=== PATIENT | male | born 1950 | race African-American/Black ===

== ENCOUNTER 2016-12-18 12:44 | Emergency (ER) | payer OTHER, MEDICARE ==
[~2016-12-18] VITALS: Ht 172.7 cm; Wt 57.0 kg
[2016-12-18] VITALS (9 sets, daily range): BP systolic 109–157; BP diastolic 60–84; PULSE 88–100; RESP 16–20; TEMP 97.9; O2SAT 99–100
[~2016-12-18 12:44] MED LIST: AMIT50TA3; GABA600T PO; HYDR-3533 PO
--- NOTE | 2016-12-18 13:29 | PD ---
Physical Exam Date Seen by Provider: Dec 18, 2016 Time Seen by Provider: 13:26 Narrative 66 YOBM HERE FOR SYNCOPE AND ORTHOSTATICS. NO CP. POS SOB. POS N/V. NO MELENA. NO HEMATEMESIS. 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 AWAITING BED PLACEMENT Data Data Last Documented VS Vital Signs Date Time Temp Pulse Resp B/P Pulse Ox O2 Delivery O2 Flow Rate FiO2 12/18/16 12:45 97.9 100 20 113/62 100 Room Air [facility] Medical Record Reviewed: Yes Supervised Visit with ANDRZEJ: Yes Channing Mosher Dec 18, 2016 13:29
[2016-12-18 14:12] LABS: BASOPHIL # 0.1 TH/MM3 (0-0.2); BASOPHIL % 0.5 % (0.0-2.0); EOSINOPHIL # 0.1 TH/MM3 (0-0.4); EOSINOPHIL % 0.9 % (0.0-4.0); HEMATOCRIT 29.1 % (39.0-51.0); HEMO FLAGS DIFF FINAL; LYMPH % 10.6 % (9.0-44.0); LYMPHOCYTE # 1.3 TH/MM3 (1.0-4.8); MEAN CELL VOLUME 93.6 FL (80.0-100.0); MEAN CORPUSCULAR HEMOGLOBIN 32.6 PG (27.0-34.0); MEAN CORPUSCULAR HGB CONC 34.9 % (32.0-36.0); MONO % 6.2 % (0.0-8.0); NEUT % 81.8 % (16.0-70.0); PLATELET COUNT 435 TH/MM3 (150-450); RED BLOOD COUNT 3.11 MIL/MM3 (4.50-5.90); RED CELL DISTRIBUTION WIDTH 12.9 % (11.6-17.2); WHITE BLOOD COUNT 12.2 TH/MM3 (4.0-11.0)
--- NOTE | 2016-12-18 14:15 | RADRPT ---
EXAM DATE/TIME: 12/18/2016 13:38 [facility] COMPARISON: CHEST PA & LAT, December 05, 2013, 10:57. INDICATIONS : Short of breath. MEDICAL HISTORY : Shingles. SURGICAL HISTORY : None. ENCOUNTER: Initial ACUITY: 1 week PAIN SCORE: 0/10 LOCATION: Bilateral chest FINDINGS: Parenchymal granulomas in the left chest and left hilar peter calcifications. No evidence of infiltra te or effusion. Heart size and mediastinal contours are satisfactory. CONCLUSION: Stable chest appearance Duncan Oliver MD on December 18, 2016 at 14:08 Board Certified Radiologist. This report was verified electronically.
[2016-12-18 14:25] LABS: APTT (PATIENT) 25.9 SEC (24.3-30.1); PROTHROMBIN TIME - PATIENT 10.6 SEC (9.8-11.6)
[2016-12-18 14:33] LABS: ALT (GPT) 99 U/L (12-78); ANION GAP 8 MEQ/L (5-15); AST (GOT) 59 U/L (15-37); BICARBONATE 28.4 MEQ/L (21.0-32.0); BLOOD UREA NITROGEN 15 MG/DL (7-18); CHLORIDE 99 MEQ/L (98-107); GLOMERULAR FILTRATION RATE 72 ML/MIN (>89); POTASSIUM 4.3 MEQ/L (3.5-5.1); SODIUM (NA) 135 MEQ/L (136-145)
[2016-12-18 14:37] LABS: ALKALINE PHOSPHATASE 109 U/L (45-117); TOTAL BILIRUBIN ADULT 0.5 MG/DL (0.2-1.0)
--- NOTE | 2016-12-18 14:41 | PD ---
HPI Chief Complaint: Syncope/Near-Syncope Time Seen by Provider: 14:41 Travel History International Travel<30 days: No Contact w/Intl Traveler<30days: No Traveled to known affect area: No History of Present Illness HPI 66-year-old male came to the emergency room with history of repeated syncopal episode over past 1 week. Patient said he passed out about 10 times in past 1 week. He went to the [facility] and they sent him to the emergency room. No history of chest pain or headache. Patient says he had something similar about a year or 2 ago. He was recently diagnosed with shingles on the right side of his chest and he is on gabapentin for that. He appears to be moderate distress. He was seen by the provider in triage and workup was initiated. By the time he came in the emergency room there was blood test results and they were within acceptable limits. Vital signs are stable. Patient has history of HIV. He was slightly tachycardic in triage. Patient says his CD4 count and viral load is doing really good. He is compliant with his medications. [facility] Past Medical History Narrative Medical List of his past medical, surgical, social and family history was reviewed from the nursing note. Blood Disorders: No Cancer: No Diminished Hearing: No Endocrine: No Gastrointestinal Disorders: No Genitourinary: No Hepatitis: Yes (HEPATITIS C) Immune Disorder: Yes (HIV+ HEP C) Musculoskeletal: Yes Neurologic: Yes (RECENT PERIODS OF DIZZINESS) Psychiatric: No (DENIES) Reproductive: No Respiratory: Yes Shingles: Yes Past Surgical History AICD: No Arteriovenous Shunt: No Insulin Pump: No Joint Replacement: No Pacemaker: No Other Surgery: No Social History Alcohol Use: Yes (PACK OF BEER A WEEK) Tobacco Use: Yes (3/4 PACK A DAY) Substance Use: Yes (SMOKES COCAINE, USED PRIOR TO ADMIT) Allergies-Medications (Allergen,Severity, Reaction): Coded Allergies: No Known Allergies (Verified , 12/18/16) Comments List of his allergies reviewed from the nursing note. Reported Meds & Prescriptions Reported Meds & Active Scripts Active Reported Amitriptyline (Amitriptyline HCl) 50 Mg Tab 40 Mg .ROUTE DAILY Gabapentin 600 Mg Tab 600 Mg PO TID Narrative Medication List of his home medications reviewed from the nursing note. Review of Systems Except as stated in HPI: all other systems reviewed are Neg Physical Exam Narrative GENERAL: Awake, alert, anxious, moderate distress, emaciated SKIN: Focused skin assessment warm/dry. HEAD: Atraumatic. Normocephalic. EYES: Pupils equal and round. No scleral icterus. No injection or drainage. ENT: No nasal bleeding or discharge. Dry Mucous members NECK: Trachea midline. No JVD. CARDIOVASCULAR: Regular rate and rhythm. No murmur appreciated. RESPIRATORY: No accessory muscle use. Clear to auscultation. Breath sounds equal bilaterally. GASTROINTESTINAL: Abdomen soft, non-tender, nondistended. Hepatic and splenic margins not palpable. MUSCULOSKELETAL: No obvious deformities. No clubbing. No cyanosis. No edema. NEUROLOGICAL: Awake and alert. No obvious cranial nerve deficits. Motor grossly within normal limits. Normal speech. PSYCHIATRIC: Appropriate mood and affect; insight and judgment normal. Data Data Last Documented VS Vital Signs Date Time Temp Pulse Resp B/P Pulse Ox O2 Delivery O2 Flow Rate FiO2 12/18/16 18:49 82 16 126/67 95 12/18/16 15:30 Room Air 12/18/16 12:45 97.9 Orders Electrocardiogram (12/18/16 13:29) Complete Blood Count With Diff (12/18/16 13:29) Comprehensive Metabolic Panel (12/18/16 13:29) Troponin I (12/18/16 13:29) Prothrombin Time / Inr (Pt) (12/18/16 13:29) Act Partial Throm Time (Ptt) (12/18/16 13:29) Chest, Single Ap (12/18/16 13:29) Iv Access Insert/Monitor (12/18/16 13:29) Ecg Monitoring (12/18/16 13:29) Oximetry (12/18/16 13:29) Type And Screen (12/18/16 13:29) Ct Brain W/O Iv Contrast(Rout) (12/18/16 ) Orthostatic Vital Signs (12/18/16 14:48) Sodium Chlor 0.9% 1000 Ml Inj (Ns 1000 M (12/18/16 15:00) Sodium Chlor 0.9% 1000 Ml Inj (Ns 1000 M (12/18/16 15:30) Lactic Acid (12/18/16 15:29) Urinalysis - C+S If Indicated (12/18/16 15:30) Labs Laboratory Tests Test 12/18/16 12/18/16 12/18/16 13:52 15:30 16:15 White Blood Count 12.2 TH/MM3 Red Blood Count 3.11 MIL/MM3 Hemoglobin 10.1 GM/DL Hematocrit 29.1 % Mean Corpuscular Volume 93.6 FL Mean Corpuscular Hemoglobin 32.6 PG Mean Corpuscular Hemoglobin 34.9 % Concent Red Cell Distribution Width 12.9 % Platelet Count 435 TH/MM3 Mean Platelet Volume 7.4 FL Neutrophils (%) (Auto) 81.8 % Lymphocytes (%) (Auto) 10.6 % Monocytes (%) (Auto) 6.2 % Eosinophils (%) (Auto) 0.9 % Basophils (%) (Auto) 0.5 % Neutrophils # (Auto) 10.0 TH/MM3 Lymphocytes # (Auto) 1.3 TH/MM3 Monocytes # (Auto) 0.8 TH/MM3 Eosinophils # (Auto) 0.1 TH/MM3 Basophils # (Auto) 0.1 TH/MM3 CBC Comment DIFF FINAL Differential Comment Prothrombin Time 10.6 SEC Prothromb Time International 1.0 RATIO Ratio Activated Partial 25.9 SEC Thromboplast Time Sodium Level 135 MEQ/L Potassium Level 4.3 MEQ/L Chloride Level 99 MEQ/L Carbon Dioxide Level 28.4 MEQ/L Anion Gap 8 MEQ/L Blood Urea Nitrogen 15 MG/DL Creatinine 1.22 MG/DL Estimat Glomerular Filtration 72 ML/MIN Rate Random Glucose 98 MG/DL Calcium Level 9.2 MG/DL Total Bilirubin 0.5 MG/DL Aspartate Amino Transf 59 U/L (AST/SGOT) Alanine Aminotransferase 99 U/L (ALT/SGPT) Alkaline Phosphatase 109 U/L Troponin I LESS THAN 0.02 NG/ML Total Protein 8.1 GM/DL Albumin 3.2 GM/DL Blood Type B NEGATIVE Antibody Screen NEGATIVE Blood Bank Comment Urine Color YELLOW Urine Turbidity HAZY Urine pH 7.0 Urine Specific [place] 1.018 Urine Protein TRACE mg/dL Urine Glucose (UA) NEG mg/dL Urine Ketones NEG mg/dL Urine Occult Blood NEG Urine Nitrite NEG Urine Bilirubin NEG Urine Urobilinogen 2.0 MG/DL Urine Leukocyte Esterase NEG Urine RBC LESS THAN 1 /hpf Urine WBC 1 /hpf Urine Squamous Epithelial <1 /hpf Cells Urine Bacteria RARE /hpf Microscopic Urinalysis Comment CULT NOT INDICATED Lactic Acid Level 0.7 mmol/L MDM Medical Decision Making Medical Screen Exam Complete: Yes Emergency Medical Condition: Yes Medical Record Reviewed: Yes Interpretation(s) Twelve-lead EKG was reviewed by me. Normal sinus rhythm, normal axis, nonspecific ST-T wave changes. Heart rate of 82 bpm. Differential Diagnosis Dehydration, orthostatic hypotension, infection, arrhythmia Narrative Course 3:27 PM orthostatic vital sign was positive. When patient stood up his blood pressure dropped by 22 mmHg. awaiting for the CAT scan to be done and resulted. I've ordered 2 L of IV fluid bolus. Patient is afebrile but the white count is slightly elevated with left shift. I will order a lactic acid level as well. 5:30 PM patient received 2 L of IV fluid bolus and the repeat orthostatic vital signs were completely back to normal. Since all the other tests are within normal limits including his CAT scan I will discharge him home. Procedures EKG Prior to Arrival: Yes Diagnosis Primary Impression: Syncope Qualified Code: R55 - Syncope, unspecified syncope type Additional Impressions: Orthostatic hypotension Dehydration Referrals: Primary Care Physician 2 days Additional Instructions: Please return to the ER if the condition worsens or any other new concerns. Drink lots of fluids since he were very dehydrated. Return to the ER if the condition worsens or any other new concerns. Disposition: 01 DISCHARGE HOME Condition: Stable Kirby Soto MD Dec 18, 2016 14:41
[2016-12-18] MEDS ORDERED: SODIUM CHLOR 0.9% 1000 ML INJ 1,000 ML IV ONE ×2 (15:00→15:30)
--- NOTE | 2016-12-18 16:10 | RADRPT ---
EXAM DATE/TIME: 12/18/2016 15:56 [facility] COMPARISON: CT CERVICAL SPINE W/O CONTRAST, March 26, 2013, 3:11. INDICATIONS : Syncopal episode. RADIATION DOSE: 42.45 CTDIvol (mGy) MEDICAL HISTORY : Hepatitis C. Drug abuse. SURGICAL HISTORY : None. ENCOUNTER: Initial ACUITY: 1 day PAIN SCALE: 0/10 LOCATION: cranial TECHNIQUE: Multiple contiguous axial images were obtained of the head. Using automated exposure control and adj ustment of the mA and/or kV according to patient size, radiation dose was kept as low as reasonably a chievable to obtain optimal diagnostic quality images. FINDINGS: CEREBRUM: The ventricles are normal for age. No evidence of midline shift, mass lesion, hemorrhage or acute in farction. No extra-axial fluid collections are seen. POSTERIOR FOSSA: The cerebellum and brainstem are intact. The 4th ventricle is midline. The cerebellopontine angle i s unremarkable. EXTRACRANIAL: The visualized portion of the orbits is intact. SKULL: The calvaria is intact. No evidence of skull fracture. CONCLUSION: 1. No acute intracranial abnormality is identified. Ras Gregorio MD on December 18, 2016 at 16:07 Board Certified Radiologist. This report was verified electronically.
[2016-12-18 17:51] LABS: BACTERIA, URINE RARE /hpf; BLOOD, URINE NEG (NEG); COMMENT (UR) CULT NOT INDICATED; CULTURE IF INDICATED CULT NOT INDICATED; GLUCOSE,URINE NEG (NEG); KETONE, URINE NEG (NEG); NITRITE,URINE NEG (NEG); SQUAMOUS EPITHELIAL CELL URINE <1 /hpf (0-5); URINE COLOR YELLOW (YELLW/STRAW)
--- NOTE | 2016-12-19 10:37 | EKG ---
Date Performed: 12/18/2016 Time Performed: 13:34:47 PTAGE: 66 years EKG: Sinus rhythm NORMAL ECG Compared to prior tracing no significant change PREVIOUS TRACING : 03/26/2013 14.17 DOCTOR: Sheri Bonner Interpretating Date/Time 12/19/2016 10:32:49
== END 2016-12-18 18:51 | disposition home or self-care (01) ==
LOC: NEPC 12:44
DX: R55 Syncope and collapse (principal); I95.1 Orthostatic hypotension; E86.0 Dehydration; R06.02 Shortness of breath; D72.829 Elevated white blood cell count, unspecified; Z21 Asymptomatic human immunodeficiency virus [HIV] infection status; R00.0 Tachycardia, unspecified; B19.20 Unspecified viral hepatitis C without hepatic coma
CPT/HCPCS: 70450; 71010; 80053; 81001; 83605; 84484; 85025; 85610; 85730; 86850; 86900; 86901; 93005; 96360; 96361; 99284; J7030

== ENCOUNTER 2016-12-20 15:30 | Inpatient (IN) | payer MEDICARE, OTHER ==
[~2016-12-20] VITALS: Ht 172.7 cm; Wt 53.9 kg
[~2016-12-20 15:30] MED LIST changes: -HYDR-3533 PO
[2016-12-20 15:33] VITALS: BP 94/60; PULSE 93; RESP 26; TEMP 97.4; O2SAT 99
--- NOTE | 2016-12-20 15:53 | PD ---
HPI Chief Complaint: Syncope/Near-Syncope Time Seen by Provider: 15:53 Travel History International Travel<30 days: No Contact w/Intl Traveler<30days: No Traveled to known affect area: No History of Present Illness HPI 66-year-old male with history of COPD, tobacco dependency, HIV, hepatitis C presents to emergency department for evaluation of a syncopal episode. Patient was seen and evaluated 2 days ago following a syncopal episode. He has had 10 other episodes in the last week. Patient states today he got up to leave and "the next thing I knew I was on the floor." Patient fall was witnessed by his and he did not strike his head. [facility] ambulance was called the patient's brought to the emergency department. Patient denies any chest pain or tightness. No difficulty. No headache. No focal deficits. No other symptoms to report. Patient states that he typically drinks 4-6 beers daily but has not since his recent hospital evaluation 2 days ago. Patient states that his viral load is undetectable. He reports taking all medication as prescribed. PFSH Past Medical History Autoimmune Disease: Yes (HIV ) Blood Disorders: No Cancer: No Diminished Hearing: No Endocrine: No Gastrointestinal Disorders: No Genitourinary: No Hepatitis: Yes (HEPATITIS C) Immune Disorder: Yes (HIV+ HEP C) Musculoskeletal: Yes Neurologic: Yes (RECENT PERIODS OF DIZZINESS) Psychiatric: No (DENIES) Reproductive: No Respiratory: Yes Shingles: Yes Past Surgical History AICD: No Arteriovenous Shunt: No Insulin Pump: No Joint Replacement: No Pacemaker: No Other Surgery: No Social History Alcohol Use: Yes (PACK OF BEER A WEEK) Tobacco Use: Yes (3/4 PACK A DAY) Substance Use: Yes (SMOKES COCAINE,LAST USE 5 YEARS AGO ) Allergies-Medications (Allergen,Severity, Reaction): Coded Allergies: No Known Allergies (Verified , 12/18/16) Reported Meds & Prescriptions Reported Meds & Active Scripts Active Reported Amitriptyline (Amitriptyline HCl) 50 Mg Tab 40 Mg .ROUTE DAILY Gabapentin 600 Mg Tab 600 Mg PO TID Review of Systems Except as stated in HPI: all other systems reviewed are Neg Physical Exam Narrative GENERAL: Well-nourished male patient, in no acute distress SKIN: Focused skin assessment warm/dry. HEAD: Atraumatic. Normocephalic. EYES: Pupils equal and round. No scleral icterus. No injection or drainage. ENT: No nasal bleeding or discharge. Mucous membranes pink and moist. NECK: Trachea midline. No JVD. CARDIOVASCULAR: Regular rate and rhythm. No murmur appreciated. RESPIRATORY: No accessory muscle use. Clear to auscultation. Breath sounds equal bilaterally. GASTROINTESTINAL: Abdomen soft, non-tender, nondistended. Hepatic and splenic margins not palpable. MUSCULOSKELETAL: No obvious deformities. No clubbing. No cyanosis. No edema. NEUROLOGICAL: Awake and alert. No obvious cranial nerve deficits. Motor grossly within normal limits. Normal speech. PSYCHIATRIC: Appropriate mood and affect; insight and judgment normal. Data Data Last Documented VS Vital Signs Date Time Temp Pulse Resp B/P Pulse Ox O2 Delivery O2 Flow Rate FiO2 12/20/16 16:58 96 84/50 12/20/16 15:58 18 98 Room Air 12/20/16 15:33 97.4 Orders Electrocardiogram (12/20/16 15:48) Basic Metabolic Panel (Bmp) (12/20/16 15:48) Complete Blood Count With Diff (12/20/16 15:48) Magnesium (Mg) (12/20/16 15:48) Ckmb (Isoenzyme) Profile (12/20/16 15:48) Troponin I (12/20/16 15:48) Act Partial Throm Time (Ptt) (12/20/16 15:48) Prothrombin Time / Inr (Pt) (12/20/16 15:48) Urinalysis - C+S If Indicated (12/20/16 15:48) Ecg Monitoring (12/20/16 15:48) Iv Access Insert/Monitor (12/20/16 15:48) Oximetry (12/20/16 15:48) Sodium Chloride 0.9% Flush (Ns Flush) (12/20/16 16:00) Sodium Chlor 0.9% 1000 Ml Inj (Ns 1000 M (12/20/16 16:45) Orthostatic Blood Pressure (12/20/16 16:36) Admit Order (Ed Use Only) (12/20/16 18:52) Labs Laboratory Tests Test 12/20/16 12/20/16 15:50 17:50 White Blood Count 11.9 TH/MM3 Red Blood Count 2.94 MIL/MM3 Hemoglobin 9.2 GM/DL Hematocrit 27.4 % Mean Corpuscular Volume 93.3 FL Mean Corpuscular Hemoglobin 31.2 PG Mean Corpuscular Hemoglobin 33.4 % Concent Red Cell Distribution Width 13.2 % Platelet Count 480 TH/MM3 Mean Platelet Volume 7.1 FL Neutrophils (%) (Auto) 79.8 % Lymphocytes (%) (Auto) 12.5 % Monocytes (%) (Auto) 6.0 % Eosinophils (%) (Auto) 1.0 % Basophils (%) (Auto) 0.7 % Neutrophils # (Auto) 9.5 TH/MM3 Lymphocytes # (Auto) 1.5 TH/MM3 Monocytes # (Auto) 0.7 TH/MM3 Eosinophils # (Auto) 0.1 TH/MM3 Basophils # (Auto) 0.1 TH/MM3 CBC Comment DIFF FINAL Differential Comment Prothrombin Time 10.8 SEC Prothromb Time International 1.0 RATIO Ratio Activated Partial 25.6 SEC Thromboplast Time Sodium Level 138 MEQ/L Potassium Level 3.8 MEQ/L Chloride Level 105 MEQ/L Carbon Dioxide Level 26.6 MEQ/L Anion Gap 6 MEQ/L Blood Urea Nitrogen 11 MG/DL Creatinine 1.02 MG/DL Estimat Glomerular Filtration 88 ML/MIN Rate Random Glucose 102 MG/DL Calcium Level 8.8 MG/DL Magnesium Level 2.2 MG/DL Total Creatine Kinase 69 U/L Troponin I LESS THAN 0.02 NG/ML Urine Color YELLOW Urine Turbidity HAZY Urine pH 7.0 Urine Specific [place] 1.015 Urine Protein TRACE mg/dL Urine Glucose (UA) NEG mg/dL Urine Ketones NEG mg/dL Urine Occult Blood NEG Urine Nitrite NEG Urine Bilirubin NEG Urine Urobilinogen 2.0 MG/DL Urine Leukocyte Esterase NEG Urine RBC LESS THAN 1 /hpf Urine WBC 2 /hpf Urine Squamous Epithelial <1 /hpf Cells Urine Mucus FEW /lpf Microscopic Urinalysis Comment CULT NOT INDICATED MDM Medical Decision Making Medical Screen Exam Complete: Yes Emergency Medical Condition: Yes Medical Record Reviewed: Yes Differential Diagnosis Syncope versus near-syncope versus orthostatic hypotension versus electrode abnormality versus dehydration versus cardiac etiology versus intracranial etiology Narrative Course 66-year-old male presents to the emergency department for evaluation following a syncopal episode. Patient appears without distress. No focal deficits or weakness. From a lying position to standing, patient's systolic drops 16mmHg. I discussed the patient my attending physician Dr. Stauffer. This is in the patient's second visit this week for syncopal episode. He'll be admitted observation for further evaluation of this I spoke with Dr. Andrea. Patient will be admitted to [facility] service. Diagnosis Primary Impression: Syncope due to orthostatic hypotension Admitting Information Admitting Physician Requests: Observation Condition: Stable LaciInes ANN Dec 20, 2016 15:53
[2016-12-20 15:58] VITALS: BP 124/65; PULSE 81; RESP 18; O2SAT 98
[2016-12-20] MEDS ORDERED: SODIUM CHLORIDE 0.9% FLUSH 10 ML FLUSH IVF PRN (16:00)
[2016-12-20 16:05] LABS: AUTOMATED NEUTROPHIL # 9.5 TH/MM3 (1.8-7.7); BASOPHIL # 0.1 TH/MM3 (0-0.2); BASOPHIL % 0.7 % (0.0-2.0); EOSINOPHIL # 0.1 TH/MM3 (0-0.4); HEMATOCRIT 27.4 % (39.0-51.0); HEMO FLAGS DIFF FINAL; LYMPH % 12.5 % (9.0-44.0); LYMPHOCYTE # 1.5 TH/MM3 (1.0-4.8); MEAN CELL VOLUME 93.3 FL (80.0-100.0); MEAN CORPUSCULAR HEMOGLOBIN 31.2 PG (27.0-34.0); MEAN CORPUSCULAR HGB CONC 33.4 % (32.0-36.0); NEUT % 79.8 % (16.0-70.0); PLATELET COUNT 480 TH/MM3 (150-450); RED BLOOD COUNT 2.94 MIL/MM3 (4.50-5.90); RED CELL DISTRIBUTION WIDTH 13.2 % (11.6-17.2); WHITE BLOOD COUNT 11.9 TH/MM3 (4.0-11.0)
[2016-12-20 16:18] LABS: APTT (PATIENT) 25.6 SEC (24.3-30.1); PROTHROMBIN TIME - PATIENT 10.8 SEC (9.8-11.6)
[2016-12-20 16:31] LABS: ANION GAP 6 MEQ/L (5-15); BICARBONATE 26.6 MEQ/L (21.0-32.0); BLOOD UREA NITROGEN 11 MG/DL (7-18); CHLORIDE 105 MEQ/L (98-107); GLOMERULAR FILTRATION RATE 88 ML/MIN (>89); MAGNESIUM 2.2 MG/DL (1.5-2.5); POTASSIUM 3.8 MEQ/L (3.5-5.1); SODIUM (NA) 138 MEQ/L (136-145)
[2016-12-20 16:37] LABS: CREATINE KINASE 69 U/L (39-308)
[2016-12-20] MEDS ORDERED: SODIUM CHLOR 0.9% 1000 ML INJ 1,000 ML IV ONE (16:45)
[2016-12-20 16:57] VITALS: BP_SYST 100; BP_SYST 95; BP_DIAS 57; BP_DIAS 60
[2016-12-20 16:58] VITALS: BP 84/50
[2016-12-20 18:21] LABS: BLOOD, URINE NEG (NEG); COMMENT (UR) CULT NOT INDICATED; CULTURE IF INDICATED CULT NOT INDICATED; GLUCOSE,URINE NEG (NEG); KETONE, URINE NEG (NEG); MUCUS URINE FEW /lpf (OCC); NITRITE,URINE NEG (NEG); SQUAMOUS EPITHELIAL CELL URINE <1 /hpf (0-5); URINE COLOR YELLOW (YELLW/STRAW)
[2016-12-20] MEDS ORDERED: AMIT10TA6 PO (19:15)
[2016-12-20] MEDS ORDERED: ELVI1TAB3 PO (19:15)
[2016-12-20 19:20] VITALS: BP 116/72; PULSE 89; RESP 22; O2SAT 99
--- NOTE | 2016-12-20 19:54 | HHI.HP ---
HPI Service [facility] Primary Care Physician [facility] Admission Diagnosis syncope; orthostatic hypotension Diagnoses: (1) Syncope (2) Anemia (3) HIV (human immunodeficiency virus infection) Chief Complaint: Recurrent Syncope Travel History International Travel<30 Days: No Contact w/Intl Traveler <30 Da: No Traveled to Known Affected Are: No History of Present Illness Mr. Kohli is a 66 y/o male with a history of HIV who presented to the ER for the second time in 2 days to be evaluated for recurrent syncopal episodes. The patient is seen in the emergency room. He reports that over the past week he has passed out 7 times and has passed out about 10 times over the past 2 weeks. His first syncopal episode occurred about a year ago and he was seen at the [place] for this and is uncertain about the extent of workup that they did though thinks he may have looked at his heart ? Echocardiogram?. He came to ER on Sunday12/18/16; testing including chest x-ray, CT of head were negative ; he was discharged. Today, he was walking out of his front door and he passed out for a few minutes ; no chest pain, shortness of breath, dizziness, palpitations prior to syncopal episode. Lost bladder control during syncopal episode. Denies biting tongue. He also reports having black stool about 5 days ago and chronic intermittent abdominal pain radiating from central abdomen to his back. He denies history of stomach ulcers or stomach problems. He denies ever having an endoscopy. Of note, his hemoglobin was 10.1 on 12/18/2016 and is 9.2 today in the ER. Denies history of diabetes, hypertension, copd, or CVA . Review of Systems Except as stated in HPI: all other systems reviewed are Neg Past Family Social History Past Medical History HIV + on HAART Shingles 5 years ago with chronic right lower chest wall pain since . Past Surgical History Denies previous surgeries . Reported Medications Reported Meds & Active Scripts Active Reported Genvoya (Qvmigktkilye-Gkmwcsftgx-Rpflbjoashlp-Tenofvir) [phone] Mg Tab 1 Tab PO DAILY Amitriptyline (Amitriptyline HCl) 10 Mg Tab 40 Mg PO DAILY Gabapentin 600 Mg Tab 600 Mg PO TID . Allergies: Coded Allergies: No Known Allergies (Verified , 12/18/16) Active Ordered Medications Current Medications Sodium Chloride 2 ml 2 ml UNSCH PRN IVF FLUSH AFTER USING IV ACCESS; Start 12/20 at 16:00 Sodium Chloride 1,000 ml @ 999 mls/hr BOLUS ONCE IV Last administered on t 16:56; Start 12/20/16 at 16:45; Stop 12/20/16 at 17:45; Status DC Sodium Chloride (NS 1000 ml Inj) 1,000 ml @ 100 mls/hr Q10H IV ; Start 12/20/16 at 19:45; Status UNV Amitriptyline HCl (Elavil) 40 mg DAILY PO ; Start 12/21/16 at 09:00; Status UNV Gabapentin (Neurontin) 600 mg TID PO ; Start 12/21/16 at 09:00; Status UNV Non-Formulary Medication 1 tab DAILY PO ; Start 12/21/16 at 09:00; Status UNV . Family History denies any significant family medical history . Social History Tobacco: 1 - 3 cigarettes per day Alcohol: no alcohol intake since Sunday; was drinking 6/day previously Illicit Drugs: denies Physical Exam Vital Signs Vital Signs Date Time Temp Pulse Resp B/P Pulse Ox O2 Delivery O2 Flow Rate FiO2 12/20/16 19:21 87 22 99 Room Air 12/20/16 19:20 89 22 116/72 99 Room Air 12/20/16 16:58 96 84/50 12/20/16 16:57 80 100/57 12/20/16 16:57 82 95/60 12/20/16 15:58 81 18 124/65 98 Room Air 12/20/16 15:54 82 99 12/20/16 15:33 97.4 93 26 94/60 99 Room Air Physical Exam GENERAL: This is a thin male patient, in no apparent distress. SKIN: No rashes, ecchymoses or lesions. Cool and dry. HEAD: Atraumatic. Normocephalic. EYES: No scleral icterus. No injection or drainage. ENT: Nose without bleeding, purulent drainage. NECK: Trachea midline. No JVD or lymphadenopathy. CARDIOVASCULAR: Regular rate and rhythm without murmurs, gallops, or rubs. RESPIRATORY: Clear to auscultation. Breath sounds equal bilaterally. No wheezes , rales, or rhonchi. GASTROINTESTINAL: Abdomen soft, non-tender, nondistended. No guarding. MUSCULOSKELETAL: Extremities without clubbing, cyanosis, or edema. No calf tenderness. NEUROLOGICAL: Awake and alert. Motor and sensory grossly within normal limits. Normal speech. . Laboratory Laboratory Tests Test 12/20/16 12/20/16 15:50 17:50 White Blood Count 11.9 Red Blood Count 2.94 Hemoglobin 9.2 Hematocrit 27.4 Mean Corpuscular Volume 93.3 Mean Corpuscular Hemoglobin 31.2 Mean Corpuscular Hemoglobin 33.4 Concent Red Cell Distribution Width 13.2 Platelet Count 480 Mean Platelet Volume 7.1 Neutrophils (%) (Auto) 79.8 Lymphocytes (%) (Auto) 12.5 Monocytes (%) (Auto) 6.0 Eosinophils (%) (Auto) 1.0 Basophils (%) (Auto) 0.7 Neutrophils # (Auto) 9.5 Lymphocytes # (Auto) 1.5 Monocytes # (Auto) 0.7 Eosinophils # (Auto) 0.1 Basophils # (Auto) 0.1 CBC Comment DIFF FINAL Differential Comment Prothrombin Time 10.8 Prothromb Time International 1.0 Ratio Activated Partial 25.6 Thromboplast Time Sodium Level 138 Potassium Level 3.8 Chloride Level 105 Carbon Dioxide Level 26.6 Anion Gap 6 Blood Urea Nitrogen 11 Creatinine 1.02 Estimat Glomerular Filtration 88 Rate Random Glucose 102 Calcium Level 8.8 Magnesium Level 2.2 Total Creatine Kinase 69 Troponin I LESS THAN 0.02 Urine Color YELLOW Urine Turbidity HAZY Urine pH 7.0 Urine Specific [place] 1.015 Urine Protein TRACE Urine Glucose (UA) NEG Urine Ketones NEG Urine Occult Blood NEG Urine Nitrite NEG Urine Bilirubin NEG Urine Urobilinogen 2.0 Urine Leukocyte Esterase NEG Urine RBC LESS THAN 1 Urine WBC 2 Urine Squamous Epithelial <1 Cells Urine Mucus FEW Microscopic Urinalysis Comment CULT NOT INDICATED Result Diagram: 12/20/16 1550 12/20/16 1550 Assessment and Plan Problem List: (1) Syncope ICD Code: R55 Status: Acute (2) Anemia ICD Code: D64.9 Status: Acute (3) HIV (human immunodeficiency virus infection) ICD Code: Z21 Status: Chronic Assessment and Plan Mr. Kohli is a 66 y/o male with a history of HIV who presented to the ER for the second time in 2 days to be evaluated for recurrent syncopal episodes. Recurrent syncopal episodes - IV fluid hydration with normal saline at 100 cc/h - Continuous cardiac telemetry to monitor for arrhythmia - 2-D echocardiogram to evaluate structure and function of heart - Portable EEG - Consult neurology and cardiology - Check orthostatic blood pressure readings Anemia with history of black stools - hemoglobin was 10.1 on 12/18/2016 and is 9.2 today - Check iron studies and ferritin level - Check stool for occult blood - Recheck CBC in a.m. and follow trends in H&H - Transfuse if indicated HIV - Restart home medications DVT prophylaxis - SCDs Written by Sheila Nelson, acting as scribe for Dr. Medrano on 12/20/16 at 19:52. patient was seen and examined today. 66 y/o male presented with recurrent syncope. was seen two days ago for the same reason. reports urine incontinence while he passed out today. will do EEG and consult neurology. check echo and monitor on telemetry. check iron panel and stool for blood. . Discussed Condition With ER physician and patient . Problem Qualifiers (1) Syncope: Qualified Code: R55 - Syncope, unspecified syncope type (2) Anemia: Qualified Code: D64.9 - Anemia, unspecified type Sheila Nelson Dec 20, 2016 19:54 Leti Medrano MD Dec 20, 2016 20:01
[2016-12-20] MEDS: SODIUM CHLOR 0.9% 1000 ML INJ 1,000 ML IV SCH (20:17)
[2016-12-20 21:12] LABS: FERRITIN 13 NG/ML (26-388); TRANSFERRIN IRON PROFILE 237 MG/DL (200-360)
[2016-12-20 22:53] VITALS: BP 118/68; PULSE 89; RESP 18; O2SAT 99
[2016-12-21] VITALS (8 sets, daily range): BP systolic 88–128; BP diastolic 52–72; PULSE 75–90; RESP 16–20; TEMP 96.3–98.3; O2SAT 96–100
[2016-12-21] MEDS: SODIUM CHLOR 0.9% 1000 ML INJ 1,000 ML IV SCH ×2 (03:55→17:30)
[2016-12-21 05:20] LABS: AUTOMATED NEUTROPHIL # 8.6 TH/MM3 (1.8-7.7); BASOPHIL # 0.1 TH/MM3 (0-0.2); BASOPHIL % 0.6 % (0.0-2.0); EOSINOPHIL # 0.1 TH/MM3 (0-0.4); EOSINOPHIL % 0.8 % (0.0-4.0); HEMATOCRIT 25.7 % (39.0-51.0); HEMO FLAGS DIFF FINAL; LYMPH % 12.1 % (9.0-44.0); LYMPHOCYTE # 1.3 TH/MM3 (1.0-4.8); MEAN CELL VOLUME 92.9 FL (80.0-100.0); MEAN CORPUSCULAR HEMOGLOBIN 31.5 PG (27.0-34.0); MEAN CORPUSCULAR HGB CONC 33.9 % (32.0-36.0); MONO % 6.5 % (0.0-8.0); PLATELET COUNT 398 TH/MM3 (150-450); RED BLOOD COUNT 2.77 MIL/MM3 (4.50-5.90); RED CELL DISTRIBUTION WIDTH 13.1 % (11.6-17.2); WHITE BLOOD COUNT 10.8 TH/MM3 (4.0-11.0)
[2016-12-21] MEDS ORDERED: GENVOYA PO SCH (09:00)
--- NOTE | 2016-12-21 09:17 | HHI.PR ---
Subjective Remarks Patient states that he has no dizziness. No recurrent passing out spells in the hospital. Has not had any bowel movement since coming in. He does complain of left-sided flank pain that has been ongoing for the past 4 days even prior to the syncope episode. [facility] Objective Vitals Vital Signs Date Time Temp Pulse Resp B/P Pulse Ox O2 Delivery O2 Flow Rate FiO2 12/21/16 04:47 98.3 82 18 110/66 100 12/21/16 04:33 75 12/20/16 22:53 89 18 118/68 99 12/20/16 19:21 87 22 99 Room Air 12/20/16 19:20 89 22 116/72 99 Room Air 12/20/16 16:58 96 84/50 12/20/16 16:57 80 100/57 12/20/16 16:57 82 95/60 12/20/16 15:58 81 18 124/65 98 Room Air 12/20/16 15:54 82 99 12/20/16 15:33 97.4 93 26 94/60 99 Room Air Result Diagram: 12/21/16 0409 12/20/16 1550 Other Results Item Value Date Time Hemoglobin 8.7 GM/DL L 12/21/16408 Hematocrit 25.7 % L 12/21/16408 Objective Remarks GENERAL: This is a well-nourished, thin, well-developed patient, in no apparent distress. CARDIOVASCULAR: Regular rate and rhythm RESPIRATORY: Clear to auscultation. Breath sounds equal bilaterally. No wheezes , rales, or rhonchi. GASTROINTESTINAL: Abdomen soft, mild left flank tenderness, no CVA tenderness, no guarding or rebound, nondistended. Normal active bowel sounds MUSCULOSKELETAL: Extremities without clubbing, cyanosis, or edema. NEURO: Alert & Oriented x4 to person, place, time, situation. Moves all ext x4 A/P Problem List: (1) Syncope ICD Code: R55 Status: Acute (2) Anemia ICD Code: D64.9 Status: Acute (3) HIV (human immunodeficiency virus infection) ICD Code: Z21 Status: Chronic Assessment and Plan 66 y/o male with a history of HIV who presented to the ER for the second time in 2 days to be evaluated for recurrent syncopal episodes. Recurrent syncopal episodes - Continue IV fluid hydration with normal saline at 100 cc/h -Continuous cardiac telemetry to monitor for arrhythmia - 2-D echocardiogram to evaluate structure and function of heart - Portable EEG - Consult neurology and cardiology for further recommendations - Possible orthostatic hypotension on presentation emergency room, continue fluid hydration, rule out active GI bleed. Anemia with history of black stools - hemoglobin was 10.1 on 12/18/2016 and 9.2 on presentation the ED, repeat hemoglobin shows 8.7, repeat, serial hemoglobin to rule out active bleed. - Check iron studies and ferritin level - Check stool for occult blood Start PPI, if hemoglobin continues to trend down, GI consultation. Obtain CT abdomen pelvis for left flank pain HIV - Restart home medications DVT prophylaxis - SCDs, and a coagulation contraindicated at this time until GI bleeding is ruled out. Discharge Planning Discharge home when clinically stable. Problem Qualifiers (1) Syncope: Qualified Code: R55 - Syncope, unspecified syncope type (2) Anemia: Qualified Code: D64.9 - Anemia, unspecified type Allyn Sequeira MD Dec 21, 2016 09:17 (1) Syncope: Qualified Code: R55 - Syncope, unspecified syncope type (2) Anemia: Qualified Code: D64.9 - Anemia, unspecified type Allyn Sequeira MD Dec 21, 2016 09:17
[2016-12-21] MEDS: GABAPENTIN 300 MG CAP PO SCH ×3 (09:36→17:29)
[2016-12-21] MEDS: AMITRIPTYLINE HCL 10 MG TAB PO SCH (09:36)
[2016-12-21] MEDS ORDERED: PANTOPRAZOLE SOD 40 MG DELAYED RELEASE TAB PO ONE (09:45)
[2016-12-21] MEDS: GENVOYA PO SCH (10:24)
[2016-12-21] MEDS ORDERED: DIATRIZOATE MEGLUM/DIATRIZOATE SOD 9 ML CUP PO ONE (11:30)
--- NOTE | 2016-12-21 13:07 | EKG ---
Date Performed: 12/20/2016 Time Performed: 16:11:21 PTAGE: 66 years EKG: Sinus rhythm NORMAL ECG PREVIOUS TRACING : 12/18/2016 13.34 Compared to prior tracing no significant change DOCTOR: Phan Cordova Interpretating Date/Time 12/21/2016 13:07:26
--- NOTE | 2016-12-21 13:07 | MB ---
cc: SRIRAM ASHFORD DO DATE OF CONSULTATION 12/21/2016 REASON FOR CONSULTATION Syncopal episode HISTORY OF PRESENT ILLNESS Silviano Kohli is a pleasant 66-year-old male who presents to [facility] due to multiple syncopal episodes. Per the patient, it appears that he has passed out around 10 times over the past two weeks. He originally to the emergency room on December 18, 2016 and at that time was found to have orthostatic hypotension. He was given two liters of fluid and discharged home. Since that time, he has passed out a few times and thought he should come back in. During these episodes, he has no chest pain, shortness of breath, dizziness or palpitations. He is usually up and walking at the time and has had no episodes while sitting down. He has had black tarry stools over the past five days and some abdominal pain. PAST MEDICAL HISTORY 1. HIV positive 2. Shingles 3. Hepatitis C 4. History of cocaine abuse. 5. Tobacco abuse PAST SURGICAL HISTORY Denies ALLERGIES NO KNOWN DRUG ALLERGIES. MEDICATIONS 1. Gabapentin 600 mg t.i.d. 2. Amitriptyline 40 mg daily 3. Genvoya one tablet daily FAMILY HISTORY Denies premature coronary artery disease or sudden cardiac within the family. SOCIAL HISTORY The patient drinks occasionally. He smokes somewhere between a quarter and three-fourths of a pack of cigarettes a day. He has a history of smoking cocaine. REVIEW OF SYSTEMS 14-systems were reviewed including osteopathic pertinent positives and negatives as above, otherwise negative. PHYSICAL EXAMINATION VITAL SIGNS: Temperature 96.8, heart rate 78, blood pressure 111/50, respirations 16, pulse ox 98% on room air. Previous orthostatics supine 100/57, heart rate 80, sitting 95/60, heart rate 82, standing 84/50, heart rate 96. GENERAL: The patient appears well in no acute distress, alert awake and oriented x3. HEAD, EYES, EARS, NOSE, AND THROAT: Extraocular muscles intact. Mucous membranes moist. NECK: Supple. No JVD at 45 degrees. No carotid bruits heard bilaterally. Carotid upstroke is brisk in nature. HEART: Regular rate and rhythm. Positive first and second heart sounds with no murmurs, gallops or rubs. PMI is nondisplaced. LUNGS: Clear to auscultation bilaterally. No wheezes, rales or rhonchi. ABDOMEN: Soft, nontender and nondistended. No organomegaly noted. EXTREMITIES: Show no clubbing, cyanosis or edema. Femoral and distal pulses intact bilaterally. NEUROLOGIC: No focal deficits. SKIN: Warm, dry and intact. OSTEOPATHIC: No kyphoscoliosis, lordosis or paraspinal tender points. LABORATORY DATA Hemoglobin 8.7, hematocrit 25.7, platelets 398. Potassium 3.8, BUN 11, creatinine 1.02, troponin is negative. Electrocardiogram (December 20, 2016 at 1611) normal sinus rhythm, no acute ST-T wave changes. No significant change from December 18, 2016. IMPRESSION 1. Multiple syncopal episodes with orthostatic hypotension possibly due to symptomatic anemia. 2. Probable symptomatic anemia. 3. Black tarry stools concerning for an upper GI bleed. 4. History of HIV 5. History of hepatitis C. 6. History of tobacco abuse. 7. History of smoking cocaine. RECOMMENDATIONS 1. Mr. Kohli appears to have multiple syncopal episodes which may be due to symptomatic anemia. I think that we should check a hemoccult for blood. Discussed this with the primary team. 2. We will obtain an echocardiogram to look at his overall left ventricular function, cardiac structure and possible valvulopathies. 3. I believe we should also look at a UDS as the patient does have a history of smoking cocaine. 4. I spoke to him for greater than three minutes about tobacco cessation which he is attempting to quit. 5. He will be watched on telemetry for possible arrhythmias. 6. Further recommendations will be made based on the hospital course. Thank you for allowing me to see Silviano Kolhi. If there are any questions, please do not hesitate to call. Sriram Ashford DO VGP/DJL 11:37 AM 12:45 PM
[2016-12-21] MEDS: ACETAMINOPHEN 325 MG TAB PO PRN (13:21)
[2016-12-21 16:11] LABS: AMPHETAMINE, URINE NEG (NEG); BARBITURATES, URINE NEG (NEG)
--- NOTE | 2016-12-21 16:19 | PD.CONS ---
HPI History of Present Illness This is a 66 year old [gentleman] came to the ER yesterday after an episode of syncope and a fall. He was in the ER for the same 3 days ago. He was found to be anemic and admits to 2 episodes of black tarry stools, 5 days ago. he was also having nausea and vomiting 5 days ago, no blood in emesis and no vomiting since. He is havign some mild lower abd pain. He does admit to drinking 4-5 beers daily until 5 days ago. He has been drinking this much for years. Currently denies diarrhea, weight loss, decreased appetite, nausea, or vomiting. He has never had EGD or colonoscopy. (Riya Hayden) PFSH Past Medical History HIV + on HAART HEP c Shingles 5 years ago with chronic right lower chest wall pain since . Past Surgical History Denies previous surgeries . (Riya Hayden) Coded Allergies: No Known Allergies (Verified , 12/18/16) Family History denies any significant family medical history . Social History smokes 1 ppd No ETOH since Sunday but prior drank 5-6 beers/day Illicit Drugs: denies (Riya Haydne) Review of Systems Constitutional: DENIES: Fatigue, Fever Eyes: DENIES: Blurred vision Ears, nose, mouth, throat: DENIES: Hearing loss Cardiovascular: COMPLAINS OF: Syncope, DENIES: Chest pain Gastrointestinal: COMPLAINS OF: Abdominal pain, Black stools, DENIES: Bloody stools, Constipation, Diarrhea, Nausea, Vomiting, Anorexia, Hematemesis Musculoskeletal: DENIES: Joint pain Integumentary: DENIES: Abnormal pigmentation Hematologic/lymphatic: DENIES: Bruising Neurologic: DENIES: Abnormal gait (Riya Hayden) GI Exam Vitals I&O Vital Signs Date Time Temp Pulse Resp B/P Pulse Ox O2 Delivery O2 Flow Rate FiO2 12/21/16 15:00 80 12/21/16 12:00 96.4 90 16 97/57 100 105/62 88/52 12/21/16 08:00 96.8 78 16 111/58 98 12/21/16 04:47 98.3 82 18 110/66 100 12/21/16 04:33 75 12/20/16 22:53 89 18 118/68 99 12/20/16 19:21 87 22 99 Room Air 12/20/16 19:20 89 22 116/72 99 Room Air 12/20/16 16:58 96 84/50 12/20/16 16:57 80 100/57 12/20/16 16:57 82 95/60 12/20/16 15:58 81 18 124/65 98 Room Air 12/20/16 15:54 82 99 I/O 12/20/16 12/20/16 12/20/16 12/21/16 12/21/16 12/21/16 07:00 15:00 23:00 07:00 15:00 23:00 Intake Total 600 ml Output Total 800 ml Balance -200 ml Intake Oral 600 ml Output Urine Total 800 ml # Bowel Movements 0 Laboratory Test 12/20/16 12/21/16 12/21/16 17:50 04:09 15:14 Urine Color YELLOW Urine Turbidity HAZY Urine pH 7.0 Urine Specific [place] 1.015 Urine Protein TRACE mg/dL Urine Glucose (UA) NEG mg/dL Urine Ketones NEG mg/dL Urine Occult Blood NEG Urine Nitrite NEG Urine Bilirubin NEG Urine Urobilinogen 2.0 MG/DL Urine Leukocyte Esterase NEG Urine RBC LESS THAN 1 /hpf Urine WBC 2 /hpf Urine Squamous Epithelial <1 /hpf Cells Urine Mucus FEW /lpf Microscopic Urinalysis Comment CULT NOT INDICATED White Blood Count 10.8 TH/MM3 Red Blood Count 2.77 MIL/MM3 Hemoglobin 8.7 GM/DL 8.8 GM/DL Hematocrit 25.7 % Mean Corpuscular Volume 92.9 FL Mean Corpuscular Hemoglobin 31.5 PG Mean Corpuscular Hemoglobin 33.9 % Concent Red Cell Distribution Width 13.1 % Platelet Count 398 TH/MM3 Mean Platelet Volume 7.7 FL Neutrophils (%) (Auto) 80.0 % Lymphocytes (%) (Auto) 12.1 % Monocytes (%) (Auto) 6.5 % Eosinophils (%) (Auto) 0.8 % Basophils (%) (Auto) 0.6 % Neutrophils # (Auto) 8.6 TH/MM3 Lymphocytes # (Auto) 1.3 TH/MM3 Monocytes # (Auto) 0.7 TH/MM3 Eosinophils # (Auto) 0.1 TH/MM3 Basophils # (Auto) 0.1 TH/MM3 CBC Comment DIFF FINAL Differential Comment Physical Examination HEENT: EOMI; normocephalic; atraumatic; no jaundice. NECK: Neck is supple CHEST: Chest is clear to auscultation and percussion. CARDIAC: Regular rate and rhythm with no murmur gallop or rubs. ABDOMEN: Soft, nondistended, mild TTP lower abd; no hepatosplenomegaly; bowel sounds are present in all four quadrants. EXTREMITIES: No clubbing, cyanosis, or edema. SKIN: Normal; no rash; no jaundice. MEETING/EVENT PLANNER: No focal deficits; alert and oriented times three. (Riya Hayden) Assessment and Plan Plan ASSESSMENT: - black tarry stools, poss GI bleed. Pt reports 2 episodes of tarry stools 5 days ago. Pt does have hx heavy drinking. Will do EGD and if can do colonoscopy and capsule endoscopy as outpt - anemia. HH stable. Hgb 8.8 this afternoon. This morning HH was 8.7 and 25.7 PLAN: - EGD tomorrow - NPO after midnigh - obtain consents - continue to monitor HH This pt was seen by myself and Dr Humphreys and this note was written on his behalf (Riya Hayden) Physician Comments Seen and examined with [employer] INSPECTOR, no active bleeding at present. Advised both egd/ colonoscopy , but did not want to do bowel prep tonite. Egd tomorrow. Monitor labs. Thank you (Victor Hugo Humphreys MD) Riya Hayden Dec 21, 2016 16:19 Victor Hugo Humphreys MD Dec 21, 2016 19:59
[2016-12-21 16:23] LABS: COCAINE, URINE POS (NEG)
[2016-12-21] MEDS ORDERED: IOHEXOL 350 MG/ML 10 ML VIAL (for RAD DIAG) IV ONE (16:35)
--- NOTE | 2016-12-21 16:53 | EC ---
Study Study Date:12/21/2016 STUDY CONCLUSIONS SUMMARY LEFT VENTRICLE: The cavity size was normal. Wall thickness was normal. Systolic function was normal. The estimated ejection fraction was in the range of 55% to 60%. Wall motion was normal; there were no regional wall motion abnormalities. If LV function is below 40, please consider prescribing an ACEI or ARB or document rationale for non-use. PROCEDURE DATA STUDY STATUS: Elective. Procedure: Transthoracic echocardiography. Image quality was good. Scanning was performed from the parasternal, apical, and subcostal acoustic windows. Study completion: The patient tolerated the procedure well. Transthoracic echocardiography. M-mode, complete 2D, complete spectral Doppler, and color Doppler. Height: Height: 68in. Weight: Weight: 124.7lb. Body mass index: BMI: 19kg/m^2. Body surface area: BSA: 1.67m^2. Patient status: Inpatient. CARDIAC ANATOMY LEFT VENTRICLE: The cavity size was normal. Wall thickness was normal. Systolic function was normal. The estimated ejection fraction was in the range of 55% to 60%. Wall motion was normal; there were no regional wall motion abnormalities. AORTIC VALVE: Trileaflet; normal thickness leaflets. Doppler: Transvalvular velocity was within the normal range. There was no stenosis. No regurgitation. AORTA: Aortic root: The aortic root was normal in size. MITRAL VALVE: Structurally normal valve. Doppler: Transvalvular velocity was within the normal range. There was no evidence for stenosis. No regurgitation. Valve area by pressure half-time: 3.14cm^2. Indexed valve area by pressure half-time: 1.88cm^2/m^2. Peak gradient: 2mm Hg (D). LEFT ATRIUM: The atrium was normal in size. RIGHT VENTRICLE: The cavity size was normal. Wall thickness was normal. PULMONIC VALVE: Doppler: Transvalvular velocity was within the normal range. There was no evidence for stenosis. No regurgitation. TRICUSPID VALVE: Structurally normal valve. Doppler: Transvalvular velocity was within the normal range. Trace regurgitation. PULMONARY ARTERY: The main pulmonary artery was normal-sized. Systolic pressure was within the normal range. RIGHT ATRIUM: The atrium was normal in size. PERICARDIUM: There was no pericardial effusion. SYSTEMIC VEINS: Inferior vena cava: The vessel was normal in size. Patient weight: 124.7lb _Ejection fraction:_ 65-75% _Fractional shortening:_ 32% up to 5Kg 5-11.5Kg 11.6-22.9Kg 23-45Kg 45-57Kg Aortic Root 7-13 <17 13-22 17-27 17-27 LA diam 6-13 <23 24-38 33-47 37-40 RVID 10-17 7-15 7-15 7-18 8-17 LVIDd 12-22 <32 24-38 33-47 37-40 LVPW 2-4 3-6 5-7 6-8 7-8 IVS 2-4 3-6 5-7 6-8 7-8 BASIC MEASUREMENTS ADULT NORMAL Left ventricle LV internal dimension, ED, chordal *31.7 mm 43-52 level, PLAX LV internal dimension, ES, chordal *20.8 mm 23-38 level, PLAX Fractional shortening, chordal level, 34 % >29 PLAX LV posterior wall thickness, ED 11 mm IVS/LVPW ratio, ED 1.01 <1.3 Ventricular septum Septal thickness, ED 11.1 mm Aortic valve Leaflet separation 20 mm 15-26 Left atrium Anterior-posterior dimension 25 mm Anterior-posterior dimension index 1.5 cm/m^2 <2.2 Right ventricle RV internal dimension, ED, PLAX 25 mm 19-38 BASIC MEASUREMENTS ADULT NORMAL Aortic valve Leaflet separation 20 mm 15-26 Aorta Root diameter, ED 32 mm 20-37 DOPPLER MEASUREMENTS ADULT NORMAL Main pulmonary artery Pressure, S 21 mm Hg =30 Aortic valve Peak velocity, S 105 cm/s Mitral valve Peak E-wave velocity 74.8 cm/s Peak A-wave velocity 56.3 cm/s Pressure half-time 70 ms Peak gradient, D 2 mm Hg Peak E/A ratio 1.3 Valve area, pressure half-time 3.14 cm^2 Valve area index, pressure half-time 1.88 cm^2/m^2 Tricuspid valve Regurgitant peak velocity 182 cm/s Peak RV-RA gradient, S 13 mm Hg Maximal regurgitant velocity 182 cm/s Systemic veins Estimated CVP 10 mm Hg Right ventricle RV pressure, S 23 mm Hg <30 Pulmonic valve Peak velocity, S 73.6 cm/s LEGEND: Mean values are shown as u=mean value. Asterisk (*) ruiz values outside specified normal range. Prepared and signed by Etienne Grijalva [id number]
--- NOTE | 2016-12-21 17:15 | RADRPT ---
EXAM DATE/TIME: 12/21/2016 16:33 [facility] COMPARISON: CT BRAIN W/O CONTRAST, December 18, 2016, 15:56. INDICATIONS : Left flank pain. IV CONTRAST: 100 cc Omnipaque 350 (iohexol) IV ORAL CONTRAST: Prescribed oral contrast ingested. RADIATION DOSE: 4.73 CTDIvol (mGy) MEDICAL HISTORY : HIV. Hepatitis C. SURGICAL HISTORY : None. ENCOUNTER: Initial ACUITY: 1 day PAIN SCALE: 5/10 LOCATION: Bilateral lower quadrant TECHNIQUE: Volumetric scanning of the abdomen and pelvis was performed. Using automated exposure control and ad justment of the mA and/or kV according to patient size, radiation dose was kept as low as reasonably achievable to obtain optimal diagnostic quality images. FINDINGS: The visualized portion of the lung base demonstrates mild COPD changes. There is a 2.3 cm calcified g ranuloma in the left darell. There is a 8mm calcified granuloma in the lower lobe on the left. The appearance of the liver, spleen and adrenal glands is within normal limits. The kidneys are eugenio l in appearance. The examination demonstrates abnormal thickening of the gastric fundus. There is some blurring of the tissue planes between the pancreas and the stomach. Endoscopy to exclude a gastric malignancy is war ranted. I believe the pancreas is intact. There is stool diffusely throughout the colon consistent with constipation. There are no definite fin dings to indicate a bowel obstruction. There is no free fluid within the pelvis. No iliac or inguinal adenopathy is seen. The prostate is mi ldly enlarged. CONCLUSION: 1. Abnormal appearance of the gastric fundus. The upper stomach is fairly diffusely thickened. The ti ssue planes between the stomach and pancreas are partially obscured. This is concerning for possible gastric malignancy. Endoscopy is warranted for further assessment. 2. Diffuse stool filled, distended colon consistent with constipation. 3. No free air or free fluid identified. 4. Calcified granuloma in the left lung as above. Ras Gregorio MD on December 21, 2016 at 17:02 Board Certified Radiologist. This report was verified electronically.
--- NOTE | 2016-12-21 20:29 | MG ---
cc: RANJAN GOINS M.D. Lab No: [id number] Date: 12/21/2016 Age: 66 Sex: M Race: REFERRING PHYSICIAN: . ROOM: [facility]. Awake, drowsy, asleep. Hyperventilation with good effort and photic stimulation was performed. EEG 03/26/13 showing some intermittent asymmetry and left frontal sharps. No imaging performed. This is a 66-year-old man admitted with multiple syncope two days ago, ten episodes in the last week, history of HIV, COPD, tobacco abuse, hepatitis C, alcohol use, cocaine use on Elavil and Gabapentin. The patient has a good alpha rhythm of 9 hertz, 20 to 40 microvolts symmetrical background. EKG is sinus. Photic stimulation there is a driving response. No change in the background with hyperventilation. No epileptic activity. IMPRESSION: Normal EEG. Clinical correlation. MD JAIME Rodriguez/CLAY /4:13 PM /8:24 PM
--- NOTE | 2016-12-21 20:49 | RADRPT ---
EXAM DATE/TIME: 12/21/2016 17:26 [facility] COMPARISON: No previous studies available for comparison. INDICATIONS : Syncope. MEDICAL HISTORY : Syncope. Hepatitis C. HIV. Shingles. SURGICAL HISTORY : None. ENCOUNTER: Initial ACUITY: 1 day PAIN SCORE: 0/10 LOCATION: Bilateral neck PEAK SYSTOLIC VELOCITIES (cm/sec): ICA/CCA RATIO: Right: 1.0 Left: 1.2 ICA: Right: 95 Left: 92 CCA: Right: 90 Left: 79 ECA: Right: 90 Left: 66 VERTEBRAL: Right: 45 antegrade Left: 52 antegrade Elevated flow velocities and ICA/CCA ratios have been found to correlate with increased degrees of vessel stenosis, calculated as percentage of diameter relative to a normal segment of distal ICA/CCA FINDINGS: Antegrade flow is seen in both vertebral arteries. There is mild to moderate atherosclerotic plaquing at the origin of both ICAs without any significant stenosis. CONCLUSION: No evidence for hemodynamically significant stenosis. Jose Meyers MD on December 21, 2016 at 20:47 Board Certified Radiologist. This report was verified electronically.
[2016-12-21] MEDS ORDERED: GADODIAMIDE PF 287 MG/ML 5 ML VIAL (for RAD MRI) IV ONE (21:24)
--- NOTE | 2016-12-21 22:01 | RADRPT ---
EXAM DATE/TIME: 12/21/2016 20:37 [facility] COMPARISON: CT BRAIN W/O CONTRAST, December 18, 2016, 15:56. INDICATIONS : Syncope. CONTRAST: 11 cc Omniscan (gadodiamide) IV MEDICAL HISTORY : Hepatitis C. HIV. SURGICAL HISTORY : None. ENCOUNTER: Subsequent ACUITY: 1 day PAIN SCORE: 3/10 LOCATION: cranial TECHNIQUE: Multiplanar, multisequence MRI of the brain was performed both prior to and following the administrat ion of paramagnetic contrast. FINDINGS: There is no evidence for intracranial hemorrhage, mass effect, mass lesions, edema, or extra-axial fl uid collections. There are no signs of acute infarction for technique. The diffusion portion, and po stcontrast portion are unremarkable. Slight degree of brain atrophy is seen. Slight periventricular w muriel matter changes are seen nonspecific mostly consistent with chronic small vessel ischemic changes . CONCLUSION: Chronic atrophic and small vessel ischemic changes without any evidence for acute hemorrhage or mass effect. Jose Meyers MD on December 21, 2016 at 21:57 Board Certified Radiologist. This report was verified electronically.
[2016-12-22] VITALS (9 sets, daily range): BP systolic 120–143; BP diastolic 66–85; PULSE 70–93; RESP 16–22; TEMP 95.3–98.1; O2SAT 97–100
[2016-12-22] MEDS: SODIUM CHLOR 0.9% 1000 ML INJ 1,000 ML IV SCH ×3 (02:25→22:28)
--- NOTE | 2016-12-22 06:37 | MB ---
cc: LAI LOPEZ M.D. DATE OF CONSULTATION 12/21/2016 REASON FOR CONSULTATION Syncope. HISTORY OF PRESENT ILLNESS Mr. Kohli is a 66-year-old -[place] man. He has had several episodes of loss of consciousness. He has had about 10 episodes over the past two weeks, presented to the ER initially on December 18 and was found to have orthostatic hypotension at that time. He was given 2 liters of fluid and went home but he has had other episodes. During these spell she has no warning. He loses consciousness for only a few seconds. They always occur when he is up and, as soon as he falls down he regains consciousness. There is no tonic-clonic activity, no postictal state. No cardiac symptoms such as chest pain or palpitations. Apparently the patient has had black, tarry stools, was found to be anemic as well. PAST MEDICAL HISTORY 1. History of being HIV positive. 2. History of shingles. 3. Hepatitis C. 4. History of cocaine abuse in the past. 5. Tobacco abuse. ALLERGIES None known. MEDICATIONS AT HOME 1. Gabapentin 600 mg t.i.d. 2. Amitriptyline 40 mg daily. 3. Genvoya one tablet daily. NEUROLOGIC EXAMINATION VITAL SIGNS: Blood pressure 111/50, previous orthostatic pressures show a supine pressure of 100/57, pulse 80, sitting pressure 95/60, pulse 82, standing pressure 84/50, pulse 96. Higher cortical functions are normal. Cranial nerves intact. Motor exam is normal. He has got mild decreased sensation on the hands and feet in a stocking-glove fashion. Reflexes are 2+ and symmetric with no Babinski sign present. IMAGING STUDIES He did have a head CT on December 18 which was normal. LABORATORY DATA The white count is 10,800, hemoglobin 8.7, hematocrit 25.7%, platelets 398,000. Sodium is 138, potassium is 3.8, chloride 105, CO2 26.6, the BUN is 11, creatinine 1.02, GFR is 88, glucose 102, magnesium 2.2. Tox screen pending. Urinalysis - pH 7, specific gravity 1.015, 2 WBCs are present. PT 10.8, INR 1, APTT 24.6. IMPRESSION Syncope related to orthostatic hypotension, possibly contributed to by anemia and dehydration. He may have a neuropathy as well, possibly from HIV and possibly an autonomic component as well. RECOMMENDATIONS I agree with the approach of evaluating for possible GI source of bleeding, correct his anemia. If he continues having episodes, could consider trial of Florinef or mitodrine. We will also obtain an MRI of the brain as well. MD CAYETANO Dangelo/ARIANNA /4:01 PM /6:18 AM
--- NOTE | 2016-12-22 08:58 | HHI.PR ---
Subjective Remarks Patient states still with right sided abdominal pain radiating towards her right flank. No bowel movement. No nausea or vomiting. Tolerating diet. Understands that he will be going for procedure today. Objective Vitals Vital Signs Date Time Temp Pulse Resp B/P Pulse Ox O2 Delivery O2 Flow Rate FiO2 12/22/16 04:36 98.1 77 20 120/74 98 12/22/16 03:56 71 12/21/16 23:55 97.5 82 20 119/66 96 12/21/16 19:32 97.9 85 20 128/72 97 12/21/16 16:00 96.3 82 18 107/63 98 12/21/16 15:00 80 12/21/16 12:00 96.4 90 16 97/57 100 105/62 88/52 I/O 12/21/16 12/21/16 12/21/16 12/22/16 12/22/16 12/22/16 07:00 15:00 23:00 07:00 15:00 23:00 Intake Total 600 ml 240 ml Output Total 800 ml 375 ml Balance -200 ml -135 ml Intake Oral 600 ml 240 ml Output Urine Total 800 ml 375 ml # Bowel Movements 0 Result Diagram: 12/21/16 1514 12/20/16 1550 Other Results Microbiology Date/Time Procedure Status Source Growth 12/22/16 06:50 Stool Occult Blood (DORIS) Received Stool Stool Pending Imaging Last 48 hours Impressions Carotid Artery Ultrasound 12/21/16 0000 Signed Impressions: Service Date/Time: December 17:26 - CONCLUSION: No evidence for hemodynamically significant stenosis. Jsoe Meyers MD Brain MRI 12/21/16 0000 Signed Impressions: Service Date/Time: December 20:37 - CONCLUSION: Chronic atrophic and small vessel ischemic changes without any evidence for acute hemorrhage or mass effect. Jose Meyers MD Abdomen/Pelvis CT 12/21/16 0000 Signed Impressions: Service Date/Time: December 16:33 - CONCLUSION: 1. Abnormal appearance of the gastric fundus. The upper stomach is fairly diffusely thickened. The tissue planes between the stomach and pancreas are partially obscured. This is concerning for possible gastric malignancy. Endoscopy is warranted for further assessment. 2. Diffuse stool filled, distended colon consistent with constipation. 3. No free air or free fluid identified. 4. Calcified granuloma in the left lung as above. Ras Gregorio MD Objective Remarks GENERAL: This is a well-nourished, thin, well-developed patient, in no apparent distress. CARDIOVASCULAR: Regular rate and rhythm RESPIRATORY: Clear to auscultation. Breath sounds equal bilaterally. No wheezes , rales, or rhonchi. GASTROINTESTINAL: Abdomen soft, no CVA tenderness, no guarding or rebound, nondistended. Normal active bowel sounds MUSCULOSKELETAL: Extremities without clubbing, cyanosis, or edema. NEURO: Alert & Oriented x4 to person, place, time, situation. Moves all ext x4 Procedures 47 upper endoscopy A/P Problem List: (1) Syncope ICD Code: R55 Status: Acute (2) Anemia ICD Code: D64.9 Status: Acute (3) HIV (human immunodeficiency virus infection) ICD Code: Z21 Status: Chronic Assessment and Plan 66 y/o male with a history of HIV who presented to the ER for the second time in 2 days to be evaluated for recurrent syncopal episodes. Recurrent syncopal episodes may be due to orthostatic hypotension due to acute anemia from GI bleed - Continue IV fluid hydration with normal saline at 100 cc/h -Continuous cardiac telemetry to monitor, which currently does not show any type of arrhythmia. - 2-D echocardiogram shows EF of 55-60% - Portable EEG shows no active seizure activity - Appreciate neurology and cardiology seen patients and their recommendations. - orthostatic hypotension on presentation emergency room, continue fluid hydration, this is likely due to his acute anemia due to GI bleed Acute Anemia with history of black stools with fundus mass on CT abdomen pelvis - hemoglobin was 10.1 on 12/18/2016 and 9.2 on presentation the ED, repeat hemoglobin shows 8.8, monitor hemoglobin closely - Check iron studies and ferritin level - Check stool for occult blood which is pending Start PPI, CT abdomen pelvis showed fundus mass suspicious for possible malignancy, for upper endoscopy with GI service today for further evaluation. HIV - Restart home medications DVT prophylaxis - SCDs, and anticoagulation contraindicated at this time until GI bleeding is ruled out. Discharge Planning Discharge home when clinically stable. Physician Certification 2 Midnight Certification Type: Admission for Inpatient Services Order for Inpatient Services The services are ordered in accordance with Medicare regulations or non- Medicare payer requirements, as applicable. In the case of services not specified as inpatient-only, they are appropriately provided as inpatient services in accordance with the 2-midnight benchmark. Estimated LOS (days): 2 days is the estimated time the patient will need to remain in the hospital, assuming treatment plan goals are met and no additional complications. Post-Hospital Plan: Home Problem Qualifiers (1) Syncope: Qualified Code: R55 - Syncope, unspecified syncope type Allyn Sequeira MD Dec 22, 2016 08:58
[2016-12-22] MEDS: GENVOYA PO SCH (09:39)
[2016-12-22] MEDS: PANTOPRAZOLE SOD 40 MG DELAYED RELEASE TAB PO SCH (09:40)
[2016-12-22] MEDS: GABAPENTIN 300 MG CAP PO SCH ×3 (09:40→19:54)
[2016-12-22] MEDS: AMITRIPTYLINE HCL 10 MG TAB PO SCH (09:40)
--- NOTE | 2016-12-22 10:38 | PD.CARD.PN ---
Subjective Subjective Remarks Doing well, no events over night, mild right sided abdominal pain No chest pain, no shortness of breath, no dizziness Objective Medications Current Medications Medications (Trade) Dose Ordered Sig/Sierra Route Start Time Stop Time Status Last Admin Sodium Chloride 2 ml 2 ml UNSCH PRN IVF 12/20/16 16:00 (NS 1000 ml Inj) 1,000 ml @ 100 mls/hr Q10H IV 12/20/16 19:45 12/22/16 02:25 (Elavil) 40 mg DAILY PO 12/21/16 09:00 12/22/16 09:40 (Neurontin) 600 mg TID PO 12/21/16 09:00 12/22/16 09:40 Patient Own Medication PT OWN MED: GENVO... DAILY PO 12/21/16 09:00 12/22/16 09:39 (Protonix) 40 mg DAILY PO 12/22/16 09:00 12/22/16 09:40 (Tylenol) 650 mg Q4H PRN PO 12/21/16 09:30 12/21/16 13:21 Vital Signs / I&O Vital Signs Date Time Temp Pulse Resp B/P Pulse Ox O2 Delivery O2 Flow Rate FiO2 12/22/16 08:00 96.2 73 20 128/70 99 12/22/16 04:36 98.1 77 20 120/74 98 12/22/16 03:56 71 12/21/16 23:55 97.5 82 20 119/66 96 12/21/16 19:32 97.9 85 20 128/72 97 12/21/16 16:00 96.3 82 18 107/63 98 12/21/16 15:00 80 12/21/16 12:00 96.4 90 16 97/57 100 105/62 88/52 I/O 12/21/16 12/21/16 12/21/16 12/22/16 12/22/16 12/22/16 07:00 15:00 23:00 07:00 15:00 23:00 Intake Total 600 ml 240 ml Output Total 800 ml 375 ml 725 ml Balance -200 ml -135 ml -725 ml Intake Oral 600 ml 240 ml Output Urine Total 800 ml 375 ml 725 ml # Bowel Movements 0 Physical Exam GENERAL: NAD, AAOx3 SKIN: Warm and dry. HEAD: Atraumatic. Normocephalic. EYES: Pupils equal and round. No scleral icterus. No injection or drainage. ENT: No nasal bleeding or discharge. Mucous membranes pink and moist. NECK: Trachea midline. No JVD. CARDIOVASCULAR: Regular rate and rhythm. RESPIRATORY: No accessory muscle use. Clear to auscultation. Breath sounds equal bilaterally. GASTROINTESTINAL: Abdomen soft, non-tender, nondistended. Hepatic and splenic margins not palpable. MUSCULOSKELETAL: Extremities without clubbing, cyanosis, or edema. No obvious deformities. NEUROLOGICAL: Awake and alert. No obvious cranial nerve deficits. Motor grossly within normal limits. Five out of 5 muscle strength in the arms and legs. Normal speech. PSYCHIATRIC: Appropriate mood and affect; insight and judgment normal. Laboratory Laboratory Tests Test 12/21/16 12/21/16 15:05 15:14 Urine Opiates Screen NEG Urine Barbiturates Screen NEG Urine Amphetamines Screen NEG Urine Benzodiazepines Screen NEG Urine Cocaine Screen POS Urine Cannabinoids Screen NEG Hemoglobin 8.8 GM/DL Assessment and Plan Problem List: (1) Syncope (2) Anemia (3) Orthostatic hypotension (4) Dehydration (5) HIV (human immunodeficiency virus infection) (6) Cocaine abuse Assessment and Plan 1) Syncope, appears to be orthostatic hypotension 2) Orthostatic hypotension/symptomatic anemia... black stools with fundus mass for EGD today 3) EF 55-60% 4) Carotid negative for significant lesion 5) No further cardiac work up needed at this time 6) Will see PRN, call with questions Problem Qualifiers (1) Syncope: Qualified Code: R55 - Syncope, unspecified syncope type Sriram Frias DO Dec 22, 2016 10:38
[2016-12-22] MEDS ORDERED: PROPOFOL 200 MG/20 ML AMP IV ONE (11:05)
--- NOTE | 2016-12-22 11:41 | GIPROC ---
[facility] [address] [facility]. [facility], [address] EGD PROCEDURE REPORT EXAM DATE: 12/22/2016 PATIENT NAME: Silviano Kohli MR #: [id number] BIRTHDATE: 1950 ATTENDING: Victor Hugo Humphreys MD ORDER #: [id number] SHEETING PULLER: Nathanael Zimmer and Imtiaz Chavez STATUS: inpatient INDICATIONS: The patient is a 66 yr old male here for an EGD due to epigastric abdominal pain and abnormal CT of the GI tract PROCEDURE PERFORMED: EGD w/ biopsy MEDICATIONS: None and Per Anesthesia. TOPICAL ANESTHETIC: CONSENT: The patient understands the risks and benefits of the procedure and understands that these risks include, but are not limited to: sedation, allergic reaction, infection, perforation and/or bleeding. Alternative means of evaluation and treatment include, among others: physical exam, x-rays, and/or surgical intervention. The patient elects to proceed with this endoscopic procedure. medical equipment was checked for proper function. Hand hygiene and appropriate measures for infection prevention was taken. After the risks, benefits and alternatives of the procedure were thoroughly explained, Informed consent was verified, confirmed and timeout was successfully executed by the treatment team. The patient was anesthetized with topical anesthesia and the Pentax [id number] endoscope was introduced through the mouth and advanced to the second portion of the duodenum. Retroflexed views revealed no abnormalities The gastroscope was then slowly withdrawn and removed. ESOPHAGUS: The mucosa of the esophagus appeared normal. STOMACH: A one-third circumferential ulcerated mass, measuring 3 X 4cm in size, was found on the posterior wall of the stomach and in the gastric body. Multiple biopsies were performed using cold forceps. Sample sent for histology. ADVERSE EVENTS: There were no complications. IMPRESSIONS: 1. The esophagus appeared normal 2. One-third circumferential mass, measuring 3 X 4cm in size, was found on the posterior wall of the stomach and in the gastric body; multiple biopsies were performed 3. Retroflexed views revealed no abnormalities RECOMMENDATIONS: 1. Await biopsy results. Biopsy results will not be ready for 7-10 days. If you don't hear from us in two weeks, call our office for biopsy results. 2. Continue PPI 3. Surgery 4. Oncology consult PATIENT CONDITION: stable DISPOSITION: Inpatient REPEAT EXAM: Return as needed for EGD pending biopsy results Victor Hugo Humphreys MD eSigned: Victor Hugo Humphreys MD 12/22/2016 11:41 AM cc: PATIENT NAME: Silviano Kohli MR#: [id number]
[2016-12-22] MEDS ORDERED: PHENYLEPH/NS 1000 MCG/10 ML SYR IV ONE (12:00)
[2016-12-22] MEDS: ACETAMINOPHEN 325 MG TAB PO PRN (12:53)
[2016-12-22] MEDS ORDERED: CYANOCOBALAMIN 1000 MCG/ML VIAL SQ ONE (22:00)
[2016-12-22] MEDS: IRON SUCROSE INJ 100 MG in SODIUM CHLORIDE 0.9% INJ 100 ML IV SCH (22:00)
[2016-12-23] VITALS (8 sets, daily range): BP systolic 112–156; BP diastolic 74–105; PULSE 68–90; RESP 16–22; TEMP 96–97.2; O2SAT 96–100
[2016-12-23] MEDS: SODIUM CHLOR 0.9% 1000 ML INJ 1,000 ML IV SCH ×3 (00:03→20:22)
[2016-12-23 07:52] LABS: RETIC % 3.1 % (0.4-3.0); REVIEW FLAG FINAL
--- NOTE | 2016-12-23 07:59 | MB ---
cc: MARANDA MARIE M.D. DATE OF CONSULTATION: 12/22/2016 DATE OF : [address] Leos[address] CHIEF COMPLAINT Dr. Humphreys requested consultation for Mr. Kohli with a gastric mass. HISTORY OF PRESENT ILLNESS Mr. Kohli is a 66-year-old man with history of HIV diagnosed at 8 years ago on heart therapy. He reports also hepatitis C that is not effective. He is treated at the [facility]. He presented to the emergency room with a syncopal episode. He reports that his [place] physician advised him to come to [place]. He was found to have anemia with hemoglobin of 10.1 on 12/18/2016 and a hemoglobin of 9.21 12/20/2016. He was evaluated by laborer wharf Dr. Frias who concluded that syncopal episode is from metastatic hypotension from symptomatic anemia. His EF was 55-60%. His carotids were negative for significant lesion. No further cardiac workup was recommended. In the meantime gastroenterology was consulted. Dr. Humphreys preformed esophagogastroduodenoscopy with biopsy. The finding in the stomach was one-third circumferential ulcerated mass measuring 3 x 4 cm's in the posterior wall of the stomach and gastric body. Multiple biopsies were sent. The final pathology was still pending at that time of the consultation. Mr. Kohli reports no pain in his abdomen. His most recent hemoglobin was 8.8. He did not require transfusion during the hospitalization. Iron studies confirmed a diagnosis of iron deficiency with a ferritin of 13. His liver function is mildly elevated AST 59, ALT 99. He was ruled out with troponin I x3 negative. REVIEW OF SYSTEMS He denies any weight loss. Denies any fevers, chills or night sweats. He was doing well from his HIV standpoint without any progression. He was an IV drug abuser in the 1980s and suspect that his HIV has been since then. He denies any active use of. He as always been slender, no vision changes. No headaches. The rest of his review of systems is negative up. PAST MEDICAL HISTORY 1. HIV on heart therapy. 2. Normocytic anemia 3. Reactive thrombocytosis 4. Gastric mass. PAST SURGICAL HISTORY None PAST SURGICAL HISTORY: History of IV drug abuse, none current. Drinks six drinks per day smokes one to three cigarettes per day. FAMILY HISTORY Father young of complications of a burn and pneumonia. Mother in her 70s complications of diabetes and acute myocardial infarction at the dialysis center. He lives with a lady friend but names his daughter as his healthcare surrogate. PHYSICAL EXAMINATION VITAL SIGNS: Temperature 98.1 heart rate 89, respiratory 20, blood pressure 143/85, saturation 99%. IN GENERAL: Mr. Kohli is a well-developed elderly man in no acute distress. HEAD, EYES, EARS, NOSE, AND THROAT: He is awake, alert, oriented. His pupils are small and reactive bilateral course of the list oropharynx is clear. NECK: Neck is supple. LUNGS: The lungs were clear to auscultation. CARDIOVASCULAR SYSTEM: The cardiovascular exam reveals normal rate, rhythm. Bilateral axilla with shotty small lymph node mobile and nontender. ABDOMEN: The abdomen is benign. Bowel sounds present. EXTREMITIES: Lower extremities with no edema. NEUROLOGICAL: Exam is nonfocal. LABORATORY DATA Labs consistent with a normocytic anemia with hemoglobin of 8.7 and MCV 92.9, platelet count 480. Iron studies consistent with iron deficiency liver function is mildly elevated Coags are normal. Absolute CD-4 count of 408 ASSESSMENT/PLAN Mr. Kohli is a 66 year-old male with a HIV disease with absolute CD-4 count 400. He seems to be stable on heart therapy. He presents with syncopal episode and associated black tarry stools. He has had an extensive cardiology workup and attributed the syncopal episode to his orthostatic hypotension due to the anemia. He has had worsening anemia while he is here. He has had no problems with swallowing. He has decrease in hemoglobin associated black for a stools. The findings of endoscopy explained this with large gastric mass. We had a lengthy discussion with Mr. Kohli of the CT scan findings in the abdomen. It showed an abnormal appearance of the gastric fundus. The upper stomach is diffusely thickened, the tissue plane between the stomach and pancreas are obscured. The abnormalities seen on CT scan was confirmed by the upper endoscopy of large gastric mass. A biopsy is a still pending. I discussed with Mr. Kohli the need to await the final pathology. Suspect that this is a primary gastric malignancy, although body cavity lymphoma cannot be excluded. We will await final pathology. We discussed completing staging evaluation obtaining a CT scan of the chest and bone scan. I discussed the case with the surgical oncology. He will be seen by Dr. Hernandez in the morning. Supportive treatment with iron will be ordered. We will attempt to transfer the patient to oncology floor. Mr. Kohli's questions were answered to his satisfaction. MD DENNIS Abraham/boy /8:42 PM /7:34 AM
[2016-12-23] MEDS: ACETAMINOPHEN 325 MG TAB PO PRN (08:36)
[2016-12-23] MEDS: AMITRIPTYLINE HCL 10 MG TAB PO SCH (08:36)
[2016-12-23] MEDS: GABAPENTIN 300 MG CAP PO SCH ×3 (08:36→17:49)
[2016-12-23] MEDS: PANTOPRAZOLE SOD 40 MG DELAYED RELEASE TAB PO SCH (08:36)
[2016-12-23] MEDS: GENVOYA PO SCH (08:37)
--- NOTE | 2016-12-23 10:36 | HHI.PR ---
Subjective Remarks Patient reports that he is not currently in pain. No fever, chills, cp, sob, abd pain. He does report having black tarry stools yesterday, no repeat bowel movement today. Objective Vitals Vital Signs Date Time Temp Pulse Resp B/P Pulse Ox O2 Delivery O2 Flow Rate FiO2 12/23/16 08:00 96.1 74 20 138/82 100 12/23/16 08:00 134/84 12/23/16 04:00 97.2 73 16 128/74 96 12/23/16 00:15 90 12/23/16 00:00 96.7 73 16 144/77 98 12/22/16 20:42 93 12/22/16 19:03 98.1 89 20 143/85 99 12/22/16 16:01 96.2 74 22 121/82 100 12/22/16 15:00 80 12/22/16 13:53 16 12/22/16 12:00 95.3 70 20 133/70 97 127/74 126/72 12/22/16 11:35 73 16 121/73 98 12/22/16 11:25 73 16 122/69 98 12/22/16 11:13 97.5 73 16 92/55 97 I/O 12/22/16 12/22/16 12/22/16 12/23/16 12/23/16 12/23/16 07:00 15:00 23:00 07:00 15:00 23:00 Intake Total 100 ml 1184 ml Output Total 725 ml 700 ml Balance -625 ml -700 ml 1184 ml IV Total 1184 ml Other 100 ml Output Urine Total 725 ml 700 ml # Bowel Movements 0 Result Diagram: 12/21/16 1514 12/20/16 1550 Objective Remarks GENERAL: This is a well-nourished, thin, well-developed patient, in no apparent distress. CARDIOVASCULAR: Regular rate and rhythm. 2+ pulses distally. RESPIRATORY: Clear to auscultation. Breath sounds equal bilaterally. No wheezes , rales, or rhonchi. GASTROINTESTINAL: Abdomen soft, no CVA tenderness, no guarding or rebound, nondistended. Normal active bowel sounds MUSCULOSKELETAL: Extremities without clubbing, cyanosis, or edema. NEURO: Alert & Oriented x4 to person, place, time, situation. Moves all ext x4 Procedures 47 upper endoscopy Urinary Catheter: No Vascular Central Line Catheter: No A/P Problem List: (1) Gastric mass ICD Code: K31.9 Status: Acute (2) Syncope ICD Code: R55 Status: Acute (3) Anemia ICD Code: D64.9 Status: Acute (4) HIV (human immunodeficiency virus infection) ICD Code: Z21 Status: Chronic (5) Cocaine abuse ICD Code: F14.10 Status: Acute Assessment and Plan 66 y/o male with a history of HIV who presented to the ER for the second time in 2 days to be evaluated for recurrent syncopal episodes. Acute Anemia with history of black stools with fundus mass on CT abdomen pelvis. Biopsy taken on EGD 12/22/16 from 3 x 4 cm mass over the posterior wall of the stomach and in the gastric body. Hemoccult positive. Hg stable. Low ferritin, Fe deficiency. Of note, CEA and CA 199 negative. -Appreciate GI, Gen Surg recs: awaiting pathology results -Protonix 40 mg po daily -Fe IV -Monitor CBC daily Recurrent syncopal episodes may be due to orthostatic hypotension due to acute anemia from GI bleed. Echo, EEG normal. No events on telemetry. Brain MRI with no evidence of acute hemorrhage or mass effect. - Continue IV fluid hydration with normal saline at 100 cc/h -DC telemetry - Appreciate neurology and cardiology recs -consider Midodrine or Florinef if continued orthostatic symptoms HIV - Continue Genvoya Neuropathy -Continue Gabapentin, Amitriptyline DVT prophylaxis - SCDs, and anticoagulation contraindicated at this time until GI bleeding is ruled out. Discharge Planning pending biopsy results and h/h stable, will determine whether patient will undergo chemo vs resection of gastric mass; possible 2-3 days but could be prolonged if requiring surgical management Problem Qualifiers (1) Syncope: Qualified Code: R55 - Syncope, unspecified syncope type (2) Anemia: Qualified Code: D50.0 - Iron deficiency anemia due to chronic blood loss Diana Garcia MD Dec 23, 2016 10:36
--- NOTE | 2016-12-23 10:39 | PD.ONC.PN ---
Subjective Subjective Remarks Afebrile overnight. Pt resting in bed talking with visitors. He has no complaints. He is asking when the biopsy results will be back. Objective Data Date Time Temp Pulse Resp B/P Pulse Ox O2 Delivery O2 Flow Rate FiO2 12/23/16 08:00 96.1 74 20 138/82 100 12/23/16 04:00 97.2 73 16 128/74 96 12/23/16 00:15 90 12/23/16 00:00 96.7 73 16 144/77 98 12/22/16 20:42 93 12/22/16 19:03 98.1 89 20 143/85 99 12/22/16 16:01 96.2 74 22 121/82 100 12/22/16 15:00 80 12/22/16 13:53 16 12/22/16 12:00 95.3 70 20 133/70 97 127/74 126/72 12/22/16 11:35 73 16 121/73 98 12/22/16 11:25 73 16 122/69 98 12/22/16 11:13 97.5 73 16 92/55 97 12/22/16 10:30 97.6 74 16 121/66 99 12/23/16 12/23/16 12/23/16 07:00 15:00 23:00 Intake Total 1184 ml Balance 1184 ml Result Diagram: 12/21/16 1514 12/20/16 1550 Laboratory Results Laboratory Tests Test 12/23/16 07:09 Reticulocyte Count 3.1 % Absolute Reticulocyte Count 90.6 MIL/L Lactate Dehydrogenase 91 U/L Carcinoembryonic Antigen 0.6 NG/ML Culture Results Microbiology Date/Time Procedure Status Source Growth 12/22/16 06:50 Stool Occult Blood (DORIS) - Final Complete Stool Stool HEMOCCULT POSITIVE Imaging Studies Last Impressions Carotid Artery Ultrasound 12/21/16 0000 Signed Impressions: Service Date/Time: December 17:26 - CONCLUSION: No evidence for hemodynamically significant stenosis. Jose Meyers MD Brain MRI 12/21/16 0000 Signed Impressions: Service Date/Time: December 20:37 - CONCLUSION: Chronic atrophic and small vessel ischemic changes without any evidence for acute hemorrhage or mass effect. Jose Meyers MD Abdomen/Pelvis CT 12/21/16 0000 Signed Impressions: Service Date/Time: December 16:33 - CONCLUSION: 1. Abnormal appearance of the gastric fundus. The upper stomach is fairly diffusely thickened. The tissue planes between the stomach and pancreas are partially obscured. This is concerning for possible gastric malignancy. Endoscopy is warranted for further assessment. 2. Diffuse stool filled, distended colon consistent with constipation. 3. No free air or free fluid identified. 4. Calcified granuloma in the left lung as above. Ras Gregorio MD Administered Medications Medications (Trade) Dose Ordered Sig/Sierra Route PRN Reason Start Time Stop Time Status Last Admin Dose Admin Sodium Chloride (NS 1000 ml Inj) 1,000 ml @ 100 mls/hr Q10H IV 12/20/16 19:45 12/23/16 00:03 Amitriptyline HCl (Elavil) 40 mg DAILY PO 12/21/16 09:00 12/23/16 08:36 Gabapentin (Neurontin) 600 mg TID PO 12/21/16 09:00 12/23/16 08:36 Patient Own Medication PT OWN MED: GENVO... DAILY PO 12/21/16 09:00 12/23/16 08:37 Pantoprazole Sodium (Protonix) 40 mg DAILY PO 12/22/16 09:00 12/23/16 08:36 Acetaminophen 650 mg 650 mg Q4H PRN PO PAIN 1-10 AND/OR FEVER >101F 12/21/16 09:30 12/23/16 08:36 Iron Sucrose/ Sodium Chloride (Venofer Inj/NS Inj) 105 ml @ 105 mls/hr Q24H IV 12/22/16 22:00 12/24/16 22:59 12/22/16 22:00 Objective Remarks GENERAL: Thinner older male, lying in bed in no distress. SKIN: Warm and dry. HEAD: Normocephalic. EYES: No injection or drainage. NECK: Supple, trachea midline. CARDIOVASCULAR: Regular rate and rhythm without murmurs. RESPIRATORY: Breath sounds equal bilaterally. No accessory muscle use. GASTROINTESTINAL: Abdomen soft, non-tender, nondistended. EXTREMITIES: No edema. NEUROLOGICAL: Awake and alert. Moving all extremities. Normal speech. Assessment/Plan Problem List: (1) Gastric mass Status: Acute Plan: -- CT Abdomen shows abnormal appearance of the gastric fundus, concerning for possible gastric malignancy -- Esophagogastroduodenoscopy found a 3x4 cm ulcerated mass. -- Biopsy taken, path pending. -- CEA normal. CA 19-9 pending. (2) Anemia Status: Acute Plan: -- Iron deficiency anemia with a ferritin of 13. -- Likely due to blood loss from ulcerated gastric mass -- Iron sucrose IV x 3 bags ordered. (3) HIV (human immunodeficiency virus infection) Status: Chronic Plan: -- Stable on HAART -- Last CD4 count was in the 400's. Assessment 66 y/o male with history of HIV admitted for syncope and was found to have a gastric mass Plan 1. Await pathology of gastric mass 2. Continue Iron sucrose for iron deficiency anemia 3. Dr Hernandez to see pt today 4. Monitor labs, supportive care. Attending Statement The exam, history, and the medical decision-making described in the above note were completed with the assistance of the mid-level provider. I reviewed and agree with the findings presented. I attest that I had a [id number] encounter with the patient on the same day, and personally performed and documented my assessment and findings in the medical record. Pt seen and examined. Tolerating iron well. Supportive care, pending biopsy results. Pt seen by surgery for resection in light of acute symptoms and syncope. Monitor hgb with cont dark stools. Problem Qualifiers (1) Anemia: Qualified Code: D50.0 - Iron deficiency anemia due to chronic blood loss Carmela Linder Dec 23, 2016 10:39 Kandice May MD Dec 23, 2016 13:32
--- NOTE | 2016-12-23 11:03 | MB ---
cc: LENA DUFFY DATE OF CONSULTATION: 12/23/[address] Kandice May of Medical Oncology. REASON FOR CONSULTATION Gastric mass concerning for malignancy. HISTORY OF PRESENT ILLNESS The patient is a 66-year-old -[place] male with a history of HIV currently on antiretroviral therapy who was found to have a large gastric mass on workup for upper GI bleed. The patient states that he was feeling weak and loss of appetite as well as dark stools over the last [id number] week period. He denies any weight loss or any other symptoms or complaints. He denies any previous history of malignancy and denies any abdominal pain at this time. The patient was seen and evaluated in the emergency department and underwent workup and was found have a hemoglobin of 10.1. The patient underwent upper endoscopy by Dr. Humphreys and was found to have a large ulcerated gastric mass concerning for gastric adenocarcinoma in the body the stomach. The CT scan does show a thickened gastric wall as well as some possible involvement in the body of the pancreas. Biopsies were taken and are pending at this time. Surgical oncology was consulted for evaluation. REVIEW OF SYSTEMS A 12-point review of systems conducted with the patient and is negative except for the pertinent positives mentioned above in the History of Present Illness. PAST MEDICAL HISTORY HIV. PAST SURGICAL HISTORY No previous abdominal surgery. ALLERGIES AND MEDICATIONS Reviewed and documented in the chart. FAMILY HISTORY No history of malignancy in the immediate family. SOCIAL HISTORY He has a history of IV drug use. Denies current drug use. Does drink alcohol daily and does smoke a amount of cigarettes. PHYSICAL EXAMINATION VITAL SIGNS: Temperature 98 degrees, heart rate 89, respiratory rate 20, blood pressure 143/85, O2 saturation 99%. GENERAL: The patient is a thin, -[place]ian elderly male, does not appear acute or chronically ill. HEAD: Normocephalic, atraumatic. EYES: Pupils round, reactive to light and accommodation. Sclerae are anicteric. Mucous membranes are moist. NECK: Supple. No JVD. LUNGS: Clear to auscultation bilaterally. Non-labored breathing pattern. HEART: Regular rate and rhythm. ABDOMEN: Soft, nondistended. Normal bowel sounds. No organomegaly. No ascites. No rebound tenderness. BACK: No CVA tenderness. EXTREMITIES: No clubbing, cyanosis or edema. NEUROLOGIC: The patient is oriented x3. Awake and alert. Appropriate. Judgment and insight are intact. Nonfocal peripheral exam. Cranial nerves II-XII are grossly intact. ASSESSMENT AND PLAN The patient is a 66-year-old male with newly diagnosed gastric mass but likely gastric adenocarcinoma however biopsies are pending at this time. I agree with current management. I discussed with the family and the patient about following up with the biopsy and continuing staging. If the patient does have gastric adenocarcinoma, would recommend up front resection in the setting of severe symptoms or significant bleeding. However, if the patient has minimal symptoms and the GI bleed is stable would consider perioperative chemotherapy. However, this patient might not be a candidate for this based on his comorbid HIV. Due to the likely locally advanced nature of this disease, staging laparoscopy would also be indicated to evaluate for possible carcinomatosis if its found to be gastric adenocarcinoma. Thank you very much for this consultation. We will follow along with the patient. MD MIESHA Hand/KYLE /10:00 AM /10:32 AM
[2016-12-23 13:13] LABS: HEMATOCRIT 27.5 % (39.0-51.0); REVIEW FLAG FINAL
--- NOTE | 2016-12-23 13:43 | HHI.GIFU ---
Subjective Remarks Pt resting in bed comfortably. Denies blood in stool, tarry stools, n/v. He says he wants to eat more. Objective Vitals I&O Vital Signs Date Time Temp Pulse Resp B/P Pulse Ox O2 Delivery O2 Flow Rate FiO2 12/23/16 12:00 96.4 68 20 128/103 98 12/23/16 08:00 96.1 74 20 138/82 100 12/23/16 08:00 134/84 12/23/16 08:00 112/75 12/23/16 04:00 97.2 73 16 128/74 96 12/23/16 00:15 90 12/23/16 00:00 96.7 73 16 144/77 98 12/22/16 20:42 93 12/22/16 19:03 98.1 89 20 143/85 99 12/22/16 16:01 96.2 74 22 121/82 100 12/22/16 15:00 80 12/22/16 13:53 16 I/O 12/22/16 12/22/16 12/22/16 12/23/16 12/23/16 12/23/16 07:00 15:00 23:00 07:00 15:00 23:00 Intake Total 100 ml 1184 ml Output Total 725 ml 700 ml Balance -625 ml -700 ml 1184 ml IV Total 1184 ml Other 100 ml Output Urine Total 725 ml 700 ml # Bowel Movements 0 Laboratory Laboratory Tests Test 12/23/16 12/23/16 07:09 12:46 Reticulocyte Count 3.1 Absolute Reticulocyte Count 90.6 Lactate Dehydrogenase 91 Carcinoembryonic Antigen 0.6 CA 19-9 Antigen LESS THAN 1.2 Hemoglobin 9.1 Hematocrit 27.5 Date/Time Procedure Status Source Growth 12/22/16 06:50 Stool Occult Blood ([facility]) - Final Complete Stool Stool HEMOCCULT POSITIVE Imaging Last Impressions Carotid Artery Ultrasound 12/21/16 0000 Signed Impressions: Service Date/Time: December 17:26 - CONCLUSION: No evidence for hemodynamically significant stenosis. Jose Meyers MD Brain MRI 12/21/16 0000 Signed Impressions: Service Date/Time: December 20:37 - CONCLUSION: Chronic atrophic and small vessel ischemic changes without any evidence for acute hemorrhage or mass effect. Jose Meyers MD Abdomen/Pelvis CT 12/21/16 0000 Signed Impressions: Service Date/Time: December 16:33 - CONCLUSION: 1. Abnormal appearance of the gastric fundus. The upper stomach is fairly diffusely thickened. The tissue planes between the stomach and pancreas are partially obscured. This is concerning for possible gastric malignancy. Endoscopy is warranted for further assessment. 2. Diffuse stool filled, distended colon consistent with constipation. 3. No free air or free fluid identified. 4. Calcified granuloma in the left lung as above. Ras Gregorio MD Physical Exam HEENT: EOMI; normocephalic; atraumatic; no jaundice NECK: Neck is supple CHEST: Chest is clear to auscultation and percussion. CARDIAC: Regular rate and rhythm with no murmur gallop or rubs. ABDOMEN: Soft, nondistended, nontender; no hepatosplenomegaly; bowel sounds are present in all four quadrants. EXTREMITIES: No clubbing, cyanosis, or edema. SKIN: Normal; no rash; no jaundice. 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 Assessment and Plan Plan ASSESSMENT: - gastric mass. CT 12/21/16 -----> 1. Abnormal appearance of the gastric fundus. The upper stomach is fairly diffusely thickened. The tissue planes between the stomach and pancreas are partially obscured. This is concerning for possible gastric malignancy. 2. Diffuse stool filled, distended colon consistent with constipation. 3. No free air or free fluid identified. S/P EGD found 1/3rd circumferential mass 3 x 4cm posterior wall stomach, gastric body. biopsies pending, being followed by surgery and oncology - hx black tarry stools, poss GI bleed. Pt reports 2 episodes of tarry stools 7 days ago. s/p EGD - anemia. HH stable. 9.1, 27.5 PLAN: - regular diet - continue to monitor HH - await biopsy resultsdiet This pt was seen by myself and Dr Singh and this note was written on his behalf Riya Hayden Dec 23, 2016 13:43
[2016-12-23] MEDS: IRON SUCROSE INJ 100 MG in SODIUM CHLORIDE 0.9% INJ 100 ML IV SCH (21:30)
[2016-12-24] VITALS: BP 130/72; PULSE 78; RESP 17; TEMP 96.9; O2SAT 97
[2016-12-24 06:29] LABS: BICARBONATE 28.2 MEQ/L (21.0-32.0); POTASSIUM 4.2 MEQ/L (3.5-5.1)
[2016-12-24 06:33] LABS: AUTOMATED NEUTROPHIL # 5.8 TH/MM3 (1.8-7.7); BASOPHIL # 0.1 TH/MM3 (0-0.2); BASOPHIL % 1.1 % (0.0-2.0); EOSINOPHIL # 0.1 TH/MM3 (0-0.4); EOSINOPHIL % 1.8 % (0.0-4.0); HEMATOCRIT 26.9 % (39.0-51.0); HEMO FLAGS DIFF FINAL; LYMPH % 14.3 % (9.0-44.0); LYMPHOCYTE # 1.1 TH/MM3 (1.0-4.8); MEAN CELL VOLUME 92.7 FL (80.0-100.0); MEAN CORPUSCULAR HEMOGLOBIN 31.1 PG (27.0-34.0); MEAN CORPUSCULAR HGB CONC 33.6 % (32.0-36.0); MONO % 6.3 % (0.0-8.0); NEUT % 76.5 % (16.0-70.0); PLATELET COUNT 426 TH/MM3 (150-450); WHITE BLOOD COUNT 7.6 TH/MM3 (4.0-11.0)
[2016-12-24 08:00] VITALS: BP 148/87; PULSE 74; RESP 20; TEMP 96; O2SAT 100
[2016-12-24] MEDS: GABAPENTIN 300 MG CAP PO SCH ×3 (08:02→17:38)
[2016-12-24] MEDS: AMITRIPTYLINE HCL 10 MG TAB PO SCH (08:03)
[2016-12-24] MEDS: PANTOPRAZOLE SOD 40 MG DELAYED RELEASE TAB PO SCH (08:03)
[2016-12-24] MEDS: GENVOYA PO SCH (08:06)
--- NOTE | 2016-12-24 09:21 | HHI.PR ---
Subjective Remarks No acute events overnight. Afebrile, vital signs stable. Patient states he is feeling well today and has his strength back. He denies any dizziness or lightheadedness. He has not had a bowel movement since 2 days ago at which time it was black. H&H stable. Objective Vitals Vital Signs Date Time Temp Pulse Resp B/P Pulse Ox O2 Delivery O2 Flow Rate FiO2 12/24/16 00:00 96.9 78 17 130/72 97 12/23/16 20:40 96.8 75 17 130/74 98 116/79 117/93 12/23/16 16:00 96.0 78 20 138/82 100 12/23/16 13:42 72 12/23/16 12:00 96.4 68 20 128/103 98 I/O 12/23/16 12/23/16 12/23/16 12/24/16 12/24/16 12/24/16 07:00 15:00 23:00 07:00 15:00 23:00 Intake Total 1184 ml 720 ml 1570 ml 480 ml 942 ml Output Total 1150 ml 1400 ml 1500 ml Balance 1184 ml -430 ml 170 ml -1020 ml 942 ml Intake Oral 720 ml 240 ml 480 ml IV Total 1184 ml 1330 ml 942 ml Output Urine Total 1150 ml 1400 ml 1500 ml Result Diagram: 12/24/16 0533 12/24/16 05 Objective Remarks GENERAL: This is a well-nourished, thin, well-developed patient, in no apparent distress. CARDIOVASCULAR: Regular rate and rhythm. 2+ pulses distally. RESPIRATORY: Clear to auscultation. Breath sounds equal bilaterally. No wheezes , rales, or rhonchi. GASTROINTESTINAL: Abdomen soft, no CVA tenderness, no guarding or rebound, nondistended. Normal active bowel sounds MUSCULOSKELETAL: Extremities without clubbing, cyanosis, or edema. NEURO: Alert & Oriented x4 to person, place, time, situation. Moves all ext x4 Procedures 47 upper endoscopy A/P Problem List: (1) Gastric mass ICD Code: K31.9 Status: Acute (2) Syncope ICD Code: R55 Status: Acute (3) Anemia ICD Code: D64.9 Status: Acute (4) HIV (human immunodeficiency virus infection) ICD Code: Z21 Status: Chronic (5) Cocaine abuse ICD Code: F14.10 Status: Acute Assessment and Plan 66 y/o male with a history of HIV who presented to the ER for the second time in 2 days to be evaluated for recurrent syncopal episodes. Acute Anemia with history of black stools with fundus mass on CT abdomen pelvis. Biopsy taken on EGD 12/22/16 from 3 x 4 cm mass over the posterior wall of the stomach and in the gastric body. Hemoccult positive. Hg stable. Low ferritin, Fe deficiency. Of note, CEA and CA 199 negative. -Appreciate GI, Gen Surg recs: awaiting pathology results -Protonix 40 mg po daily -Fe IV -Monitor CBC daily Recurrent syncopal episodes may be due to orthostatic hypotension due to acute anemia from GI bleed. Echo, EEG normal. No events on telemetry. Brain MRI with no evidence of acute hemorrhage or mass effect. - Continue IV fluid hydration with normal saline at 100 cc/h -DC telemetry - Appreciate neurology and cardiology recs -consider Midodrine or Florinef if continued orthostatic symptoms HIV - Continue Genvoya Neuropathy -Continue Gabapentin, Amitriptyline DVT prophylaxis - SCDs, and anticoagulation contraindicated at this time until GI bleeding is ruled out. Discharge Planning pending biopsy results and h/h stable, will determine whether patient will undergo chemo vs resection of gastric mass; possible 2-3 days but could be prolonged if requiring surgical management Problem Qualifiers (1) Syncope: Qualified Code: R55 - Syncope, unspecified syncope type (2) Anemia: Qualified Code: D50.0 - Iron deficiency anemia due to chronic blood loss Ellie Mon MD R3 Dec 24, 2016 09:21
--- NOTE | 2016-12-24 09:31 | PD.ONC.PN ---
Subjective Subjective Remarks Afebrile overnight. Pt resting in bed watching TV in no distress. He states he feels like he has more energy since starting the iron infusions. He is no longer dizzy when ambulating. Objective Data Date Time Temp Pulse Resp B/P Pulse Ox O2 Delivery O2 Flow Rate FiO2 12/24/16 00:00 96.9 78 17 130/72 97 12/23/16 20:40 96.8 75 17 130/74 98 116/79 117/93 12/23/16 16:00 96.0 78 20 138/82 100 12/23/16 13:42 72 12/23/16 12:00 96.4 68 20 128/103 98 12/24/16 12/24/16 12/24/16 07:00 15:00 23:00 Intake Total 480 ml 942 ml Output Total 1500 ml Balance -1020 ml 942 ml Result Diagram: 12/24/16 0533 12/24/16 0533 Laboratory Results Laboratory Tests Test 12/23/16 12/24/16 12:46 05:33 Hemoglobin 9.1 GM/DL 9.0 GM/DL Hematocrit 27.5 % 26.9 % White Blood Count 7.6 TH/MM3 Red Blood Count 2.90 MIL/MM3 Mean Corpuscular Volume 92.7 FL Mean Corpuscular Hemoglobin 31.1 PG Mean Corpuscular Hemoglobin 33.6 % Concent Red Cell Distribution Width 13.0 % Platelet Count 426 TH/MM3 Mean Platelet Volume 7.2 FL Neutrophils (%) (Auto) 76.5 % Lymphocytes (%) (Auto) 14.3 % Monocytes (%) (Auto) 6.3 % Eosinophils (%) (Auto) 1.8 % Basophils (%) (Auto) 1.1 % Neutrophils # (Auto) 5.8 TH/MM3 Lymphocytes # (Auto) 1.1 TH/MM3 Monocytes # (Auto) 0.5 TH/MM3 Eosinophils # (Auto) 0.1 TH/MM3 Basophils # (Auto) 0.1 TH/MM3 CBC Comment DIFF FINAL Differential Comment Sodium Level 139 MEQ/L Potassium Level 4.2 MEQ/L Chloride Level 106 MEQ/L Carbon Dioxide Level 28.2 MEQ/L Anion Gap 5 MEQ/L Blood Urea Nitrogen 8 MG/DL Creatinine 1.07 MG/DL Estimat Glomerular Filtration 84 ML/MIN Rate Random Glucose 91 MG/DL Calcium Level 8.8 MG/DL Culture Results Microbiology Date/Time Procedure Status Source Growth 12/22/16 06:50 Stool Occult Blood ([facility]) - Final Complete Stool Stool HEMOCCULT POSITIVE Administered Medications Medications (Trade) Dose Ordered Sig/Sierra Route PRN Reason Start Time Stop Time Status Last Admin Dose Admin Amitriptyline HCl (Elavil) 40 mg DAILY PO 12/21/16 09:00 12/24/16 08:03 Gabapentin (Neurontin) 600 mg TID PO 12/21/16 09:00 12/24/16 08:02 Patient Own Medication PT OWN MED: GENVO... DAILY PO 12/21/16 09:00 12/24/16 08:06 Pantoprazole Sodium (Protonix) 40 mg DAILY PO 12/22/16 09:00 12/24/16 08:03 Acetaminophen 650 mg 650 mg Q4H PRN PO PAIN 1-10 AND/OR FEVER >101F 12/21/16 09:30 12/23/16 08:36 Iron Sucrose/ Sodium Chloride (Venofer Inj/NS Inj) 105 ml @ 105 mls/hr Q24H IV 12/22/16 22:00 12/24/16 22:59 12/23/16 21:30 Objective Remarks GENERAL: Thinner older male, lying in bed in no distress. SKIN: Warm and dry. HEAD: Normocephalic. EYES: No injection or drainage. NECK: Supple, trachea midline. CARDIOVASCULAR: Regular rate and rhythm without murmurs. RESPIRATORY: Breath sounds equal bilaterally. No accessory muscle use. GASTROINTESTINAL: Abdomen soft, non-tender, nondistended. EXTREMITIES: No edema. NEUROLOGICAL: Awake and alert. Moving all extremities. Normal speech. Assessment/Plan Problem List: (1) Gastric mass Status: Acute Plan: -- CT Abdomen shows abnormal appearance of the gastric fundus, concerning for possible gastric malignancy -- Esophagogastroduodenoscopy found a 3x4 cm ulcerated mass. -- Biopsy taken, path pending. -- CEA, CA 19-9 normal. (2) Anemia Status: Acute Plan: -- Iron deficiency anemia with a ferritin of 13. -- Likely due to blood loss from ulcerated gastric mass -- Iron sucrose IV x 3 bags ordered. (3) HIV (human immunodeficiency virus infection) Status: Chronic Plan: -- Stable on HAART -- Last CD4 count was in the 400's. Assessment 66 y/o male with history of HIV admitted for syncope and was found to have a gastric mass Plan 1. Last bag of iron sucrose to be infused today. 2. Await path results before further intervention. 3. Monitor CBC. 4. Supportive care. Attending Statement The exam, history, and the medical decision-making described in the above note were completed with the assistance of the mid-level provider. I reviewed and agree with the findings presented. I attest that I had a [id number] encounter with the patient on the same day, and personally performed and documented my assessment and findings in the medical record. Pt seen and examined. Feeling stronger after iron tx. Discussed with family regarding treatment plan. No acute complaint. No passing out. Problem Qualifiers (1) Anemia: Qualified Code: D50.0 - Iron deficiency anemia due to chronic blood loss Carmela Linder Dec 24, 2016 09:31 Kandice May MD Dec 24, 2016 16:59
[2016-12-24 12:00] VITALS: BP 143/69; PULSE 75; RESP 20; TEMP 96; O2SAT 100
--- NOTE | 2016-12-24 12:36 | HHI.GIFU ---
Subjective Remarks Pt resting comfortably in bed, visiting with family. No BM in 2 days. Denies n /v, rectal bleeding, abdominal pain. Says he feels good. Objective Vitals I&O Vital Signs Date Time Temp Pulse Resp B/P Pulse Ox O2 Delivery O2 Flow Rate FiO2 12/24/16 08:00 96.0 74 20 148/87 100 12/24/16 00:00 96.9 78 17 130/72 97 12/23/16 20:40 96.8 75 17 130/74 98 116/79 117/93 12/23/16 16:00 96.0 78 20 138/82 100 12/23/16 13:42 72 I/O 12/23/16 12/23/16 12/23/16 12/24/16 12/24/16 12/24/16 07:00 15:00 23:00 07:00 15:00 23:00 Intake Total 1184 ml 720 ml 1570 ml 480 ml 942 ml Output Total 1150 ml 1400 ml 1500 ml Balance 1184 ml -430 ml 170 ml -1020 ml 942 ml Intake Oral 720 ml 240 ml 480 ml IV Total 1184 ml 1330 ml 942 ml Output Urine Total 1150 ml 1400 ml 1500 ml Laboratory Laboratory Tests Test 12/23/16 12/24/16 12:46 05:33 Hemoglobin 9.1 9.0 Hematocrit 27.5 26.9 White Blood Count 7.6 Red Blood Count 2.90 Mean Corpuscular Volume 92.7 Mean Corpuscular Hemoglobin 31.1 Mean Corpuscular Hemoglobin 33.6 Concent Red Cell Distribution Width 13.0 Platelet Count 426 Mean Platelet Volume 7.2 Neutrophils (%) (Auto) 76.5 Lymphocytes (%) (Auto) 14.3 Monocytes (%) (Auto) 6.3 Eosinophils (%) (Auto) 1.8 Basophils (%) (Auto) 1.1 Neutrophils # (Auto) 5.8 Lymphocytes # (Auto) 1.1 Monocytes # (Auto) 0.5 Eosinophils # (Auto) 0.1 Basophils # (Auto) 0.1 CBC Comment DIFF FINAL Differential Comment Sodium Level 139 Potassium Level 4.2 Chloride Level 106 Carbon Dioxide Level 28.2 Anion Gap 5 Blood Urea Nitrogen 8 Creatinine 1.07 Estimat Glomerular Filtration 84 Rate Random Glucose 91 Calcium Level 8.8 Date/Time Procedure Status Source Growth 12/22/16 06:50 Stool Occult Blood ([facility]) - Final Complete Stool Stool HEMOCCULT POSITIVE Imaging Last Impressions Carotid Artery Ultrasound 12/21/16 0000 Signed Impressions: Service Date/Time: December 17:26 - CONCLUSION: No evidence for hemodynamically significant stenosis. Jose Meyers MD Brain MRI 12/21/16 0000 Signed Impressions: Service Date/Time: December 20:37 - CONCLUSION: Chronic atrophic and small vessel ischemic changes without any evidence for acute hemorrhage or mass effect. Jose Meyers MD Abdomen/Pelvis CT 12/21/16 0000 Signed Impressions: Service Date/Time: December 16:33 - CONCLUSION: 1. Abnormal appearance of the gastric fundus. The upper stomach is fairly diffusely thickened. The tissue planes between the stomach and pancreas are partially obscured. This is concerning for possible gastric malignancy. Endoscopy is warranted for further assessment. 2. Diffuse stool filled, distended colon consistent with constipation. 3. No free air or free fluid identified. 4. Calcified granuloma in the left lung as above. Ras Gregorio MD Physical Exam HEENT: EOMI; normocephalic; atraumatic; no jaundice NECK: Neck is supple CHEST: Chest is clear to auscultation and percussion. CARDIAC: Regular rate and rhythm with no murmur gallop or rubs. ABDOMEN: Soft, nondistended, nontender; no hepatosplenomegaly; bowel sounds are present in all four quadrants. EXTREMITIES: No clubbing, cyanosis, or edema. SKIN: Normal; no rash; no jaundice. 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 Assessment and Plan Plan ASSESSMENT: - gastric mass. CT 12/21/16 -----> 1. Abnormal appearance of the gastric fundus. The upper stomach is fairly diffusely thickened. The tissue planes between the stomach and pancreas are partially obscured. This is concerning for possible gastric malignancy. 2. Diffuse stool filled, distended colon consistent with constipation. 3. No free air or free fluid identified. S/P EGD found 1/3rd circumferential mass 3 x 4cm posterior wall stomach, gastric body. biopsies pending, being followed by surgery and oncology - hx black tarry stools, poss GI bleed. No recent tarry stools. s/p EGD - anemia. HH stable. 9.0, 26.9, receiving iron IV PLAN: - regular diet - continue to monitor HH - await biopsy results - GI will sign off, please reconsult if needed This pt was seen by myself and Dr Singh and this note was written on his behalf Riya Hayden Dec 24, 2016 12:36
[2016-12-24 16:00] VITALS: BP 117/76; PULSE 78; RESP 20; TEMP 97.5; O2SAT 98
[2016-12-24] MEDS: ACETAMINOPHEN 325 MG TAB PO PRN (17:40)
[2016-12-24 20:00] VITALS: BP 118/70; PULSE 80; RESP 17; TEMP 96.8; O2SAT 97
[2016-12-24] MEDS: IRON SUCROSE INJ 100 MG in SODIUM CHLORIDE 0.9% INJ 100 ML IV SCH (22:18)
[2016-12-25] VITALS: BP 122/70; PULSE 82; RESP 18; TEMP 96.6; O2SAT 97
[2016-12-25 04:00] VITALS: BP 133/70; PULSE 77; RESP 17; TEMP 96.8; O2SAT 98
[2016-12-25 06:59] LABS: BASOPHIL # 0.1 TH/MM3 (0-0.2); BASOPHIL % 0.7 % (0.0-2.0); EOSINOPHIL # 0.1 TH/MM3 (0-0.4); EOSINOPHIL % 1.9 % (0.0-4.0); HEMATOCRIT 29.6 % (39.0-51.0); HEMO FLAGS DIFF FINAL; LYMPH % 14.6 % (9.0-44.0); LYMPHOCYTE # 1.2 TH/MM3 (1.0-4.8); MEAN CELL VOLUME 92.4 FL (80.0-100.0); MEAN CORPUSCULAR HEMOGLOBIN 30.5 PG (27.0-34.0); MEAN CORPUSCULAR HGB CONC 33.1 % (32.0-36.0); MONO % 7.3 % (0.0-8.0); NEUT % 75.5 % (16.0-70.0); PLATELET COUNT 438 TH/MM3 (150-450); RED BLOOD COUNT 3.21 MIL/MM3 (4.50-5.90); WHITE BLOOD COUNT 7.9 TH/MM3 (4.0-11.0)
[2016-12-25 08:00] VITALS: BP 119/69; PULSE 77; RESP 18; TEMP 96.5; O2SAT 98
--- NOTE | 2016-12-25 08:31 | HHI.PR ---
Subjective Remarks resting comfortably with no distress. denies pain. no chest pain or dizziness. Objective Vitals Vital Signs Date Time Temp Pulse Resp B/P Pulse Ox O2 Delivery O2 Flow Rate FiO2 12/25/16 04:00 96.8 77 17 133/70 98 12/25/16 00:00 96.6 82 18 122/70 97 12/24/16 20:00 96.8 80 17 118/70 97 12/24/16 16:00 97.5 78 20 117/76 98 12/24/16 12:00 96.0 75 20 143/69 100 I/O 12/24/16 12/24/16 12/24/16 12/25/16 12/25/16 12/25/16 07:00 15:00 23:00 07:00 15:00 23:00 Intake Total 480 ml 1182 ml 480 ml 240 ml Output Total 1500 ml 1500 ml 800 ml Balance -1020 ml 1182 ml -1020 ml -560 ml Intake Oral 480 ml 240 ml 480 ml 240 ml IV Total 942 ml Output Urine Total 1500 ml 1500 ml 800 ml # Voids 2 # Bowel Movements 0 0 Result Diagram: 12/25/16 0600 12/24/16 0533 Imaging Last Impressions Carotid Artery Ultrasound 12/21/16 0000 Signed Impressions: Service Date/Time: December 17:26 - CONCLUSION: No evidence for hemodynamically significant stenosis. Jose Meyers MD Brain MRI 12/21/16 0000 Signed Impressions: Service Date/Time: December 20:37 - CONCLUSION: Chronic atrophic and small vessel ischemic changes without any evidence for acute hemorrhage or mass effect. Jose Meyers MD Abdomen/Pelvis CT 12/21/16 0000 Signed Impressions: Service Date/Time: December 16:33 - CONCLUSION: 1. Abnormal appearance of the gastric fundus. The upper stomach is fairly diffusely thickened. The tissue planes between the stomach and pancreas are partially obscured. This is concerning for possible gastric malignancy. Endoscopy is warranted for further assessment. 2. Diffuse stool filled, distended colon consistent with constipation. 3. No free air or free fluid identified. 4. Calcified granuloma in the left lung as above. Ras Gregorio MD Objective Remarks GENERAL: in no apparent distress. CARDIOVASCULAR: Regular rate and regular rhythm without murmurs, gallops, or rubs. RESPIRATORY: Clear to auscultation. Breath sounds equal bilaterally. No wheezes , rales, or rhonchi. GASTROINTESTINAL: Abdomen soft, non-tender, nondistended. Normal, active bowel sounds MUSCULOSKELETAL: Extremities without clubbing, cyanosis, or edema. NEURO: Alert & Oriented x4 to person, place, time, situation. Moves all ext x4 Procedures 47 upper endoscopy Medications and IVs Current Medications Sodium Chloride 2 ml 2 ml UNSCH PRN IVF FLUSH AFTER USING IV ACCESS; Start 12/20 at 16:00 Sodium Chloride 1,000 ml @ 999 mls/hr BOLUS ONCE IV Last administered on 16:56; Start 12/20/16 at 16:45; Stop 12/20/16 at 17:45; Status DC Sodium Chloride (NS 1000 ml Inj) 1,000 ml @ 100 mls/hr Q10H IV Last administered on 12/23/16 20:22; Start 12/20/16 at 19:45; Stop 12/24/16 at 09:18; Status DC Amitriptyline HCl (Elavil) 40 mg DAILY PO Last administered on 12/24/16 08:03; Start 12/21/16 at 09:00 Gabapentin (Neurontin) 600 mg TID PO Last administered on 12/24/16 17:38; Start 12/21/16 at 09:00 Patient Own Medication PT OWN MED: GENVO... DAILY PO ; Start 12/21/16 at 09:00; Stop 12/21/16 at 09:00; Status DC Patient Own Medication PT OWN MED: GENVO... DAILY PO Last administered on 08:06; Start 12/21/16 at 09:00 Pantoprazole Sodium (Protonix) 40 mg ONCE ONCE PO Last administered on 10:24; Start 12/21/16 at 09:45; Stop 12/21/16 at 09:46; Status DC Pantoprazole Sodium (Protonix) 40 mg DAILY PO Last administered on 12/24/16 08: 03; Start 12/22/16 at 09:00 Acetaminophen (Tylenol) 650 mg Q4H PRN PO PAIN 1-10 AND/OR FEVER >101F Last administered on 12/24/16 17:40; Start 12/21/16 at 09:30 Diatrizoate Meglum/ Diatrizoate Sod ( Gastrofeliciano Liq) 18 ml ONCE ONCE PO Last administered on 12/21/16 11:48; Start 12/21/16 at 11:30; Stop 12/21/16 at 11: 31; Status DC Iohexol (Omnipaque 350 Inj) 100 ml STK-MED ONCE IV Last administered on 16:35; Start 12/21/16 at 16:35; Stop 12/21/16 at 16:36; Status DC Gadodiamide (Omniscan Pf Inj) 11 ml STK-MED ONCE IV Last administered on 21:24; Start 12/21/16 at 21:24; Stop 12/21/16 at 21:25; Status DC Propofol 200 mg 200 mg STK-MED ONCE IV ; Start 12/22/16 at 11:05; Stop 12/22/16 at 11:26; Status DC Iron Sucrose/ Sodium Chloride (Venofer Inj/NS Inj) 105 ml @ 105 mls/hr Q24H IV Last administered on 12/24/16 22:18; Start 12/22/16 at 22:00; Stop 12/24/16 at 22:59; Status DC Cyanocobalamin (Vitamin B12 Inj) 1,000 mcg ONCE ONCE SQ Last administered on 22:22; Start 12/22/16 at 22:00; Stop 12/22/16 at 22:01; Status DC A/P Assessment and Plan A/P Anemia with history of black stools with fundus mass on CT abdomen pelvis. Biopsy taken on EGD 12/22/16 from 3 x 4 cm mass over the posterior wall of the stomach and in the gastric body. Hemoccult positive. Hg stable. Low ferritin, Fe deficiency. Of note, CEA and CA 199 negative. -Appreciate GI, Gen Surg recs: awaiting pathology results -Oncology following. -Protonix 40 mg po daily -received IV iron -Monitor CBC Recurrent syncopal episodes may be due to orthostatic hypotension due to acute anemia from GI bleed. Echo, EEG normal. No events on telemetry. Brain MRI with no evidence of acute hemorrhage or mass effect. - received IV fluid - Appreciate neurology and cardiology recs -will consider Midodrine or Florinef if continued orthostatic symptoms HIV - Continue Genvoya Neuropathy -Continue Gabapentin, Amitriptyline DVT prophylaxis with SCD's Leti Medrano MD Dec 25, 2016 08:31
--- NOTE | 2016-12-25 09:10 | HHI.GIFU ---
Subjective Remarks Resting in bed. States he has not had much appetite, but has finally gotten this back and can't get enough to eat. No n/v. No abdominal pain. No bleeding. C/O constipation, with no BM in several days. Objective Vitals I&O Vital Signs Date Time Temp Pulse Resp B/P Pulse Ox O2 Delivery O2 Flow Rate FiO2 12/25/16 08:00 96.5 77 18 119/69 98 12/25/16 04:00 96.8 77 17 133/70 98 12/25/16 00:00 96.6 82 18 122/70 97 12/24/16 20:00 96.8 80 17 118/70 97 12/24/16 16:00 97.5 78 20 117/76 98 12/24/16 12:00 96.0 75 20 143/69 100 I/O 12/24/16 12/24/16 12/24/16 12/25/16 12/25/16 12/25/16 07:00 15:00 23:00 07:00 15:00 23:00 Intake Total 480 ml 1182 ml 480 ml 240 ml Output Total 1500 ml 1500 ml 800 ml Balance -1020 ml 1182 ml -1020 ml -560 ml Intake Oral 480 ml 240 ml 480 ml 240 ml IV Total 942 ml Output Urine Total 1500 ml 1500 ml 800 ml # Voids 2 # Bowel Movements 0 0 Laboratory Laboratory Tests Test 12/25/16 06:00 White Blood Count 7.9 Red Blood Count 3.21 Hemoglobin 9.8 Hematocrit 29.6 Mean Corpuscular Volume 92.4 Mean Corpuscular Hemoglobin 30.5 Mean Corpuscular Hemoglobin 33.1 Concent Red Cell Distribution Width 13.0 Platelet Count 438 Mean Platelet Volume 7.5 Neutrophils (%) (Auto) 75.5 Lymphocytes (%) (Auto) 14.6 Monocytes (%) (Auto) 7.3 Eosinophils (%) (Auto) 1.9 Basophils (%) (Auto) 0.7 Neutrophils # (Auto) 6.0 Lymphocytes # (Auto) 1.2 Monocytes # (Auto) 0.6 Eosinophils # (Auto) 0.1 Basophils # (Auto) 0.1 CBC Comment DIFF FINAL Differential Comment Date/Time Procedure Status Source Growth 12/22/16 06:50 Stool Occult Blood (DORIS) - Final Complete Stool Stool HEMOCCULT POSITIVE Imaging Last Impressions Carotid Artery Ultrasound 12/21/16 0000 Signed Impressions: Service Date/Time: December 17:26 - CONCLUSION: No evidence for hemodynamically significant stenosis. Jose Meyers MD Brain MRI 12/21/16 0000 Signed Impressions: Service Date/Time: December 20:37 - CONCLUSION: Chronic atrophic and small vessel ischemic changes without any evidence for acute hemorrhage or mass effect. Jose Meyers MD Abdomen/Pelvis CT 12/21/16 0000 Signed Impressions: Service Date/Time: December 16:33 - CONCLUSION: 1. Abnormal appearance of the gastric fundus. The upper stomach is fairly diffusely thickened. The tissue planes between the stomach and pancreas are partially obscured. This is concerning for possible gastric malignancy. Endoscopy is warranted for further assessment. 2. Diffuse stool filled, distended colon consistent with constipation. 3. No free air or free fluid identified. 4. Calcified granuloma in the left lung as above. Ras Gregorio MD Physical Exam HEENT: Normocephalic; atraumatic; no jaundice CHEST: CTA CARDIAC: RRR ABDOMEN: Soft, nondistended, nontender; no hepatosplenomegaly; bowel sounds are present in all four quadrants. EXTREMITIES: No clubbing, cyanosis, or edema. SKIN: Normal; no rash; no jaundice. SOFTWARE LEAD: No focal deficits; alert and oriented times three. Assessment and Plan Plan ASSESSMENT: - Gastric mass. CT 12/21/16 -----> 1. Abnormal appearance of the gastric fundus. The upper stomach is fairly diffusely thickened. The tissue planes between the stomach and pancreas are partially obscured. This is concerning for possible gastric malignancy. 2. Diffuse stool filled, distended colon consistent with constipation. 3. No free air or free fluid identified. S/P EGD (12/22/16)------> 1. The esophagus appeared normal 2. One-third circumferential mass, measuring 3 X 4cm in size, was found on the posterior wall of the stomach and in the gastric body; multiple biopsies were performed 3. Retroflexed views revealed no abnormalities. Pathology pending. Oncology and surgery are following, awaiting pathology results. Clinically, no n/v, pain, bleeding. - Iron Deficiency Anemia. S/P Iron Sucrose. PPI. 9.8/29.6. No obvious active bleeding. - Constipation, no BM x several days. Will give Miralax 17gram po daily. Dulcolax suppository x 1 today. PLAN: - Regular diet - Await pathology - GS/Oncology following, awaiting pathology results - Miralax 17 gram po daily - Dulcolax suppository x 1 today - Monitor HH - Supportive care - Further recommendations to follow based on results of above - This pt was seen by myself and Dr Singh and this note was written on his behalf Nemo Bailey Dec 25, 2016 09:10
[2016-12-25] MEDS ORDERED: BISACODYL 10 MG SUPP RECTAL ONE (09:15)
[2016-12-25] MEDS: GABAPENTIN 300 MG CAP PO SCH ×3 (09:24→17:51)
[2016-12-25] MEDS: AMITRIPTYLINE HCL 10 MG TAB PO SCH (09:24)
[2016-12-25] MEDS: PANTOPRAZOLE SOD 40 MG DELAYED RELEASE TAB PO SCH (09:24)
[2016-12-25] MEDS: GENVOYA PO SCH (09:24)
[2016-12-25 12:00] VITALS: BP 102/58; PULSE 89; RESP 18; TEMP 97.3; O2SAT 99
[2016-12-25 15:00] VITALS: BP 113/72; PULSE 77; RESP 18; TEMP 97; O2SAT 99
--- NOTE | 2016-12-25 16:04 | PD.ONC.PN ---
Subjective Subjective Remarks Afebrile overnight. Patient resting comfortably without complaint. He is anxiously waiting for pathology results. Objective Data Date Time Temp Pulse Resp B/P Pulse Ox O2 Delivery O2 Flow Rate FiO2 12/25/16 15:00 97.0 77 18 113/72 99 12/25/16 12:00 97.3 89 18 102/58 99 12/25/16 08:00 96.5 77 18 119/69 98 12/25/16 04:00 96.8 77 17 133/70 98 12/25/16 00:00 96.6 82 18 122/70 97 12/24/16 20:00 96.8 80 17 118/70 97 12/24/16 16:00 97.5 78 20 117/76 98 12/25/16 12/25/16 12/25/16 07:00 15:00 23:00 Intake Total 240 ml 1200 ml Output Total 800 ml 1 ml Balance -560 ml 1199 ml Result Diagram: 12/25/16 0600 12/24/16 0533 Laboratory Results Laboratory Tests Test 12/25/16 06:00 White Blood Count 7.9 TH/MM3 Red Blood Count 3.21 MIL/MM3 Hemoglobin 9.8 GM/DL Hematocrit 29.6 % Mean Corpuscular Volume 92.4 FL Mean Corpuscular Hemoglobin 30.5 PG Mean Corpuscular Hemoglobin 33.1 % Concent Red Cell Distribution Width 13.0 % Platelet Count 438 TH/MM3 Mean Platelet Volume 7.5 FL Neutrophils (%) (Auto) 75.5 % Lymphocytes (%) (Auto) 14.6 % Monocytes (%) (Auto) 7.3 % Eosinophils (%) (Auto) 1.9 % Basophils (%) (Auto) 0.7 % Neutrophils # (Auto) 6.0 TH/MM3 Lymphocytes # (Auto) 1.2 TH/MM3 Monocytes # (Auto) 0.6 TH/MM3 Eosinophils # (Auto) 0.1 TH/MM3 Basophils # (Auto) 0.1 TH/MM3 CBC Comment DIFF FINAL Differential Comment Administered Medications Medications (Trade) Dose Ordered Sig/Sierra Route PRN Reason Start Time Stop Time Status Last Admin Dose Admin Amitriptyline HCl (Elavil) 40 mg DAILY PO 12/21/16 09:00 12/25/16 09:24 Gabapentin (Neurontin) 600 mg TID PO 12/21/16 09:00 12/25/16 12:22 Patient Own Medication PT OWN MED: GENVO... DAILY PO 12/21/16 09:00 12/25/16 09:24 Pantoprazole Sodium (Protonix) 40 mg DAILY PO 12/22/16 09:00 12/25/16 09:24 Acetaminophen (Tylenol) 650 mg Q4H PRN PO PAIN 1-10 AND/OR FEVER >101F 12/21/16 09:30 12/24/16 17:40 Objective Remarks GENERAL: Pleasant middle aged male, sitting up in bed in nad. SKIN: Warm and dry. HEAD: Normocephalic. EYES: No scleral icterus. No injection or drainage. GASTROINTESTINAL: Abdomen soft, non-tender, nondistended. EXTREMITIES: No cyanosis, or edema. MUSCULOSKELETAL: Adequate muscle tone. NEUROLOGICAL: No obvious focal deficit. Awake, alert, and oriented x3. Assessment/Plan Problem List: (1) Anemia Status: Acute Plan: -- Iron deficiency anemia with a ferritin of 13. -- Likely due to blood loss from ulcerated gastric mass -- Iron sucrose IV x 3 bags ordered. (2) HIV (human immunodeficiency virus infection) Status: Chronic Plan: -- Stable on HAART -- Last CD4 count was in the 400's. (3) Gastric adenocarcinoma Status: Acute Plan: -- CT Abdomen shows abnormal appearance of the gastric fundus, concerning for possible gastric malignancy -- Esophagogastroduodenoscopy found a 3x4 cm ulcerated mass. -- Biopsy taken, path shows invasive adenocarcinoma -- CEA, CA 19-9 normal. Assessment 66 y/o male with history of HIV admitted for syncope and was found to have a gastric mass. 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 monitor CBC 2. pathology results reviewed with patient and his daughter Kal, also reviewed per patient's request patient CT scans with daughter. 3. will obtain CT chest for further staging. Attending Statement The exam, history, and the medical decision-making described in the above note were completed with the assistance of the mid-level provider. I reviewed and agree with the findings presented. I attest that I had a [id number] encounter with the patient on the same day, and personally performed and documented my assessment and findings in the medical record. Pt seen and examined in AM. No acute complaints, await biopsy results, prepared for definitive surgery if not a lymphoma. Pathology became available later that afternoon, discussed with Dr. Hernandez , pt has an adenocarcinoma c/w gastric primary. Staging CT chest will be coordinated. Liver was clear. Response noted to iron with increase hgb to 9.8, still anemic. Problem Qualifiers (1) Anemia: Qualified Code: D50.0 - Iron deficiency anemia due to chronic blood loss Sepideh Giron Dec 25, 2016 16:04 Kandice May MD Dec 25, 2016 22:11
[2016-12-25] MEDS ORDERED: IOHEXOL 350 MG/ML 10 ML VIAL (for RAD DIAG) IV ONE (16:41)
--- NOTE | 2016-12-25 17:02 | RADRPT ---
EXAM DATE/TIME: 12/25/2016 16:23 [facility] COMPARISON: CHEST SINGLE AP, December 18, 2016, 13:38. INDICATIONS : Evaluate for neoplasm. IV CONTRAST: 55 cc Omnipaque 350 (iohexol) IV RADIATION DOSE: 5.1 CTDIvol (mGy) MEDICAL HISTORY : HIV. Hepatitis C. SURGICAL HISTORY : None. ENCOUNTER: Initial ACUITY: 1 day PAIN SCALE: 0/10 LOCATION: Bilateral chest TECHNIQUE: Volumetric scanning of the chest was performed. Using automated exposure control and adjustment of t he mA and/or kV according to patient size, radiation dose was kept as low as reasonably achievable to obtain optimal diagnostic quality images. FINDINGS: LUNGS: A cluster of small calcified granulomas are identified in the left midlung within the left lower lobe . There are no suspicious noncalcified masses. Chronic emphysematous lung disease is noted with air trapping in both upper lobes. There is no e vidence of acute air space disease. PLEURA: Small calcified pleural plaque containing calcifications is seen along the anterior pleural surface o f the left lung. There is no evidence of pleural effusion. MEDIASTINUM: Heavily calcified lymph nodes are seen in the left hilum. Mild/moderate coronary artery calcification is identified. AXILLAE: Within normal limits. No lymphadenopathy. SKELETAL: Within normal limits for patient age. MISCELLANEOUS: Calcified granuloma are noted in the spleen. CONCLUSION: Calcific granulomatous changes identified the left lung and spleen. No evidence of suspicious noncalcified mass. Mild/moderate coronary artery calcification. Emphysematous chronic obstructive pulmonary disease. Roberto Luke MD on December 25, 2016 at 16:56 Board Certified Radiologist. This report was verified electronically.
[2016-12-25 20:00] VITALS: BP 122/72; PULSE 81; RESP 18; TEMP 97.3; O2SAT 98
[2016-12-26] VITALS: BP 120/68; PULSE 80; RESP 17; TEMP 96.8; O2SAT 96
[2016-12-26 04:00] VITALS: BP 111/67; PULSE 75; RESP 17; TEMP 96.6; O2SAT 99
[2016-12-26 08:00] VITALS: BP 103/66; PULSE 75; RESP 21; TEMP 96.9; O2SAT 99
--- NOTE | 2016-12-26 08:57 | HHI.PR ---
Subjective Remarks resting comfortably with no distress. denies abdominal pain, nausea or vomiting. no new complaints. Objective Vitals Vital Signs Date Time Temp Pulse Resp B/P Pulse Ox O2 Delivery O2 Flow Rate FiO2 12/26/16 08:00 96.9 75 21 103/66 99 12/26/16 04:00 96.6 75 17 111/67 99 12/26/16 00:00 96.8 80 17 120/68 96 12/25/16 20:00 97.3 81 18 122/72 98 12/25/16 15:00 97.0 77 18 113/72 99 12/25/16 12:00 97.3 89 18 102/58 99 I/O 12/25/16 12/25/16 12/25/16 12/26/16 12/26/16 12/26/16 07:00 15:00 23:00 07:00 15:00 23:00 Intake Total 240 ml 1200 ml 480 ml Output Total 800 ml 1 ml Balance -560 ml 1199 ml 480 ml Intake Oral 240 ml 1200 ml 480 ml Output Urine Total 800 ml Stool Total 1 ml # Voids 4 1 1 # Bowel Movements 0 1 Result Diagram: 12/25/16 0600 12/24/16 0533 Imaging Last Impressions Chest CT 12/25/16 0000 Signed Impressions: Service Date/Time: Sunday, December 25, 2016 16:23 - CONCLUSION: Calcific granulomatous changes identified the left lung and spleen. No evidence of suspicious noncalcified mass. Mild/moderate coronary artery calcification. Emphysematous chronic obstructive pulmonary disease. Roberto Luke MD Carotid Artery Ultrasound 12/21/16 0000 Signed Impressions: Service Date/Time: December 17:26 - CONCLUSION: No evidence for hemodynamically significant stenosis. Jose Meyers MD Brain MRI 12/21/16 0000 Signed Impressions: Service Date/Time: December 20:37 - CONCLUSION: Chronic atrophic and small vessel ischemic changes without any evidence for acute hemorrhage or mass effect. Jose Meyers MD Abdomen/Pelvis CT 12/21/16 0000 Signed Impressions: Service Date/Time: December 16:33 - CONCLUSION: 1. Abnormal appearance of the gastric fundus. The upper stomach is fairly diffusely thickened. The tissue planes between the stomach and pancreas are partially obscured. This is concerning for possible gastric malignancy. Endoscopy is warranted for further assessment. 2. Diffuse stool filled, distended colon consistent with constipation. 3. No free air or free fluid identified. 4. Calcified granuloma in the left lung as above. Ras Gregorio MD Objective Remarks GENERAL: in no apparent distress. CARDIOVASCULAR: Regular rate and regular rhythm without murmurs, gallops, or rubs. RESPIRATORY: Clear to auscultation. Breath sounds equal bilaterally. No wheezes , rales, or rhonchi. GASTROINTESTINAL: Abdomen soft, non-tender, nondistended. Normal, active bowel sounds MUSCULOSKELETAL: Extremities without clubbing, cyanosis, or edema. NEURO: Alert & Oriented x4 to person, place, time, situation. Moves all ext x4 Procedures 47 upper endoscopy Medications and IVs Current Medications Sodium Chloride 2 ml 2 ml UNSCH PRN IVF FLUSH AFTER USING IV ACCESS; Start 12/20 at 16:00 Sodium Chloride 1,000 ml @ 999 mls/hr BOLUS ONCE IV Last administered on 16:56; Start 12/20/16 at 16:45; Stop 12/20/16 at 17:45; Status DC Sodium Chloride (NS 1000 ml Inj) 1,000 ml @ 100 mls/hr Q10H IV Last administered on 12/23/16 20:22; Start 12/20/16 at 19:45; Stop 12/24/16 at 09:18; Status DC Amitriptyline HCl (Elavil) 40 mg DAILY PO Last administered on 12/25/16 09:24 ; Start 12/21/16 at 09:00 Gabapentin (Neurontin) 600 mg TID PO Last administered on 12/25/16 17:51; Start 12/21/16 at 09:00 Patient Own Medication PT OWN MED: GENVO... DAILY PO ; Start 12/21/16 at 09:00; Stop 12/21/16 at 09:00; Status DC Patient Own Medication PT OWN MED: GENVO... DAILY PO Last administered on 09:24; Start 12/21/16 at 09:00 Pantoprazole Sodium (Protonix) 40 mg ONCE ONCE PO Last administered on 10:24; Start 12/21/16 at 09:45; Stop 12/21/16 at 09:46; Status DC Pantoprazole Sodium (Protonix) 40 mg DAILY PO Last administered on 12/25/16 09 :24; Start 12/22/16 at 09:00 Acetaminophen (Tylenol) 650 mg Q4H PRN PO PAIN 1-10 AND/OR FEVER >101F Last administered on 12/24/16 17:40; Start 12/21/16 at 09:30 Diatrizoate Meglum/ Diatrizoate Sod ( Gastrofeliciano Liq) 18 ml ONCE ONCE PO Last administered on 12/21/16 11:48; Start 12/21/16 at 11:30; Stop 12/21/16 at 11: 31; Status DC Iohexol (Omnipaque 350 Inj) 100 ml STK-MED ONCE IV Last administered on 16:35; Start 12/21/16 at 16:35; Stop 12/21/16 at 16:36; Status DC Gadodiamide (Omniscan Pf Inj) 11 ml STK-MED ONCE IV Last administered on 21:24; Start 12/21/16 at 21:24; Stop 12/21/16 at 21:25; Status DC Propofol 200 mg 200 mg STK-MED ONCE IV ; Start 12/22/16 at 11:05; Stop 12/22/16 at 11:26; Status DC Iron Sucrose/ Sodium Chloride (Venofer Inj/NS Inj) 105 ml @ 105 mls/hr Q24H IV Last administered on 12/24/16 22:18; Start 12/22/16 at 22:00; Stop 12/24/16 at 22:59; Status DC Cyanocobalamin (Vitamin B12 Inj) 1,000 mcg ONCE ONCE SQ Last administered on 22:22; Start 12/22/16 at 22:00; Stop 12/22/16 at 22:01; Status DC Bisacodyl (Dulcolax Supp) 10 mg ONCE ONCE RECTAL Last administered on 10:19; Start 12/25/16 at 09:15; Stop 12/25/16 at 09:26; Status DC Polyethylene Glycol (Miralax) 17 gm DAILY PO ; Start 12/26/16 at 09:00 Iohexol (Omnipaque 350 Inj) 55 ml STK-MED ONCE IV Last administered on t 16:41; Start 12/25/16 at 16:41; Stop 12/25/16 at 16:42; Status DC Phenylephrine HCl (Neosynephrine/ NS 1000 Mcg/10ml Syr) 200 mcg STK-MED ONCE IV ; Start 12/22/16 at 12:00; Stop 12/26/16 at 08:47; Status DC A/P Assessment and Plan A/P -gastric adenocarcinoma; patient had EGD on 12/22/16 and found to have a gastric mass- oncology following. surgery following and plan for possible resection. chest CT with no evidence of metastasis. Recurrent syncopal episodes may be due to orthostatic hypotension due to acute anemia from GI bleed. Echo, EEG normal. Brain MRI with no evidence of acute hemorrhage or mass effect. carotid doppler with no significant stenosis. - received IV fluid - Appreciate neurology and cardiology recs -will consider Midodrine or Florinef if continued orthostatic symptoms HIV - Continue Genvoya Neuropathy -Continue Gabapentin, Amitriptyline DVT prophylaxis with SCD's Leti Medrano MD Dec 26, 2016 08:57
[2016-12-26] MEDS: GENVOYA PO SCH (09:00)
[2016-12-26] MEDS: GABAPENTIN 300 MG CAP PO SCH ×3 (09:00→18:00)
[2016-12-26] MEDS: PANTOPRAZOLE SOD 40 MG DELAYED RELEASE TAB PO SCH (09:00)
[2016-12-26] MEDS: AMITRIPTYLINE HCL 10 MG TAB PO SCH (09:00)
[2016-12-26] MEDS: POLYETHYLENE GLYCOL 17 GM PKG PO SCH (09:00)
[2016-12-26] MEDS ORDERED: MIDAZOLAM HCL 2 MG/2 ML VIAL ONE (11:07)
[2016-12-26] MEDS ORDERED: FAMOTIDINE 20 MG/2 ML VIAL ONE (11:07)
--- NOTE | 2016-12-26 12:05 | PD.ONC.PN ---
Subjective Subjective Remarks Afebrile overnight. Patient ready for surgery today. He and his daughter spoke with Dr. Hernandez, the surgical oncologist last night and they have no further questions. Objective Data Date Time Temp Pulse Resp B/P Pulse Ox O2 Delivery O2 Flow Rate FiO2 12/26/16 08:00 96.9 75 21 103/66 99 12/26/16 04:00 96.6 75 17 111/67 99 12/26/16 00:00 96.8 80 17 120/68 96 12/25/16 20:00 97.3 81 18 122/72 98 12/25/16 15:00 97.0 77 18 113/72 99 12/26/16 12/26/16 12/26/16 07:00 15:00 23:00 Intake Total 480 ml Balance 480 ml Result Diagram: 12/25/16 0600 12/24/16 0533 Administered Medications Medications (Trade) Dose Ordered Sig/Sierra Route PRN Reason Start Time Stop Time Status Last Admin Dose Admin Amitriptyline HCl (Elavil) 40 mg DAILY PO 12/21/16 09:00 12/25/16 09:24 Gabapentin (Neurontin) 600 mg TID PO 12/21/16 09:00 12/25/16 17:51 Patient Own Medication PT OWN MED: GENVO... DAILY PO 12/21/16 09:00 12/25/16 09:24 Pantoprazole Sodium (Protonix) 40 mg DAILY PO 12/22/16 09:00 12/25/16 09:24 Acetaminophen (Tylenol) 650 mg Q4H PRN PO PAIN 1-10 AND/OR FEVER >101F 12/21/16 09:30 12/24/16 17:40 Objective Remarks GENERAL: Middle aged male, sitting up in bed innad SKIN: Warm and dry. HEAD: Normocephalic. EYES: No injection or drainage. CV: RRR LUNGS: CTAB GASTROINTESTINAL: Abdomen soft, non-tender, nondistended. EXTREMITIES: No cyanosis, or edema. MUSCULOSKELETAL: Adequate muscle tone. NEUROLOGICAL: awake and alert, normal speech. moving extremities. Assessment/Plan Problem List: (1) Anemia Status: Acute Plan: -- Iron deficiency anemia with a ferritin of 13. -- Likely due to blood loss from ulcerated gastric mass -- Iron sucrose IV x 3 bags ordered. (2) HIV (human immunodeficiency virus infection) Status: Chronic Plan: -- Stable on HAART -- Last CD4 count was in the 400's. (3) Gastric adenocarcinoma Status: Acute Plan: --CT chest shows granulomatous changes, no mass -- CT Abdomen shows abnormal appearance of the gastric fundus, concerning for possible gastric malignancy -- Esophagogastroduodenoscopy found a 3x4 cm ulcerated mass. -- Biopsy taken, path shows invasive adenocarcinoma -- CEA, CA 19-9 normal. Assessment 66 y/o male with history of HIV admitted for syncope and was found to have a gastric mass. 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 surgery with Dr. Hernandez today 2. plan [facility] Attending Statement Discussed as above w/ JULIOCESAR Allen. Problem Qualifiers (1) Anemia: Qualified Code: D50.0 - Iron deficiency anemia due to chronic blood loss Sepideh Giron Dec 26, 2016 12:04 Kandice May MD Dec 26, 2016 23:47
[2016-12-26] MEDS ORDERED: ACETAMINOPHEN 1000 MG/100 ML VIAL IV ONE (12:12)
[2016-12-26] MEDS ORDERED: HYDROmorphone HCL PF 2 MG/ML VIAL ONE (12:12)
[2016-12-26] MEDS ORDERED: ceFAZolin INJ 1,000 MG VIAL IV ONE (12:21)
[2016-12-26] MEDS ORDERED: LACTATED RINGER'S 1,000 ML BAG IV ONE (13:09)
[2016-12-26] MEDS ORDERED: PROPOFOL 200 MG/20 ML AMP IV ONE (13:09)
[2016-12-26] MEDS ORDERED: PARENTERAL ELECTROLYTES PH 7.4 1000 ML BAG IV ONE (13:09)
[2016-12-26] MEDS ORDERED: ONDANSETRON HCL 4 MG/2 ML VIAL IV PUSH ONE (13:09)
[2016-12-26] MEDS ORDERED: NEOSTIGMINE 3 MG/3 ML SYR IV ONE (13:09)
[2016-12-26] MEDS ORDERED: ePHEDrine/NS 25 MG/5 ML SYR IV ONE (13:09)
[2016-12-26] MEDS ORDERED: DO NOT ADM ANY ANTICOAGULANT DRUGS PRN (16:48)
[2016-12-26] MEDS ORDERED: fentaNYL CITRATE 250 MCG/5 ML AMP ONE (16:51)
--- NOTE | 2016-12-26 16:56 | HHI.PR ---
Immediate Post Op Note Procedure Date: Dec 26, 2016 Pre Op Diagnosis: (1) Gastric adenocarcinoma (2) Anemia Post Op Diagnosis: (1) Gastric adenocarcinoma (2) Anemia Surgeon: Boy Hernandez Pension Administrator(s): Grace ANN Procedure: open Total gastrectomy with en bloc resection, distal pancreatectomy and splenectomy Findings: gastric tumor directly invading pancreatic body no carcinomatosis Complications: none Specimen(s) removed: stomach and distal pancreas/spleen Estimated blood loss: 250ml Anesthesia: General, Regional Block Drains: HERNAN IVF Patient to: PACU Patient Condition: Good Boy Hernandez MD Dec 26, 2016 16:56
[2016-12-26] MEDS ORDERED: NALOXONE HCL 0.4 MG/ML AMP IV PRN ×2 (17:00)
[2016-12-26] MEDS ORDERED: BENZOCAINE 20% ORAL SPR 60 ML CAN MT PRN (17:00)
[2016-12-26] MEDS ORDERED: Post-op Orders (for Pharmacy) MISC XX ONE (17:00)
[2016-12-26] MEDS ORDERED: SODIUM CHLORIDE 0.9% FLUSH 10 ML FLUSH IV FLUSH PRN (17:00)
[2016-12-26] MEDS ORDERED: diphenhydrAMINE HCL 50 MG/ML VIAL IV PRN (17:00)
[2016-12-26] MEDS ORDERED: DEXTROSE 50% IN WATER 50 ML VIAL(D50) IV PUSH PRN (17:00)
[2016-12-26] MEDS: PCA - TOTAL MG MORPHINE DELIVERED PER SHIFT SCH ×2 (17:00→22:00)
[2016-12-26] MEDS ORDERED: GLUCAGON 1 MG/ML VIAL OTHER PRN (17:00)
[2016-12-26] MEDS ORDERED: ONDANSETRON HCL 4 MG/2 ML VIAL IV PRN (17:00)
[2016-12-26] MEDS ORDERED: *morphine SULFATE 8 MG/ML PERIprocedure ONLY ONE ×2 (17:25→17:48)
[2016-12-26] MEDS ORDERED: METOPROLOL TARTRATE 5 MG/5 ML VIAL ONE (17:47)
[2016-12-26] MEDS: SODIUM CHLOR 0.9% 1000 ML INJ 1,000 ML IV SCH (18:00)
[2016-12-26] MEDS: ACETAMINOPHEN 1000 MG/100 ML VIAL IV SCH ×2 (18:00→23:52)
--- NOTE | 2016-12-26 20:00 | PD.CONS ---
[facility] Service Critical Care Medicine Consult Requested By Dr. Hernandez Reason for Consult medical management following near total gastrectomy and distal pancreatectomy Primary Care Physician [facility] History of Present Illness 66-year-old male with past medical history of HIV previously on HAART therapy, hepatitis C, tobacco abuse, cocaine abuse, daily alcohol use who receives much of his medical care through the [place] [facility]. He presented to [facility] emergency department on 12/20/16 with syncope. He underwent cardiology workup which included a normal echo with EF of 55-60%. He did have anemia and melena. He underwent EGD which demonstrated a 3 x 4 cm mass in the posterior stomach and gastric body. 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 Heme oncology and surgical oncology were consulted. Dr. Liu has performed near total gastrectomy and distal pancreatectomy with J-tube placement. Past Family Social History Allergies: Coded Allergies: No Known Allergies (Verified , 12/18/16) Past Medical History HIV diagnosed 8 years ago. Has been on HAART for about 6-7 years Post herpes zoster neuralgia Hepatitis C Cocaine abuse Tobacco abuse Daily alcohol use Past Surgical History No prior Reported Medications Genvoya (combination HAART) one tab daily Amitriptyline 40 g by mouth daily Gabapentin 600 mg by mouth 3 times a day Family History He denies significant family medical history. Social History He smokes a pack of cigarettes per day for 25 years Currently smokes 4-5 cigarettes per day Actively uses cocaine and urine drug screen was positive for cocaine upon admission Drinks about 6 beers daily Physical Exam Vital Signs Vital Signs Date Time Temp Pulse Resp B/P Pulse Ox O2 Delivery O2 Flow Rate FiO2 12/26/16 19:30 100 20 152/84 98 12/26/16 19:00 100 20 154/90 98 12/26/16 18:45 104 20 157/94 97 12/26/16 18:30 101 20 152/90 95 12/26/16 18:15 100 20 168/97 100 12/26/16 18:00 102 20 154/79 100 12/26/16 17:45 118 20 157/89 100 12/26/16 17:30 122 20 156/92 100 12/26/16 17:15 111 20 150/71 100 12/26/16 17:00 110 20 140/81 100 12/26/16 16:45 112 20 153/92 100 12/26/16 16:36 98.4 114 20 159/84 100 Nasal Cannula 4 12/26/16 16:09 12/26/16 12:05 12/26/16 08:00 96.9 75 21 103/66 99 12/26/16 04:00 96.6 75 17 111/67 99 12/26/16 00:00 96.8 80 17 120/68 96 12/25/16 20:00 97.3 81 18 122/72 98 Physical Exam Drips: 0.9 NaCl at 100 L per hour Morphine MONITORING AND EVALUATION ADVISOR Temp 98.4 pulse 100. Blood pressure 152/84 sats 98% on 2 L nasal cannula GENERAL: Thin well-developed pleasant male who is lying in PACU bed. SKIN: Warm and dry, well perfused. HEAD: Atraumatic. Normocephalic. EYES: . No scleral icterus. No injection or drainage. ENT: No nasal bleeding or discharge. Mucous membranes pink and moist. NECK: Trachea midline. No JVD. CARDIOVASCULAR: Regular rate and rhythm, sinus rhythm on the monitor. No murmurs rubs or gallops. RESPIRATORY: Breathing comfortably with no accessory muscle use. Clear to auscultation. Breath sounds equal bilaterally. GASTROINTESTINAL: Abdomen with midline vertical dressing in place with some blood staining. J-P drain in place with 0 single does output. J-tube in place to gravity. Bowel sounds absent. : Bush in place with light yellow urine output. MUSCULOSKELETAL: Extremities without clubbing, cyanosis, or edema. No obvious deformities. NEUROLOGICAL: Awake and alert. No obvious cranial nerve deficits. Motor grossly within normal limits. Normal speech. Oriented and conversing normally. Laboratory Laboratory Tests Test 12/26/16 12:05 Blood Type B NEGATIVE Antibody Screen NEGATIVE Crossmatch Leukocyte-Reduced Red Blood Cells Blood Bank Comment Date/Time Procedure Status Source Growth 12/22/16 06:50 Stool Occult Blood (DORIS) - Final Complete Stool Stool HEMOCCULT POSITIVE Result Diagram: 12/25/16 0600 12/24/16 0533 Assessment and Plan Assessment and Plan NEURO: Postoperative pain Cocaine abuse Daily alcohol use Post herpes zoster neuralgia Morphine MONITORING AND EVALUATION ADVISOR Continue Amitriptyline 40 mg by mouth daily when able to take by mouth Continue gabapentin 6 mg by mouth 3 times a day when able to take by mouth. Carotid ultrasounds obtained 12/21/16 due to syncope show no significant stenosis. RESP: Tobacco abuse DuoNeb every 4 hours as needed. Incentive spirometry every hour awake CV: Syncope Monitor hemodynamic 2-D echo 12/21/16ejection fraction 55-60%. No wall motion abnormalities. Cardiology has signed off and no further workup is planned. Syncope is felt to be related to symptomatic anemia. GI: Gastric adenocarcinoma Status post near total gastrectomy, distal pancreatectomy , J tube placement 08/03 (Dr. Hernandez) Chronic gastritis J-tube gravity per Dr. Hernandez. NPO and diet advancement per general surgery. Biopsy negative for H. pylori FEN/RENAL: Bush in place. Monitor intake and output. Monitor electrolytes. Replace as indicated per ICU electrolyte replacement protocol. 0.9 NaCl@125 mL per hour ID: HIV History of hepatitis C Has been on outpatient HAART through [place]. Continue Genvoya when able to take po. He states recent viral load was undetectable Biopsy negative for H. pylori Cefazolin 1 g IV every 8, metronidazole 500 mg IV every 8 per oncologic surgery HEME: Acute blood loss anemia Gastric adenocarcinoma Hematology following. Plan to follow up with [place] for chemotherapy postoperatively. pathology: invasive poorly differentiated adenocarcinoma. ENDO: Euglycemic PROPH: SCDs and Lovenox 40 mg subcutaneous daily for DVT prophylaxis. Protonix 40 mg IV daily for stress ulcer prophylaxis. ACCESS: Peripheral IV PT/OT consulted Discussed with Dr. Hernandez and with RN RADIATION. Teetee Ryan MD Dec 26, 2016 20:00
[2016-12-26] MEDS: metroNIDAZOLE 500 MG INJ 100 ML IV SCH (21:00)
[2016-12-26] MEDS ORDERED: INSULIN NovoLIN REGULAR SUPPLEMENTAL SCALE SQ SCH (21:00)
[2016-12-26] MEDS: SODIUM CHLORIDE 0.9% FLUSH 10 ML FLUSH IV FLUSH SCH (21:00)
[2016-12-26 21:36] VITALS: O2SAT 98
[2016-12-26 22:00] VITALS: BP 143/87; PULSE 89; PULSE 90; RESP 14; RESP 21; TEMP 97.8; O2SAT 100; O2SAT 99
[2016-12-26 23:10] VITALS: O2SAT 94
[2016-12-26] MEDS: INSULIN NovoLIN REGULAR SUPPLEMENTAL SCALE SQ SCH (23:47)
[2016-12-27] VITALS (15 sets, daily range): BP systolic 133–156; BP diastolic 61–84; PULSE 78–106; RESP 12–28; TEMP 97.7–98.3; O2SAT 95–100
[2016-12-27] MEDS: SODIUM CHLOR 0.9% 1000 ML INJ 1,000 ML IV SCH ×3 (03:00→15:51)
[2016-12-27] MEDS: metroNIDAZOLE 500 MG INJ 100 ML IV SCH ×2 (04:28→12:12)
[2016-12-27] MEDS: ACETAMINOPHEN 1000 MG/100 ML VIAL IV SCH ×2 (05:00→11:58)
[2016-12-27] MEDS: INSULIN NovoLIN REGULAR SUPPLEMENTAL SCALE SQ SCH ×3 (05:00→17:45)
[2016-12-27] MEDS: PCA - TOTAL MG MORPHINE DELIVERED PER SHIFT SCH ×3 (05:01→22:00)
[2016-12-27 06:08] LABS: AUTOMATED NEUTROPHIL # 21.4 TH/MM3 (1.8-7.7); BASOPHIL % 0.1 % (0.0-2.0); HEMATOCRIT 28.2 % (39.0-51.0); HEMO FLAGS DIFF FINAL; LYMPH % 5.4 % (9.0-44.0); LYMPHOCYTE # 1.3 TH/MM3 (1.0-4.8); MEAN CELL VOLUME 93.2 FL (80.0-100.0); MEAN CORPUSCULAR HEMOGLOBIN 30.6 PG (27.0-34.0); MEAN CORPUSCULAR HGB CONC 32.9 % (32.0-36.0); MONO % 5.6 % (0.0-8.0); NEUT % 88.9 % (16.0-70.0); PLATELET COUNT 401 TH/MM3 (150-450); RED BLOOD COUNT 3.03 MIL/MM3 (4.50-5.90); RED CELL DISTRIBUTION WIDTH 13.7 % (11.6-17.2); WHITE BLOOD COUNT 24.1 TH/MM3 (4.0-11.0)
[2016-12-27] MEDS ORDERED: RESP: ALBUTEROL 2.5 MG/IPRATROPIUM 0.5 MG NEB (PRN) NEB (07:15)
[2016-12-27] MEDS: SODIUM CHLORIDE 0.9% FLUSH 10 ML FLUSH IV FLUSH SCH ×2 (08:34→21:00)
[2016-12-27] MEDS: PANTOPRAZOLE SODIUM 40 MG VIAL IV PUSH SCH (08:34)
[2016-12-27] MEDS: AMITRIPTYLINE HCL 10 MG TAB PO SCH (08:35)
[2016-12-27] MEDS: GENVOYA PO SCH ×2 (08:35→11:28)
[2016-12-27] MEDS: GABAPENTIN 300 MG CAP PO SCH ×3 (08:36→15:50)
[2016-12-27] MEDS: POLYETHYLENE GLYCOL 17 GM PKG PO SCH (08:36)
[2016-12-27] MEDS: MORPHINE SULFATE 30 MG/30 ML PCA IV SCH (08:37)
--- NOTE | 2016-12-27 10:49 | HHI.PR ---
Subjective Subjective Notes Up to chair Pain only when getting up Objective Vitals/I&O Vital Signs Date Time Temp Pulse Resp B/P Pulse Ox O2 Delivery O2 Flow Rate FiO2 12/27/16 09:16 98 21 12/27/16 08:37 27 12/27/16 06:00 80 12/27/16 04:00 98.1 133/61 12/26/16 21:36 Nasal Cannula 2.00 Labs Laboratory Tests Test 12/26/16 12/26/16 12/27/16 12:05 21:25 05:19 Blood Type B NEGATIVE Antibody Screen NEGATIVE Crossmatch Leukocyte-Reduced Red Blood Cells Blood Bank Comment Nasal Screen MRSA (PCR) NEGATIVE White Blood Count 24.1 Red Blood Count 3.03 Hemoglobin 9.3 Hematocrit 28.2 Mean Corpuscular Volume 93.2 Mean Corpuscular Hemoglobin 30.6 Mean Corpuscular Hemoglobin 32.9 Concent Red Cell Distribution Width 13.7 Platelet Count 401 Mean Platelet Volume 6.9 Neutrophils (%) (Auto) 88.9 Lymphocytes (%) (Auto) 5.4 Monocytes (%) (Auto) 5.6 Eosinophils (%) (Auto) 0.0 Basophils (%) (Auto) 0.1 Neutrophils # (Auto) 21.4 Lymphocytes # (Auto) 1.3 Monocytes # (Auto) 1.4 Eosinophils # (Auto) 0.0 Basophils # (Auto) 0.0 CBC Comment DIFF FINAL Differential Comment Sodium Level 139 Potassium Level 5.0 Chloride Level 104 Carbon Dioxide Level 29.0 Anion Gap 6 Blood Urea Nitrogen 13 Creatinine 0.96 Estimat Glomerular Filtration 95 Rate Random Glucose 122 Calcium Level 8.6 Cardiovascular: Regular Lungs: Clear Abdomen: Other (Midline incision with moderate blood drainage on dressing ( changed); J tube to gravity; HERNAN with SS drainage ) Extremities: No edema A/P Assessment and Plan 66 year old male POD1 open Total gastrectomy with en bloc resection, distal pancreatectomy and splenectomy -NPO -Okay to give HIV meds through J tube if able to crush to powder fine texture and flush (ROBERTO Chester going to check with pharmacy) -OOB -CONTRACT MANAGEMENT SPECIALIST for Pain -J tube to gravity -Pathology pending -If stable through the day okay to transfer out of [facility] this afternoon Attending Statement The exam, history, and the medical decision-making described in the above note were completed with the assistance of the mid-level provider. I reviewed and agree with the findings presented. I attest that I had a [id number] encounter with the patient on the same day, and personally performed and documented my assessment and findings in the medical record. abdominal exam benign postop, continue postop care, will check esophagram Sunday Debra Amin Dec 27, 2016 10:49 Boy Hernandez MD Dec 29, 2016 09:13
--- NOTE | 2016-12-27 12:36 | MP ---
cc: LENA DUFFY DATE OF SURGERY: 12/26/2016 PREOPERATIVE DIAGNOSIS 1. Upper GI bleed. 2. Locally advanced gastric adenocarcinoma. POSTOPERATIVE DIAGNOSIS 1. Upper GI bleed. 2. Locally advanced gastric adenocarcinoma. PROCEDURE 1. Exploratory laparotomy. 2. Total gastrectomy with en bloc resection of pancreas. 3. Distal pancreatectomy, splenectomy. 4. Jejunostomy tube placement. 5. Esophagojejunostomy with Maddie-en-Y reconstruction. ATTENDING SURGEON Mary LIBRARY SCIENCE INSTRUCTOR SETH Granado ANESTHESIA General and regional block. COMPLICATIONS None. ESTIMATED BLOOD LOSS 250 cc. FINDINGS 1. No carcinomatosis. 2. Locally advanced gastric adenocarcinoma with direct and deep and wide invasion into the body the pancreas as well as a small area of invasion into the transverse mesocolon. INDICATIONS FOR PROCEDURE The patient is a 66-year-old male who presented to [facility] with upper gastrointestinal bleeding. An EGD was performed and a large ulcerated mass consistent with adenocarcinoma that was bleeding was found. The patient underwent biopsy which returned invasive adenocarcinoma. Staging scans were ordered which showed possible invasion of the pancreas with no metastatic disease. After discussion with Dr. May, the patient's medical oncologist, as well as the patient and his family about treatment options including perioperative chemotherapy versus up front surgery, it was felt that urgent surgery was needed because of the patient significant bleeding and symptoms from the tumor at this time. We felt the patient was not a candidate for perioperative chemotherapy or other protocols. The risks, benefits and alternatives to surgery and partial versus total gastrectomy with possible pancreatectomy were explained to the patient in detail prior to the procedure, and the patient agreed to undergo the procedure. DETAILS OF PROCEDURE After informed consent was obtained the patient was taken to the operating room, placed in a supine position and placed under general endotracheal anesthesia. The patient's abdomen was shaved, prepped and draped in a sterile fashion. A timeout was performed. The abdomen was entered through an upper midline incision from below the xiphoid to below the umbilicus using the Bovie electrocautery. The Bovie electrocautery was used to dissect through subcutaneous tissue and open the midline for the full length of the incision. An Silver wound retractor was placed and a Bookwalter retractor was also placed to gain better exposure. At this point in time we explored the abdomen and there was no evidence of any carcinomatosis. It was very clear that the tumor was locally advanced as it was invading into the pancreas and a small area of the transverse mesocolon, but again no carcinomatosis or liver disease. The liver appeared essentially normal. We turned our attention towards further dissection. We were able to take the omentum off of the transverse colon completely and enter the lesser sac. We took down the short gastric vessels with the Enseal device and took this all the way up to the kenia. We dissected out the gastrohepatic ligament and divided the duodenum just past the pylorus with a green load on the Winnie stapler. We then divided the proximal margin which was right at the cardia of the stomach with a green load on the Winnie stapler as well. We continued our dissection, divided the left gastric artery and with all lymph nodes with a white load on the Winnie stapler. At this point in time we continued our dissection and the stomach was completely mobilized and went out of the patient with the exception of its attachment to the pancreas. Due to the deep invasion of this into the body of the pancreas there really was not a good window to take this pancreas other than right at the neck of the pancreas. The patient had a very small thin pancreatic neck and the portal vein and the superior mesenteric vein were easily identified. We delicately dissected the neck of the pancreas off the SMV without difficulty using a hemostat. We were able to divide the neck of the pancreas with a white load on the Winnie stapler without difficulty. We then were able to continue our dissection. We identified the splenic artery branch up to the rectus and divided this with a white load on the Winnie stapler and then divided the splenic vein before it confluenced into the SMV with a white load on the Winnie stapler. This gave us good exposure to continue our dissection from medial to lateral. After dividing the inferior mesenteric vein with a white load on the Winnie stapler, we took the entire pancreas and spleen from the patient, taking the retroperitoneal attachments with the Bovie electrocautery. This was marked and oriented and sent for permanent pathology and for margins. The margins did come back negative on initial evaluation with intraoperative consultation with pathology. At this point in time we irrigated out the abdomen. All suctioning was clear. We had excellent hemostasis. We turned attention towards reconstruction. Of note there was a small area of the transverse mesocolon also attached to the gastric tumor and this was taken out in a wedge type fashion. This was distal to the middle colic artery and vein, but proximal to the splenic flexure, and this mesenteric defect was closed with silk. For reconstruction we performed a Maddie-en-Y type reconstruction. We went approximately 40 cm distal to the ligament of Treitz and divided this with a blue load on the Winnie stapler and mobilized our mesentery. We took the alimentary limb up over the colon and behind the cardia of the stomach and performed a [id number] functional end-to-end anastomosis using a blue load on the Winnie stapler. The stapled defects were closed with 3-0 silk interrupted sutures and Lembert sutures as well. An NG tube was passed through this anastomosis and went into the proximal small bowel without difficulty. We then went again distally approximately 40 cm down our alimentary limb and performed our jejunostomy anastomosis with the biliopancreatic limb using a blue load on the Winnie stapler. The stapled defect was closed with a second blue load on the Winnie stapler. This was widely patent and was completely viable and technically looked satisfactory. We then went approximately another 30 cm past the jejunostomy and performed the jejunostomy tube in a Kimberly type fashion. This was through a separate stab incision we Kimberly'd this up as well as pursestringed the tube into place to the left side of the abdomen. We then turned our attention towards closure. Again we irrigated out the abdomen. There was a minimal mesenteric defect with no actual discernible defects, but we did place interrupted silks in the area of the jejunostomy to minimize the risk of any internal hernia. We did also placed a 19-Togolese round Patrick drain in the retroperitoneum and left upper quadrant near the pancreatic neck as well as posterior to our esophagojejunal anastomosis. This was brought out through a separate stab incision and sutured in place with nylon suture. We then closed the midline with a running double-stranded #1 PDS suture. We closed the skin with estelita and sterile dressing was applied. The Patrick drain was placed to bulb suction. The J-tube was placed to gravity drainage. The patient underwent a TAP block at the end procedure per Anesthesia. The patient was taken to PACU in stable condition. The patient tolerated the procedure well. No apparent complications. All counts were correct. I was present and scrubbed for the entire procedure. SETH Granado was present for the entire procedure as well and her presence for this complicated procedure was required due to the complexity and the nature as there was no attending surgeon available to assist with this complex case. Her presence was required for the safe and expedited treatment of this patient intraoperatively. Lena Duffy MD AWG/BT /10:47 AM /11:53 AM
--- NOTE | 2016-12-27 13:42 | HHI.CCPN ---
Subjective Remarks/Hospital Course 12/26: 66-year-old male with past medical history of HIV previously on HAART therapy, hepatitis C, tobacco abuse, cocaine abuse, daily alcohol use who receives much of his medical care through the [place] system. He presented to [facility] emergency department on 12/20/16 with syncope. He underwent cardiology workup which included a normal echo with EF of 55-60%. He did have anemia and melena. He underwent EGD which demonstrated a 3 x 4 cm mass in the posterior stomach and gastric body. 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 Heme oncology and surgical oncology were consulted. Dr. Liu has performed near total gastrectomy and distal pancreatectomy with J-tube placement. 12/27: Resting comfortably in bed. Not in any acute distress. Objective Vital Signs Date Time Temp Pulse Resp B/P Pulse Ox O2 Delivery O2 Flow Rate FiO2 12/27/16 09:16 98 21 12/27/16 08:37 27 12/27/16 06:00 80 12/27/16 04:00 98.1 133/61 12/26/16 21:36 Nasal Cannula 2.00 Intake and Output 12/26/16 12/26/16 12/27/16 08:00 16:00 00:00 Intake Total 480 ml Output Total 610 ml Balance 480 ml -610 ml Result Diagram: 12/27/16 0519 12/27/16 0519 Imaging Last Impressions Chest CT 12/25/16 0000 Signed Impressions: Service Date/Time: Sunday, December 25, 2016 16:23 - CONCLUSION: Calcific granulomatous changes identified the left lung and spleen. No evidence of suspicious noncalcified mass. Mild/moderate coronary artery calcification. Emphysematous chronic obstructive pulmonary disease. Roberto Luke MD Carotid Artery Ultrasound 12/21/16 0000 Signed Impressions: Service Date/Time: December 17:26 - CONCLUSION: No evidence for hemodynamically significant stenosis. Jose Meyers MD Brain MRI 12/21/16 0000 Signed Impressions: Service Date/Time: December 20:37 - CONCLUSION: Chronic atrophic and small vessel ischemic changes without any evidence for acute hemorrhage or mass effect. Jose Meyers MD Abdomen/Pelvis CT 12/21/16 0000 Signed Impressions: Service Date/Time: December 16:33 - CONCLUSION: 1. Abnormal appearance of the gastric fundus. The upper stomach is fairly diffusely thickened. The tissue planes between the stomach and pancreas are partially obscured. This is concerning for possible gastric malignancy. Endoscopy is warranted for further assessment. 2. Diffuse stool filled, distended colon consistent with constipation. 3. No free air or free fluid identified. 4. Calcified granuloma in the left lung as above. Ras Gregorio MD Objective Remarks Drips: 0.9 NaCl at 100 L per hour Morphine ECOLOGICAL MODELER GENERAL: Thin well-developed pleasant male who is lying in bed. SKIN: Warm and dry, well perfused. HEAD: Atraumatic. Normocephalic. EYES: . No scleral icterus. No injection or drainage. ENT: No nasal bleeding or discharge. Mucous membranes pink and moist. NECK: Trachea midline. No JVD. CARDIOVASCULAR: Regular rate and rhythm, sinus rhythm on the monitor. No murmurs rubs or gallops. RESPIRATORY: Breathing comfortably with no accessory muscle use. Clear to auscultation. Breath sounds equal bilaterally. GASTROINTESTINAL: Abdomen with midline vertical dressing in place with some blood staining. J-P drain in place. J-tube in place to gravity. Bowel sounds absent. : Bush in place with light yellow urine output. MUSCULOSKELETAL: Extremities without clubbing, cyanosis, or edema. No obvious deformities. NEUROLOGICAL: Awake and alert. No obvious cranial nerve deficits. Motor grossly within normal limits. Normal speech. Oriented and conversing normally. Procedures 47 upper endoscopy A/P Assessment and Plan NEURO: Postoperative pain Cocaine abuse Daily alcohol use Post herpes zoster neuralgia Morphine ECOLOGICAL MODELER Continue Amitriptyline 40 mg by mouth daily when able to take by mouth Continue gabapentin 6 mg by mouth 3 times a day when able to take by mouth. Carotid ultrasounds obtained 12/21/16 due to syncope show no significant stenosis. RESP: Tobacco abuse DuoNeb every 4 hours as needed. Incentive spirometry every hour awake CV: Syncope Monitor hemodynamic 2-D echo 12/21/16ejection fraction 55-60%. No wall motion abnormalities. Cardiology has signed off and no further workup is planned. Syncope is felt to be related to symptomatic anemia. GI: Gastric adenocarcinoma Status post near total gastrectomy, distal pancreatectomy , J tube placement 08/03 (Dr. Gamenthaler) Chronic gastritis J-tube gravity per Dr. Hernandez. NPO and diet advancement per general surgery. Biopsy negative for H. pylori FEN/RENAL: Bush in place. Monitor intake and output. Monitor electrolytes. Replace as indicated per ICU electrolyte replacement protocol. 0.9 NaCl@125 mL per hour ID: HIV History of hepatitis C Has been on outpatient HAART through [place]. Continue Genvoya when able to take po. He states recent viral load was undetectable Biopsy negative for H. pylori Cefazolin 1 g IV every 8, metronidazole 500 mg IV every 8 per oncologic surgery HEME: Acute blood loss anemia Gastric adenocarcinoma Hematology following. Plan to follow up with [place] for chemotherapy postoperatively. pathology: invasive poorly differentiated adenocarcinoma. ENDO: Euglycemic PROPH: SCDs and Lovenox 40 mg subcutaneous daily for DVT prophylaxis. Protonix 40 mg IV daily for stress ulcer prophylaxis. ACCESS: Peripheral IV PT/OT consulted Patient will be transferred to hospitalist service for further medical management. Critical care will be signing off. Transfer out of ICU when okay with Dr. Hernandez. Dwayne Tobias MD Dec 27, 2016 13:42
[2016-12-27] MEDS: ENOXAPARIN SODIUM 40 MG/0.4 ML SYRINGE SQ SCH (15:50)
--- NOTE | 2016-12-27 16:22 | PD.ONC.PN ---
Subjective Subjective Remarks Afebrile overnight. Pt did very well with surgery yesterday. He is feeling good today with no complaints. No bleeding. He is asking when he will be able to eat. Objective Data Date Time Temp Pulse Resp B/P Pulse Ox O2 Delivery O2 Flow Rate FiO2 12/27/16 14:00 79 12/27/16 13:00 154/80 12/27/16 12:00 98.3 87 21 152/81 99 12/27/16 12:00 87 12/27/16 10:00 85 12/27/16 09:16 98 21 12/27/16 09:00 97 Room Air 12/27/16 08:37 27 12/27/16 08:00 78 12/27/16 08:00 98.2 78 27 142/80 100 12/27/16 08:00 100 Nasal Cannula 2.00 12/27/16 06:00 80 12/27/16 05:01 14 12/27/16 04:00 85 12/27/16 04:00 98.1 85 28 133/61 99 12/27/16 02:00 83 12/27/16 00:00 97.7 83 12 135/84 99 12/26/16 23:10 94 21 12/26/16 22:00 97.8 90 21 143/87 99 12/26/16 22:00 97.8 90 14 143/87 100 12/26/16 22:00 14 12/26/16 22:00 89 12/26/16 21:36 98 Nasal Cannula 2.00 12/26/16 21:05 85 20 154/79 99 Nasal Cannula 2 12/26/16 20:30 87 20 137/87 98 Nasal Cannula 2 12/26/16 19:30 100 20 152/84 98 12/26/16 19:00 100 20 154/90 98 12/26/16 18:45 104 20 157/94 97 12/26/16 18:30 101 20 152/90 95 12/26/16 18:15 100 20 168/97 100 12/26/16 18:00 102 20 154/79 100 12/26/16 17:45 118 20 157/89 100 12/26/16 17:30 122 20 156/92 100 12/26/16 17:15 111 20 150/71 100 12/26/16 17:00 110 20 140/81 100 12/26/16 16:45 112 20 153/92 100 12/26/16 16:36 98.4 114 20 159/84 100 Nasal Cannula 4 12/27/16 12/27/16 12/27/16 07:00 15:00 23:00 Intake Total 1300 ml 1084 ml Output Total 1010 ml 1140 ml Balance 290 ml -56 ml Result Diagram: 12/27/16 0519 12/27/16518 Laboratory Results Laboratory Tests Test 12/26/16 12/27/16 21:25 05:19 Nasal Screen MRSA (PCR) NEGATIVE White Blood Count 24.1 TH/MM3 Red Blood Count 3.03 MIL/MM3 Hemoglobin 9.3 GM/DL Hematocrit 28.2 % Mean Corpuscular Volume 93.2 FL Mean Corpuscular Hemoglobin 30.6 PG Mean Corpuscular Hemoglobin 32.9 % Concent Red Cell Distribution Width 13.7 % Platelet Count 401 TH/MM3 Mean Platelet Volume 6.9 FL Neutrophils (%) (Auto) 88.9 % Lymphocytes (%) (Auto) 5.4 % Monocytes (%) (Auto) 5.6 % Eosinophils (%) (Auto) 0.0 % Basophils (%) (Auto) 0.1 % Neutrophils # (Auto) 21.4 TH/MM3 Lymphocytes # (Auto) 1.3 TH/MM3 Monocytes # (Auto) 1.4 TH/MM3 Eosinophils # (Auto) 0.0 TH/MM3 Basophils # (Auto) 0.0 TH/MM3 CBC Comment DIFF FINAL Differential Comment Sodium Level 139 MEQ/L Potassium Level 5.0 MEQ/L Chloride Level 104 MEQ/L Carbon Dioxide Level 29.0 MEQ/L Anion Gap 6 MEQ/L Blood Urea Nitrogen 13 MG/DL Creatinine 0.96 MG/DL Estimat Glomerular Filtration 95 ML/MIN Rate Random Glucose 122 MG/DL Calcium Level 8.6 MG/DL Administered Medications Medications (Trade) Dose Ordered Sig/Sierar Route PRN Reason Start Time Stop Time Status Last Admin Dose Admin Amitriptyline HCl (Elavil) 40 mg DAILY PO 12/21/16 09:00 12/25/16 09:24 Gabapentin (Neurontin) 600 mg TID PO 12/21/16 09:00 12/25/16 17:51 Patient Own Medication PT OWN MED: GENVO... DAILY PO 12/21/16 09:00 12/27/16 11:28 Acetaminophen 650 mg 650 mg Q4H PRN PO PAIN 1-10 AND/OR FEVER >101F 12/21/16 09:30 12/24/16 17:40 Sodium Chloride (NS 1000 ml Inj) 1,000 ml @ 125 mls/hr Q8H IV 12/26/16 17:00 12/27/16 11:32 Sodium Chloride (NS Flush) 2 ml BID IV FLUSH 12/26/16 21:00 12/27/16 08:34 Enoxaparin Sodium (Lovenox Inj) 40 mg Q24H SQ 12/27/16 15:34 12/27/16 15:50 Morphine Sulfate (Morphine 1 Mg/ ml IV RN) 30 mg UNSCH IV 12/26/16 17:00 12/27/16 08:37 IV RN Dosage Infused (Pha) 1 Q8HR .XX 12/26/16 17:00 12/27/16 12:14 Pantoprazole Sodium (Protonix Inj) 40 mg Q24H IV PUSH 12/27/16 08:00 12/27/16 08:34 Objective Remarks GENERAL: Middle aged male, sitting up in bed in no distress. SKIN: Warm and dry. HEAD: Normocephalic. EYES: No injection or drainage. CV: + S1/S2. No murmur LUNGS: CTAB GASTROINTESTINAL: Abdomen soft. Vertical bandage in place. Dry and intact. HERNAN drain in place with minimal drainage. J-tube in place. EXTREMITIES: No cyanosis, or edema. MUSCULOSKELETAL: Adequate muscle tone. NEUROLOGICAL: Awake and alert, normal speech. Moving extremities. Assessment/Plan Problem List: (1) Gastric adenocarcinoma Status: Acute Plan: -- s/p total gastrectomy on 12/26/16 --CT chest shows granulomatous changes, no mass -- CT Abdomen shows abnormal appearance of the gastric fundus, concerning for possible gastric malignancy -- Esophagogastroduodenoscopy found a 3x4 cm ulcerated mass. -- Biopsy taken, path shows invasive adenocarcinoma -- CEA, CA 19-9 normal. (2) Anemia Status: Acute Plan: -- Iron deficiency anemia with a ferritin of 13. -- Likely due to blood loss from ulcerated gastric mass -- Iron sucrose IV x 3 bags ordered. (3) HIV (human immunodeficiency virus infection) Status: Chronic Plan: -- Stable on HAART -- Last CD4 count was in the 400's. Assessment 66 y/o male with history of HIV admitted for syncope and was found to have a gastric mass. 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 Gastrectomy done yesterday to remove ulcerated gastric mass 2. Doing well post surgery 3. Pt will followup with [facility] for chemotherapy once discharged. Attending Statement The exam, history, and the medical decision-making described in the above note were completed with the assistance of the mid-level provider. I reviewed and agree with the findings presented. I attest that I had a [id number] encounter with the patient on the same day, and personally performed and documented my assessment and findings in the medical record. Pt seen and examined. Pt had a busy day today, OOB to chair, and doing breathing exercise. Tolerated surgery well for GI bleeding and syncope. Discussed surgery w.Dr. Hernandez, pending final pathology. Suspect positive nodes pt will need adjuvant chemo after definitive resection of gastric cancer. Consult w/ biodiesel division manager to start coordination of care with [facility]. Continue to follow recovery. Problem Qualifiers (1) Anemia: Qualified Code: D50.0 - Iron deficiency anemia due to chronic blood loss Carmela Linder Dec 27, 2016 16:22 Kandice May MD Dec 27, 2016 20:09
[2016-12-28] VITALS (14 sets, daily range): BP systolic 138–145; BP diastolic 66–82; PULSE 78–117; RESP 15–30; TEMP 97.8–99.3; O2SAT 92–100
[2016-12-28] MEDS: MORPHINE SULFATE 30 MG/30 ML PCA IV SCH ×2 (03:27→18:09)
[2016-12-28] MEDS: SODIUM CHLOR 0.9% 1000 ML INJ 1,000 ML IV SCH ×3 (03:52→19:52)
[2016-12-28] MEDS: INSULIN NovoLIN REGULAR SUPPLEMENTAL SCALE SQ SCH ×5 (06:00→23:59)
[2016-12-28] MEDS: PCA - TOTAL MG MORPHINE DELIVERED PER SHIFT SCH ×3 (06:00→22:00)
--- NOTE | 2016-12-28 08:24 | HHI.PR ---
Subjective Remarks in no acute distress. pain is fairly controlled. no nausea/vomiting. afebrile. Objective Vitals Vital Signs Date Time Temp Pulse Resp B/P Pulse Ox O2 Delivery O2 Flow Rate FiO2 12/28/16 07:00 95 Room Air 2.00 21 12/28/16 06:00 109 12/28/16 06:00 18 12/28/16 04:00 98.4 103 20 138/66 98 12/28/16 04:00 109 12/28/16 03:27 16 12/28/16 02:00 110 12/28/16 00:00 107 12/28/16 00:00 98.1 105 20 141/70 98 12/27/16 22:00 106 12/27/16 22:00 16 12/27/16 20:08 96 21 12/27/16 20:00 101 12/27/16 20:00 92 Room Air 12/27/16 20:00 98.1 93 20 156/72 95 12/27/16 18:00 88 12/27/16 16:00 87 12/27/16 16:00 98.3 87 27 136/78 95 12/27/16 14:00 79 12/27/16 13:00 154/80 12/27/16 12:00 98.3 87 21 152/81 99 12/27/16 12:00 87 12/27/16 10:00 85 12/27/16 09:16 98 21 12/27/16 09:00 97 Room Air 12/27/16 08:37 27 I/O 12/27/16 12/27/16 12/27/16 12/28/16 12/28/16 12/28/16 07:00 15:00 23:00 07:00 15:00 23:00 Intake Total 1300 ml 1084 ml 1146 ml 681 ml Output Total 1010 ml 1140 ml 2050 ml 1330 ml Balance 290 ml -56 ml -904 ml -649 ml IV Total 1300 ml 984 ml 1146 ml 681 ml Other 100 ml Output Urine Total 1000 ml 1100 ml 2000 ml 1300 ml Gastric Drainage Total 0 ml Drainage Total 10 ml 40 ml 50 ml 30 ml # Bowel Movements 0 0 0 Result Diagram: 12/27/16 0519 12/27/16 0519 Imaging Last Impressions Chest CT 12/25/16 0000 Signed Impressions: Service Date/Time: Sunday, December 25, 2016 16:23 - CONCLUSION: Calcific granulomatous changes identified the left lung and spleen. No evidence of suspicious noncalcified mass. Mild/moderate coronary artery calcification. Emphysematous chronic obstructive pulmonary disease. Roberto Luke MD Carotid Artery Ultrasound 12/21/16 0000 Signed Impressions: Service Date/Time: December 17:26 - CONCLUSION: No evidence for hemodynamically significant stenosis. Jose Meyers MD Brain MRI 12/21/16 0000 Signed Impressions: Service Date/Time: December 20:37 - CONCLUSION: Chronic atrophic and small vessel ischemic changes without any evidence for acute hemorrhage or mass effect. Jose Meyers MD Abdomen/Pelvis CT 12/21/16 0000 Signed Impressions: Service Date/Time: December 16:33 - CONCLUSION: 1. Abnormal appearance of the gastric fundus. The upper stomach is fairly diffusely thickened. The tissue planes between the stomach and pancreas are partially obscured. This is concerning for possible gastric malignancy. Endoscopy is warranted for further assessment. 2. Diffuse stool filled, distended colon consistent with constipation. 3. No free air or free fluid identified. 4. Calcified granuloma in the left lung as above. Ras Gregorio MD Objective Remarks GENERAL: in no apparent distress. CARDIOVASCULAR: Regular rate and regular rhythm without murmurs, gallops, or rubs. RESPIRATORY: Clear to auscultation. Breath sounds equal bilaterally. No wheezes , rales, or rhonchi. GASTROINTESTINAL: Abdomen soft, non-tender, nondistended. Normal, active bowel sounds MUSCULOSKELETAL: Extremities without clubbing, cyanosis, or edema. NEURO: Alert & Oriented x4 to person, place, time, situation. Moves all ext x4 Procedures upper endoscopy Exploratory laparotomy/ Total gastrectomy with en bloc resection of pancreas/ Distal pancreatectomy, splenectomy/Jejunostomy tube placement/ Esophagojejunostomy with Maddie-en-Y reconstruction. Medications and IVs Current Medications Sodium Chloride 2 ml 2 ml UNSCH PRN IVF FLUSH AFTER USING IV ACCESS; Start 12/20 at 16:00; Stop 12/26/16 at 17:12; Status DC Sodium Chloride 1,000 ml @ 999 mls/hr BOLUS ONCE IV Last administered on 16:56; Start 12/20/16 at 16:45; Stop 12/20/16 at 17:45; Status DC Sodium Chloride (NS 1000 ml Inj) 1,000 ml @ 100 mls/hr Q10H IV Last administered on 12/23/16 20:22; Start 12/20/16 at 19:45; Stop 12/24/16 at 09:18; Status DC Amitriptyline HCl (Elavil) 40 mg DAILY PO Last administered on 12/25/16 09:24 ; Start 12/21/16 at 09:00 Gabapentin (Neurontin) 600 mg TID PO Last administered on 12/25/16 17:51; Start 12/21/16 at 09:00 Patient Own Medication PT OWN MED: GENVO... DAILY PO ; Start 12/21/16 at 09:00; Stop 12/21/16 at 09:00; Status DC Patient Own Medication PT OWN MED: GENVO... DAILY PO Last administered on 11:28; Start 12/21/16 at 09:00 Pantoprazole Sodium (Protonix) 40 mg ONCE ONCE PO Last administered on 10:24; Start 12/21/16 at 09:45; Stop 12/21/16 at 09:46; Status DC Pantoprazole Sodium (Protonix) 40 mg DAILY PO Last administered on 12/25/16 09 :24; Start 12/22/16 at 09:00; Stop 12/27/16 at 07:21; Status DC Acetaminophen (Tylenol) 650 mg Q4H PRN PO PAIN 1-10 AND/OR FEVER >101F Last administered on 12/24/16 17:40; Start 12/21/16 at 09:30 Diatrizoate Meglum/ Diatrizoate Sod ( Gastroview Liq) 18 ml ONCE ONCE PO Last administered on 12/21/16 11:48; Start 12/21/16 at 11:30; Stop 12/21/16 at 11: 31; Status DC Iohexol (Omnipaque 350 Inj) 100 ml STK-MED ONCE IV Last administered on 16:35; Start 12/21/16 at 16:35; Stop 12/21/16 at 16:36; Status DC Gadodiamide (Omniscan Pf Inj) 11 ml STK-MED ONCE IV Last administered on 21:24; Start 12/21/16 at 21:24; Stop 12/21/16 at 21:25; Status DC Propofol 200 mg 200 mg STK-MED ONCE IV ; Start 12/22/16 at 11:05; Stop 12/22/16 at 11:26; Status DC Iron Sucrose/ Sodium Chloride (Venofer Inj/NS Inj) 105 ml @ 105 mls/hr Q24H IV Last administered on 12/24/16 22:18; Start 12/22/16 at 22:00; Stop 12/24/16 at 22:59; Status DC Cyanocobalamin (Vitamin B12 Inj) 1,000 mcg ONCE ONCE SQ Last administered on 22:22; Start 12/22/16 at 22:00; Stop 12/22/16 at 22:01; Status DC Bisacodyl (Dulcolax Supp) 10 mg ONCE ONCE RECTAL Last administered on 10:19; Start 12/25/16 at 09:15; Stop 12/25/16 at 09:26; Status DC Polyethylene Glycol (Miralax) 17 gm DAILY PO ; Start 12/26/16 at 09:00 Iohexol (Omnipaque 350 Inj) 55 ml STK-MED ONCE IV Last administered on 16:41; Start 12/25/16 at 16:41; Stop 12/25/16 at 16:42; Status DC Phenylephrine HCl (Neosynephrine/ NS 1000 Mcg/10ml Syr) 200 mcg STK-MED ONCE IV ; Start 12/22/16 at 12:00; Stop 12/26/16 at 08:47; Status DC Midazolam HCl (Versed Inj) 2 mg STK-MED ONCE .ROUTE Last administered on 11:09; Start 12/26/16 at 11:07; Stop 12/26/16 at 11:08; Status DC Famotidine (Pepcid Inj) 20 mg STK-MED ONCE .ROUTE Last administered on 11:07; Start 12/26/16 at 11:07; Stop 12/26/16 at 11:08; Status DC Hydromorphone HCl (Dilaudid Pf Inj) 2 mg STK-MED ONCE .ROUTE ; Start 12/26/16 at 12:12; Stop 12/26/16 at 12:13; Status DC Acetaminophen (Ofirmev Inj) 1,000 mg STK-MED ONCE IV ; Start 12/26/16 at 12:12; Stop 12/26/16 at 12:13; Status DC Cefazolin Sodium (Ancef Inj) 2,000 mg STK-MED ONCE IV Last administered on 12/26 12:21; Start 12/26/16 at 12:21; Stop 12/26/16 at 15:22; Status DC Fentanyl Citrate (fentaNYL INJ) 250 mcg STK-MED ONCE .ROUTE ; Start 12/26/16 at 16:51; Stop 12/26/16 at 16:52; Status DC Fentanyl Citrate 100 mcg 100 mcg STK-MED ONCE .ROUTE ; Start 12/26/16 at 16:51; Stop 12/26/16 at 16:52; Status DC Sodium Chloride (NS 1000 ml Inj) 1,000 ml @ 125 mls/hr Q8H IV Last administered on 12/28/16 03:52; Start 12/26/16 at 17:00 Sodium Chloride (NS Flush) 2 ml UNSCH PRN IV FLUSH FLUSH AFTER USING IV ACCESS ; Start 12/26/16 at 17:00 Sodium Chloride (NS Flush) 2 ml BID IV FLUSH Last administered on 12/27/16 21: 00; Start 12/26/16 at 21:00 Ondansetron HCl (Zofran Inj) 4 mg Q6H PRN IV NAUSEA OR VOMITING; Start at 17:00 Diphenhydramine HCl (Benadryl Inj) 25 mg Q6H PRN IV ITCHING; Start 12/26/16 at 17:00 Benzocaine 1 spray 1 spray UNSCH X1 PRN MT SEE LABEL COMMENTS; Start 12/26/16 at 17:00; Stop 12/27/16 at 16:59; Status DC Cefazolin Sodium 1000 mg/Sodium Chloride 100 ml @ 200 mls/hr Q8H IV Last administered on 12/27/16 11:27; Start 12/26/16 at 20:00; Stop 12/27/16 at 12:29 ; Status DC Metronidazole (Flagyl 500 Mg Inj) 100 ml @ 200 mls/hr Q8H IV Last administered on 12/27/16 12:12; Start 12/26/16 at 21:00; Stop 12/27/16 at 13:29 ; Status DC Miscellaneous Information (Post-op Orders (for Pharmacy)) STAT ONCE XX ; Start 12/26/16 at 17:00; Stop 12/26/16 at 17:11; Status DC Acetaminophen (Ofirmev Inj) 1,000 mg Q6H IV Last administered on 12/27/16 11: 58; Start 12/26/16 at 18:00; Stop 12/27/16 at 12:01; Status DC Naloxone HCl (Narcan Inj) 0.4 mg UNSCH PRN IV SEE LABEL COMMENTS; Start at 17:00; Stop 12/26/16 at 17:32; Status DC Enoxaparin Sodium (Lovenox Inj) 40 mg Q24H SQ Last administered on 12/27/16 15 :50; Start 12/27/16 at 15:34 Naloxone HCl (Narcan Inj) 0.4 mg UNSCH PRN IV RESPIRATORY RATE LESS THAN 10; Start 12/26/16 at 17:00 Morphine Sulfate (Morphine 1 Mg/ ml RING ROLLING MACHINE OPERATOR) 30 mg UNSCH IV Last administered on 03:27; Start 12/26/16 at 17:00 RING ROLLING MACHINE OPERATOR Dosage Infused (Pha) 1 Q8HR .XX Last administered on 12/28/16 06:00; Start 12/26/16 at 17:00 Insulin Human Regular (NovoLIN R SUPPLEMENTAL SCALE) 1 ACHS SLIDING SCALE SQ ; Start 12/26/16 at 21:00; Stop 12/26/16 at 21:00; Status DC Dextrose (D50w (Vial) Inj) 25 ml UNSCH PRN IV PUSH HYPOGLYCEMIA-SEE COMMENTS; Start 12/26/16 at 17:00 Glucagon (Glucagon Inj) 1 mg UNSCH PRN OTHER HYPOGLYCEMIA-SEE COMMENTS; Start 12/26/16 at 17:00 Morphine Sulfate (*morphine INJ PERIprocedure ONLY) 8 mg STK-MED ONCE .ROUTE Last administered on 12/26/16 17:25; Start 12/26/16 at 17:25; Stop 12/26/16 at 17:26; Status DC Miscellaneous Information ALL NURSING DEPARTME... UNSCH PRN .XX SEE LABEL COMMENTS; Start 12/26/16 at 16:48; Stop 12/27/16 at 16:47; Status DC Metoprolol Tartrate (Lopressor Inj) 5 mg STK-MED ONCE .ROUTE Last administered on 12/26/16 17:47; Start 12/26/16 at 17:47; Stop 12/26/16 at 17:48; Status DC Morphine Sulfate (*morphine INJ PERIprocedure ONLY) 8 mg STK-MED ONCE .ROUTE Last administered on 12/26/16 17:48; Start 12/26/16 at 17:48; Stop 12/26/16 at 17:49; Status DC Insulin Human Regular (NovoLIN R SUPPLEMENTAL SCALE) 1 Q6HR SQ ; Start 12/27/16 at 00:00 Albuterol/ Ipratropium (Duoneb Neb) 1 ampule Q4HR NEB PRN NEB WHEEZING; Start 12/27/16 at 07:15 Pantoprazole Sodium (Protonix Inj) 40 mg Q24H IV PUSH Last administered on 12/27 08:34; Start 12/27/16 at 08:00 A/P Assessment and Plan A/P -gastric adenocarcinoma; patient had EGD on 12/22/16 and found to have a gastric mass- s/p Exploratory laparotomy with total gastrectomy with en bloc resection of pancreas. Distal pancreatectomy, splenectomy. Jejunostomy tube placement. Esophagojejunostomy with Maddie-en-Y reconstruction. continue with pain control. NPO for now. continue IV fluid. general surgery and oncology following. lymph node pathology pending. Recurrent syncopal episodes may be due to orthostatic hypotension due to acute anemia from GI bleed. Echo, EEG normal. Brain MRI with no evidence of acute hemorrhage or mass effect. carotid doppler with no significant stenosis. - Appreciate neurology and cardiology recs HIV - Continue Genvoya Neuropathy -Continue Gabapentin, Amitriptyline DVT prophylaxis with Lovenox. Leti Medrano MD Dec 28, 2016 08:24
[2016-12-28] MEDS: GENVOYA PO SCH (08:38)
[2016-12-28] MEDS: POLYETHYLENE GLYCOL 17 GM PKG PO SCH (08:38)
[2016-12-28] MEDS: SODIUM CHLORIDE 0.9% FLUSH 10 ML FLUSH IV FLUSH SCH ×2 (08:39→21:00)
[2016-12-28] MEDS: PANTOPRAZOLE SODIUM 40 MG VIAL IV PUSH SCH (08:39)
[2016-12-28] MEDS: AMITRIPTYLINE HCL 10 MG TAB PO SCH (08:40)
[2016-12-28] MEDS: GABAPENTIN 300 MG CAP PO SCH ×3 (08:41→18:00)
--- NOTE | 2016-12-28 11:29 | HHI.PR ---
Subjective Subjective Notes Reports he has been up and out of bed this morning Visiting with family Informed me that he plans to move in with his daughter once discharged Asked when estelita can be removed Objective Vitals/I&O Vital Signs Date Time Temp Pulse Resp B/P Pulse Ox O2 Delivery O2 Flow Rate FiO2 12/28/16 10:00 110 12/28/16 08:00 98.8 30 139/82 95 12/28/16 07:00 Room Air 2.00 21 Cardiovascular: Regular Lungs: Clear Abdomen: Other (mildly distended; minimal pain with palpation; midline incision c/d/i; dressing changed due to minimal bloody drainage on dressing; HERNAN x1 with SS fluid; J tube with no complications ) Extremities: No edema A/P Assessment and Plan 66 year old male POD2 open Total gastrectomy with en bloc resection, distal pancreatectomy and splenectomy -NPO -Plan to get Upper GI tomorrow AM -Okay to give HIV meds through J tube if able to crush to powder fine texture and flush -OOB -GAMEMASTER for Pain -J tube to gravity -Pathology pending -Okay to transfer to oncology floor from GS standpoint Attending Statement The exam, history, and the medical decision-making described in the above note were completed with the assistance of the mid-level provider. I reviewed and agree with the findings presented. I attest that I had a [id number] encounter with the patient on the same day, and personally performed and documented my assessment and findings in the medical record. patient stable, glucose ok, await path results, keep NG until has bowel function , start TF soon Debra Amin Dec 28, 2016 11:29 Boy Hernandez MD Dec 29, 2016 09:16
[2016-12-28] MEDS: ENOXAPARIN SODIUM 40 MG/0.4 ML SYRINGE SQ SCH (16:38)
[2016-12-29] VITALS (7 sets, daily range): BP systolic 115–146; BP diastolic 72–97; PULSE 98–124; RESP 16–24; TEMP 97.4–99; O2SAT 92–96
[2016-12-29] MEDS: SODIUM CHLOR 0.9% 1000 ML INJ 1,000 ML IV SCH ×3 (03:52→21:38)
[2016-12-29] MEDS: INSULIN NovoLIN REGULAR SUPPLEMENTAL SCALE SQ SCH ×3 (05:49→17:03)
[2016-12-29] MEDS: PCA - TOTAL MG MORPHINE DELIVERED PER SHIFT SCH ×3 (05:52→21:40)
[2016-12-29 07:54] LABS: AUTOMATED NEUTROPHIL # 21.7 TH/MM3 (1.8-7.7); BASOPHIL # 0.1 TH/MM3 (0-0.2); BASOPHIL % 0.5 % (0.0-2.0); EOSINOPHIL # 0.1 TH/MM3 (0-0.4); EOSINOPHIL % 0.4 % (0.0-4.0); HEMATOCRIT 26.1 % (39.0-51.0); HEMO FLAGS DIFF FINAL; LYMPH % 3.5 % (9.0-44.0); LYMPHOCYTE # 0.9 TH/MM3 (1.0-4.8); MEAN CELL VOLUME 91.9 FL (80.0-100.0); MEAN CORPUSCULAR HEMOGLOBIN 30.9 PG (27.0-34.0); MEAN CORPUSCULAR HGB CONC 33.6 % (32.0-36.0); MONO % 6.9 % (0.0-8.0); NEUT % 88.7 % (16.0-70.0); PLATELET COUNT 375 TH/MM3 (150-450); RED BLOOD COUNT 2.84 MIL/MM3 (4.50-5.90); RED CELL DISTRIBUTION WIDTH 13.4 % (11.6-17.2); WHITE BLOOD COUNT 24.5 TH/MM3 (4.0-11.0)
[2016-12-29 08:14] LABS: BICARBONATE 26.9 MEQ/L (21.0-32.0)
[2016-12-29] MEDS: SODIUM CHLORIDE 0.9% FLUSH 10 ML FLUSH IV FLUSH SCH ×2 (09:00→21:00)
[2016-12-29] MEDS ORDERED: DIATRIZOATE MEGLUM/DIATRIZOATE SOD 120 ML BTL (for RAD DIAG) NG ONE (09:45)
--- NOTE | 2016-12-29 10:05 | RADRPT ---
EXAM DATE/TIME: 12/29/2016 09:29 [place] COMPARISON: CT ABDOMEN & PELVIS W CONTRAST, December 21, 2016, 16:33. INDICATIONS : Post total gastrectomy. FLUORO TIME: 3.2 minutes IMAGE COUNT: 12 CONTRAST: 1. MD Terrell MEDICAL HISTORY : Stomach carcinoma SURGICAL HISTORY : Appendectomy. ENCOUNTER: Initial ACUITY: 3 days PAIN SCORE: 2/10 LOCATION: Stomach FINDINGS: Single shot spot view of the upper lower chest demonstrates skin estelita, enteric tube and surgical d rains. The patient was placed in the [id number] decubitus view and contrast was injected by the indwelling and NG tube as the patient was unable to drink the contrast by mouth in the upright positi on. The esophagus was normal in caliber with occasional tertiary contractions. The esophago-jejunal a nastomosis was widely patent and contrast readily enters the proximal small bowel. No obvious contras t extravasation was seen. The patient was observed in the supine, right and left lateral and oblique positions during real-time fluoroscopy. CONCLUSION: Postoperative changes without obvious contrast extravasation. Cal Plummer MD on December 29, 2016 at 10:01 Board Certified Radiologist. This report was verified electronically.
--- NOTE | 2016-12-29 10:32 | HHI.PR ---
Subjective Remarks in no acute distress. NG tube in place. no fever. pain is controlled. d/w the RN; questionable report of near-syncope when he was in radiology but he says that he was fine with no new issues. Objective Vitals Vital Signs Date Time Temp Pulse Resp B/P Pulse Ox O2 Delivery O2 Flow Rate FiO2 12/29/16 08:00 98.2 98 20 130/74 95 12/29/16 05:52 14 12/29/16 04:00 98.3 105 16 145/81 94 12/29/16 00:00 99.0 108 18 137/72 94 12/28/16 22:00 14 12/28/16 20:30 Room Air 12/28/16 20:25 108 12/28/16 20:00 99.3 117 16 144/80 92 12/28/16 18:29 78 12/28/16 18:09 18 12/28/16 17:43 84 12/28/16 15:20 98.2 114 20 141/73 94 12/28/16 14:00 112 12/28/16 14:00 25 12/28/16 12:00 112 12/28/16 12:00 97.8 110 15 145/82 93 I/O 12/28/16 12/28/16 12/28/16 12/29/16 12/29/16 12/29/16 07:00 15:00 23:00 07:00 15:00 23:00 Intake Total 681 ml 1047 ml 772 ml 1000 ml Output Total 1330 ml 1350 ml 810 ml 625 ml Balance -649 ml -303 ml -38 ml 375 ml Intake Oral 0 ml IV Total 681 ml 1047 ml 772 ml 1000 ml Output Urine Total 1300 ml 1300 ml 800 ml 600 ml Gastric Drainage Total 0 ml Drainage Total 30 ml 50 ml 10 ml 25 ml # Bowel Movements 0 0 Result Diagram: 12/29/1651 12/29/16 0651 Imaging Last Impressions Upper GI Series 12/29/16 0600 Signed Impressions: Service Date/Time: Thursday, December 29, 2016 09:29 - CONCLUSION: Postoperative changes without obvious contrast extravasation. Cal Plummer MD Chest CT 12/25/16 0000 Signed Impressions: Service Date/Time: Sunday, December 25, 2016 16:23 - CONCLUSION: Calcific granulomatous changes identified the left lung and spleen. No evidence of suspicious noncalcified mass. Mild/moderate coronary artery calcification. Emphysematous chronic obstructive pulmonary disease. Roberto Luke MD Carotid Artery Ultrasound 12/21/16 0000 Signed Impressions: Service Date/Time: December 17:26 - CONCLUSION: No evidence for hemodynamically significant stenosis. Jose Meyers MD Brain MRI 12/21/16 0000 Signed Impressions: Service Date/Time: December 20:37 - CONCLUSION: Chronic atrophic and small vessel ischemic changes without any evidence for acute hemorrhage or mass effect. Jose Meyers MD Abdomen/Pelvis CT 12/21/16 0000 Signed Impressions: Service Date/Time: December 16:33 - CONCLUSION: 1. Abnormal appearance of the gastric fundus. The upper stomach is fairly diffusely thickened. The tissue planes between the stomach and pancreas are partially obscured. This is concerning for possible gastric malignancy. Endoscopy is warranted for further assessment. 2. Diffuse stool filled, distended colon consistent with constipation. 3. No free air or free fluid identified. 4. Calcified granuloma in the left lung as above. Ras Gregorio MD Objective Remarks GENERAL: in no apparent distress. CARDIOVASCULAR: Regular rate and regular rhythm without murmurs, gallops, or rubs. RESPIRATORY: Clear to auscultation. Breath sounds equal bilaterally. No wheezes , rales, or rhonchi. GASTROINTESTINAL: Abdomen soft, non-tender, nondistended. Normal, active bowel sounds MUSCULOSKELETAL: Extremities without clubbing, cyanosis, or edema. NEURO: Alert & Oriented x4 to person, place, time, situation. Moves all ext x4 Procedures upper endoscopy Exploratory laparotomy/ Total gastrectomy with en bloc resection of pancreas/ Distal pancreatectomy, splenectomy/Jejunostomy tube placement/ Esophagojejunostomy with Maddie-en-Y reconstruction. Medications and IVs Current Medications Sodium Chloride 2 ml 2 ml UNSCH PRN IVF FLUSH AFTER USING IV ACCESS; Start 12/20 at 16:00; Stop 12/26/16 at 17:12; Status DC Sodium Chloride 1,000 ml @ 999 mls/hr BOLUS ONCE IV Last administered on t 16:56; Start 12/20/16 at 16:45; Stop 12/20/16 at 17:45; Status DC Sodium Chloride (NS 1000 ml Inj) 1,000 ml @ 100 mls/hr Q10H IV Last administered on 12/23/16 20:22; Start 12/20/16 at 19:45; Stop 12/24/16 at 09:18; Status DC Amitriptyline HCl (Elavil) 40 mg DAILY PO Last administered on 12/28/16 08:40 ; Start 12/21/16 at 09:00 Gabapentin (Neurontin) 600 mg TID PO Last administered on 12/28/16 18:00; Start 12/21/16 at 09:00 Patient Own Medication PT OWN MED: GENVO... DAILY PO ; Start 12/21/16 at 09:00; Stop 12/21/16 at 09:00; Status DC Patient Own Medication PT OWN MED: GENVO... DAILY PO Last administered on 08:38; Start 12/21/16 at 09:00 Pantoprazole Sodium (Protonix) 40 mg ONCE ONCE PO Last administered on 10:24; Start 12/21/16 at 09:45; Stop 12/21/16 at 09:46; Status DC Pantoprazole Sodium (Protonix) 40 mg DAILY PO Last administered on 12/25/16 09 :24; Start 12/22/16 at 09:00; Stop 12/27/16 at 07:21; Status DC Acetaminophen (Tylenol) 650 mg Q4H PRN PO PAIN 1-10 AND/OR FEVER >101F Last administered on 12/24/16 17:40; Start 12/21/16 at 09:30 Diatrizoate Meglum/ Diatrizoate Sod ( Gastroview Liq) 18 ml ONCE ONCE PO Last administered on 12/21/16 11:48; Start 12/21/16 at 11:30; Stop 12/21/16 at 11: 31; Status DC Iohexol (Omnipaque 350 Inj) 100 ml STK-MED ONCE IV Last administered on 16:35; Start 12/21/16 at 16:35; Stop 12/21/16 at 16:36; Status DC Gadodiamide (Omniscan Pf Inj) 11 ml STK-MED ONCE IV Last administered on 21:24; Start 12/21/16 at 21:24; Stop 12/21/16 at 21:25; Status DC Propofol 200 mg 200 mg STK-MED ONCE IV ; Start 12/22/16 at 11:05; Stop 12/22/16 at 11:26; Status DC Iron Sucrose/ Sodium Chloride (Venofer Inj/NS Inj) 105 ml @ 105 mls/hr Q24H IV Last administered on 12/24/16 22:18; Start 12/22/16 at 22:00; Stop 12/24/16 at 22:59; Status DC Cyanocobalamin (Vitamin B12 Inj) 1,000 mcg ONCE ONCE SQ Last administered on 22:22; Start 12/22/16 at 22:00; Stop 12/22/16 at 22:01; Status DC Bisacodyl (Dulcolax Supp) 10 mg ONCE ONCE RECTAL Last administered on 10:19; Start 12/25/16 at 09:15; Stop 12/25/16 at 09:26; Status DC Polyethylene Glycol (Miralax) 17 gm DAILY PO Last administered on 12/28/16 08: 38; Start 12/26/16 at 09:00 Iohexol (Omnipaque 350 Inj) 55 ml STK-MED ONCE IV Last administered on 16:41; Start 12/25/16 at 16:41; Stop 12/25/16 at 16:42; Status DC Phenylephrine HCl (Neosynephrine/ NS 1000 Mcg/10ml Syr) 200 mcg STK-MED ONCE IV ; Start 12/22/16 at 12:00; Stop 12/26/16 at 08:47; Status DC Midazolam HCl (Versed Inj) 2 mg STK-MED ONCE .ROUTE Last administered on 11:09; Start 12/26/16 at 11:07; Stop 12/26/16 at 11:08; Status DC Famotidine (Pepcid Inj) 20 mg STK-MED ONCE .ROUTE Last administered on 11:07; Start 12/26/16 at 11:07; Stop 12/26/16 at 11:08; Status DC Hydromorphone HCl (Dilaudid Pf Inj) 2 mg STK-MED ONCE .ROUTE ; Start 12/26/16 at 12:12; Stop 12/26/16 at 12:13; Status DC Acetaminophen (Ofirmev Inj) 1,000 mg STK-MED ONCE IV ; Start 12/26/16 at 12:12; Stop 12/26/16 at 12:13; Status DC Cefazolin Sodium (Ancef Inj) 2,000 mg STK-MED ONCE IV Last administered on 12/26 12:21; Start 12/26/16 at 12:21; Stop 12/26/16 at 15:22; Status DC Fentanyl Citrate (fentaNYL INJ) 250 mcg STK-MED ONCE .ROUTE ; Start 12/26/16 at 16:51; Stop 12/26/16 at 16:52; Status DC Fentanyl Citrate 100 mcg 100 mcg STK-MED ONCE .ROUTE ; Start 12/26/16 at 16:51; Stop 12/26/16 at 16:52; Status DC Sodium Chloride (NS 1000 ml Inj) 1,000 ml @ 125 mls/hr Q8H IV Last administered on 12/29/16 03:52; Start 12/26/16 at 17:00 Sodium Chloride (NS Flush) 2 ml UNSCH PRN IV FLUSH FLUSH AFTER USING IV ACCESS ; Start 12/26/16 at 17:00 Sodium Chloride (NS Flush) 2 ml BID IV FLUSH Last administered on 12/28/16 08: 39; Start 12/26/16 at 21:00 Ondansetron HCl (Zofran Inj) 4 mg Q6H PRN IV NAUSEA OR VOMITING; Start at 17:00 Diphenhydramine HCl (Benadryl Inj) 25 mg Q6H PRN IV ITCHING; Start 12/26/16 at 17:00 Benzocaine 1 spray 1 spray UNSCH X1 PRN MT SEE LABEL COMMENTS; Start 12/26/16 at 17:00; Stop 12/27/16 at 16:59; Status DC Cefazolin Sodium 1000 mg/Sodium Chloride 100 ml @ 200 mls/hr Q8H IV Last administered on 12/27/16 11:27; Start 12/26/16 at 20:00; Stop 12/27/16 at 12:29 ; Status DC Metronidazole (Flagyl 500 Mg Inj) 100 ml @ 200 mls/hr Q8H IV Last administered on 12/27/16 12:12; Start 12/26/16 at 21:00; Stop 12/27/16 at 13:29 ; Status DC Miscellaneous Information (Post-op Orders (for Pharmacy)) STAT ONCE XX ; Start 12/26/16 at 17:00; Stop 12/26/16 at 17:11; Status DC Acetaminophen (Ofirmev Inj) 1,000 mg Q6H IV Last administered on 12/27/16 11: 58; Start 12/26/16 at 18:00; Stop 12/27/16 at 12:01; Status DC Naloxone HCl (Narcan Inj) 0.4 mg UNSCH PRN IV SEE LABEL COMMENTS; Start at 17:00; Stop 12/26/16 at 17:32; Status DC Enoxaparin Sodium (Lovenox Inj) 40 mg Q24H SQ Last administered on 12/28/16 16 :38; Start 12/27/16 at 15:34 Naloxone HCl (Narcan Inj) 0.4 mg UNSCH PRN IV RESPIRATORY RATE LESS THAN 10; Start 12/26/16 at 17:00 Morphine Sulfate (Morphine 1 Mg/ ml SAUSAGE INSPECTOR) 30 mg UNSCH IV Last administered on 18:09; Start 12/26/16 at 17:00 SAUSAGE INSPECTOR Dosage Infused (Pha) 1 Q8HR .XX Last administered on 12/29/16 05:52; Start 12/26/16 at 17:00 Insulin Human Regular (NovoLIN R SUPPLEMENTAL SCALE) 1 ACHS SLIDING SCALE SQ ; Start 12/26/16 at 21:00; Stop 12/26/16 at 21:00; Status DC Dextrose (D50w (Vial) Inj) 25 ml UNSCH PRN IV PUSH HYPOGLYCEMIA-SEE COMMENTS; Start 12/26/16 at 17:00 Glucagon (Glucagon Inj) 1 mg UNSCH PRN OTHER HYPOGLYCEMIA-SEE COMMENTS; Start 12/26/16 at 17:00 Morphine Sulfate (*morphine INJ PERIprocedure ONLY) 8 mg STK-MED ONCE .ROUTE Last administered on 12/26/16 17:25; Start 12/26/16 at 17:25; Stop 12/26/16 at 17:26; Status DC Miscellaneous Information ALL NURSING DEPARTME... UNSCH PRN .XX SEE LABEL COMMENTS; Start 12/26/16 at 16:48; Stop 12/27/16 at 16:47; Status DC Metoprolol Tartrate (Lopressor Inj) 5 mg STK-MED ONCE .ROUTE Last administered on 12/26/16 17:47; Start 12/26/16 at 17:47; Stop 12/26/16 at 17:48; Status DC Morphine Sulfate (*morphine INJ PERIprocedure ONLY) 8 mg STK-MED ONCE .ROUTE Last administered on 12/26/16 17:48; Start 12/26/16 at 17:48; Stop 12/26/16 at 17:49; Status DC Insulin Human Regular (NovoLIN R SUPPLEMENTAL SCALE) 1 Q6HR SQ ; Start 12/27/16 at 00:00 Albuterol/ Ipratropium (Duoneb Neb) 1 ampule Q4HR NEB PRN NEB WHEEZING; Start 12/27/16 at 07:15 Pantoprazole Sodium (Protonix Inj) 40 mg Q24H IV PUSH Last administered on 12/28 08:39; Start 12/27/16 at 08:00 Diatrizoate Meglum/ Diatrizoate Sod ( Gastroview Liq) 120 ml STK-MED ONCE NG Last administered on 12/29/16 09:45; Start 12/29/16 at 09:45; Stop 12/29/16 at 09:58; Status DC A/P Assessment and Plan A/P -gastric adenocarcinoma; patient had EGD on 12/22/16 and found to have a gastric mass- s/p Exploratory laparotomy with : total gastrectomy with en bloc resection of pancreas. Distal pancreatectomy, splenectomy. Jejunostomy tube placement. Esophagojejunostomy with Maddie-en-Y reconstruction. continue with pain control. diet per general surgery. continue IV fluid. general surgery and oncology following. lymph node pathology with no evidence of metastasis. Recurrent syncopal episodes may be due to orthostatic hypotension due to acute anemia from GI bleed. Echo, EEG normal. Brain MRI with no evidence of acute hemorrhage or mass effect. carotid doppler with no significant stenosis. - Appreciate neurology and cardiology recs HIV - Continue Genvoya Neuropathy -Continue Gabapentin, Amitriptyline DVT prophylaxis with Lovenox. Leti Medrano MD Dec 29, 2016 10:32
--- NOTE | 2016-12-29 11:13 | HHI.PR ---
Subjective Subjective Notes Resting in bed Reports no gas Objective Vitals/I&O Vital Signs Date Time Temp Pulse Resp B/P Pulse Ox O2 Delivery O2 Flow Rate FiO2 12/29/16 09:52 92 21 12/29/16 08:00 98.2 98 20 130/74 12/28/16 20:30 Room Air 12/28/16 07:00 2.00 Labs Laboratory Tests Test 12/29/16 06:51 White Blood Count 24.5 Red Blood Count 2.84 Hemoglobin 8.8 Hematocrit 26.1 Mean Corpuscular Volume 91.9 Mean Corpuscular Hemoglobin 30.9 Mean Corpuscular Hemoglobin 33.6 Concent Red Cell Distribution Width 13.4 Platelet Count 375 Mean Platelet Volume 7.5 Neutrophils (%) (Auto) 88.7 Lymphocytes (%) (Auto) 3.5 Monocytes (%) (Auto) 6.9 Eosinophils (%) (Auto) 0.4 Basophils (%) (Auto) 0.5 Neutrophils # (Auto) 21.7 Lymphocytes # (Auto) 0.9 Monocytes # (Auto) 1.7 Eosinophils # (Auto) 0.1 Basophils # (Auto) 0.1 CBC Comment DIFF FINAL Differential Comment Sodium Level 138 Potassium Level 4.0 Chloride Level 104 Carbon Dioxide Level 26.9 Anion Gap 7 Blood Urea Nitrogen 10 Creatinine 0.66 Estimat Glomerular Filtration 146 Rate Random Glucose 76 Calcium Level 8.7 Cardiovascular: Regular Lungs: Clear Abdomen: Other (midline incison with minimal drainage on banadge; HERNAN x1 with SS drainage; J tube without complications ) Extremities: No edema A/P Assessment and Plan 66 year old male POD3 open Total gastrectomy with en bloc resection, distal pancreatectomy and splenectomy -NPO -Will clamp NGT once bowel activity returns -Upp GI complete shows no leaks -Start TF via J tube---10 cc/hr -Okay to give HIV meds through J tube if able to crush to powder fine texture and flush -OOB -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 I reviewed and agree with the findings presented. I attest that I had a [id number] encounter with the patient on the same day, and personally performed and documented my assessment and findings in the medical record. Debra Amin Dec 29, 2016 11:12 Boy Hernandez MD Jan 06, 2017 22:51
[2016-12-29] MEDS: MORPHINE SULFATE 30 MG/30 ML PCA IV SCH (11:52)
[2016-12-29] MEDS: PANTOPRAZOLE SODIUM 40 MG VIAL IV PUSH SCH (11:53)
[2016-12-29] MEDS: AMITRIPTYLINE HCL 10 MG TAB PO SCH (11:53)
[2016-12-29] MEDS: POLYETHYLENE GLYCOL 17 GM PKG PO SCH (11:54)
[2016-12-29] MEDS: GABAPENTIN 300 MG CAP PO SCH ×3 (11:54→17:03)
[2016-12-29] MEDS: GENVOYA PO SCH (11:55)
[2016-12-29] MEDS: ENOXAPARIN SODIUM 40 MG/0.4 ML SYRINGE SQ SCH (17:04)
[2016-12-30] VITALS: BP 148/87; PULSE 117; RESP 20; TEMP 97.4; O2SAT 97
[2016-12-30] MEDS: SODIUM CHLOR 0.9% 1000 ML INJ 1,000 ML IV SCH ×3 (03:52→21:17)
[2016-12-30 04:00] VITALS: BP 144/90; PULSE 115; RESP 18; TEMP 97.2; O2SAT 98
[2016-12-30] MEDS: INSULIN NovoLIN REGULAR SUPPLEMENTAL SCALE SQ SCH ×4 (05:16→17:37)
[2016-12-30] MEDS: PCA - TOTAL MG MORPHINE DELIVERED PER SHIFT SCH ×3 (05:17→21:18)
[2016-12-30] MEDS: MORPHINE SULFATE 30 MG/30 ML PCA IV SCH ×2 (06:28→22:38)
[2016-12-30 08:00] VITALS: BP 155/104; PULSE 104; RESP 18; TEMP 97.4; O2SAT 95
[2016-12-30] MEDS: GENVOYA PO SCH (09:00)
[2016-12-30] MEDS: SODIUM CHLORIDE 0.9% FLUSH 10 ML FLUSH IV FLUSH SCH ×2 (09:00→21:00)
--- NOTE | 2016-12-30 10:54 | HHI.PR ---
Subjective Remarks in no acute distress. afebrile. pain is controlled. has a BM yesterday. no nausea or vomiting. d/w the RN. Objective Vitals Vital Signs Date Time Temp Pulse Resp B/P Pulse Ox O2 Delivery O2 Flow Rate FiO2 12/30/16 06:28 14 12/30/16 05:17 14 12/30/16 04:00 97.2 115 18 144/90 98 12/30/16 00:00 97.4 117 20 148/87 97 12/29/16 21:40 16 12/29/16 20:00 97.5 124 22 146/97 95 12/29/16 19:45 Room Air 12/29/16 16:00 97.4 122 24 134/83 93 12/29/16 13:30 20 12/29/16 12:07 18 12/29/16 12:00 97.5 117 20 115/73 96 12/29/16 11:52 20 I/O 12/29/16 12/29/16 12/29/16 12/30/16 12/30/16 12/30/16 07:00 15:00 23:00 07:00 15:00 23:00 Intake Total 1000 ml 0 ml 0 ml 0 ml Output Total 625 ml 450 ml 110 ml Balance 375 ml -450 ml -110 ml 0 ml Intake Oral 0 ml 0 ml 0 ml IV Total 1000 ml Output Urine Total 600 ml 450 ml Drainage Total 25 ml 110 ml Bladder Scan Volume Amount 175 ml # Voids 2 2 # Bowel Movements 0 0 1 Result Diagram: 12/29/16 0651 12/29/16 0651 Imaging Last Impressions Upper GI Series 12/29/16 0600 Signed Impressions: Service Date/Time: Thursday, December 29, 2016 09:29 - CONCLUSION: Postoperative changes without obvious contrast extravasation. Cal Plummer MD Chest CT 12/25/16 0000 Signed Impressions: Service Date/Time: Sunday, December 25, 2016 16:23 - CONCLUSION: Calcific granulomatous changes identified the left lung and spleen. No evidence of suspicious noncalcified mass. Mild/moderate coronary artery calcification. Emphysematous chronic obstructive pulmonary disease. Roberto Luke MD Carotid Artery Ultrasound 12/21/16 0000 Signed Impressions: Service Date/Time: December 17:26 - CONCLUSION: No evidence for hemodynamically significant stenosis. K. Marito Shamlou, MD Brain MRI 12/21/16 0000 Signed Impressions: Service Date/Time: December 20:37 - CONCLUSION: Chronic atrophic and small vessel ischemic changes without any evidence for acute hemorrhage or mass effect. Jose Meyers MD Abdomen/Pelvis CT 12/21/16 0000 Signed Impressions: Service Date/Time: December 16:33 - CONCLUSION: 1. Abnormal appearance of the gastric fundus. The upper stomach is fairly diffusely thickened. The tissue planes between the stomach and pancreas are partially obscured. This is concerning for possible gastric malignancy. Endoscopy is warranted for further assessment. 2. Diffuse stool filled, distended colon consistent with constipation. 3. No free air or free fluid identified. 4. Calcified granuloma in the left lung as above. Ras Gregorio MD Objective Remarks GENERAL: in no apparent distress. CARDIOVASCULAR: Regular rate and regular rhythm without murmurs, gallops, or rubs. RESPIRATORY: Clear to auscultation. Breath sounds equal bilaterally. No wheezes , rales, or rhonchi. GASTROINTESTINAL: Abdomen soft, non-tender, nondistended. Normal, active bowel sounds MUSCULOSKELETAL: Extremities without clubbing, cyanosis, or edema. NEURO: Alert & Oriented x4 to person, place, time, situation. Moves all ext x4 Procedures upper endoscopy Exploratory laparotomy/ Total gastrectomy with en bloc resection of pancreas/ Distal pancreatectomy, splenectomy/Jejunostomy tube placement/ Esophagojejunostomy with Maddie-en-Y reconstruction. Medications and IVs Current Medications Sodium Chloride 2 ml 2 ml UNSCH PRN IVF FLUSH AFTER USING IV ACCESS; Start 12/20 at 16:00; Stop 12/26/16 at 17:12; Status DC Sodium Chloride 1,000 ml @ 999 mls/hr BOLUS ONCE IV Last administered on 16:56; Start 12/20/16 at 16:45; Stop 12/20/16 at 17:45; Status DC Sodium Chloride (NS 1000 ml Inj) 1,000 ml @ 100 mls/hr Q10H IV Last administered on 12/23/16 20:22; Start 12/20/16 at 19:45; Stop 12/24/16 at 09:18; Status DC Amitriptyline HCl (Elavil) 40 mg DAILY PO Last administered on 12/29/16 11:53 ; Start 12/21/16 at 09:00 Gabapentin (Neurontin) 600 mg TID PO Last administered on 12/29/16 17:03; Start 12/21/16 at 09:00 Patient Own Medication PT OWN MED: GENVO... DAILY PO ; Start 12/21/16 at 09:00; Stop 12/21/16 at 09:00; Status DC Patient Own Medication PT OWN MED: GENVO... DAILY PO Last administered on 11:55; Start 12/21/16 at 09:00 Pantoprazole Sodium (Protonix) 40 mg ONCE ONCE PO Last administered on 10:24; Start 12/21/16 at 09:45; Stop 12/21/16 at 09:46; Status DC Pantoprazole Sodium (Protonix) 40 mg DAILY PO Last administered on 12/25/16 09 :24; Start 12/22/16 at 09:00; Stop 12/27/16 at 07:21; Status DC Acetaminophen (Tylenol) 650 mg Q4H PRN PO PAIN 1-10 AND/OR FEVER >101F Last administered on 12/24/16 17:40; Start 12/21/16 at 09:30 Diatrizoate Meglum/ Diatrizoate Sod ( Gastroview Liq) 18 ml ONCE ONCE PO Last administered on 12/21/16 11:48; Start 12/21/16 at 11:30; Stop 12/21/16 at 11: 31; Status DC Iohexol (Omnipaque 350 Inj) 100 ml STK-MED ONCE IV Last administered on 16:35; Start 12/21/16 at 16:35; Stop 12/21/16 at 16:36; Status DC Gadodiamide (Omniscan Pf Inj) 11 ml STK-MED ONCE IV Last administered on 21:24; Start 12/21/16 at 21:24; Stop 12/21/16 at 21:25; Status DC Propofol 200 mg 200 mg STK-MED ONCE IV ; Start 12/22/16 at 11:05; Stop 12/22/16 at 11:26; Status DC Iron Sucrose/ Sodium Chloride (Venofer Inj/NS Inj) 105 ml @ 105 mls/hr Q24H IV Last administered on 12/24/16 22:18; Start 12/22/16 at 22:00; Stop 12/24/16 at 22:59; Status DC Cyanocobalamin (Vitamin B12 Inj) 1,000 mcg ONCE ONCE SQ Last administered on 22:22; Start 12/22/16 at 22:00; Stop 12/22/16 at 22:01; Status DC Bisacodyl (Dulcolax Supp) 10 mg ONCE ONCE RECTAL Last administered on 10:19; Start 12/25/16 at 09:15; Stop 12/25/16 at 09:26; Status DC Polyethylene Glycol (Miralax) 17 gm DAILY PO Last administered on 12/29/16 11: 54; Start 12/26/16 at 09:00 Iohexol (Omnipaque 350 Inj) 55 ml STK-MED ONCE IV Last administered on 16:41; Start 12/25/16 at 16:41; Stop 12/25/16 at 16:42; Status DC Phenylephrine HCl (Neosynephrine/ NS 1000 Mcg/10ml Syr) 200 mcg STK-MED ONCE IV ; Start 12/22/16 at 12:00; Stop 12/26/16 at 08:47; Status DC Midazolam HCl (Versed Inj) 2 mg STK-MED ONCE .ROUTE Last administered on 11:09; Start 12/26/16 at 11:07; Stop 12/26/16 at 11:08; Status DC Famotidine (Pepcid Inj) 20 mg STK-MED ONCE .ROUTE Last administered on 11:07; Start 12/26/16 at 11:07; Stop 12/26/16 at 11:08; Status DC Hydromorphone HCl (Dilaudid Pf Inj) 2 mg STK-MED ONCE .ROUTE ; Start 12/26/16 at 12:12; Stop 12/26/16 at 12:13; Status DC Acetaminophen (Ofirmev Inj) 1,000 mg STK-MED ONCE IV ; Start 12/26/16 at 12:12; Stop 12/26/16 at 12:13; Status DC Cefazolin Sodium (Ancef Inj) 2,000 mg STK-MED ONCE IV Last administered on 12/26 12:21; Start 12/26/16 at 12:21; Stop 12/26/16 at 15:22; Status DC Fentanyl Citrate (fentaNYL INJ) 250 mcg STK-MED ONCE .ROUTE ; Start 12/26/16 at 16:51; Stop 12/26/16 at 16:52; Status DC Fentanyl Citrate 100 mcg 100 mcg STK-MED ONCE .ROUTE ; Start 12/26/16 at 16:51; Stop 12/26/16 at 16:52; Status DC Sodium Chloride (NS 1000 ml Inj) 1,000 ml @ 125 mls/hr Q8H IV Last administered on 12/30/16 03:52; Start 12/26/16 at 17:00 Sodium Chloride (NS Flush) 2 ml UNSCH PRN IV FLUSH FLUSH AFTER USING IV ACCESS ; Start 12/26/16 at 17:00 Sodium Chloride (NS Flush) 2 ml BID IV FLUSH Last administered on 12/28/16 08: 39; Start 12/26/16 at 21:00 Ondansetron HCl (Zofran Inj) 4 mg Q6H PRN IV NAUSEA OR VOMITING; Start at 17:00 Diphenhydramine HCl (Benadryl Inj) 25 mg Q6H PRN IV ITCHING; Start 12/26/16 at 17:00 Benzocaine 1 spray 1 spray UNSCH X1 PRN MT SEE LABEL COMMENTS; Start 12/26/16 at 17:00; Stop 12/27/16 at 16:59; Status DC Cefazolin Sodium 1000 mg/Sodium Chloride 100 ml @ 200 mls/hr Q8H IV Last administered on 12/27/16 11:27; Start 12/26/16 at 20:00; Stop 12/27/16 at 12:29 ; Status DC Metronidazole (Flagyl 500 Mg Inj) 100 ml @ 200 mls/hr Q8H IV Last administered on 12/27/16 12:12; Start 12/26/16 at 21:00; Stop 12/27/16 at 13:29 ; Status DC Miscellaneous Information (Post-op Orders (for Pharmacy)) STAT ONCE XX ; Start 12/26/16 at 17:00; Stop 12/26/16 at 17:11; Status DC Acetaminophen (Ofirmev Inj) 1,000 mg Q6H IV Last administered on 12/27/16 11: 58; Start 12/26/16 at 18:00; Stop 12/27/16 at 12:01; Status DC Naloxone HCl (Narcan Inj) 0.4 mg UNSCH PRN IV SEE LABEL COMMENTS; Start at 17:00; Stop 12/26/16 at 17:32; Status DC Enoxaparin Sodium (Lovenox Inj) 40 mg Q24H SQ Last administered on 12/29/16 17 :04; Start 12/27/16 at 15:34 Naloxone HCl (Narcan Inj) 0.4 mg UNSCH PRN IV RESPIRATORY RATE LESS THAN 10; Start 12/26/16 at 17:00 Morphine Sulfate (Morphine 1 Mg/ ml SHIRT FOLDER) 30 mg UNSCH IV Last administered on 06:28; Start 12/26/16 at 17:00 SHIRT FOLDER Dosage Infused (Pha) 1 Q8HR .XX Last administered on 12/30/16 05:17; Start 12/26/16 at 17:00 Insulin Human Regular (NovoLIN R SUPPLEMENTAL SCALE) 1 ACHS SLIDING SCALE SQ ; Start 12/26/16 at 21:00; Stop 12/26/16 at 21:00; Status DC Dextrose (D50w (Vial) Inj) 25 ml UNSCH PRN IV PUSH HYPOGLYCEMIA-SEE COMMENTS; Start 12/26/16 at 17:00 Glucagon (Glucagon Inj) 1 mg UNSCH PRN OTHER HYPOGLYCEMIA-SEE COMMENTS; Start 12/26/16 at 17:00 Morphine Sulfate (*morphine INJ PERIprocedure ONLY) 8 mg STK-MED ONCE .ROUTE Last administered on 12/26/16 17:25; Start 12/26/16 at 17:25; Stop 12/26/16 at 17:26; Status DC Miscellaneous Information ALL NURSING DEPARTME... UNSCH PRN .XX SEE LABEL COMMENTS; Start 12/26/16 at 16:48; Stop 12/27/16 at 16:47; Status DC Metoprolol Tartrate (Lopressor Inj) 5 mg STK-MED ONCE .ROUTE Last administered on 12/26/16 17:47; Start 12/26/16 at 17:47; Stop 12/26/16 at 17:48; Status DC Morphine Sulfate (*morphine INJ PERIprocedure ONLY) 8 mg STK-MED ONCE .ROUTE Last administered on 12/26/16 17:48; Start 12/26/16 at 17:48; Stop 12/26/16 at 17:49; Status DC Insulin Human Regular (NovoLIN R SUPPLEMENTAL SCALE) 1 Q6HR SQ ; Start 12/27/16 at 00:00 Albuterol/ Ipratropium (Duoneb Neb) 1 ampule Q4HR NEB PRN NEB WHEEZING; Start 12/27/16 at 07:15 Pantoprazole Sodium (Protonix Inj) 40 mg Q24H IV PUSH Last administered on 12/29 11:53; Start 12/27/16 at 08:00 Diatrizoate Meglum/ Diatrizoate Sod ( Gastroview Liq) 120 ml STK-MED ONCE NG Last administered on 12/29/16 09:45; Start 12/29/16 at 09:45; Stop 12/29/16 at 09:58; Status DC A/P Assessment and Plan A/P -gastric adenocarcinoma; patient had EGD on 12/22/16 and found to have a gastric mass- s/p Exploratory laparotomy with : total gastrectomy with en bloc resection of pancreas. Distal pancreatectomy, splenectomy. Jejunostomy tube placement. Esophagojejunostomy with Maddie-en-Y reconstruction. continue with pain control. diet per general surgery; currently on tube feeding- general surgery and oncology following. lymph node pathology with no evidence of metastasis. Recurrent syncopal episodes may be due to orthostatic hypotension due to acute anemia from GI bleed. Echo, EEG normal. Brain MRI with no evidence of acute hemorrhage or mass effect. carotid doppler with no significant stenosis. - evaluated by neurology and cardiology. HIV - Continue Genvoya Neuropathy -Continue Gabapentin, Amitriptyline DVT prophylaxis with Lovenox. Leti Medrano MD Dec 30, 2016 10:54
[2016-12-30] MEDS: GABAPENTIN 250 MG/5 ML UDC PO SCH ×3 (11:26→18:48)
[2016-12-30] MEDS: PANTOPRAZOLE SODIUM 40 MG VIAL IV PUSH SCH (11:26)
[2016-12-30] MEDS: AMITRIPTYLINE HCL 10 MG TAB PO SCH (11:32)
[2016-12-30] MEDS: POLYETHYLENE GLYCOL 17 GM PKG PO SCH (11:33)
[2016-12-30 12:00] VITALS: BP 133/80; PULSE 105; RESP 18; TEMP 98; O2SAT 95
[2016-12-30 18:00] VITALS: BP 137/84; PULSE 107; RESP 18; TEMP 98.1; O2SAT 96
[2016-12-30] MEDS: ENOXAPARIN SODIUM 40 MG/0.4 ML SYRINGE SQ SCH (18:48)
[2016-12-30 20:00] VITALS: BP 157/86; PULSE 111; RESP 20; TEMP 98.1; O2SAT 96
--- NOTE | 2016-12-30 21:27 | HHI.PR ---
Subjective Subjective Notes Resting comfortably No pain, no complaints. NG came out last evening; no problems since it came out. Objective Vitals/I&O Vital Signs Date Time Temp Pulse Resp B/P Pulse Ox O2 Delivery O2 Flow Rate FiO2 12/30/16 21:18 18 12/30/16 18:00 98.1 107 137/84 96 12/30/16 08:00 Room Air 21 12/28/16 07:00 2.00 Lungs: Clear Abdomen: Non-distended, Non-tender Narrative Exam estelita dry; incision clean and dry; drain site with minimal drainage. 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
[2016-12-31] VITALS (7 sets, daily range): BP systolic 119–147; BP diastolic 64–83; PULSE 90–110; RESP 16–24; TEMP 97.4–98.8; O2SAT 90–97
[2016-12-31] MEDS: SODIUM CHLOR 0.9% 1000 ML INJ 1,000 ML IV SCH ×3 (04:00→20:42)
[2016-12-31] MEDS: PCA - TOTAL MG MORPHINE DELIVERED PER SHIFT SCH ×2 (06:00→14:00)
[2016-12-31] MEDS: INSULIN NovoLIN REGULAR SUPPLEMENTAL SCALE SQ SCH ×5 (06:30→23:30)
[2016-12-31 07:21] LABS: BASOPHIL # 0.1 TH/MM3 (0-0.2); BASOPHIL % 0.4 % (0.0-2.0); EOSINOPHIL # 0.1 TH/MM3 (0-0.4); EOSINOPHIL % 0.4 % (0.0-4.0); HEMATOCRIT 26.3 % (39.0-51.0); HEMO FLAGS DIFF FINAL; LYMPH % 3.9 % (9.0-44.0); LYMPHOCYTE # 0.6 TH/MM3 (1.0-4.8); MEAN CORPUSCULAR HEMOGLOBIN 29.5 PG (27.0-34.0); MEAN CORPUSCULAR HGB CONC 31.7 % (32.0-36.0); MONO % 8.6 % (0.0-8.0); NEUT % 86.7 % (16.0-70.0); PLATELET COUNT 421 TH/MM3 (150-450); RED BLOOD COUNT 2.82 MIL/MM3 (4.50-5.90); RED CELL DISTRIBUTION WIDTH 14.1 % (11.6-17.2); WHITE BLOOD COUNT 16.1 TH/MM3 (4.0-11.0)
[2016-12-31 07:27] LABS: BICARBONATE 28.4 MEQ/L (21.0-32.0); POTASSIUM 3.7 MEQ/L (3.5-5.1)
[2016-12-31] MEDS: GENVOYA PO SCH (09:00)
[2016-12-31] MEDS: AMITRIPTYLINE HCL 10 MG TAB PO SCH (09:07)
[2016-12-31] MEDS: PANTOPRAZOLE SODIUM 40 MG VIAL IV PUSH SCH (09:08)
[2016-12-31] MEDS: GABAPENTIN 250 MG/5 ML UDC PO SCH ×3 (09:08→16:50)
--- NOTE | 2016-12-31 10:15 | HHI.PR ---
Subjective Remarks resting comfortably with no distress. pain is controlled. no fever. no new complaints. Objective Vitals Vital Signs Date Time Temp Pulse Resp B/P Pulse Ox O2 Delivery O2 Flow Rate FiO2 12/31/16 08:07 98.3 104 19 136/69 92 12/31/16 06:00 18 12/31/16 04:00 98.0 109 18 143/80 91 12/31/16 00:00 98.2 110 18 147/83 95 12/30/16 22:38 16 12/30/16 21:18 18 12/30/16 20:00 98.1 111 20 157/86 96 12/30/16 18:00 98.1 107 18 137/84 96 12/30/16 14:00 16 12/30/16 12:00 98.0 105 18 133/80 95 I/O 12/30/16 12/30/16 12/30/16 12/31/16 12/31/16 12/31/16 07:00 15:00 23:00 07:00 15:00 23:00 Intake Total 0 ml Output Total 850 ml 650 ml Balance 0 ml -850 ml -650 ml Intake Oral 0 ml Output Urine Total 850 ml 650 ml # Voids 2 2 # Bowel Movements 1 Result Diagram: 12/31/16 0617 12/31/16 0617 Imaging Last Impressions Upper GI Series 12/29/16 0600 Signed Impressions: Service Date/Time: Thursday, December 29, 2016 09:29 - CONCLUSION: Postoperative changes without obvious contrast extravasation. Cal Plummer MD Chest CT 12/25/16 0000 Signed Impressions: Service Date/Time: Sunday, December 25, 2016 16:23 - CONCLUSION: Calcific granulomatous changes identified the left lung and spleen. No evidence of suspicious noncalcified mass. Mild/moderate coronary artery calcification. Emphysematous chronic obstructive pulmonary disease. Roberto Luke MD Carotid Artery Ultrasound 12/21/16 0000 Signed Impressions: Service Date/Time: December 17:26 - CONCLUSION: No evidence for hemodynamically significant stenosis. Joes Meyers MD Brain MRI 12/21/16 0000 Signed Impressions: Service Date/Time: December 20:37 - CONCLUSION: Chronic atrophic and small vessel ischemic changes without any evidence for acute hemorrhage or mass effect. Jose Meyers MD Abdomen/Pelvis CT 12/21/16 0000 Signed Impressions: Service Date/Time: December 16:33 - CONCLUSION: 1. Abnormal appearance of the gastric fundus. The upper stomach is fairly diffusely thickened. The tissue planes between the stomach and pancreas are partially obscured. This is concerning for possible gastric malignancy. Endoscopy is warranted for further assessment. 2. Diffuse stool filled, distended colon consistent with constipation. 3. No free air or free fluid identified. 4. Calcified granuloma in the left lung as above. Ras Gregorio MD Objective Remarks GENERAL: in no apparent distress. CARDIOVASCULAR: Regular rate and regular rhythm without murmurs, gallops, or rubs. RESPIRATORY: Clear to auscultation. Breath sounds equal bilaterally. No wheezes , rales, or rhonchi. GASTROINTESTINAL: Abdomen soft, non-tender, nondistended. Normal, active bowel sounds MUSCULOSKELETAL: Extremities without clubbing, cyanosis, or edema. NEURO: Alert & Oriented x4 to person, place, time, situation. Moves all ext x4 Procedures upper endoscopy Exploratory laparotomy/ Total gastrectomy with en bloc resection of pancreas/ Distal pancreatectomy, splenectomy/Jejunostomy tube placement/ Esophagojejunostomy with Maddie-en-Y reconstruction. Medications and IVs Current Medications Sodium Chloride 2 ml 2 ml UNSCH PRN IVF FLUSH AFTER USING IV ACCESS; Start 12/20 at 16:00; Stop 12/26/16 at 17:12; Status DC Sodium Chloride 1,000 ml @ 999 mls/hr BOLUS ONCE IV Last administered on 16:56; Start 12/20/16 at 16:45; Stop 12/20/16 at 17:45; Status DC Sodium Chloride (NS 1000 ml Inj) 1,000 ml @ 100 mls/hr Q10H IV Last administered on 12/23/16 20:22; Start 12/20/16 at 19:45; Stop 12/24/16 at 09:18; Status DC Amitriptyline HCl (Elavil) 40 mg DAILY PO Last administered on 12/31/16 09:07 ; Start 12/21/16 at 09:00 Gabapentin (Neurontin) 600 mg TID PO Last administered on 12/29/16 17:03; Start 12/21/16 at 09:00; Stop 12/30/16 at 10:48; Status DC Patient Own Medication PT OWN MED: GENVO... DAILY PO ; Start 12/21/16 at 09:00; Stop 12/21/16 at 09:00; Status DC Patient Own Medication PT OWN MED: GENVO... DAILY PO Last administered on 09:00; Start 12/21/16 at 09:00 Pantoprazole Sodium (Protonix) 40 mg ONCE ONCE PO Last administered on 10:24; Start 12/21/16 at 09:45; Stop 12/21/16 at 09:46; Status DC Pantoprazole Sodium (Protonix) 40 mg DAILY PO Last administered on 12/25/16 09 :24; Start 12/22/16 at 09:00; Stop 12/27/16 at 07:21; Status DC Acetaminophen (Tylenol) 650 mg Q4H PRN PO PAIN 1-10 AND/OR FEVER >101F Last administered on 12/24/16 17:40; Start 12/21/16 at 09:30 Diatrizoate Meglum/ Diatrizoate Sod ( Gastroview Liq) 18 ml ONCE ONCE PO Last administered on 12/21/16 11:48; Start 12/21/16 at 11:30; Stop 12/21/16 at 11: 31; Status DC Iohexol (Omnipaque 350 Inj) 100 ml STK-MED ONCE IV Last administered on 16:35; Start 12/21/16 at 16:35; Stop 12/21/16 at 16:36; Status DC Gadodiamide (Omniscan Pf Inj) 11 ml STK-MED ONCE IV Last administered on 21:24; Start 12/21/16 at 21:24; Stop 12/21/16 at 21:25; Status DC Propofol 200 mg 200 mg STK-MED ONCE IV ; Start 12/22/16 at 11:05; Stop 12/22/16 at 11:26; Status DC Iron Sucrose/ Sodium Chloride (Venofer Inj/NS Inj) 105 ml @ 105 mls/hr Q24H IV Last administered on 12/24/16 22:18; Start 12/22/16 at 22:00; Stop 12/24/16 at 22:59; Status DC Cyanocobalamin (Vitamin B12 Inj) 1,000 mcg ONCE ONCE SQ Last administered on 22:22; Start 12/22/16 at 22:00; Stop 12/22/16 at 22:01; Status DC Bisacodyl (Dulcolax Supp) 10 mg ONCE ONCE RECTAL Last administered on 10:19; Start 12/25/16 at 09:15; Stop 12/25/16 at 09:26; Status DC Polyethylene Glycol (Miralax) 17 gm DAILY PO Last administered on 12/30/16 11: 33; Start 12/26/16 at 09:00 Iohexol (Omnipaque 350 Inj) 55 ml STK-MED ONCE IV Last administered on 16:41; Start 12/25/16 at 16:41; Stop 12/25/16 at 16:42; Status DC Phenylephrine HCl (Neosynephrine/ NS 1000 Mcg/10ml Syr) 200 mcg STK-MED ONCE IV ; Start 12/22/16 at 12:00; Stop 12/26/16 at 08:47; Status DC Midazolam HCl (Versed Inj) 2 mg STK-MED ONCE .ROUTE Last administered on 11:09; Start 12/26/16 at 11:07; Stop 12/26/16 at 11:08; Status DC Famotidine (Pepcid Inj) 20 mg STK-MED ONCE .ROUTE Last administered on 11:07; Start 12/26/16 at 11:07; Stop 12/26/16 at 11:08; Status DC Hydromorphone HCl (Dilaudid Pf Inj) 2 mg STK-MED ONCE .ROUTE ; Start 12/26/16 at 12:12; Stop 12/26/16 at 12:13; Status DC Acetaminophen (Ofirmev Inj) 1,000 mg STK-MED ONCE IV ; Start 12/26/16 at 12:12; Stop 12/26/16 at 12:13; Status DC Cefazolin Sodium (Ancef Inj) 2,000 mg STK-MED ONCE IV Last administered on 12/26 12:21; Start 12/26/16 at 12:21; Stop 12/26/16 at 15:22; Status DC Fentanyl Citrate (fentaNYL INJ) 250 mcg STK-MED ONCE .ROUTE ; Start 12/26/16 at 16:51; Stop 12/26/16 at 16:52; Status DC Fentanyl Citrate 100 mcg 100 mcg STK-MED ONCE .ROUTE ; Start 12/26/16 at 16:51; Stop 12/26/16 at 16:52; Status DC Sodium Chloride (NS 1000 ml Inj) 1,000 ml @ 125 mls/hr Q8H IV Last administered on 12/31/16 04:00; Start 12/26/16 at 17:00 Sodium Chloride (NS Flush) 2 ml UNSCH PRN IV FLUSH FLUSH AFTER USING IV ACCESS ; Start 12/26/16 at 17:00 Sodium Chloride (NS Flush) 2 ml BID IV FLUSH Last administered on 12/28/16 08: 39; Start 12/26/16 at 21:00 Ondansetron HCl (Zofran Inj) 4 mg Q6H PRN IV NAUSEA OR VOMITING; Start at 17:00 Diphenhydramine HCl (Benadryl Inj) 25 mg Q6H PRN IV ITCHING; Start 12/26/16 at 17:00 Benzocaine 1 spray 1 spray UNSCH X1 PRN MT SEE LABEL COMMENTS; Start 12/26/16 at 17:00; Stop 12/27/16 at 16:59; Status DC Cefazolin Sodium 1000 mg/Sodium Chloride 100 ml @ 200 mls/hr Q8H IV Last administered on 12/27/16 11:27; Start 12/26/16 at 20:00; Stop 12/27/16 at 12:29 ; Status DC Metronidazole (Flagyl 500 Mg Inj) 100 ml @ 200 mls/hr Q8H IV Last administered on 12/27/16 12:12; Start 12/26/16 at 21:00; Stop 12/27/16 at 13:29 ; Status DC Miscellaneous Information (Post-op Orders (for Pharmacy)) STAT ONCE XX ; Start 12/26/16 at 17:00; Stop 12/26/16 at 17:11; Status DC Acetaminophen (Ofirmev Inj) 1,000 mg Q6H IV Last administered on 12/27/16 11: 58; Start 12/26/16 at 18:00; Stop 12/27/16 at 12:01; Status DC Naloxone HCl (Narcan Inj) 0.4 mg UNSCH PRN IV SEE LABEL COMMENTS; Start at 17:00; Stop 12/26/16 at 17:32; Status DC Enoxaparin Sodium (Lovenox Inj) 40 mg Q24H SQ Last administered on 12/30/16 18 :48; Start 12/27/16 at 15:34 Naloxone HCl (Narcan Inj) 0.4 mg UNSCH PRN IV RESPIRATORY RATE LESS THAN 10; Start 12/26/16 at 17:00 Morphine Sulfate (Morphine 1 Mg/ ml WALKING DRAGLINE OPERATOR) 30 mg UNSCH IV Last administered on 22:38; Start 12/26/16 at 17:00 WALKING DRAGLINE OPERATOR Dosage Infused (Pha) 1 Q8HR .XX Last administered on 12/31/16 06:00; Start 12/26/16 at 17:00 Insulin Human Regular (NovoLIN R SUPPLEMENTAL SCALE) 1 ACHS SLIDING SCALE SQ ; Start 12/26/16 at 21:00; Stop 12/26/16 at 21:00; Status DC Dextrose (D50w (Vial) Inj) 25 ml UNSCH PRN IV PUSH HYPOGLYCEMIA-SEE COMMENTS; Start 12/26/16 at 17:00 Glucagon (Glucagon Inj) 1 mg UNSCH PRN OTHER HYPOGLYCEMIA-SEE COMMENTS; Start 12/26/16 at 17:00 Morphine Sulfate (*morphine INJ PERIprocedure ONLY) 8 mg STK-MED ONCE .ROUTE Last administered on 12/26/16 17:25; Start 12/26/16 at 17:25; Stop 12/26/16 at 17:26; Status DC Miscellaneous Information ALL NURSING DEPARTME... UNSCH PRN .XX SEE LABEL COMMENTS; Start 12/26/16 at 16:48; Stop 12/27/16 at 16:47; Status DC Metoprolol Tartrate (Lopressor Inj) 5 mg STK-MED ONCE .ROUTE Last administered on 12/26/16 17:47; Start 12/26/16 at 17:47; Stop 12/26/16 at 17:48; Status DC Morphine Sulfate (*morphine INJ PERIprocedure ONLY) 8 mg STK-MED ONCE .ROUTE Last administered on 12/26/16 17:48; Start 12/26/16 at 17:48; Stop 12/26/16 at 17:49; Status DC Insulin Human Regular (NovoLIN R SUPPLEMENTAL SCALE) 1 Q6HR SQ ; Start 12/27/16 at 00:00 Albuterol/ Ipratropium (Duoneb Neb) 1 ampule Q4HR NEB PRN NEB WHEEZING; Start 12/27/16 at 07:15 Pantoprazole Sodium (Protonix Inj) 40 mg Q24H IV PUSH Last administered on 12/31 09:08; Start 12/27/16 at 08:00 Diatrizoate Meglum/ Diatrizoate Sod ( Gastroview Liq) 120 ml STK-MED ONCE NG Last administered on 12/29/16 09:45; Start 12/29/16 at 09:45; Stop 12/29/16 at 09:58; Status DC Gabapentin (Neurontin Liq) 600 mg TID PO Last administered on 12/31/16 09:08; Start 12/30/16 at 11:00 A/P Assessment and Plan A/P -gastric adenocarcinoma; ( patient had EGD on 12/22/16 and found to have a gastric mass )- s/p Exploratory laparotomy with : total gastrectomy with en bloc resection of pancreas. Distal pancreatectomy, splenectomy. Jejunostomy tube placement. Esophagojejunostomy with Maddie-en-Y reconstruction. continue with pain control. diet per general surgery; currently on tube feeding- general surgery and oncology following. lymph node pathology with no evidence of metastasis. Recurrent syncopal episodes may be due to orthostatic hypotension due to acute anemia from GI bleed. Echo, EEG normal. Brain MRI with no evidence of acute hemorrhage or mass effect. carotid doppler with no significant stenosis. - evaluated by neurology and cardiology. HIV - Continue Genvoya Neuropathy -Continue Gabapentin, Amitriptyline DVT prophylaxis with Lovenox. Leti Medrano MD Dec 31, 2016 10:15
[2016-12-31] MEDS: MORPHINE SULFATE 30 MG/30 ML PCA IV SCH (12:18)
--- NOTE | 2016-12-31 14:16 | HHI.PR ---
Subjective Subjective Notes DAILY PROGRESS NOTE FOR SURGICAL ATTENDING, DR. CHANNING HECK Feels good He wants his tube feedings increased Passing a lot of flatus Objective Vitals/I&O Vital Signs Date Time Temp Pulse Resp B/P Pulse Ox O2 Delivery O2 Flow Rate FiO2 12/31/16 12:18 16 12/31/16 12:00 97.4 105 128/73 97 12/30/16 08:00 Room Air 21 12/28/16 07:00 2.00 Labs Laboratory Tests Test 12/31/16 06:17 White Blood Count 16.1 Red Blood Count 2.82 Hemoglobin 8.3 Hematocrit 26.3 Mean Corpuscular Volume 93.0 Mean Corpuscular Hemoglobin 29.5 Mean Corpuscular Hemoglobin 31.7 Concent Red Cell Distribution Width 14.1 Platelet Count 421 Mean Platelet Volume 7.9 Neutrophils (%) (Auto) 86.7 Lymphocytes (%) (Auto) 3.9 Monocytes (%) (Auto) 8.6 Eosinophils (%) (Auto) 0.4 Basophils (%) (Auto) 0.4 Neutrophils # (Auto) 14.0 Lymphocytes # (Auto) 0.6 Monocytes # (Auto) 1.4 Eosinophils # (Auto) 0.1 Basophils # (Auto) 0.1 CBC Comment DIFF FINAL Differential Comment Sodium Level 145 Potassium Level 3.7 Chloride Level 111 Carbon Dioxide Level 28.4 Anion Gap 6 Blood Urea Nitrogen 20 Creatinine 0.75 Estimat Glomerular Filtration 126 Rate Random Glucose 112 Calcium Level 8.6 Radiology Last Impressions Upper GI Series 12/29/16 0600 Signed Impressions: Service Date/Time: Thursday, December 29, 2016 09:29 - CONCLUSION: Postoperative changes without obvious contrast extravasation. Cal Plummer MD Chest CT 12/25/16 0000 Signed Impressions: Service Date/Time: Sunday, December 25, 2016 16:23 - CONCLUSION: Calcific granulomatous changes identified the left lung and spleen. No evidence of suspicious noncalcified mass. Mild/moderate coronary artery calcification. Emphysematous chronic obstructive pulmonary disease. Roberto Luke MD Carotid Artery Ultrasound 12/21/16 0000 Signed Impressions: Service Date/Time: December 17:26 - CONCLUSION: No evidence for hemodynamically significant stenosis. Jose Meyers MD Brain MRI 12/21/16 0000 Signed Impressions: Service Date/Time: December 20:37 - CONCLUSION: Chronic atrophic and small vessel ischemic changes without any evidence for acute hemorrhage or mass effect. Jose Meyers MD Abdomen/Pelvis CT 12/21/16 0000 Signed Impressions: Service Date/Time: December 16:33 - CONCLUSION: 1. Abnormal appearance of the gastric fundus. The upper stomach is fairly diffusely thickened. The tissue planes between the stomach and pancreas are partially obscured. This is concerning for possible gastric malignancy. Endoscopy is warranted for further assessment. 2. Diffuse stool filled, distended colon consistent with constipation. 3. No free air or free fluid identified. 4. Calcified granuloma in the left lung as above. Ras Gregorio MD Cardiovascular: Regular Abdomen: Non-distended, Post-op tenderness Narrative Exam Tolerating tube feeds A/P Problem List: (1) Gastric mass (2) Gastric adenocarcinoma (3) History of resection of stomach Assessment and Plan 66-year-old male status post gastric resection doing well Increase tube feeds 5 more cc an hour Continue ambulation Attending Statement NOTE FOR SURGICAL ATTENDING, DR. CHANNING HECK I attest that I had a [id number] encounter with the patient on the same day, and personally performed and documented my assessment and findings in the medical record. The following services were provided during this hospital visit: Chart data review, vital sign assessments/reviewing monitor data Review of consultations notes if present. Medication orders/review and/or management Ordering and/or reviewing lab tests Ordering and/or interpreting/reviewing x-rays and/or diagnostic studies Care of the patient and discussion of the patient with the care team Documentation time To help prompt me to consider important information that might be impacting today's encounter and assessment, information from prior notes written by myself or my colleagues may have been "brought forward/copy and pasted" into today's note. Channing Heck MD Dec 31, 2016 14:16
[2016-12-31] MEDS: ENOXAPARIN SODIUM 40 MG/0.4 ML SYRINGE SQ SCH (16:50)
[2016-12-31] MEDS: SODIUM CHLORIDE 0.9% FLUSH 10 ML FLUSH IV FLUSH SCH (20:41)
[2017-01-01] VITALS (8 sets, daily range): BP systolic 109–155; BP diastolic 59–78; PULSE 79–100; RESP 18–28; TEMP 97.7–98.7; O2SAT 91–96
[2017-01-01] MEDS: SODIUM CHLOR 0.9% 1000 ML INJ 1,000 ML IV SCH ×3 (05:29→23:48)
[2017-01-01] MEDS: INSULIN NovoLIN REGULAR SUPPLEMENTAL SCALE SQ SCH ×4 (05:30→23:39)
[2017-01-01] MEDS: GENVOYA PO SCH (09:00)
[2017-01-01] MEDS: SODIUM CHLORIDE 0.9% FLUSH 10 ML FLUSH IV FLUSH SCH ×2 (09:24→21:00)
[2017-01-01] MEDS: PANTOPRAZOLE SODIUM 40 MG VIAL IV PUSH SCH (09:26)
[2017-01-01] MEDS: GABAPENTIN 250 MG/5 ML UDC PO SCH ×3 (09:26→17:24)
[2017-01-01] MEDS: AMITRIPTYLINE HCL 10 MG TAB PO SCH (09:33)
[2017-01-01] MEDS: MORPHINE SULFATE 30 MG/30 ML PCA IV SCH (09:51)
--- NOTE | 2017-01-01 11:03 | HHI.PR ---
Subjective Remarks resting comfortably with no distress. pain is controlled. had BM last night. no nausea or vomiting. Objective Vitals Vital Signs Date Time Temp Pulse Resp B/P Pulse Ox O2 Delivery O2 Flow Rate FiO2 01/01/17 08:00 98.3 92 22 109/62 93 01/01/17 04:00 97.7 95 21 135/63 94 01/01/17 00:00 98.7 92 18 117/70 94 12/31/16 20:00 98.1 96 20 136/64 94 12/31/16 16:00 98.8 90 16 119/65 90 12/31/16 14:55 97 Nasal Cannula 3.00 12/31/16 14:00 16 12/31/16 12:23 16 12/31/16 12:18 16 12/31/16 12:00 97.4 105 24 128/73 97 I/O 12/31/16 12/31/16 12/31/16 01/01/17 01/01/17 01/01/17 07:00 15:00 23:00 07:00 15:00 23:00 Intake Total 170 ml 1120 ml 1207 ml Output Total 650 ml 800 ml 300 ml 300 ml Balance -650 ml -630 ml 820 ml 907 ml Intake Oral 0 ml IV Total 1000 ml 1081 ml Tube Feeding 120 ml 120 ml 126 ml Tube Irrigant 50 ml Output Urine Total 650 ml 800 ml 300 ml 300 ml # Voids 2 2 # Bowel Movements 1 0 1 Result Diagram: 12/31/16 0617 12/31/16 0617 Imaging Last Impressions Upper GI Series 12/29/16 0600 Signed Impressions: Service Date/Time: Thursday, December 29, 2016 09:29 - CONCLUSION: Postoperative changes without obvious contrast extravasation. Cal Plummer MD Chest CT 12/25/16 0000 Signed Impressions: Service Date/Time: Sunday, December 25, 2016 16:23 - CONCLUSION: Calcific granulomatous changes identified the left lung and spleen. No evidence of suspicious noncalcified mass. Mild/moderate coronary artery calcification. Emphysematous chronic obstructive pulmonary disease. Roberto Luke MD Carotid Artery Ultrasound 12/21/16 0000 Signed Impressions: Service Date/Time: December 17:26 - CONCLUSION: No evidence for hemodynamically significant stenosis. Jose Meyers MD Brain MRI 12/21/16 0000 Signed Impressions: Service Date/Time: December 20:37 - CONCLUSION: Chronic atrophic and small vessel ischemic changes without any evidence for acute hemorrhage or mass effect. Jose Meyers MD Abdomen/Pelvis CT 12/21/16 0000 Signed Impressions: Service Date/Time: December 16:33 - CONCLUSION: 1. Abnormal appearance of the gastric fundus. The upper stomach is fairly diffusely thickened. The tissue planes between the stomach and pancreas are partially obscured. This is concerning for possible gastric malignancy. Endoscopy is warranted for further assessment. 2. Diffuse stool filled, distended colon consistent with constipation. 3. No free air or free fluid identified. 4. Calcified granuloma in the left lung as above. Ras Gregorio MD Objective Remarks GENERAL: in no apparent distress. CARDIOVASCULAR: Regular rate and regular rhythm without murmurs, gallops, or rubs. RESPIRATORY: Clear to auscultation. Breath sounds equal bilaterally. No wheezes , rales, or rhonchi. GASTROINTESTINAL: Abdomen soft, non-tender, nondistended. Normal, active bowel sounds MUSCULOSKELETAL: Extremities without clubbing, cyanosis, or edema. NEURO: Alert & Oriented x4 to person, place, time, situation. Moves all ext x4 Procedures upper endoscopy Exploratory laparotomy/ Total gastrectomy with en bloc resection of pancreas/ Distal pancreatectomy, splenectomy/Jejunostomy tube placement/ Esophagojejunostomy with Maddie-en-Y reconstruction. Medications and IVs Current Medications Sodium Chloride 2 ml 2 ml UNSCH PRN IVF FLUSH AFTER USING IV ACCESS; Start 12/20 at 16:00; Stop 12/26/16 at 17:12; Status DC Sodium Chloride 1,000 ml @ 999 mls/hr BOLUS ONCE IV Last administered on 16:56; Start 12/20/16 at 16:45; Stop 12/20/16 at 17:45; Status DC Sodium Chloride (NS 1000 ml Inj) 1,000 ml @ 100 mls/hr Q10H IV Last administered on 12/23/16 20:22; Start 12/20/16 at 19:45; Stop 12/24/16 at 09:18; Status DC Amitriptyline HCl (Elavil) 40 mg DAILY PO Last administered on 01/01/17 09:33 ; Start 12/21/16 at 09:00 Gabapentin (Neurontin) 600 mg TID PO Last administered on 12/29/16 17:03; Start 12/21/16 at 09:00; Stop 12/30/16 at 10:48; Status DC Patient Own Medication PT OWN MED: GENVO... DAILY PO ; Start 12/21/16 at 09:00; Stop 12/21/16 at 09:00; Status DC Patient Own Medication PT OWN MED: GENVO... DAILY PO Last administered on 09:00; Start 12/21/16 at 09:00 Pantoprazole Sodium (Protonix) 40 mg ONCE ONCE PO Last administered on 10:24; Start 12/21/16 at 09:45; Stop 12/21/16 at 09:46; Status DC Pantoprazole Sodium (Protonix) 40 mg DAILY PO Last administered on 12/25/16 09 :24; Start 12/22/16 at 09:00; Stop 12/27/16 at 07:21; Status DC Acetaminophen (Tylenol) 650 mg Q4H PRN PO PAIN 1-10 AND/OR FEVER >101F Last administered on 12/24/16 17:40; Start 12/21/16 at 09:30 Diatrizoate Meglum/ Diatrizoate Sod ( Gastroview Liq) 18 ml ONCE ONCE PO Last administered on 12/21/16 11:48; Start 12/21/16 at 11:30; Stop 12/21/16 at 11: 31; Status DC Iohexol (Omnipaque 350 Inj) 100 ml STK-MED ONCE IV Last administered on 16:35; Start 12/21/16 at 16:35; Stop 12/21/16 at 16:36; Status DC Gadodiamide (Omniscan Pf Inj) 11 ml STK-MED ONCE IV Last administered on 21:24; Start 12/21/16 at 21:24; Stop 12/21/16 at 21:25; Status DC Propofol 200 mg 200 mg STK-MED ONCE IV ; Start 12/22/16 at 11:05; Stop 12/22/16 at 11:26; Status DC Iron Sucrose/ Sodium Chloride (Venofer Inj/NS Inj) 105 ml @ 105 mls/hr Q24H IV Last administered on 12/24/16 22:18; Start 12/22/16 at 22:00; Stop 12/24/16 at 22:59; Status DC Cyanocobalamin (Vitamin B12 Inj) 1,000 mcg ONCE ONCE SQ Last administered on 22:22; Start 12/22/16 at 22:00; Stop 12/22/16 at 22:01; Status DC Bisacodyl (Dulcolax Supp) 10 mg ONCE ONCE RECTAL Last administered on 10:19; Start 12/25/16 at 09:15; Stop 12/25/16 at 09:26; Status DC Polyethylene Glycol (Miralax) 17 gm DAILY PO Last administered on 12/30/16 11: 33; Start 12/26/16 at 09:00; Status Hold Iohexol (Omnipaque 350 Inj) 55 ml STK-MED ONCE IV Last administered on 16:41; Start 12/25/16 at 16:41; Stop 12/25/16 at 16:42; Status DC Phenylephrine HCl (Neosynephrine/ NS 1000 Mcg/10ml Syr) 200 mcg STK-MED ONCE IV ; Start 12/22/16 at 12:00; Stop 12/26/16 at 08:47; Status DC Midazolam HCl (Versed Inj) 2 mg STK-MED ONCE .ROUTE Last administered on 11:09; Start 12/26/16 at 11:07; Stop 12/26/16 at 11:08; Status DC Famotidine (Pepcid Inj) 20 mg STK-MED ONCE .ROUTE Last administered on 11:07; Start 12/26/16 at 11:07; Stop 12/26/16 at 11:08; Status DC Hydromorphone HCl (Dilaudid Pf Inj) 2 mg STK-MED ONCE .ROUTE ; Start 12/26/16 at 12:12; Stop 12/26/16 at 12:13; Status DC Acetaminophen (Ofirmev Inj) 1,000 mg STK-MED ONCE IV ; Start 12/26/16 at 12:12; Stop 12/26/16 at 12:13; Status DC Cefazolin Sodium (Ancef Inj) 2,000 mg STK-MED ONCE IV Last administered on 12/26 12:21; Start 12/26/16 at 12:21; Stop 12/26/16 at 15:22; Status DC Fentanyl Citrate (fentaNYL INJ) 250 mcg STK-MED ONCE .ROUTE ; Start 12/26/16 at 16:51; Stop 12/26/16 at 16:52; Status DC Fentanyl Citrate 100 mcg 100 mcg STK-MED ONCE .ROUTE ; Start 12/26/16 at 16:51; Stop 12/26/16 at 16:52; Status DC Sodium Chloride (NS 1000 ml Inj) 1,000 ml @ 125 mls/hr Q8H IV Last administered on 01/01/17 05:29; Start 12/26/16 at 17:00 Sodium Chloride (NS Flush) 2 ml UNSCH PRN IV FLUSH FLUSH AFTER USING IV ACCESS ; Start 12/26/16 at 17:00 Sodium Chloride (NS Flush) 2 ml BID IV FLUSH Last administered on 01/01/17 09: 24; Start 12/26/16 at 21:00 Ondansetron HCl (Zofran Inj) 4 mg Q6H PRN IV NAUSEA OR VOMITING; Start at 17:00 Diphenhydramine HCl (Benadryl Inj) 25 mg Q6H PRN IV ITCHING; Start 12/26/16 at 17:00 Benzocaine 1 spray 1 spray UNSCH X1 PRN MT SEE LABEL COMMENTS; Start 12/26/16 at 17:00; Stop 12/27/16 at 16:59; Status DC Cefazolin Sodium 1000 mg/Sodium Chloride 100 ml @ 200 mls/hr Q8H IV Last administered on 12/27/16 11:27; Start 12/26/16 at 20:00; Stop 12/27/16 at 12:29 ; Status DC Metronidazole (Flagyl 500 Mg Inj) 100 ml @ 200 mls/hr Q8H IV Last administered on 12/27/16 12:12; Start 12/26/16 at 21:00; Stop 12/27/16 at 13:29 ; Status DC Miscellaneous Information (Post-op Orders (for Pharmacy)) STAT ONCE XX ; Start 12/26/16 at 17:00; Stop 12/26/16 at 17:11; Status DC Acetaminophen (Ofirmev Inj) 1,000 mg Q6H IV Last administered on 12/27/16 11: 58; Start 12/26/16 at 18:00; Stop 12/27/16 at 12:01; Status DC Naloxone HCl (Narcan Inj) 0.4 mg UNSCH PRN IV SEE LABEL COMMENTS; Start at 17:00; Stop 12/26/16 at 17:32; Status DC Enoxaparin Sodium (Lovenox Inj) 40 mg Q24H SQ Last administered on 12/31/16 16 :50; Start 12/27/16 at 15:34 Naloxone HCl (Narcan Inj) 0.4 mg UNSCH PRN IV RESPIRATORY RATE LESS THAN 10; Start 12/26/16 at 17:00 Morphine Sulfate (Morphine 1 Mg/ ml PREDATORY HUNTER) 30 mg UNSCH IV Last administered on 09:51; Start 12/26/16 at 17:00 PREDATORY HUNTER Dosage Infused (Pha) 1 Q8HR .XX Last administered on 12/31/16 14:00; Start 12/26/16 at 17:00 Insulin Human Regular (NovoLIN R SUPPLEMENTAL SCALE) 1 ACHS SLIDING SCALE SQ ; Start 12/26/16 at 21:00; Stop 12/26/16 at 21:00; Status DC Dextrose (D50w (Vial) Inj) 25 ml UNSCH PRN IV PUSH HYPOGLYCEMIA-SEE COMMENTS; Start 12/26/16 at 17:00 Glucagon (Glucagon Inj) 1 mg UNSCH PRN OTHER HYPOGLYCEMIA-SEE COMMENTS; Start 12/26/16 at 17:00 Morphine Sulfate (*morphine INJ PERIprocedure ONLY) 8 mg STK-MED ONCE .ROUTE Last administered on 12/26/16 17:25; Start 12/26/16 at 17:25; Stop 12/26/16 at 17:26; Status DC Miscellaneous Information ALL NURSING DEPARTME... UNSCH PRN .XX SEE LABEL COMMENTS; Start 12/26/16 at 16:48; Stop 12/27/16 at 16:47; Status DC Metoprolol Tartrate (Lopressor Inj) 5 mg STK-MED ONCE .ROUTE Last administered on 12/26/16 17:47; Start 12/26/16 at 17:47; Stop 12/26/16 at 17:48; Status DC Morphine Sulfate (*morphine INJ PERIprocedure ONLY) 8 mg STK-MED ONCE .ROUTE Last administered on 12/26/16 17:48; Start 12/26/16 at 17:48; Stop 12/26/16 at 17:49; Status DC Insulin Human Regular (NovoLIN R SUPPLEMENTAL SCALE) 1 Q6HR SQ ; Start 12/27/16 at 00:00 Albuterol/ Ipratropium (Duoneb Neb) 1 ampule Q4HR NEB PRN NEB WHEEZING; Start 12/27/16 at 07:15 Pantoprazole Sodium (Protonix Inj) 40 mg Q24H IV PUSH Last administered on 01/01 09:26; Start 12/27/16 at 08:00 Diatrizoate Meglum/ Diatrizoate Sod ( Gastroview Liq) 120 ml STK-MED ONCE NG Last administered on 12/29/16 09:45; Start 12/29/16 at 09:45; Stop 12/29/16 at 09:58; Status DC Gabapentin (Neurontin Liq) 600 mg TID PO Last administered on 01/01/17 09:26; Start 12/30/16 at 11:00 A/P Assessment and Plan A/P -gastric adenocarcinoma; ( patient had EGD on 12/22/16 and found to have a gastric mass )- s/p Exploratory laparotomy with : total gastrectomy with en bloc resection of pancreas. Distal pancreatectomy, splenectomy. Jejunostomy tube placement. Esophagojejunostomy with Maddie-en-Y reconstruction. continue with pain control. diet per general surgery; currently on tube feeding- general surgery and oncology following. lymph node pathology with no evidence of metastasis. Recurrent syncopal episodes may be due to orthostatic hypotension due to acute anemia from GI bleed. Echo, EEG normal. Brain MRI with no evidence of acute hemorrhage or mass effect. carotid doppler with no significant stenosis. - evaluated by neurology and cardiology. HIV - Continue Genvoya Neuropathy -Continue Gabapentin, Amitriptyline DVT prophylaxis with Lovenox. Leti Medrano MD Jan 01, 2017 11:03
--- NOTE | 2017-01-01 16:05 | HHI.PR ---
Subjective Subjective Notes Resting in bed Pain controlled Doing well overall Objective Vitals/I&O Vital Signs Date Time Temp Pulse Resp B/P Pulse Ox O2 Delivery O2 Flow Rate FiO2 01/01/17 12:00 97.8 79 28 126/62 96 01/01/17 11:57 Nasal Cannula 1.00 12/30/16 08:00 21 Radiology Last Impressions Upper GI Series 12/29/16 0600 Signed Impressions: Service Date/Time: Thursday, December 29, 2016 09:29 - CONCLUSION: Postoperative changes without obvious contrast extravasation. Cal Plummer MD Chest CT 12/25/16 0000 Signed Impressions: Service Date/Time: Sunday, December 25, 2016 16:23 - CONCLUSION: Calcific granulomatous changes identified the left lung and spleen. No evidence of suspicious noncalcified mass. Mild/moderate coronary artery calcification. Emphysematous chronic obstructive pulmonary disease. Roberto Luke MD Carotid Artery Ultrasound 12/21/16 0000 Signed Impressions: Service Date/Time: December 17:26 - CONCLUSION: No evidence for hemodynamically significant stenosis. Jose Meyers MD Brain MRI 12/21/16 0000 Signed Impressions: Service Date/Time: December 20:37 - CONCLUSION: Chronic atrophic and small vessel ischemic changes without any evidence for acute hemorrhage or mass effect. Jose Meyers MD Abdomen/Pelvis CT 12/21/16 0000 Signed Impressions: Service Date/Time: December 16:33 - CONCLUSION: 1. Abnormal appearance of the gastric fundus. The upper stomach is fairly diffusely thickened. The tissue planes between the stomach and pancreas are partially obscured. This is concerning for possible gastric malignancy. Endoscopy is warranted for further assessment. 2. Diffuse stool filled, distended colon consistent with constipation. 3. No free air or free fluid identified. 4. Calcified granuloma in the left lung as above. Ras Gregorio MD Cardiovascular: Regular Lungs: Clear Abdomen: Other (midline incision---stapled; c/d/i; HERNAN with SS drainage; J tube without complications ) Extremities: No edema A/P Problem List: (1) Gastric mass (2) Gastric adenocarcinoma (3) History of resection of stomach Assessment and Plan 66 year old male POD6 open Total gastrectomy with en bloc resection, distal pancreatectomy and splenectomy -Okay for ice chips and popsicles -Start TF via J tube---20 cc/hr -Okay to give HIV meds through J tube if able to crush to powder fine texture and flush -OOB -PRECINCT [employer] for Pain -Dr. Hernandez to review pathology tomorrow Attending Statement patient stable, doing well, OOB and tolerating tube feeds The exam, history, and the medical decision-making described in the above note were completed with the assistance of the mid-level provider. I reviewed and agree with the findings presented. I attest that I had a [id number] encounter with the patient on the same day, and personally performed and documented my assessment and findings in the medical record. Debra Amin Jan 01, 2017 16:05 Boy Hernandez MD Jan 06, 2017 22:55
[2017-01-01] MEDS: ENOXAPARIN SODIUM 40 MG/0.4 ML SYRINGE SQ SCH (17:24)
--- NOTE | 2017-01-01 18:14 | PD.ONC.PN ---
Subjective Subjective Remarks Planning to go to rehab in [place] to be with family. Delighted about pathology report, he almost want to cry. Pain controlled. Feels himself improving. Objective Data Date Time Temp Pulse Resp B/P Pulse Ox O2 Delivery O2 Flow Rate FiO2 01/01/17 16:00 98.6 83 20 116/59 96 01/01/17 12:00 97.8 79 28 126/62 96 01/01/17 11:57 94 Nasal Cannula 1.00 01/01/17 08:00 98.3 92 22 109/62 93 01/01/17 04:00 97.7 95 21 135/63 94 01/01/17 00:00 98.7 92 18 117/70 94 12/31/16 20:00 98.1 96 20 136/64 94 01/01/17 01/01/17 01/01/17 07:00 15:00 23:00 Intake Total 1207 ml Output Total 300 ml Balance 907 ml Result Diagram: 12/31/1661612/31/16616 Administered Medications Medications (Trade) Dose Ordered Sig/Sierra Route PRN Reason Start Time Stop Time Status Last Admin Dose Admin Amitriptyline HCl (Elavil) 40 mg DAILY PO 12/21/16 09:00 01/01/17 09:33 Patient Own Medication PT OWN MED: GENVO... DAILY PO 12/21/16 09:00 01/01/17 09:00 Acetaminophen (Tylenol) 650 mg Q4H PRN PO PAIN 1-10 AND/OR FEVER >101F 12/21/16 09:30 12/24/16 17:40 Polyethylene Glycol 17 gm 17 gm DAILY PO 12/26/16 09:00 Hold 12/30/16 11:33 Sodium Chloride (NS 1000 ml Inj) 1,000 ml @ 50 mls/hr Q20H IV 12/26/16 17:00 01/01/17 12:45 Sodium Chloride (NS Flush) 2 ml BID IV FLUSH 12/26/16 21:00 01/01/17 09:24 Enoxaparin Sodium (Lovenox Inj) 40 mg Q24H SQ 12/27/16 15:34 01/01/17 17:24 Morphine Sulfate (Morphine 1 Mg/ ml ASSIGNMENT CLERK) 30 mg UNSCH IV 12/26/16 17:00 01/01/17 09:51 ASSIGNMENT CLERK Dosage Infused (Pha) 1 Q8HR .XX 12/26/16 17:00 12/31/16 14:00 Insulin Human Regular (NovoLIN R SUPPLEMENTAL SCALE) 1 Q6HR SQ 12/27/16 00:00 01/01/17 13:01 Pantoprazole Sodium (Protonix Inj) 40 mg Q24H IV PUSH 12/27/16 08:00 01/01/17 09:26 Gabapentin (Neurontin Liq) 600 mg TID PO 12/30/16 11:00 01/01/17 17:24 Objective Remarks GENERAL: Well-nourished, well-developed patient. SKIN: Warm and dry. HEAD: Normocephalic. EYES: No scleral icterus. No injection or drainage. NECK: Supple, trachea midline. No JVD or lymphadenopathy. LYMPHATIC: No adenopathy. CARDIOVASCULAR: Regular rate and rhythm without murmurs. RESPIRATORY: Breath sounds equal bilaterally. No accessory muscle use. GASTROINTESTINAL: Abdomen soft, non-tender, nondistended. EXTREMITIES: No cyanosis, or edema. MUSCULOSKELETAL: Adequate muscle tone. NEUROLOGICAL: No obvious focal deficit. Awake, alert, and oriented x3. PSYCHIATRIC: Appropriate mood and affect; insight and judgment normal. Assessment/Plan Problem List: (1) Gastric adenocarcinoma Status: Acute Plan: 01/01/17. Pathology report reviewed with patient, margins negative, lymph nodes uninvolved. Advised to make appt with [facility] to discuss adjuvant therapy. Noted plans for rehab. Emotional support provided. -- s/p total gastrectomy on 12/26/16 --CT chest shows granulomatous changes, no mass -- CT Abdomen shows abnormal appearance of the gastric fundus, concerning for possible gastric malignancy -- Esophagogastroduodenoscopy found a 3x4 cm ulcerated mass. -- Biopsy taken, path shows invasive adenocarcinoma -- CEA, CA 19-9 normal. (2) Anemia Status: Acute Plan: 01/01. Microcytic anemia persist. Trial additional iron to enhance hematopoiesis. -- Iron deficiency anemia with a ferritin of 13. -- Likely due to blood loss from ulcerated gastric mass -- Iron sucrose IV x 3 bags ordered. (3) HIV (human immunodeficiency virus infection) Status: Chronic Plan: -- Stable on HAART -- Last CD4 count was in the 400's. Assessment 66 y/o male with history of HIV admitted for syncope and was found to have a gastric mass. 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 Pathology report reviewed 2. DC planning to follow at [facility] in [place] for adjuvant chemotherapy 3. Venofer for persistent anemia/iron deficiency Problem Qualifiers (1) Anemia: Qualified Code: D50.0 - Iron deficiency anemia due to chronic blood loss Kandice May MD Jan 01, 2017 18:14
[2017-01-01] MEDS ORDERED: CYANOCOBALAMIN 1000 MCG/ML VIAL SQ ONE (18:30)
[2017-01-01] MEDS ORDERED: IRON SUCROSE INJ 100 MG in SODIUM CHLORIDE 0.9% INJ 100 ML IV ONE (18:45)
[2017-01-02] VITALS (8 sets, daily range): BP systolic 125–167; BP diastolic 58–90; PULSE 79–104; RESP 18; TEMP 97.8–99.8; O2SAT 93–97
[2017-01-02] MEDS: INSULIN NovoLIN REGULAR SUPPLEMENTAL SCALE SQ SCH ×3 (05:33→18:00)
[2017-01-02] MEDS: PCA - TOTAL MG MORPHINE DELIVERED PER SHIFT SCH ×3 (06:00→21:27)
[2017-01-02 08:20] LABS: AUTOMATED NEUTROPHIL # 10.2 TH/MM3 (1.8-7.7); BASOPHIL # 0.1 TH/MM3 (0-0.2); BASOPHIL % 0.5 % (0.0-2.0); EOSINOPHIL # 0.2 TH/MM3 (0-0.4); EOSINOPHIL % 1.7 % (0.0-4.0); HEMATOCRIT 24.9 % (39.0-51.0); HEMO FLAGS DIFF FINAL; LYMPH % 6.7 % (9.0-44.0); LYMPHOCYTE # 0.9 TH/MM3 (1.0-4.8); MEAN CELL VOLUME 91.9 FL (80.0-100.0); MEAN CORPUSCULAR HEMOGLOBIN 29.3 PG (27.0-34.0); MEAN CORPUSCULAR HGB CONC 31.9 % (32.0-36.0); MONO % 10.6 % (0.0-8.0); NEUT % 80.5 % (16.0-70.0); PLATELET COUNT 475 TH/MM3 (150-450); RED BLOOD COUNT 2.71 MIL/MM3 (4.50-5.90); RED CELL DISTRIBUTION WIDTH 14.8 % (11.6-17.2); WHITE BLOOD COUNT 12.7 TH/MM3 (4.0-11.0)
[2017-01-02] MEDS: PANTOPRAZOLE SODIUM 40 MG VIAL IV PUSH SCH (08:42)
[2017-01-02] MEDS: GABAPENTIN 250 MG/5 ML UDC PO SCH ×3 (08:42→18:04)
[2017-01-02] MEDS: AMITRIPTYLINE HCL 10 MG TAB PO SCH (08:42)
[2017-01-02] MEDS: GENVOYA PO SCH (08:42)
[2017-01-02] MEDS: SODIUM CHLORIDE 0.9% FLUSH 10 ML FLUSH IV FLUSH SCH ×2 (08:42→21:00)
[2017-01-02 08:56] LABS: BICARBONATE 27.6 MEQ/L (21.0-32.0); POTASSIUM 3.5 MEQ/L (3.5-5.1)
--- NOTE | 2017-01-02 10:59 | HHI.PR ---
Subjective Subjective Notes Resting in bed In good spirits today Asking if we can change dressing today Objective Vitals/I&O Vital Signs Date Time Temp Pulse Resp B/P Pulse Ox O2 Delivery O2 Flow Rate FiO2 01/02/17 08:00 97.8 79 18 125/83 95 01/01/17 20:19 Nasal Cannula 1.00 12/30/16 08:00 21 Labs Laboratory Tests Test 01/02/17 07:20 White Blood Count 12.7 Red Blood Count 2.71 Hemoglobin 7.9 Hematocrit 24.9 Mean Corpuscular Volume 91.9 Mean Corpuscular Hemoglobin 29.3 Mean Corpuscular Hemoglobin 31.9 Concent Red Cell Distribution Width 14.8 Platelet Count 475 Mean Platelet Volume 7.9 Neutrophils (%) (Auto) 80.5 Lymphocytes (%) (Auto) 6.7 Monocytes (%) (Auto) 10.6 Eosinophils (%) (Auto) 1.7 Basophils (%) (Auto) 0.5 Neutrophils # (Auto) 10.2 Lymphocytes # (Auto) 0.9 Monocytes # (Auto) 1.4 Eosinophils # (Auto) 0.2 Basophils # (Auto) 0.1 CBC Comment DIFF FINAL Differential Comment Sodium Level 143 Potassium Level 3.5 Chloride Level 108 Carbon Dioxide Level 27.6 Anion Gap 7 Blood Urea Nitrogen 10 Creatinine 0.84 Estimat Glomerular Filtration 110 Rate Random Glucose 110 Calcium Level 8.7 Radiology Last Impressions Upper GI Series 12/29/16 0600 Signed Impressions: Service Date/Time: Thursday, December 29, 2016 09:29 - CONCLUSION: Postoperative changes without obvious contrast extravasation. Cal Plummer MD Chest CT 12/25/16 0000 Signed Impressions: Service Date/Time: Sunday, December 25, 2016 16:23 - CONCLUSION: Calcific granulomatous changes identified the left lung and spleen. No evidence of suspicious noncalcified mass. Mild/moderate coronary artery calcification. Emphysematous chronic obstructive pulmonary disease. Roberto Luke MD Carotid Artery Ultrasound 12/21/16 0000 Signed Impressions: Service Date/Time: December 17:26 - CONCLUSION: No evidence for hemodynamically significant stenosis. Jose Meyers MD Brain MRI 12/21/16 0000 Signed Impressions: Service Date/Time: December 20:37 - CONCLUSION: Chronic atrophic and small vessel ischemic changes without any evidence for acute hemorrhage or mass effect. Jose Meyers MD Abdomen/Pelvis CT 12/21/16 0000 Signed Impressions: Service Date/Time: December 16:33 - CONCLUSION: 1. Abnormal appearance of the gastric fundus. The upper stomach is fairly diffusely thickened. The tissue planes between the stomach and pancreas are partially obscured. This is concerning for possible gastric malignancy. Endoscopy is warranted for further assessment. 2. Diffuse stool filled, distended colon consistent with constipation. 3. No free air or free fluid identified. 4. Calcified granuloma in the left lung as above. Ras Gregorio MD Cardiovascular: Regular Lungs: Clear Abdomen: Non-distended, Other (midline incision with estelita---c/d/i; J tube without complications; HERNAN removed and dressing clean ), Post-op tenderness Extremities: No edema A/P Problem List: (1) Gastric mass (2) Gastric adenocarcinoma (3) History of resection of stomach Assessment and Plan 66 year old male POD7 open Total gastrectomy with en bloc resection, distal pancreatectomy and splenectomy -Okay for ice chips and popsicles -Start TF via J tube---25 cc/hr -Okay to give HIV meds through J tube if able to crush to powder fine texture and flush -OOB -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 Hernandez to review pathology today Attending Statement doing well overall, d/w patient pathology results The exam, history, and the medical decision-making described in the above note were completed with the assistance of the mid-level provider. I reviewed and agree with the findings presented. I attest that I had a [id number] encounter with the patient on the same day, and personally performed and documented my assessment and findings in the medical record. Debra Amin Jan 02, 2017 10:59 Boy Hernandez MD Jan 06, 2017 23:02
--- NOTE | 2017-01-02 13:24 | PD.ONC.PN ---
Subjective Subjective Remarks Tmax 99.8 overnight. Patient resting comfortably. Tolerated iron infusion. States pain is controlled. Tolerating tube feeds. Objective Data Date Time Temp Pulse Resp B/P Pulse Ox O2 Delivery O2 Flow Rate FiO2 01/02/17 12:05 95 Nasal Cannula 1.00 01/02/17 08:00 97.8 79 18 125/83 95 01/02/17 06:00 20 01/02/17 04:00 98.1 91 18 148/60 93 01/02/17 00:00 99.8 98 18 167/58 94 01/01/17 20:19 94 Nasal Cannula 1.00 01/01/17 20:00 98.2 100 18 155/78 91 01/01/17 16:00 98.6 83 20 116/59 96 01/02/17 01/02/17 01/02/17 07:00 15:00 23:00 Intake Total 960 ml Output Total 200 ml Balance 760 ml Result Diagram: 01/02/1771901/02/17 0720 Laboratory Results Laboratory Tests Test 01/02/17 07:20 White Blood Count 12.7 TH/MM3 Red Blood Count 2.71 MIL/MM3 Hemoglobin 7.9 GM/DL Hematocrit 24.9 % Mean Corpuscular Volume 91.9 FL Mean Corpuscular Hemoglobin 29.3 PG Mean Corpuscular Hemoglobin 31.9 % Concent Red Cell Distribution Width 14.8 % Platelet Count 475 TH/MM3 Mean Platelet Volume 7.9 FL Neutrophils (%) (Auto) 80.5 % Lymphocytes (%) (Auto) 6.7 % Monocytes (%) (Auto) 10.6 % Eosinophils (%) (Auto) 1.7 % Basophils (%) (Auto) 0.5 % Neutrophils # (Auto) 10.2 TH/MM3 Lymphocytes # (Auto) 0.9 TH/MM3 Monocytes # (Auto) 1.4 TH/MM3 Eosinophils # (Auto) 0.2 TH/MM3 Basophils # (Auto) 0.1 TH/MM3 CBC Comment DIFF FINAL Differential Comment Sodium Level 143 MEQ/L Potassium Level 3.5 MEQ/L Chloride Level 108 MEQ/L Carbon Dioxide Level 27.6 MEQ/L Anion Gap 7 MEQ/L Blood Urea Nitrogen 10 MG/DL Creatinine 0.84 MG/DL Estimat Glomerular Filtration 110 ML/MIN Rate Random Glucose 110 MG/DL Calcium Level 8.7 MG/DL Administered Medications Medications (Trade) Dose Ordered Sig/Sierra Route PRN Reason Start Time Stop Time Status Last Admin Dose Admin Amitriptyline HCl (Elavil) 40 mg DAILY PO 12/21/16 09:00 01/02/17 08:42 Patient Own Medication PT OWN MED: GENVO... DAILY PO 12/21/16 09:00 01/02/17 08:42 Acetaminophen (Tylenol) 650 mg Q4H PRN PO PAIN 1-10 AND/OR FEVER >101F 12/21/16 09:30 12/24/16 17:40 Polyethylene Glycol 17 gm 17 gm DAILY PO 12/26/16 09:00 Hold 12/30/16 11:33 Sodium Chloride (NS 1000 ml Inj) 1,000 ml @ 50 mls/hr Q20H IV 12/26/16 17:00 01/01/17 23:48 Sodium Chloride (NS Flush) 2 ml BID IV FLUSH 12/26/16 21:00 01/02/17 08:42 Enoxaparin Sodium (Lovenox Inj) 40 mg Q24H SQ 12/27/16 15:34 01/01/17 17:24 Morphine Sulfate (Morphine 1 Mg/ ml BUILDING OFFICIAL) 30 mg UNSCH IV 12/26/16 17:00 01/01/17 09:51 BUILDING OFFICIAL Dosage Infused (Pha) 1 Q8HR .XX 12/26/16 17:00 01/02/17 06:00 Insulin Human Regular (NovoLIN R SUPPLEMENTAL SCALE) 1 Q6HR SQ 12/27/16 00:00 01/01/17 13:01 Pantoprazole Sodium (Protonix Inj) 40 mg Q24H IV PUSH 12/27/16 08:00 01/02/17 08:42 Gabapentin (Neurontin Liq) 600 mg TID PO 12/30/16 11:00 01/02/17 12:55 Objective Remarks GENERAL: Middle aged male, sitting up in bed in [facility]. SKIN: Warm and dry. HEAD: Normocephalic. EYES: no injection or drainage. NECK: Supple, trachea midline. CARDIOVASCULAR: Regular rate and rhythm RESPIRATORY: Breath sounds equal bilaterally. No accessory muscle use. GASTROINTESTINAL: Abdomen soft. bandages at midline c/d/i. receiving TF EXTREMITIES: No cyanosis, or edema. MUSCULOSKELETAL: Adequate muscle tone. NEUROLOGICAL: No obvious focal deficit. Awake, alert, and oriented x3. Assessment/Plan Problem List: (1) Gastric adenocarcinoma Status: Acute Plan: 01/02: patient doing well. wants to go to rehab in [place]. pain controlled. 01/01/17. Pathology report reviewed with patient, margins negative, lymph nodes uninvolved. Advised to make appt with [facility] to discuss adjuvant therapy. Noted plans for rehab. Emotional support provided. -- s/p total gastrectomy on 12/26/16 --CT chest shows granulomatous changes, no mass -- CT Abdomen shows abnormal appearance of the gastric fundus, concerning for possible gastric malignancy -- Esophagogastroduodenoscopy found a 3x4 cm ulcerated mass. -- Biopsy taken, path shows invasive adenocarcinoma -- CEA, CA 19-9 normal. (2) Anemia Status: Acute Plan: 01/02: tolerated IV iron monitor hgb 01/01. Microcytic anemia persist. Trial additional iron to enhance hematopoiesis. -- Iron deficiency anemia (3) HIV (human immunodeficiency virus infection) Status: Chronic Plan: -- Stable on HAART -- Last CD4 count was in the 400's. Assessment 66 y/o male with history of HIV admitted for syncope and was found to have a gastric mass. 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 monitor hgb 2. once discharged, will follow up with [facility] for further chemotherapy Problem Qualifiers (1) Anemia: Qualified Code: D50.0 - Iron deficiency anemia due to chronic blood loss Sepideh Giron Jan 02, 2017 13:24
--- NOTE | 2017-01-02 13:34 | HHI.PR ---
Subjective Remarks resting comfortably with no distress. Received Iron Infusion Tolerating Tube feedings. Clean surgical wounds. Objective Vital Signs Date Time Temp Pulse Resp B/P Pulse Ox O2 Delivery O2 Flow Rate FiO2 01/02/17 12:05 95 Nasal Cannula 1.00 01/02/17 08:00 97.8 79 18 125/83 95 01/02/17 06:00 20 01/02/17 04:00 98.1 91 18 148/60 93 01/02/17 00:00 99.8 98 18 167/58 94 01/01/17 20:19 94 Nasal Cannula 1.00 01/01/17 20:00 98.2 100 18 155/78 91 01/01/17 16:00 98.6 83 20 116/59 96 I/O 01/01/17 01/01/17 01/01/17 01/02/17 01/02/17 01/02/17 07:00 15:00 23:00 07:00 15:00 23:00 Intake Total 1207 ml 820 ml 960 ml Output Total 300 ml 125 ml 200 ml Balance 907 ml 695 ml 760 ml Intake Oral 240 ml 480 ml IV Total 1081 ml 400 ml 394 ml Tube Feeding 126 ml 120 ml 86 ml Tube Irrigant 60 ml Output Urine Total 300 ml 125 ml 200 ml # Voids 2 2 2 # Bowel Movements 1 0 2 Result Diagram: 01/02/17 0720 01/02/17 0720 Imaging Last Impressions Upper GI Series 12/29/16 0600 Signed Impressions: Service Date/Time: Thursday, December 29, 2016 09:29 - CONCLUSION: Postoperative changes without obvious contrast extravasation. Cal Plummer MD Chest CT 12/25/16 0000 Signed Impressions: Service Date/Time: Sunday, December 25, 2016 16:23 - CONCLUSION: Calcific granulomatous changes identified the left lung and spleen. No evidence of suspicious noncalcified mass. Mild/moderate coronary artery calcification. Emphysematous chronic obstructive pulmonary disease. Roberto Luke MD Carotid Artery Ultrasound 12/21/16 0000 Signed Impressions: Service Date/Time: December 17:26 - CONCLUSION: No evidence for hemodynamically significant stenosis. Jose Meyers MD Brain MRI 12/21/16 0000 Signed Impressions: Service Date/Time: December 20:37 - CONCLUSION: Chronic atrophic and small vessel ischemic changes without any evidence for acute hemorrhage or mass effect. Jose Meyers MD Abdomen/Pelvis CT 12/21/16 0000 Signed Impressions: Service Date/Time: December 16:33 - CONCLUSION: 1. Abnormal appearance of the gastric fundus. The upper stomach is fairly diffusely thickened. The tissue planes between the stomach and pancreas are partially obscured. This is concerning for possible gastric malignancy. Endoscopy is warranted for further assessment. 2. Diffuse stool filled, distended colon consistent with constipation. 3. No free air or free fluid identified. 4. Calcified granuloma in the left lung as above. Ras Gregorio MD Procedures upper endoscopy Exploratory laparotomy/ Total gastrectomy with en bloc resection of pancreas/ Distal pancreatectomy, splenectomy/Jejunostomy tube placement/ Esophagojejunostomy with Maddie-en-Y reconstruction. Other Results Laboratory Tests Test 12/26/16 01/02/17 12:05 07:20 Blood Type B NEGATIVE Antibody Screen NEGATIVE Crossmatch Leukocyte-Reduced Red Blood Cells Blood Bank Comment White Blood Count 12.7 TH/MM3 Red Blood Count 2.71 MIL/MM3 Hemoglobin 7.9 GM/DL Hematocrit 24.9 % Mean Corpuscular Volume 91.9 FL Mean Corpuscular Hemoglobin 29.3 PG Mean Corpuscular Hemoglobin 31.9 % Concent Red Cell Distribution Width 14.8 % Platelet Count 475 TH/MM3 Mean Platelet Volume 7.9 FL Neutrophils (%) (Auto) 80.5 % Lymphocytes (%) (Auto) 6.7 % Monocytes (%) (Auto) 10.6 % Eosinophils (%) (Auto) 1.7 % Basophils (%) (Auto) 0.5 % Neutrophils # (Auto) 10.2 TH/MM3 Lymphocytes # (Auto) 0.9 TH/MM3 Monocytes # (Auto) 1.4 TH/MM3 Eosinophils # (Auto) 0.2 TH/MM3 Basophils # (Auto) 0.1 TH/MM3 CBC Comment DIFF FINAL Differential Comment Sodium Level 143 MEQ/L Potassium Level 3.5 MEQ/L Chloride Level 108 MEQ/L Carbon Dioxide Level 27.6 MEQ/L Anion Gap 7 MEQ/L Blood Urea Nitrogen 10 MG/DL Creatinine 0.84 MG/DL Estimat Glomerular Filtration 110 ML/MIN Rate Random Glucose 110 MG/DL Calcium Level 8.7 MG/DL Objective Remarks GENERAL: in no apparent distress. CARDIOVASCULAR: Regular rate and regular rhythm without murmurs, gallops, or rubs. RESPIRATORY: Clear to auscultation. Breath sounds equal bilaterally. No wheezes , rales, or rhonchi. GASTROINTESTINAL: Abdomen soft, non-tender, nondistended. PEG in place, clean surgical wounds. MUSCULOSKELETAL: Extremities without clubbing, cyanosis, or edema. NEURO: Alert & Oriented x4 to person, place, time, situation. Moves all ext x4 Medications and IVs Current Medications Medications (Trade) Dose Ordered Sig/Sierra Route Start Time Stop Time Status Last Admin (Elavil) 40 mg DAILY PO 12/21/16 09:00 01/02/17 08:42 Patient Own Medication PT OWN MED: GENVO... DAILY PO 12/21/16 09:00 01/02/17 08:42 (Tylenol) 650 mg Q4H PRN PO 12/21/16 09:30 12/24/16 17:40 Polyethylene Glycol 17 gm 17 gm DAILY PO 12/26/16 09:00 Hold 12/30/16 11:33 (NS 1000 ml Inj) 1,000 ml @ 50 mls/hr Q20H IV 12/26/16 17:00 01/01/17 23:48 (NS Flush) 2 ml UNSCH PRN IV FLUSH 12/26/16 17:00 (NS Flush) 2 ml BID IV FLUSH 12/26/16 21:00 01/02/17 08:42 (Zofran Inj) 4 mg Q6H PRN IV 12/26/16 17:00 (Benadryl Inj) 25 mg Q6H PRN IV 12/26/16 17:00 (Lovenox Inj) 40 mg Q24H SQ 12/27/16 15:34 01/01/17 17:24 (Narcan Inj) 0.4 mg UNSCH PRN IV 12/26/16 17:00 (Morphine 1 Mg/ ml HARPOON ENGAGEMENT PLANNING OPERATOR) 30 mg UNSCH IV 12/26/16 17:00 01/01/17 09:51 HARPOON ENGAGEMENT PLANNING OPERATOR Dosage Infused (Pha) 1 Q8HR .XX 12/26/16 17:00 01/02/17 06:00 (D50w (Vial) Inj) 25 ml UNSCH PRN IV PUSH 12/26/16 17:00 (Glucagon Inj) 1 mg UNSCH PRN OTHER 12/26/16 17:00 (NovoLIN R SUPPLEMENTAL SCALE) 1 Q6HR SQ 12/27/16 00:00 01/01/17 13:01 (Protonix Inj) 40 mg Q24H IV PUSH 12/27/16 08:00 01/02/17 08:42 (Neurontin Liq) 600 mg TID PO 12/30/16 11:00 01/02/17 12:55 A/P Assessment and Plan 1. Gastric Adenocarcinoma status post EGD on 12/22/16 found Gastric Mass Status post Exploratory Laparotomy with Total Gastrectomy and with en bloc resection of Pancreas jejunostomy tube placement, Esophagojejunostomy with Maddie-en-Y reconstruction will need appointment in [facility] to discuss adjuvant therapy to continue Pain control, Diet as per General Surgery, tube feedings, Lymph node pathology with no evidence of Metastasis. CA 19-9 Normal. 2. Recurrent Syncopal episodes probable secondary to Orthostatic Hypotension due to acute anemia from GI bleed Echo, EEG normal, Brain MRI with no evidence of acute hemorrhage or mass effect, Carotid doppler with no significant stenosis 3. HIV continue HAART Therapy, last CD4 count was 400 4. Neuropathy on Gabapentin and Amitriptyline 5. Anemia on IV iron by med specialist. 6. Hypokalemia replaced and following. DVT prophylaxis with Lovenox. Discharge Planning When cleared by specialists Thaddeus Qiu MD Jan 02, 2017 13:34 Thaddeus Qiu MD Jan 02, 2017 13:34
[2017-01-02] MEDS: ENOXAPARIN SODIUM 40 MG/0.4 ML SYRINGE SQ SCH (15:52)
[2017-01-02] MEDS: POTASSIUM CHLOR 10 MEQ PREMIX 100 ML IV SCH ×3 (16:09→18:04)
[2017-01-02] MEDS: SODIUM CHLOR 0.9% 1000 ML INJ 1,000 ML IV SCH (21:24)
[2017-01-03] VITALS (8 sets, daily range): BP systolic 125–152; BP diastolic 64–81; PULSE 87–106; RESP 18–20; TEMP 97.2–98.8; O2SAT 95–99
[2017-01-03] MEDS: PCA - TOTAL MG MORPHINE DELIVERED PER SHIFT SCH ×3 (06:00→22:00)
[2017-01-03] MEDS: INSULIN NovoLIN REGULAR SUPPLEMENTAL SCALE SQ SCH ×4 (06:00→17:44)
[2017-01-03 07:39] LABS: MAGNESIUM 2.1 MG/DL (1.5-2.5); POTASSIUM 3.4 MEQ/L (3.5-5.1)
--- NOTE | 2017-01-03 08:21 | HHI.PR ---
Subjective Remarks : Stable in his bedroom asking to be discharged, no complaint, no nausea, vomit or diarrhea Clean surgical wounds continue tolerating Tube Feedings. Objective Vital Signs Date Time Temp Pulse Resp B/P Pulse Ox O2 Delivery O2 Flow Rate FiO2 01/03/17 06:00 18 01/03/17 04:00 98.3 95 18 142/75 96 01/03/17 00:00 98.8 99 18 125/64 95 01/02/17 21:27 18 01/02/17 20:49 96 High Flow Nasal Cannula 1.00 01/02/17 20:25 99.5 100 18 139/65 95 01/02/17 16:00 98.1 104 18 149/90 97 01/02/17 14:36 16 01/02/17 12:05 95 Nasal Cannula 1.00 01/02/17 12:00 98.9 93 18 149/75 97 I/O 01/02/17 01/02/17 01/02/17 01/03/17 01/03/17 01/03/17 07:00 15:00 23:00 07:00 15:00 23:00 Intake Total 960 ml 849 ml 240 ml Output Total 200 ml 800 ml 450 ml 1200 ml Balance 760 ml 49 ml -210 ml -1200 ml Intake Oral 480 ml 240 ml 240 ml IV Total 394 ml 436 ml Tube Feeding 86 ml 173 ml Output Urine Total 200 ml 800 ml 450 ml 1200 ml # Voids 2 # Bowel Movements 2 2 Result Diagram: 01/02/17 0720 01/03/17 0600 Imaging Last Impressions Upper GI Series 12/29/16 0600 Signed Impressions: Service Date/Time: Thursday, December 29, 2016 09:29 - CONCLUSION: Postoperative changes without obvious contrast extravasation. Cal Plummer MD Chest CT 12/25/16 0000 Signed Impressions: Service Date/Time: Sunday, December 25, 2016 16:23 - CONCLUSION: Calcific granulomatous changes identified the left lung and spleen. No evidence of suspicious noncalcified mass. Mild/moderate coronary artery calcification. Emphysematous chronic obstructive pulmonary disease. Roberto Luke MD Carotid Artery Ultrasound 12/21/16 0000 Signed Impressions: Service Date/Time: December 17:26 - CONCLUSION: No evidence for hemodynamically significant stenosis. Jose Meyers MD Brain MRI 12/21/16 0000 Signed Impressions: Service Date/Time: December 20:37 - CONCLUSION: Chronic atrophic and small vessel ischemic changes without any evidence for acute hemorrhage or mass effect. Jose Meyers MD Abdomen/Pelvis CT 12/21/16 0000 Signed Impressions: Service Date/Time: December 16:33 - CONCLUSION: 1. Abnormal appearance of the gastric fundus. The upper stomach is fairly diffusely thickened. The tissue planes between the stomach and pancreas are partially obscured. This is concerning for possible gastric malignancy. Endoscopy is warranted for further assessment. 2. Diffuse stool filled, distended colon consistent with constipation. 3. No free air or free fluid identified. 4. Calcified granuloma in the left lung as above. Ras Gregorio MD Procedures upper endoscopy Exploratory laparotomy/ Total gastrectomy with en bloc resection of pancreas/ Distal pancreatectomy, splenectomy/Jejunostomy tube placement/ Esophagojejunostomy with Maddie-en-Y reconstruction. Other Results Laboratory Tests Test 01/02/17 01/03/17 07:20 06:00 White Blood Count 12.7 TH/MM3 Red Blood Count 2.71 MIL/MM3 Hemoglobin 7.9 GM/DL Hematocrit 24.9 % Mean Corpuscular Volume 91.9 FL Mean Corpuscular Hemoglobin 29.3 PG Mean Corpuscular Hemoglobin 31.9 % Concent Red Cell Distribution Width 14.8 % Platelet Count 475 TH/MM3 Mean Platelet Volume 7.9 FL Neutrophils (%) (Auto) 80.5 % Lymphocytes (%) (Auto) 6.7 % Monocytes (%) (Auto) 10.6 % Eosinophils (%) (Auto) 1.7 % Basophils (%) (Auto) 0.5 % Neutrophils # (Auto) 10.2 TH/MM3 Lymphocytes # (Auto) 0.9 TH/MM3 Monocytes # (Auto) 1.4 TH/MM3 Eosinophils # (Auto) 0.2 TH/MM3 Basophils # (Auto) 0.1 TH/MM3 CBC Comment DIFF FINAL Differential Comment Sodium Level 143 MEQ/L Chloride Level 108 MEQ/L Carbon Dioxide Level 27.6 MEQ/L Anion Gap 7 MEQ/L Blood Urea Nitrogen 10 MG/DL Creatinine 0.84 MG/DL Estimat Glomerular Filtration 110 ML/MIN Rate Random Glucose 110 MG/DL Calcium Level 8.7 MG/DL Potassium Level 3.4 MEQ/L Magnesium Level 2.1 MG/DL Objective Remarks GENERAL: in no apparent distress. CARDIOVASCULAR: Regular rate and regular rhythm without murmurs, gallops, or rubs. RESPIRATORY: Clear to auscultation. Breath sounds equal bilaterally. No wheezes , rales, or rhonchi. GASTROINTESTINAL: Abdomen soft, non-tender, nondistended. PEG in place, clean surgical wounds. MUSCULOSKELETAL: Extremities without clubbing, cyanosis, or edema. NEURO: Alert & Oriented x4 to person, place, time, situation. Moves all ext x4 Medications and IVs Current Medications Medications (Trade) Dose Ordered Sig/Sierra Route Start Time Stop Time Status Last Admin (Elavil) 40 mg DAILY PO 12/21/16 09:00 01/02/17 08:42 Patient Own Medication PT OWN MED: GENVO... DAILY PO 12/21/16 09:00 01/02/17 08:42 (Tylenol) 650 mg Q4H PRN PO 12/21/16 09:30 12/24/16 17:40 Polyethylene Glycol 17 gm 17 gm DAILY PO 12/26/16 09:00 Hold 12/30/16 11:33 (NS 1000 ml Inj) 1,000 ml @ 50 mls/hr Q20H IV 12/26/16 17:00 01/02/17 21:24 (NS Flush) 2 ml UNSCH PRN IV FLUSH 12/26/16 17:00 (NS Flush) 2 ml BID IV FLUSH 12/26/16 21:00 01/02/17 08:42 (Zofran Inj) 4 mg Q6H PRN IV 12/26/16 17:00 (Benadryl Inj) 25 mg Q6H PRN IV 12/26/16 17:00 (Lovenox Inj) 40 mg Q24H SQ 12/27/16 15:34 01/02/17 15:52 (Narcan Inj) 0.4 mg UNSCH PRN IV 12/26/16 17:00 (Morphine 1 Mg/ ml BEEKEEPER) 30 mg UNSCH IV 12/26/16 17:00 01/01/17 09:51 BEEKEEPER Dosage Infused (Pha) 1 Q8HR .XX 12/26/16 17:00 01/03/17 06:00 (D50w (Vial) Inj) 25 ml UNSCH PRN IV PUSH 12/26/16 17:00 (Glucagon Inj) 1 mg UNSCH PRN OTHER 12/26/16 17:00 (NovoLIN R SUPPLEMENTAL SCALE) 1 Q6HR SQ 12/27/16 00:00 01/01/17 13:01 (Protonix Inj) 40 mg Q24H IV PUSH 12/27/16 08:00 01/02/17 08:42 (Neurontin Liq) 600 mg TID PO 12/30/16 11:00 01/02/17 18:04 A/P Assessment and Plan 1. Gastric Adenocarcinoma status post EGD on 12/22/16 found Gastric Mass Status post Exploratory Laparotomy with Total Gastrectomy and with en bloc resection of Pancreas jejunostomy tube placement, Esophagojejunostomy with Maddie-en-Y reconstruction will need appointment in [facility] to discuss adjuvant therapy to continue Pain control, Diet as per General Surgery, tube feedings, Lymph node pathology with no evidence of Metastasis. CA 19-9 Normal. General surgery authorized to be given his HIV medicine through the PEG tube. 2. Recurrent Syncopal episodes probable secondary to Orthostatic Hypotension due to acute anemia from GI bleed Echo, EEG normal, Brain MRI with no evidence of acute hemorrhage or mass effect, Carotid doppler with no significant stenosis 3. HIV continue HAART Therapy, last CD4 count was 400, continue HAART Therapy. 4. Neuropathy on Gabapentin and Amitriptyline 5. Anemia on IV iron by resource specialist. 6. Hypokalemia replaced DVT prophylaxis with Lovenox. Discharge Planning Awaiting to be cleared by General Surgery, he will be followed as outpatient by Hematology and Oncology for Chemotherapy. Thaddeus Qiu MD Jan 03, 2017 08:21
[2017-01-03] MEDS: GABAPENTIN 250 MG/5 ML UDC PO SCH ×3 (09:05→17:48)
[2017-01-03] MEDS: GENVOYA PO SCH (09:06)
[2017-01-03] MEDS: AMITRIPTYLINE HCL 10 MG TAB PO SCH (09:06)
[2017-01-03] MEDS: PANTOPRAZOLE SODIUM 40 MG VIAL IV PUSH SCH (09:06)
[2017-01-03] MEDS: SODIUM CHLORIDE 0.9% FLUSH 10 ML FLUSH IV FLUSH SCH ×2 (09:07→21:00)
[2017-01-03] MEDS: POTASSIUM CHLOR 10 MEQ PREMIX 100 ML IV SCH ×3 (09:07→12:52)
[2017-01-03] MEDS: MORPHINE SULFATE 30 MG/30 ML PCA IV SCH (12:56)
[2017-01-03] MEDS: ENOXAPARIN SODIUM 40 MG/0.4 ML SYRINGE SQ SCH (15:36)
[2017-01-03] MEDS: SODIUM CHLOR 0.9% 1000 ML INJ 1,000 ML IV SCH (15:36)
[2017-01-03] MEDS: ELVIT/COBI/EMTR/TENOF 150/150/200/300 MG TABLETS SCH (17:47)
--- NOTE | 2017-01-03 18:00 | HHI.PR ---
Subjective Subjective Notes "i feel great" Objective Vitals/I&O Vital Signs Date Time Temp Pulse Resp B/P Pulse Ox O2 Delivery O2 Flow Rate FiO2 01/03/17 17:43 96 Nasal Cannula 1.00 01/03/17 12:56 22 01/03/17 12:00 97.9 95 152/70 12/30/16 08:00 21 Labs Laboratory Tests Test 01/03/17 06:00 Potassium Level 3.4 Magnesium Level 2.1 Radiology Last Impressions Upper GI Series 12/29/16 0600 Signed Impressions: Service Date/Time: Thursday, December 29, 2016 09:29 - CONCLUSION: Postoperative changes without obvious contrast extravasation. Cal Plummer MD Chest CT 12/25/16 0000 Signed Impressions: Service Date/Time: Sunday, December 25, 2016 16:23 - CONCLUSION: Calcific granulomatous changes identified the left lung and spleen. No evidence of suspicious noncalcified mass. Mild/moderate coronary artery calcification. Emphysematous chronic obstructive pulmonary disease. Roberto Luke MD Carotid Artery Ultrasound 12/21/16 0000 Signed Impressions: Service Date/Time: December 17:26 - CONCLUSION: No evidence for hemodynamically significant stenosis. Jose Meyers MD Brain MRI 12/21/16 0000 Signed Impressions: Service Date/Time: December 20:37 - CONCLUSION: Chronic atrophic and small vessel ischemic changes without any evidence for acute hemorrhage or mass effect. Jose Meyers MD Abdomen/Pelvis CT 12/21/16 0000 Signed Impressions: Service Date/Time: December 16:33 - CONCLUSION: 1. Abnormal appearance of the gastric fundus. The upper stomach is fairly diffusely thickened. The tissue planes between the stomach and pancreas are partially obscured. This is concerning for possible gastric malignancy. Endoscopy is warranted for further assessment. 2. Diffuse stool filled, distended colon consistent with constipation. 3. No free air or free fluid identified. 4. Calcified granuloma in the left lung as above. Ras Gregorio MD Abdomen: Non-distended, Post-op tenderness A/P Problem List: (1) Gastric mass (2) Gastric adenocarcinoma (3) History of resection of stomach Assessment and Plan 66yo male s/p gastrectomy and distal pancreatectomy, stable. tolerating feeds, ok for sips of clears, DC home soon. fu with me in 1 week after DC. Boy Hernandez MD Jan 03, 2017 18:00
[2017-01-04] VITALS (7 sets, daily range): BP systolic 117–155; BP diastolic 63–81; PULSE 93–104; RESP 16–19; TEMP 97.4–98.7; O2SAT 97–100
[2017-01-04] MEDS: PCA - TOTAL MG MORPHINE DELIVERED PER SHIFT SCH ×3 (05:56→22:00)
[2017-01-04] MEDS: INSULIN NovoLIN REGULAR SUPPLEMENTAL SCALE SQ SCH ×4 (05:58→18:00)
[2017-01-04] MEDS: ELVIT/COBI/EMTR/TENOF 150/150/200/300 MG TABLETS SCH (09:00)
[2017-01-04] MEDS: SODIUM CHLORIDE 0.9% FLUSH 10 ML FLUSH IV FLUSH SCH ×2 (09:00→21:00)
[2017-01-04] MEDS: GENVOYA PO SCH (10:10)
[2017-01-04] MEDS: AMITRIPTYLINE HCL 10 MG TAB PO SCH (10:10)
[2017-01-04] MEDS: GABAPENTIN 250 MG/5 ML UDC PO SCH ×3 (10:10→17:45)
[2017-01-04] MEDS: PANTOPRAZOLE SODIUM 40 MG VIAL IV PUSH SCH (10:11)
--- NOTE | 2017-01-04 11:44 | HHI.PR ---
Subjective Remarks 66-year-old male with past medical history of HIV previously on HAART therapy, hepatitis C, tobacco abuse, cocaine abuse, daily alcohol use who receives much of his medical care through the [place] system. He presented to [facility] emergency department on 12/20/16 with syncope. He underwent cardiology workup which included a normal echo with EF of 55-60%. He did have anemia and melena. He underwent EGD which demonstrated a 3 x 4 cm mass in the posterior stomach and gastric body. 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 Heme oncology and surgical oncology were consulted. Dr. Liu has performed near total gastrectomy and distal pancreatectomy with J-tube placement. : Not yet clear for discharge by his Primary General Surgeon. 01/05: today okay to discharge from General field applications specialist to discharge to SNF continue tube feedings and follow with General Surgery. No nausea, vomit or diarrhea. Objective Vital Signs Date Time Temp Pulse Resp B/P Pulse Ox O2 Delivery O2 Flow Rate FiO2 01/04/17 08:22 98.2 93 18 132/70 99 01/04/17 05:56 18 01/04/17 04:00 97.6 96 16 130/74 97 01/04/17 00:00 97.9 101 18 155/81 97 01/03/17 22:00 18 01/03/17 20:00 98.0 106 20 148/81 96 01/03/17 17:43 96 Nasal Cannula 1.00 01/03/17 16:00 97.2 94 18 147/75 99 01/03/17 12:56 22 01/03/17 12:00 97.9 95 18 152/70 96 I/O 01/03/17 01/03/17 01/03/17 01/04/17 01/04/17 01/04/17 07:00 15:00 23:00 07:00 15:00 23:00 Intake Total 120 ml 2576 ml 0 ml Output Total 1200 ml 800 ml 325 ml 1325 ml Balance -1200 ml -680 ml 2251 ml -1325 ml Intake Oral 120 ml 0 ml 0 ml IV Total 1914 ml Tube Feeding 662 ml Output Urine Total 1200 ml 800 ml 325 ml 1325 ml # Voids 1 # Bowel Movements 2 0 1 Result Diagram: 01/02/17 0720 01/03/17 0600 Imaging Last Impressions Upper GI Series 12/29/16 0600 Signed Impressions: Service Date/Time: Thursday, December 29, 2016 09:29 - CONCLUSION: Postoperative changes without obvious contrast extravasation. Cal Plummer MD Chest CT 12/25/16 0000 Signed Impressions: Service Date/Time: Sunday, December 25, 2016 16:23 - CONCLUSION: Calcific granulomatous changes identified the left lung and spleen. No evidence of suspicious noncalcified mass. Mild/moderate coronary artery calcification. Emphysematous chronic obstructive pulmonary disease. Roberto Luke MD Carotid Artery Ultrasound 12/21/16 0000 Signed Impressions: Service Date/Time: December 17:26 - CONCLUSION: No evidence for hemodynamically significant stenosis. Jose Meyers MD Brain MRI 12/21/16 0000 Signed Impressions: Service Date/Time: December 20:37 - CONCLUSION: Chronic atrophic and small vessel ischemic changes without any evidence for acute hemorrhage or mass effect. Jose Meyers MD Abdomen/Pelvis CT 12/21/16 0000 Signed Impressions: Service Date/Time: December 16:33 - CONCLUSION: 1. Abnormal appearance of the gastric fundus. The upper stomach is fairly diffusely thickened. The tissue planes between the stomach and pancreas are partially obscured. This is concerning for possible gastric malignancy. Endoscopy is warranted for further assessment. 2. Diffuse stool filled, distended colon consistent with constipation. 3. No free air or free fluid identified. 4. Calcified granuloma in the left lung as above. Ras Gregorio MD Procedures upper endoscopy Exploratory laparotomy/ Total gastrectomy with en bloc resection of pancreas/ Distal pancreatectomy, splenectomy/Jejunostomy tube placement/ Esophagojejunostomy with Maddie-en-Y reconstruction. Other Results Laboratory Tests Test 01/02/17 01/03/17 07:20 06:00 White Blood Count 12.7 TH/MM3 Red Blood Count 2.71 MIL/MM3 Hemoglobin 7.9 GM/DL Hematocrit 24.9 % Mean Corpuscular Volume 91.9 FL Mean Corpuscular Hemoglobin 29.3 PG Mean Corpuscular Hemoglobin 31.9 % Concent Red Cell Distribution Width 14.8 % Platelet Count 475 TH/MM3 Mean Platelet Volume 7.9 FL Neutrophils (%) (Auto) 80.5 % Lymphocytes (%) (Auto) 6.7 % Monocytes (%) (Auto) 10.6 % Eosinophils (%) (Auto) 1.7 % Basophils (%) (Auto) 0.5 % Neutrophils # (Auto) 10.2 TH/MM3 Lymphocytes # (Auto) 0.9 TH/MM3 Monocytes # (Auto) 1.4 TH/MM3 Eosinophils # (Auto) 0.2 TH/MM3 Basophils # (Auto) 0.1 TH/MM3 CBC Comment DIFF FINAL Differential Comment Sodium Level 143 MEQ/L Chloride Level 108 MEQ/L Carbon Dioxide Level 27.6 MEQ/L Anion Gap 7 MEQ/L Blood Urea Nitrogen 10 MG/DL Creatinine 0.84 MG/DL Estimat Glomerular Filtration 110 ML/MIN Rate Random Glucose 110 MG/DL Calcium Level 8.7 MG/DL Potassium Level 3.4 MEQ/L Magnesium Level 2.1 MG/DL Objective Remarks GENERAL: in no apparent distress. CARDIOVASCULAR: Regular rate and regular rhythm without murmurs, gallops, or rubs. RESPIRATORY: Clear to auscultation. Breath sounds equal bilaterally. No wheezes , rales, or rhonchi. GASTROINTESTINAL: Abdomen soft, non-tender, nondistended. PEG in place, clean surgical wounds. MUSCULOSKELETAL: Extremities without clubbing, cyanosis, or edema. NEURO: Alert & Oriented x4 to person, place, time, situation. Moves all ext x4 Medications and IVs Current Medications Medications (Trade) Dose Ordered Sig/Sierra Route Start Time Stop Time Status Last Admin (Elavil) 40 mg DAILY PO 12/21/16 09:00 01/04/17 10:10 Patient Own Medication PT OWN MED: GENVO... DAILY PO 12/21/16 09:00 01/04/17 10:10 (Tylenol) 650 mg Q4H PRN PO 12/21/16 09:30 12/24/16 17:40 Polyethylene Glycol 17 gm 17 gm DAILY PO 12/26/16 09:00 Hold 12/30/16 11:33 (NS 1000 ml Inj) 1,000 ml @ 50 mls/hr Q20H IV 12/26/16 17:00 01/03/17 15:36 (NS Flush) 2 ml UNSCH PRN IV FLUSH 12/26/16 17:00 (NS Flush) 2 ml BID IV FLUSH 12/26/16 21:00 4/18/17 08:42 (Zofran Inj) 4 mg Q6H PRN IV 12/26/16 17:00 (Benadryl Inj) 25 mg Q6H PRN IV 12/26/16 17:00 (Lovenox Inj) 40 mg Q24H SQ 12/27/16 15:34 01/03/17 15:36 (Narcan Inj) 0.4 mg UNSCH PRN IV 12/26/16 17:00 (Morphine 1 Mg/ ml MANAGER UNDERWRITING) 30 mg UNSCH IV 12/26/16 17:00 01/03/17 12:56 MANAGER UNDERWRITING Dosage Infused (Pha) 1 Q8HR .XX 12/26/16 17:00 01/04/17 05:56 (D50w (Vial) Inj) 25 ml UNSCH PRN IV PUSH 12/26/16 17:00 (Glucagon Inj) 1 mg UNSCH PRN OTHER 12/26/16 17:00 (NovoLIN R SUPPLEMENTAL SCALE) 1 Q6HR SQ 12/27/16 00:00 01/01/17 13:01 (Protonix Inj) 40 mg Q24H IV PUSH 12/27/16 08:00 01/04/17 10:11 (Neurontin Liq) 600 mg TID PO 12/30/16 11:00 01/04/17 10:10 (Stribild [id number] Mg) 1 tab DAILY .XX 01/03/17 17:00 A/P Assessment and Plan 1. Gastric Adenocarcinoma status post EGD on 12/22/16 found Gastric Mass Status post Exploratory Laparotomy with Total Gastrectomy and with en bloc resection of Pancreas jejunostomy tube placement, Esophagojejunostomy with Maddie-en-Y reconstruction will need appointment in [facility] to discuss adjuvant therapy to continue Pain control, Diet as per General Surgery, tube feedings, Lymph node pathology with no evidence of Metastasis. CA 19-9 Normal. General surgery authorized to be given his HIV medicine through the PEG tube. 2. Recurrent Syncopal episodes probable secondary to Orthostatic Hypotension due to acute anemia from GI bleed Echo, EEG normal, Brain MRI with no evidence of acute hemorrhage or mass effect, Carotid Doppler with no significant stenosis 3. HIV continue HAART Therapy, last CD4 count was 400, continue HAART Therapy. 4. Neuropathy on Gabapentin and Amitriptyline 5. Anemia on IV iron by fundraising specialist. 6. Hypokalemia replaced DVT prophylaxis with Lovenox. Discharge Planning Discharge to SNF and follow with Oncology, PCP and General Surgery. Thaddeus Qiu MD Jan 04, 2017 11:44
[2017-01-04 13:13] LABS: POTASSIUM 3.7 MEQ/L (3.5-5.1)
[2017-01-04] MEDS: SODIUM CHLOR 0.9% 1000 ML INJ 1,000 ML IV SCH (13:28)
[2017-01-04] MEDS: ENOXAPARIN SODIUM 40 MG/0.4 ML SYRINGE SQ SCH (17:45)
[2017-01-05] VITALS: BP 135/67; PULSE 97; RESP 16; TEMP 97.5; O2SAT 100
[2017-01-05 04:00] VITALS: BP 105/60; PULSE 99; RESP 16; TEMP 98.2; O2SAT 96
[2017-01-05] MEDS: PCA - TOTAL MG MORPHINE DELIVERED PER SHIFT SCH (06:00)
[2017-01-05] MEDS: INSULIN NovoLIN REGULAR SUPPLEMENTAL SCALE SQ SCH ×4 (06:00→16:37)
[2017-01-05 08:00] VITALS: BP 113/63; PULSE 90; RESP 20; TEMP 98.1; O2SAT 99
[2017-01-05] MEDS: GENVOYA PO SCH (08:50)
[2017-01-05] MEDS: AMITRIPTYLINE HCL 10 MG TAB PO SCH (08:50)
[2017-01-05] MEDS: ELVIT/COBI/EMTR/TENOF 150/150/200/300 MG TABLETS SCH (08:50)
[2017-01-05] MEDS: SODIUM CHLORIDE 0.9% FLUSH 10 ML FLUSH IV FLUSH SCH (08:51)
[2017-01-05] MEDS: GABAPENTIN 250 MG/5 ML UDC PO SCH ×3 (08:51→16:57)
[2017-01-05] MEDS: PANTOPRAZOLE SODIUM 40 MG VIAL IV PUSH SCH (08:51)
[2017-01-05] MEDS: SODIUM CHLOR 0.9% 1000 ML INJ 1,000 ML IV SCH (08:51)
[2017-01-05 08:52] VITALS: O2SAT 98
--- NOTE | 2017-01-05 11:07 | PD.ONC.PN ---
Subjective Subjective Remarks Afebrile overnight. Patient resting comfortably without complaint. Denies pain. Objective Data Date Time Temp Pulse Resp B/P Pulse Ox O2 Delivery O2 Flow Rate FiO2 01/05/17 08:52 98 Nasal Cannula 1.00 01/05/17 08:00 98.1 90 20 113/63 99 01/05/17 06:00 20 01/05/17 04:00 98.2 99 16 105/60 96 01/05/17 00:00 97.5 97 16 135/67 100 01/04/17 22:00 20 01/04/17 21:45 100 Nasal Cannula 1.00 01/04/17 21:09 Nasal Cannula 2.00 01/04/17 20:00 97.4 98 18 142/69 97 01/04/17 16:08 98.7 96 19 136/67 100 01/04/17 12:17 98.4 104 18 117/63 100 01/05/17 01/05/17 01/05/17 07:00 15:00 23:00 Intake Total 25 ml Output Total 300 ml Balance -275 ml Result Diagram: 01/02/17 0720 01/04/17 1230 Laboratory Results Laboratory Tests Test 01/04/17 12:30 Potassium Level 3.7 MEQ/L Phosphorus Level 2.9 MG/DL Magnesium Level 2.0 MG/DL Administered Medications Medications (Trade) Dose Ordered Sig/Sierra Route PRN Reason Start Time Stop Time Status Last Admin Dose Admin Amitriptyline HCl (Elavil) 40 mg DAILY PO 12/21/16 09:00 01/05/17 08:50 Patient Own Medication PT OWN MED: GENVO... DAILY PO 12/21/16 09:00 01/05/17 08:50 Acetaminophen (Tylenol) 650 mg Q4H PRN PO PAIN 1-10 AND/OR FEVER >101F 12/21/16 09:30 12/24/16 17:40 Polyethylene Glycol 17 gm 17 gm DAILY PO 12/26/16 09:00 Hold 12/30/16 11:33 Sodium Chloride (NS 1000 ml Inj) 1,000 ml @ 50 mls/hr Q20H IV 12/26/16 17:00 01/05/17 08:51 Sodium Chloride (NS Flush) 2 ml BID IV FLUSH 12/26/16 21:00 01/05/17 08:51 Enoxaparin Sodium (Lovenox Inj) 40 mg Q24H SQ 12/27/16 15:34 01/04/17 17:45 Insulin Human Regular (NovoLIN R SUPPLEMENTAL SCALE) 1 Q6HR SQ 12/27/16 00:00 01/01/17 13:01 Pantoprazole Sodium (Protonix Inj) 40 mg Q24H IV PUSH 12/27/16 08:00 01/05/17 08:51 Gabapentin (Neurontin Liq) 600 mg TID PO 12/30/16 11:00 01/05/17 08:51 Objective Remarks GENERAL: Middle aged male, sitting up in chair watching TV SKIN: Warm and dry. HEAD: Normocephalic. EYES: no injection or drainage. NECK: Supple, trachea midline. CARDIOVASCULAR: Regular rate and rhythm RESPIRATORY: Breath sounds equal bilaterally. No accessory muscle use. GASTROINTESTINAL: Abdomen soft. mildly tender around bandage sites. bandages are c/d/i. EXTREMITIES: No cyanosis, or edema. MUSCULOSKELETAL: Adequate muscle tone. NEUROLOGICAL: awake and alert, normal speech. moving extremities Assessment/Plan Problem List: (1) Gastric adenocarcinoma Status: Acute Plan: 01/05: [facility]. he agrees and understands plan. 01/02: patient doing well. wants to go to rehab in [place]. pain controlled. 01/01/17. Pathology report reviewed with patient, margins negative, lymph nodes uninvolved. Advised to make appt with [facility] to discuss adjuvant therapy. Noted plans for rehab. Emotional support provided. -- s/p total gastrectomy on 12/26/16 --CT chest shows granulomatous changes, no mass -- CT Abdomen shows abnormal appearance of the gastric fundus, concerning for possible gastric malignancy -- Esophagogastroduodenoscopy found a 3x4 cm ulcerated mass. -- Biopsy taken, path shows invasive adenocarcinoma -- CEA, CA 19-9 normal. (2) Anemia Status: Acute Plan: --s/p IV iron -- Iron deficiency anemia (3) HIV (human immunodeficiency virus infection) Status: Chronic Plan: -- Stable on HAART -- Last CD4 count was in the 400's. Assessment 66 y/o male with history of HIV admitted for syncope and was found to have a gastric mass. 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 Patient will need to follow with the [facility] once discharged for chemotherapy. oncology/hematology will sign off. please call or reconsult if needed. Attending Statement Discussed as above. FU with [facility] oncologist in [place] for adjuvant chemotherapy. Pt DC before can be seen. Problem Qualifiers (1) Anemia: Qualified Code: D50.0 - Iron deficiency anemia due to chronic blood loss Sepideh Giron Jan 05, 2017 11:07 Kandice May MD Jan 05, 2017 18:24
[2017-01-05 12:00] VITALS: BP 113/59; PULSE 95; RESP 20; TEMP 97.8; O2SAT 99
[2017-01-05] MEDS ORDERED: PROTPAK PEG (13:12)
[2017-01-05] MEDS ORDERED: MORP1SOL3 PO (13:12)
--- NOTE | 2017-01-05 13:12 | HHI.PR ---
Subjective Subjective Notes feels well Objective Vitals/I&O Vital Signs Date Time Temp Pulse Resp B/P Pulse Ox O2 Delivery O2 Flow Rate FiO2 01/05/17 08:52 98 Nasal Cannula 1.00 01/05/17 08:00 98.1 90 20 113/63 Radiology Last Impressions Upper GI Series 12/29/16 0600 Signed Impressions: Service Date/Time: Thursday, December 29, 2016 09:29 - CONCLUSION: Postoperative changes without obvious contrast extravasation. Cal Plummer MD Chest CT 12/25/16 0000 Signed Impressions: Service Date/Time: Sunday, December 25, 2016 16:23 - CONCLUSION: Calcific granulomatous changes identified the left lung and spleen. No evidence of suspicious noncalcified mass. Mild/moderate coronary artery calcification. Emphysematous chronic obstructive pulmonary disease. Roberto Luke MD Carotid Artery Ultrasound 12/21/16 0000 Signed Impressions: Service Date/Time: December 17:26 - CONCLUSION: No evidence for hemodynamically significant stenosis. Jose Meyers MD Brain MRI 12/21/16 0000 Signed Impressions: Service Date/Time: December 20:37 - CONCLUSION: Chronic atrophic and small vessel ischemic changes without any evidence for acute hemorrhage or mass effect. Jose Meyers MD Abdomen/Pelvis CT 12/21/16 0000 Signed Impressions: Service Date/Time: December 16:33 - CONCLUSION: 1. Abnormal appearance of the gastric fundus. The upper stomach is fairly diffusely thickened. The tissue planes between the stomach and pancreas are partially obscured. This is concerning for possible gastric malignancy. Endoscopy is warranted for further assessment. 2. Diffuse stool filled, distended colon consistent with constipation. 3. No free air or free fluid identified. 4. Calcified granuloma in the left lung as above. Ras Gregorio MD Abdomen: Non-distended, Post-op tenderness Extremities: Perfused A/P Problem List: (1) Gastric mass (2) Gastric adenocarcinoma (3) History of resection of stomach Assessment and Plan 66yo male s/p gastrectomy and distal pancreatectomy, stable. OK for DC clear liquids and oral meds ok PO continue TF at rehab follow up in 2 weeks, Boy Hrenandez MD Jan 05, 2017 13:12
--- NOTE | 2017-01-05 13:18 | HHI.DS ---
Discharge Summary Admission Date Dec 22, 2016 at 08:58 Discharge Date: Jan 05, 2017 Admitting Diagnosis syncope; orthostatic hypotension (1) Gastric mass ICD Code: K31.9 Diagnosis: Principal (2) Syncope ICD Code: R55 Diagnosis: Principal (3) Anemia ICD Code: D64.9 Diagnosis: Principal (4) HIV (human immunodeficiency virus infection) ICD Code: Z21 Diagnosis: Principal (5) Cocaine abuse ICD Code: F14.10 Diagnosis: Principal Procedures upper endoscopy Exploratory laparotomy/ Total gastrectomy with en bloc resection of pancreas/ Distal pancreatectomy, splenectomy/Jejunostomy tube placement/ Esophagojejunostomy with Maddie-en-Y reconstruction. Brief History - From Admission Mr. Kohli is a 66 y/o male with a history of HIV who presented to the ER for the second time in 2 days to be evaluated for recurrent syncopal episodes. The patient is seen in the emergency room. He reports that over the past week he has passed out 7 times and has passed out about 10 times over the past 2 weeks. His first syncopal episode occurred about a year ago and he was seen at the [place] [facility] for this and is uncertain about the extent of workup that they did though thinks he may have looked at his heart ? Echocardiogram?. He came to ER on Sunday12/18/16; testing including chest x-ray, CT of head were negative ; he was discharged. Today, he was walking out of his front door and he passed out for a few minutes ; no chest pain, shortness of breath, dizziness, palpitations prior to syncopal episode. Lost bladder control during syncopal episode. Denies biting tongue. He also reports having black stool about 5 days ago and chronic intermittent abdominal pain radiating from central abdomen to his back. He denies history of stomach ulcers or stomach problems. He denies ever having an endoscopy. Of note, his hemoglobin was 10.1 on 12/18/2016 and is 9.2 today in the ER. Denies history of diabetes, hypertension, copd, or CVA . CBC/BMP: 01/02/17 0720 01/04/17 1230 Significant Findings Laboratory Tests Test 01/03/17 06:00 Potassium Level 3.4 MEQ/L (3.5-5.1) Imaging Last Impressions Upper GI Series 12/29/16 0600 Signed Impressions: Service Date/Time: Thursday, December 29, 2016 09:29 - CONCLUSION: Postoperative changes without obvious contrast extravasation. Cal Plummer MD Chest CT 12/25/16 0000 Signed Impressions: Service Date/Time: Sunday, December 25, 2016 16:23 - CONCLUSION: Calcific granulomatous changes identified the left lung and spleen. No evidence of suspicious noncalcified mass. Mild/moderate coronary artery calcification. Emphysematous chronic obstructive pulmonary disease. Roberto Luke MD Carotid Artery Ultrasound 12/21/16 0000 Signed Impressions: Service Date/Time: December 17:26 - CONCLUSION: No evidence for hemodynamically significant stenosis. Jose Meyers MD Brain MRI 12/21/16 0000 Signed Impressions: Service Date/Time: December 20:37 - CONCLUSION: Chronic atrophic and small vessel ischemic changes without any evidence for acute hemorrhage or mass effect. Jose Meyers MD Abdomen/Pelvis CT 12/21/16 0000 Signed Impressions: Service Date/Time: December 16:33 - CONCLUSION: 1. Abnormal appearance of the gastric fundus. The upper stomach is fairly diffusely thickened. The tissue planes between the stomach and pancreas are partially obscured. This is concerning for possible gastric malignancy. Endoscopy is warranted for further assessment. 2. Diffuse stool filled, distended colon consistent with constipation. 3. No free air or free fluid identified. 4. Calcified granuloma in the left lung as above. Ras Gregorio MD PE at Discharge GENERAL: in no apparent distress. CARDIOVASCULAR: Regular rate and regular rhythm without murmurs, gallops, or rubs. RESPIRATORY: Clear to auscultation. Breath sounds equal bilaterally. No wheezes , rales, or rhonchi. GASTROINTESTINAL: Abdomen soft, non-tender, nondistended. PEG in place, clean surgical wounds. MUSCULOSKELETAL: Extremities without clubbing, cyanosis, or edema. NEURO: Alert & Oriented x4 to person, place, time, situation. Moves all ext x4 Hospital Course 66-year-old male with past medical history of HIV previously on HAART therapy, hepatitis C, tobacco abuse, cocaine abuse, daily alcohol use who receives much of his medical care through the [place] [facility]. He presented to [facility] emergency department on 12/20/16 with syncope. He underwent cardiology workup which included a normal echo with EF of 55-60%. He did have anemia and melena. He underwent EGD which demonstrated a 3 x 4 cm mass in the posterior stomach and gastric body. 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 Heme oncology and surgical oncology were consulted. Dr. Liu has performed near total gastrectomy and distal pancreatectomy with J-tube placement. : Not yet clear for discharge by his Primary General Surgeon. 01/05: today okay to discharge from General soil specialist to discharge to SNF continue tube feedings and follow with General Surgery. No nausea, vomit or diarrhea. Assessment and Plan 1. Gastric Adenocarcinoma status post EGD on 12/22/16 found Gastric Mass Status post Exploratory Laparotomy with Total Gastrectomy and with en bloc resection of Pancreas jejunostomy tube placement, Esophagojejunostomy with Maddie-en-Y reconstruction will need appointment in [facility] to discuss adjuvant therapy to continue Pain control, Diet as per General Surgery, tube feedings, Lymph node pathology with no evidence of Metastasis. CA 19-9 Normal. General surgery authorized to be given his HIV medicine through the PEG tube. 2. Recurrent Syncopal episodes probable secondary to Orthostatic Hypotension due to acute anemia from GI bleed Echo, EEG normal, Brain MRI with no evidence of acute hemorrhage or mass effect, Carotid Doppler with no significant stenosis 3. HIV continue HAART Therapy, last CD4 count was 400, continue HAART Therapy. 4. Neuropathy on Gabapentin and Amitriptyline 5. Anemia on IV iron by email production specialist. 6. Hypokalemia replaced DVT prophylaxis with Lovenox. Discharge Planning Discharge to SNF and follow with Oncology, PCP and General Surgery. I CALLED HIS CONTACT IN EMR MR ISAC SALGADO TO [phone] THE PERSON WHO ANSWERED SAY WRONG NUMBER Pt Condition on Discharge: Good Discharge Disposition: Discharge to SNF Discharge Time: > 30 minutes Discharge Instructions DIET: Follow Instructions for: On Tube Feeding Activities you can perform: Regular-No Restrictions Thaddeus Qiu MD Jan 05, 2017 13:18
--- NOTE | 2017-01-05 13:23 | HHI.PR ---
Subjective Remarks 66-year-old male with past medical history of HIV previously on HAART therapy, hepatitis C, tobacco abuse, cocaine abuse, daily alcohol use who receives much of his medical care through the [place] system. He presented to [facility] emergency department on 12/20/16 with syncope. He underwent cardiology workup which included a normal echo with EF of 55-60%. He did have anemia and melena. He underwent EGD which demonstrated a 3 x 4 cm mass in the posterior stomach and gastric body. 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 Heme oncology and surgical oncology were consulted. Dr. Liu has performed near total gastrectomy and distal pancreatectomy with J-tube placement. : Not yet clear for discharge by his Primary General Surgeon. 01/05: today okay to discharge from General nuclear operations specialist to discharge to SNF continue tube feedings and follow with General Surgery. No nausea, vomit or diarrhea. Objective Vital Signs Date Time Temp Pulse Resp B/P Pulse Ox O2 Delivery O2 Flow Rate FiO2 01/05/17 08:52 98 Nasal Cannula 1.00 01/05/17 08:00 98.1 90 20 113/63 99 01/05/17 06:00 20 01/05/17 04:00 98.2 99 16 105/60 96 01/05/17 00:00 97.5 97 16 135/67 100 01/04/17 22:00 20 01/04/17 21:45 100 Nasal Cannula 1.00 01/04/17 21:09 Nasal Cannula 2.00 01/04/17 20:00 97.4 98 18 142/69 97 01/04/17 16:08 98.7 96 19 136/67 100 I/O 01/04/17 01/04/17 01/04/17 01/05/17 01/05/17 01/05/17 07:00 15:00 23:00 07:00 15:00 23:00 Intake Total 0 ml 25 ml 25 ml Output Total 1325 ml 325 ml 300 ml Balance -1325 ml -300 ml -275 ml Intake Oral 0 ml 25 ml 25 ml Output Urine Total 1325 ml 325 ml 300 ml # Voids 2 # Bowel Movements 1 1 0 Result Diagram: 01/02/17 0720 01/04/17 1230 Imaging Last Impressions Upper GI Series 12/29/16 0600 Signed Impressions: Service Date/Time: Thursday, December 29, 2016 09:29 - CONCLUSION: Postoperative changes without obvious contrast extravasation. Cal Plummer MD Chest CT 12/25/16 0000 Signed Impressions: Service Date/Time: Sunday, December 25, 2016 16:23 - CONCLUSION: Calcific granulomatous changes identified the left lung and spleen. No evidence of suspicious noncalcified mass. Mild/moderate coronary artery calcification. Emphysematous chronic obstructive pulmonary disease. Roberto Luke MD Carotid Artery Ultrasound 12/21/16 0000 Signed Impressions: Service Date/Time: December 17:26 - CONCLUSION: No evidence for hemodynamically significant stenosis. Jose Meyers MD Brain MRI 12/21/16 0000 Signed Impressions: Service Date/Time: December 20:37 - CONCLUSION: Chronic atrophic and small vessel ischemic changes without any evidence for acute hemorrhage or mass effect. Jose Meyers MD Abdomen/Pelvis CT 12/21/16 0000 Signed Impressions: Service Date/Time: December 16:33 - CONCLUSION: 1. Abnormal appearance of the gastric fundus. The upper stomach is fairly diffusely thickened. The tissue planes between the stomach and pancreas are partially obscured. This is concerning for possible gastric malignancy. Endoscopy is warranted for further assessment. 2. Diffuse stool filled, distended colon consistent with constipation. 3. No free air or free fluid identified. 4. Calcified granuloma in the left lung as above. Ras Gregorio MD Procedures upper endoscopy Exploratory laparotomy/ Total gastrectomy with en bloc resection of pancreas/ Distal pancreatectomy, splenectomy/Jejunostomy tube placement/ Esophagojejunostomy with Maddie-en-Y reconstruction. Other Results Laboratory Tests Test 01/02/17 01/04/17 07:20 12:30 White Blood Count 12.7 TH/MM3 Red Blood Count 2.71 MIL/MM3 Hemoglobin 7.9 GM/DL Hematocrit 24.9 % Mean Corpuscular Volume 91.9 FL Mean Corpuscular Hemoglobin 29.3 PG Mean Corpuscular Hemoglobin 31.9 % Concent Red Cell Distribution Width 14.8 % Platelet Count 475 TH/MM3 Mean Platelet Volume 7.9 FL Neutrophils (%) (Auto) 80.5 % Lymphocytes (%) (Auto) 6.7 % Monocytes (%) (Auto) 10.6 % Eosinophils (%) (Auto) 1.7 % Basophils (%) (Auto) 0.5 % Neutrophils # (Auto) 10.2 TH/MM3 Lymphocytes # (Auto) 0.9 TH/MM3 Monocytes # (Auto) 1.4 TH/MM3 Eosinophils # (Auto) 0.2 TH/MM3 Basophils # (Auto) 0.1 TH/MM3 CBC Comment DIFF FINAL Differential Comment Sodium Level 143 MEQ/L Chloride Level 108 MEQ/L Carbon Dioxide Level 27.6 MEQ/L Anion Gap 7 MEQ/L Blood Urea Nitrogen 10 MG/DL Creatinine 0.84 MG/DL Estimat Glomerular Filtration 110 ML/MIN Rate Random Glucose 110 MG/DL Calcium Level 8.7 MG/DL Potassium Level 3.7 MEQ/L Phosphorus Level 2.9 MG/DL Magnesium Level 2.0 MG/DL Objective Remarks GENERAL: in no apparent distress. CARDIOVASCULAR: Regular rate and regular rhythm without murmurs, gallops, or rubs. RESPIRATORY: Clear to auscultation. Breath sounds equal bilaterally. No wheezes , rales, or rhonchi. GASTROINTESTINAL: Abdomen soft, non-tender, nondistended. PEG in place, clean surgical wounds. MUSCULOSKELETAL: Extremities without clubbing, cyanosis, or edema. NEURO: Alert & Oriented x4 to person, place, time, situation. Moves all ext x4 Medications and IVs Current Medications Medications (Trade) Dose Ordered Sig/Sierra Route Start Time Stop Time Status Last Admin (Elavil) 40 mg DAILY PO 12/21/16 09:00 01/05/17 08:50 Patient Own Medication PT OWN MED: GENVO... DAILY PO 12/21/16 09:00 01/05/17 08:50 (Tylenol) 650 mg Q4H PRN PO 12/21/16 09:30 12/24/16 17:40 Polyethylene Glycol 17 gm 17 gm DAILY PO 12/26/16 09:00 Hold 12/30/16 11:33 (NS 1000 ml Inj) 1,000 ml @ 50 mls/hr Q20H IV 12/26/16 17:00 01/05/17 08:51 (NS Flush) 2 ml UNSCH PRN IV FLUSH 12/26/16 17:00 (NS Flush) 2 ml BID IV FLUSH 12/26/16 21:00 01/05/17 08:51 (Zofran Inj) 4 mg Q6H PRN IV 12/26/16 17:00 (Benadryl Inj) 25 mg Q6H PRN IV 12/26/16 17:00 (Lovenox Inj) 40 mg Q24H SQ 12/27/16 15:34 01/04/17 17:45 (D50w (Vial) Inj) 25 ml UNSCH PRN IV PUSH 12/26/16 17:00 (Glucagon Inj) 1 mg UNSCH PRN OTHER 12/26/16 17:00 (NovoLIN R SUPPLEMENTAL SCALE) 1 Q6HR SQ 12/27/16 00:00 01/01/17 13:01 (Protonix Inj) 40 mg Q24H IV PUSH 12/27/16 08:00 01/05/17 08:51 (Neurontin Liq) 600 mg TID PO 12/30/16 11:00 01/05/17 12:32 (Stribild [phone] Mg) 1 tab DAILY .XX 01/03/17 17:00 A/P Assessment and Plan 1. Gastric Adenocarcinoma status post EGD on 12/22/16 found Gastric Mass Status post Exploratory Laparotomy with Total Gastrectomy and with en bloc resection of Pancreas jejunostomy tube placement, Esophagojejunostomy with Maddie-en-Y reconstruction will need appointment in [facility] to discuss adjuvant therapy to continue Pain control, Diet as per General Surgery, tube feedings, Lymph node pathology with no evidence of Metastasis. CA 19-9 Normal. General surgery authorized to be given his HIV medicine through the PEG tube. 2. Recurrent Syncopal episodes probable secondary to Orthostatic Hypotension due to acute anemia from GI bleed Echo, EEG normal, Brain MRI with no evidence of acute hemorrhage or mass effect, Carotid Doppler with no significant stenosis 3. HIV continue HAART Therapy, last CD4 count was 400, continue HAART Therapy. 4. Neuropathy on Gabapentin and Amitriptyline 5. Anemia on IV iron by electrical system specialist. 6. Hypokalemia replaced DVT prophylaxis with Lovenox. Discharge Planning Discharge to SNF and follow with Oncology, PCP and General Surgery. Thaddeus Qiu MD Jan 05, 2017 13:23
[2017-01-05] MEDS: ENOXAPARIN SODIUM 40 MG/0.4 ML SYRINGE SQ SCH (15:34)
== END 2017-01-05 17:41 | DRG 327 ==
LOC: NEPE 15:30 → NEDA 18:54 → NEPFCDU 22:03 → OBSVTOIN 12-22 08:58 → HOCA 12-22 23:40 → N07B 12-26 17:23 → N03B 12-26 17:35 → N04B 12-28 15:08
PROVIDERS: ADMIT Internal Medicine; ATTEND Internal Medicine
PROC: 0DB68ZX Excision of Stomach, Via Natural or Artificial Opening Endoscopic, Diagnostic (ICD-10-PCS; 2016-12-22)
PROC: 0DT60ZZ Resection of Stomach, Open Approach (ICD-10-PCS; principal; 2016-12-27)
PROC: 0D150ZA Bypass Esophagus to Jejunum, Open Approach (ICD-10-PCS; 2016-12-27)
PROC: 07TP0ZZ Resection of Spleen, Open Approach (ICD-10-PCS; 2016-12-27)
PROC: 0FBG0ZZ Excision of Pancreas, Open Approach (ICD-10-PCS; 2016-12-27)
PROC: 0DHA3UZ Insertion of Feeding Device into Jejunum, Percutaneous Approach (ICD-10-PCS; 2016-12-27)
PROC: 3E0T3CZ (ICD-10-PCS; 2016-12-27)
DX: C16.2 Malignant neoplasm of body of stomach (principal); K92.2 Gastrointestinal hemorrhage, unspecified; B02.29 Other postherpetic nervous system involvement; J44.9 Chronic obstructive pulmonary disease, unspecified; D62 Acute posthemorrhagic anemia; D49.0 Neoplasm of unspecified behavior of digestive system; K92.1 Melena; E86.0 Dehydration; D50.9 Iron deficiency anemia, unspecified; E87.6 Hypokalemia; I95.1 Orthostatic hypotension; G62.9 Polyneuropathy, unspecified; K59.00 Constipation, unspecified; F17.210 Nicotine dependence, cigarettes, uncomplicated; F14.10 Cocaine abuse, uncomplicated; Z21 Asymptomatic human immunodeficiency virus [HIV] infection status; Z79.899 Other long term (current) drug therapy; Z86.19 Personal history of other infectious and parasitic diseases
CPT/HCPCS: 70553; 71260; 74177; 74240; 80048; 80307; 81001; 82272; 82378; 82550; 82728; 82948; 83540; 83550; 83615; 83735; 84100; 84132; 84484; 85014; 85018; 85025; 85044; 85610; 85730; 86301; 86850; 86900; 86901; 86920; 87641; 88305; 88307; 88309; 88312; 88331; 93005; 93306; 93880; 94150; 95819; 96374; A9579; C9113; G0378; J0131; J0690; J1170; J1650; J1756; J2250; J2270; J2370; J2405; J2710; J3010; J3420; J3480; J7030; J7120; Q9963; Q9967

== ENCOUNTER 2017-09-24 20:26 | Inpatient (IN) | payer MEDICARE, OTHER ==
[~2017-09-24] VITALS: Ht 172.7 cm; Wt 52.6 kg
[~2017-09-24 20:26] MED LIST changes: +AMIT10TA6 PO; -AMIT50TA3; +ELVI1TAB3 PO; +MORP1SOL3 PO; +PROTPAK PEG
[2017-09-24 20:29] VITALS: BP 112/74; PULSE 112; RESP 16; TEMP 99; O2SAT 97
[2017-09-24 22:23] LABS: ALBUMIN 3.5 GM/DL (3.4-5.0); AST (GOT) 27 U/L (15-37); BICARBONATE 28.5 MEQ/L (21.0-32.0); BLOOD UREA NITROGEN 21 MG/DL (7-18); CALCIUM 9.3 MG/DL (8.5-10.1); CHLORIDE 100 MEQ/L (98-107); CREATININE 1.27 MG/DL (0.60-1.30); GLOMERULAR FILTRATION RATE 68 ML/MIN (>89); GLUCOSE,RANDOM 118 MG/DL (74-106); LIPASE 66 U/L (73-393); SODIUM (NA) 134 MEQ/L (136-145)
[2017-09-24 22:26] LABS: ALKALINE PHOSPHATASE 179 U/L (45-117); ALT (GPT) 30 U/L (12-78); TOTAL PROTEIN 9.7 GM/DL (6.4-8.2)
--- NOTE | 2017-09-24 22:50 | PD ---
HPI Chief Complaint: GI Complaint Time Seen by Provider: 22:48 Travel History International Travel<30 days: No Contact w/Intl Traveler<30days: No Traveled to known affect area: No History of Present Illness HPI The patient is a 67 year old male who presents to the [facility] emergency department with a history of abdominal pain that began yesterday. The pain is sharp in character. The patient reports that the pain is coming and going. He reports that it is severe when it occurs. He reports that it is brought on by attempting to swallow or eat anything. He reports that he's had nausea and vomiting too many times to count since yesterday. He denies having any diarrhea. His last bowel movement was yesterday morning. He denies having any blood in his stool or black or tarry stools. The patient's history is complicated by having a history of poorly differentiated adenocarcinoma of the stomach diagnosed and excised in March 2017. He reports that he has not seen oncologist in follow-up since May or June. He reports that he is followed through the [facility] in [place]. He reports that his daughter has been helping him to make appointments, however she has not been able to reach the oncologist for an appointment recently. He reports that his daughter is residing in [place]. The patient reports that he rents a room locally. He lives on his own. He reports that he has a history of HIV and is on retroviral medications. He reports that he did take his medications today. He denies having any chest pain, chest pressure, or shortness of breath. On review of systems otherwise, he denies having any recent fevers, cough, congestion, neck pain,urinary symptoms, or neurologic symptoms. [facility] Past Medical History Narrative Medical The patient's past medical history is significant for having HIV, currently on retroviral medications. The patient is unsure what his last CD4 count or viral load was. He cannot recall when he last had blood work done. He has a history of chronic active hepatitis C, history of gastric cancer noted to be invasive poorly differentiated adenocarcinoma status post gastrectomy, history of anemia , COPD, chronic pain. Asthma: No Autoimmune Disease: Yes (HIV ) Blood Disorders: No Anxiety: No Depression: No Heart Rhythm Problems: No Cancer: No Cardiovascular Problems: No High Cholesterol: No Chemotherapy: No Chest Pain: No Congestive Heart Failure: No COPD: No Diabetes: No Diminished Hearing: No Endocrine: No Gastrointestinal Disorders: No Genitourinary: No Hepatitis: Yes (HEPATITIS C) Immune Disorder: Yes (HIV+ HEP C) Musculoskeletal: Yes Neurologic: Yes (RECENT PERIODS OF DIZZINESS) Psychiatric: No (DENIES) Reproductive: No Respiratory: Yes Radiation Therapy: No Shingles: Yes Sleep Apnea: No Thyroid Disease: No Past Surgical History Narrative Surgical the patient's past surgical history is significant for an exploratory laparotomy in 2017 status post total gastrectomy, and block pancreas resection, splenectomy, Maddie-en-Y reconstruction. AICD: No Arteriovenous Shunt: No Insulin Pump: No Joint Replacement: No Pacemaker: No Other Surgery: No Social History Alcohol Use: Yes Tobacco Use: Yes Substance Use: No Allergies-Medications (Allergen,Severity, Reaction): Coded Allergies: No Known Allergies (Verified , 12/18/16) Reported Meds & Prescriptions Reported Meds & Active Scripts Active Protonix Liq (Pantoprazole Sodium) 40 Mg Pkt 40 Mg PEG DAILY Morphine Liq (Morphine Sulfate) 10 Mg/5 Ml Liq 5 Mg PO Q4H Reported Genvoya (Frlxhgdyevoe-Nruwnmudbl-Rwauokoxmjdq-Tenofvir) [phone] Mg Tab 1 Tab PO DAILY Amitriptyline (Amitriptyline HCl) 10 Mg Tab 40 Mg PO DAILY Gabapentin 600 Mg Tab 600 Mg PO TID Review of Systems Except as stated in HPI: all other systems reviewed are Neg General / Constitutional: No: Fever Eyes: No: Visual changes HENT: No: Headaches Cardiovascular: No: Chest Pain or Discomfort Respiratory: No: Shortness of Breath Gastrointestinal: Positive: Nausea, Vomiting, Abdominal Pain, Loss of Appetite Genitourinary: No: Dysuria Musculoskeletal: No: Pain Skin: No Rash Neurologic: No: Weakness Psychiatric: No: Depression Endocrine: No: Polydipsia Hematologic/Lymphatic: No: Easy Bruising Physical Exam Narrative General: The patient is a well-developed, cachectic appearing male, uncomfortable appearing on my arrival to the room, however in no acute distress. Head and Neck exam: Head is normocephalic atraumatic. Eyes: EOMI, pupils are equal round and reactive to light. Nose: Midline septum with pink mucous membranes Mouth: Dentition unremarkable. Moist mucus membranes. Posterior oropharynx is not erythematous. No tonsillar hypertrophy. Uvula midline. Airway patent. Neck: No palpable lymphadenopathy. No nuchal rigidity. No thyromegaly. Cardiovascular: Regular rate and rhythm without murmurs, gallops, or rubs. Lungs: Clear to auscultation bilaterally. No wheezes, rhonchi, or rales. Abdomen: Soft, with tenderness on palpation in the right upper and right lower quadrant of the abdomen. No guarding, rebound, or rigidity. Normal bowel sounds are audible. The patient does have tenderness on palpation over McBurney's point. Extremities: No clubbing, cyanosis, or edema. 2+ pulses in all 4 extremities. No calf tenderness on palpation. Back: No spinous process tenderness to palpation. No costovertebral angle tenderness to palpation. Neurologic Exam: Grossly nonfocal. Skin Exam: No rash noted. Intact skin that is warm and dry. Data Data Last Documented VS Vital Signs Date Time Temp Pulse Resp B/P (MAP) Pulse Ox O2 Delivery O2 Flow Rate FiO2 09/24/17 23:18 19 99 Room Air 09/24/17 20:29 99.0 112 Orders Orders Complete Blood Count With Diff (09/24/17 20:59) Comprehensive Metabolic Panel (09/24/17 20:59) Lipase (09/24/17 20:59) Electrocardiogram (09/24/17 22:59) Prothrombin Time / Inr (Pt) (09/24/17 22:59) Act Partial Throm Time (Ptt) (09/24/17 22:59) Urinalysis - C+S If Indicated (09/24/17 22:59) Magnesium (Mg) (09/24/17 22:59) Chest, Single Ap (09/24/17 22:59) Ct Abd/Pel W Iv Contrast(Rout) (09/24/17 22:59) Iv Access Insert/Monitor (09/24/17 22:59) Ecg Monitoring (09/24/17 22:59) Oximetry (09/24/17 22:59) Lactic Acid Sepsis Protocol (09/24/17 22:59) Sodium Chlorid 0.9% 500 Ml Inj (Ns 500 M (09/24/17 23:00) Ondansetron Inj (Zofran Inj) (09/24/17 23:00) Morphine Inj (Morphine Inj) (09/24/17 23:00) Sodium Chlor 0.9% 1000 Ml Inj (Ns 1000 M (09/25/17 00:15) Admit Order (Ed Use Only) (09/25/17 01:23) Labs Laboratory Tests Test 09/24/17 21:26 09/24/17 23:05 White Blood Count 13.8 TH/MM3 Red Blood Count 5.22 MIL/MM3 Hemoglobin 16.2 GM/DL Hematocrit 48.2 % Mean Corpuscular Volume 92.2 FL Mean Corpuscular Hemoglobin 31.0 PG Mean Corpuscular Hemoglobin Concent 33.6 % Red Cell Distribution Width 15.2 % Platelet Count 451 TH/MM3 Mean Platelet Volume 8.6 FL Neutrophils (%) (Auto) 80.6 % Lymphocytes (%) (Auto) 10.6 % Monocytes (%) (Auto) 8.4 % Eosinophils (%) (Auto) 0.1 % Basophils (%) (Auto) 0.3 % Neutrophils # (Auto) 11.1 TH/MM3 Lymphocytes # (Auto) 1.5 TH/MM3 Monocytes # (Auto) 1.2 TH/MM3 Eosinophils # (Auto) 0.0 TH/MM3 Basophils # (Auto) 0.0 TH/MM3 CBC Comment DIFF FINAL Differential Comment Blood Urea Nitrogen 21 MG/DL Creatinine 1.27 MG/DL Random Glucose 118 MG/DL Total Protein 9.7 GM/DL Albumin 3.5 GM/DL Calcium Level 9.3 MG/DL Alkaline Phosphatase 179 U/L Aspartate Amino Transf (AST/SGOT) 27 U/L Alanine Aminotransferase (ALT/SGPT) 30 U/L Total Bilirubin 1.0 MG/DL Sodium Level 134 MEQ/L Potassium Level 3.6 MEQ/L Chloride Level 100 MEQ/L Carbon Dioxide Level 28.5 MEQ/L Anion Gap 6 MEQ/L Estimat Glomerular Filtration Rate 68 ML/MIN Lipase 66 U/L Prothrombin Time 11.0 SEC Prothromb Time International Ratio 1.1 RATIO Activated Partial Thromboplast Time 26.5 SEC Lactic Acid Level 2.1 mmol/L Magnesium Level 2.2 MG/DL MDM Medical Decision Making Medical Screen Exam Complete: Yes Emergency Medical Condition: Yes Medical Record Reviewed: Yes Interpretation(s) Last Impressions Chest X-Ray 09/24/17 8497 Signed Impressions: Service Date/Time: Sunday, September 24, 2017 23:17 - CONCLUSION: 1. No acute cardiopulmonary disease. James Brown MD Abdomen/Pelvis CT 09/24/17 2259 Signed Impressions: Service Date/Time: Sunday, September 24, 2017 23:46 - CONCLUSION: 1. Findings of distal small bowel obstruction. James Brown MD Differential Diagnosis Hepatitis, versus pancreatitis, versus bowel obstruction, versus gastroenteritis Narrative Course During the course of the patients emergency department visit, the patients history, examination, and differential diagnosis were reviewed with the patient. The patient was placed on a ice cream server with oximetry and frequent blood pressure monitoring. The patient had IV access obtained and blood work sent for analysis. The patient had an ECG done on arrival that shows a sinus rhythm heart rate of 88, nonspecific T-wave abnormalities, QRS duration is 86 ms , QTC 402 ms. T waves are inverted in V1, V2, aVL. No acute ST segment elevation. The patient was initially provided normal saline a 500 mL bolus 1, morphine 2 mg IV for pain, Zofran 4 mg IV for nausea. The patient's lactic acid was noted to be elevated and the patient is thought to be dehydrated from vomiting, therefore another liter of normal saline IV fluids was administered. The patients laboratory studies were reviewed and remarkable for a white count of 13.8, hemoglobin 16.2, platelets 451 with 80.6 neutrophils, CMP is remarkable for sodium of 134, BUN 21, glucose 118, alkaline phosphatase 179, total protein 9.7, lipase 66, magnesium 2.2, lactic acid 2.1, PT 11, PTT 26.5. Repeat lactic acid is 1.3 Radiology studies were reviewed and remarkable for a chest x-ray that shows no acute cardiopulmonary disease. CT scan of the abdomen and pelvis shows findings of a distal small bowel obstruction. The patients results were discussed with the patient, including the plan of care. I explained that further testing and/ or monitoring is indicated based on the patients history, examination, and/ or laboratory findings. Therefore, I recommended admission for additional evaluation. The patient expressed understanding and was agreeable with this plan. The patient was admitted to the hospital in guarded condition and [facility]. Sepsis Criteria SIRS Criteria (2 or more): Heart rate over 90, WBC > 23194, < 4000 or > 10% bands Severe Sepsis (+one): Lactate >2 Physician Communication Physician Communication The patient's case including history, pertinent physical examination findings, and laboratory studies were discussed with Dr. Mendez. It was agreed that [facility] Diagnosis Primary Impression: Small bowel obstruction Additional Impression: Dehydration Admitting Information Admitting Physician Requests: Admit Belen Shook MD Sep 24, 2017 22:50
[2017-09-24] MEDS ORDERED: SODIUM CHLORID 0.9% 500 ML INJ 500 ML IV ONE (23:00)
[2017-09-24] MEDS ORDERED: ONDANSETRON HCL 4 MG/2 ML VIAL IV PUSH ONE (23:00)
[2017-09-24] MEDS ORDERED: MORPHINE SULFATE 2 MG/ML INJ IV PUSH ONE (23:00)
[2017-09-24 23:11] LABS: AUTOMATED NEUTROPHIL # 11.1 TH/MM3 (1.8-7.7); BASOPHIL % 0.3 % (0.0-2.0); EOSINOPHIL % 0.1 % (0.0-4.0); HEMATOCRIT 48.2 % (39.0-51.0); HEMOGLOBIN 16.2 GM/DL (13.0-17.0); LYMPH % 10.6 % (9.0-44.0); LYMPHOCYTE # 1.5 TH/MM3 (1.0-4.8); MEAN CELL VOLUME 92.2 FL (80.0-100.0); MEAN CORPUSCULAR HGB CONC 33.6 % (32.0-36.0); MEAN PLATELET VOLUME 8.6 FL (7.0-11.0); MONO % 8.4 % (0.0-8.0); MONOCYTE # 1.2 TH/MM3 (0-0.9); NEUT % 80.6 % (16.0-70.0); PLATELET COUNT 451 TH/MM3 (150-450); RED BLOOD COUNT 5.22 MIL/MM3 (4.50-5.90); RED CELL DISTRIBUTION WIDTH 15.2 % (11.6-17.2); WHITE BLOOD COUNT 13.8 TH/MM3 (4.0-11.0)
[2017-09-24 23:18] VITALS: RESP 19; O2SAT 99
[2017-09-24 23:26] LABS: INTERNATIONAL NORMALIZED RATIO 1.1 RATIO
--- NOTE | 2017-09-24 23:30 | RADRPT ---
EXAM DATE/TIME: 09/24/2017 23:17 [facility] COMPARISON: CHEST SINGLE AP, December 18, 2016, 13:38. INDICATIONS : Shortness of breath. MEDICAL HISTORY : None. SURGICAL HISTORY : None. ENCOUNTER: Initial ACUITY: 1 day PAIN SCORE: 0/10 LOCATION: Bilateral chest FINDINGS: The cardiac silhouette is normal in transverse diameter. The lungs are free of acute parenchymal opac ity. No effusions are identified. There is elevation of the right hemidiaphragm. There is prominence of the aortic knob is with calcification characteristic of atherosclerotic vascular disease. Calcifie d granuloma is present in the left lung. Calcified lymph nodes are present in the left hilum. CONCLUSION: 1. No acute cardiopulmonary disease. James Brown MD on September 24, 2017 at 23:28 Board Certified Radiologist. This report was verified electronically.
[2017-09-24 23:41] LABS: LACTIC ACID SEPSIS PROTOCOL 2.1 mmol/L (0.4-2.0)
[2017-09-24] MEDS ORDERED: IOHEXOL 350 MG/ML 10 ML VIAL (for RAD DIAG) IVCONTRAST ONE (23:46)
[2017-09-25] MEDS ORDERED: SODIUM CHLOR 0.9% 1000 ML INJ 1,000 ML IV ONE (00:15)
--- NOTE | 2017-09-25 00:16 | RADRPT ---
EXAM DATE/TIME: 09/24/2017 23:46 [facility] COMPARISON: CT ABDOMEN & PELVIS W CONTRAST, December 21, 2016, 16:33. INDICATIONS : Nausea and vomiting. History of gastric cancer. IV CONTRAST: 74 cc Omnipaque 350 (iohexol) IV ORAL CONTRAST: No oral contrast ingested. RADIATION DOSE: 4.52 CTDIvol (mGy) MEDICAL HISTORY : HIV. Diabetes mellitus type 2. Carcinoma, gastric. SURGICAL HISTORY : None. ENCOUNTER: Initial ACUITY: 1 day PAIN SCALE: 0/10 LOCATION: abdomen TECHNIQUE: Volumetric scanning of the abdomen and pelvis was performed. Using automated exposure control and ad justment of the mA and/or kV according to patient size, radiation dose was kept as low as reasonably achievable to obtain optimal diagnostic quality images. DICOM format image data is available electro nically for review and comparison. FINDINGS: Examination of the lung bases demonstrates no abnormality. No pleural fluid is identified. No pulmona ry nodules are present. The liver is normal in size and free of focal defects. The spleen is surgical ly absent. The gallbladder and pancreas are unremarkable. No intrahepatic or extrahepatic ductal dila tation is seen. There is small bowel dilatation characteristic of distal obstruction. The colon is de compressed. Examination of the pelvis demonstrates no evidence of free fluid or pelvic mass. No abnormally enlarg ed inguinal or retroperitoneal lymph nodes are present. The bladder is unremarkable. CONCLUSION: 1. Findings of distal small bowel obstruction. James Brown MD on September 25, 2017 at 0:06 Board Certified Radiologist. This report was verified electronically.
[2017-09-25] MEDS ORDERED: NALOXONE HCL 0.4 MG/ML AMP IV PUSH PRN (01:30)
[2017-09-25] MEDS ORDERED: SODIUM CHLOR 0.9% 1000 ML INJ 1,000 ML IV SCH (01:30)
[2017-09-25] MEDS ORDERED: SODIUM CHLORIDE 0.9% FLUSH 10 ML FLUSH IV FLUSH PRN (01:30)
[2017-09-25] MEDS: SODIUM CHLOR 0.9% 1000 ML INJ 1,000 ML IV SCH ×3 (01:36→20:13)
[2017-09-25] MEDS: MORPHINE SULFATE 2 MG/ML INJ IV PUSH PRN ×6 (04:53→20:58)
--- NOTE | 2017-09-25 04:58 | HHI.HP ---
[facility] Service [facility] Primary Care Physician No Primary Care Physician Admission Diagnosis Small bowel obstruction Diagnoses: Travel History International Travel<30 Days: No Contact w/Intl Traveler <30 Da: No Traveled to Known Affected Are: No History of Present Illness for past 2-3 days, severe abdominal pain, nuasea, vomiting constipated for 3 days no black stool or red stool no urinary burning or pain on urination no blood in urine denies other symptoms states lives with friend, independent on ADL, no longer driving havent seen pcp [place] for past 5 months somewhat of a poor historian , reports his daughter takes care it Review of Systems Except as stated in HPI: all other systems reviewed are Neg Past Family Social History Past Medical History HIV on HAART medication hepatitis C Anemia Gastric CA stage II a . 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 Total gastrectomy, en block pancreas resection Esophagojejunostomy with Maddie-en-Y reconstruction EGD Gastric mass biopsy Allergies: Coded Allergies: No Known Allergies (Verified , 12/18/16) Family History none that he knows of Social History smokes half a pack a day only drinks etoh once in a while one beer no drugs Physical Exam Vital Signs Vital Signs Date Time Temp Pulse Resp B/P (MAP) Pulse Ox O2 Delivery O2 Flow Rate FiO2 09/24/17 23:18 19 99 Room Air 09/24/17 20:29 99.0 112 16 112/74 (87) 97 Room Air Physical Exam GENERAL: This is a thin gentleman, in quite severe pain and shaking from pain. SKIN: No rashes, ecchymoses or lesions. Cool and dry. HEAD: Atraumatic. Normocephalic. No temporal or scalp tenderness. EYES: No scleral icterus. No injection or drainage. ENT: Nose without bleeding, purulent drainage or septal hematoma. Airway patent. NECK: Trachea midline. No JVD CARDIOVASCULAR: Regular rate and rhythm without murmurs, gallops, or rubs. RESPIRATORY: Clear to auscultation. Breath sounds equal bilaterally. No wheezes , rales, or rhonchi. GASTROINTESTINAL: Abdomen is distended. Tender diffusely.. Voluntary guarding from pain. Bowel sounds present MUSCULOSKELETAL: Extremities without clubbing, cyanosis, or edema.No calf tenderness. NEURO: awake, alert, no focal deficits, Laboratory Laboratory Tests Test 09/24/17 21:26 09/24/17 23:05 09/25/17 01:45 White Blood Count 13.8 Red Blood Count 5.22 Hemoglobin 16.2 Hematocrit 48.2 Mean Corpuscular Volume 92.2 Mean Corpuscular Hemoglobin 31.0 Mean Corpuscular Hemoglobin Concent 33.6 Red Cell Distribution Width 15.2 Platelet Count 451 Mean Platelet Volume 8.6 Neutrophils (%) (Auto) 80.6 Lymphocytes (%) (Auto) 10.6 Monocytes (%) (Auto) 8.4 Eosinophils (%) (Auto) 0.1 Basophils (%) (Auto) 0.3 Neutrophils # (Auto) 11.1 Lymphocytes # (Auto) 1.5 Monocytes # (Auto) 1.2 Eosinophils # (Auto) 0.0 Basophils # (Auto) 0.0 CBC Comment DIFF FINAL Differential Comment Blood Urea Nitrogen 21 Creatinine 1.27 Random Glucose 118 Total Protein 9.7 Albumin 3.5 Calcium Level 9.3 Alkaline Phosphatase 179 Aspartate Amino Transf (AST/SGOT) 27 Alanine Aminotransferase (ALT/SGPT) 30 Total Bilirubin 1.0 Sodium Level 134 Potassium Level 3.6 Chloride Level 100 Carbon Dioxide Level 28.5 Anion Gap 6 Estimat Glomerular Filtration Rate 68 Lipase 66 Prothrombin Time 11.0 Prothromb Time International Ratio 1.1 Activated Partial Thromboplast Time 26.5 Lactic Acid Level 2.1 1.3 Magnesium Level 2.2 Result Diagram: 09/24/17212509/24/172125 Imaging Last 48 hours Impressions Chest X-Ray 09/24/172258 Signed Impressions: Service Date/Time: Sunday, September 24, 2017 23:17 - CONCLUSION: 1. No acute cardiopulmonary disease. James Brown MD Abdomen/Pelvis CT 09/24/172258 Signed Impressions: Service Date/Time: Sunday, September 24, 2017 23:46 - CONCLUSION: 1. Findings of distal small bowel obstruction. Jmaes Brown MD Capjenniferi VTE Risk Assessment Caprini VTE Risk Assessment: Mod/High Risk (score >= 2) Caprini Risk Assessment Model Point Value = 1 Point Value = 2 Point Value = 3 Point Value = 5 Age 41-60 Minor surgery BMI > 25 kg/m2 Swollen legs Varicose veins or History of unexplained or recurrent spontaneous Oral contraceptives or hormone replacement Sepsis (< 1 month) Serious lung disease, including pneumonia (< 1 month) Abnormal pulmonary function Acute myocardial infarction Congestive heart failure (< 1 month) History of inflammatory bowel disease Medical patient at bed rest Age 61-74 Arthroscopic surgery Major open surgery (> 45 min) Laparoscopic surgery (> 45 min) Malignancy Confined to bed (> 72 hours) Immobilizing plaster cast Central venous access Age >= 75 History of VTE Family history of VTE Factor V Leiden Prothrombin [id number] Lupus anticoagulant Anticardiolipin antibodies Elevated serum homocysteine Heparin-induced thrombocytopenia Other congenital or acquired thrombophilia Stroke (< 1 month) Elective arthroplasty Hip, pelvis, or leg fracture Acute spinal cord injury (< 1 month) Prophylaxis Regimen Total Risk Factor Score Risk Level Prophylaxis Regimen 0-1 Low Early ambulation 2 Moderate Order ONE of the following: *Sequential Compression Device (SCD) *Heparin 5000 units SQ BID 3-4 Higher Order ONE of the following medications: *Heparin 5000 units SQ TID *Enoxaparin/Lovenox 40 mg SQ daily (WT < 150 kg, CrCl > 30 mL/min) *Enoxaparin/Lovenox 30 mg SQ daily (WT < 150 kg, CrCl > 10-29 mL/min) *Enoxaparin/Lovenox 30 mg SQ BID (WT < 150 kg, CrCl > 30 mL/min) AND/OR *Sequential Compression Device (SCD) 5 or more Highest Order ONE of the following medications: *Heparin 5000 units SQ TID (Preferred with Epidurals) *Enoxaparin/Lovenox 40 mg SQ daily (WT < 150 kg, CrCl > 30 mL/min) *Enoxaparin/Lovenox 30 mg SQ daily (WT < 150 kg, CrCl > 10-29 mL/min) *Enoxaparin/Lovenox 30 mg SQ BID (WT < 150 kg, CrCl > 30 mL/min) AND *Sequential Compression Device (SCD) Assessment and Plan Assessment and Plan Impression: Small bowel obstruction Mild leukocytosis with left shift Mild lactic acidosis HIV on HAART medication hepatitis C Anemia Gastric CA stage II a . 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 IV hydration. Pain control. General surgery consult. NG tube placement and connected to intermittent suction. No evidence of infection from history. Leukocytosis is related to stress response. Would consult his oncologist for further plan of care. Patient does not really know and seems that he was lost to follow-up. Palliative care consult to clarify goals of care. DVT prophylaxis with Lovenox. GI prophylaxis on ranitidine. Resume home meds. Patient reports he only takes HIV medication and gabapentin. Discussed Condition With patient, ER MD, nursing staff Physician Certification 2 Midnight Certification Type: Admission for Inpatient Services Order for Inpatient Services The services are ordered in accordance with Medicare regulations or non- Medicare payer requirements, as applicable. In the case of services not specified as inpatient-only, they are appropriately provided as inpatient services in accordance with the 2-midnight benchmark. Estimated LOS (days): 2 days is the estimated time the patient will need to remain in the hospital, assuming treatment plan goals are met and no additional complications. Post-Hospital Plan: Home Juarez Mendez MD Sep 25, 2017 04:57
[2017-09-25 07:33] VITALS: BP 141/85; PULSE 78; RESP 16; O2SAT 96
[2017-09-25] MEDS ORDERED: [UNRECOGNIZED DRUG - OTHER] PO SCH (09:00)
[2017-09-25] MEDS ORDERED: RANITIDINE HCL SYRUP 150 MG/10 ML UDC PO SCH (09:00)
--- NOTE | 2017-09-25 10:36 | HHI.PR ---
Subjective Remarks f/u for SBO NG tube in placed. patient stated N/V, and abdominal pain improved with NG placement. Abdominal pain in LLQ but has improved. he has no other complaints. patient remains afebrile. Objective Vitals Vital Signs Date Time Temp Pulse Resp B/P (MAP) Pulse Ox O2 Delivery O2 Flow Rate FiO2 09/25/17 09:16 16 09/25/17 07:33 78 16 141/85 (103) 96 Room Air 09/24/17 23:18 19 99 Room Air 09/24/17 20:29 99.0 112 16 112/74 (87) 97 Room Air Result Diagram: 09/24/17212509/24/172125 Imaging Last Impressions Chest X-Ray 09/24/172258 Signed Impressions: Service Date/Time: Sunday, September 24, 2017 23:17 - CONCLUSION: 1. No acute cardiopulmonary disease. James Brown MD Abdomen/Pelvis CT 09/24/172258 Signed Impressions: Service Date/Time: Sunday, September 24, 2017 23:46 - CONCLUSION: 1. Findings of distal small bowel obstruction. James Brown MD Objective Remarks GENERAL: thin male in NAD but does looks chronically ill. HEENT: mucous membrane is dry. CARDIOVASCULAR: Regular rate and rhythm without murmurs, gallops, or rubs. RESPIRATORY: Breath sounds equal bilaterally. No accessory muscle use. GASTROINTESTINAL: Abdomen soft,nondistended. + mild TTP in the LLQ. no peritoneal sign. MUSCULOSKELETAL: No cyanosis, or edema. Medications and IVs Current Medications Sodium Chloride 500 ml @ 500 mls/hr BOLUS ONCE IV Last administered on at 23:19; Start 09/24/17 at 23:00; Stop 09/24/17 at 23:59; Status DC Ondansetron HCl (Zofran Inj) 4 mg ONCE ONCE IV PUSH Last administered on at 23:19; Start 09/24/17 at 23:00; Stop 09/24/17 at 23:01; Status DC Morphine Sulfate (Morphine Inj) 2 mg ONCE ONCE IV PUSH Last administered on 09/24/17at 23:20; Start 09/24/17 at 23:00; Stop 09/24/17 at 23:01; Status DC Sodium Chloride 1,000 ml @ 1,000 mls/hr Q1H ONCE IV Last administered on at 00:16; Start 09/25/17 at 00:15; Stop 09/25/17 at 01:14; Status DC Sodium Chloride 1,000 ml @ 100 mls/hr Q10H IV Last administered on 09/25/17at 01 :36; Start 09/25/17 at 01:23 Sodium Chloride (NS Flush) 2 ml UNSCH PRN IV FLUSH FLUSH AFTER USING IV ACCESS ; Start 09/25/17 at 01:30 Sodium Chloride (NS Flush) 2 ml BID IV FLUSH ; Start 09/25/17 at 09:00 Naloxone HCl (Narcan Inj) 0.4 mg UNSCH PRN IV PUSH SEE LABEL COMMENTS; Start at 01:30 Sodium Chloride 1,000 ml @ 100 mls/hr Q10H IV ; Start 09/25/17 at 01:30; Stop at 01:32; Status DC Morphine Sulfate (Morphine Inj) 2 mg Q3H PRN IV PUSH pain >5 Last administered on 09/25/17at 08:06; Start 09/25/17 at 03:45 Patient Own Medication PT OWN MED: [id number]-Bvllyxxmnt-Caj... DAILY PO ; Start 09/25/17 at 09:00; Status Future Hold Ranitidine HCl (Zantac Liq) 150 mg Q12HR PO ; Start 09/25/17 at 09:00 Enoxaparin Sodium (Lovenox Inj) 40 mg Q24H SQ ; Start 09/25/17 at 09:00 A/P Assessment and Plan This is a 67 y/o M with p/w N/V and abdominal pain found to have SBO Small bowel obstruction -CT scan showed distal SBO. GS consulted. -NG tube to suction in place and patient symptoms are improving. continue with current regimen pending recommendations for GS. -continue with supportive care with IVFs, antiemetics and analgesic. HIV on HAART medication/hepatitis C/Anemia /Gastric CA stage II a . Invasive poorly differentiated adenocarcinoma/GastritisCOPD/emphysema by CT -resume home medication once can take PO intake. -Oncologist also consulted due to his gastric cancer. DVT prophylaxis with Lovenox. GI prophylaxis on ranitidine. Haley Lindsay MD Sep 25, 2017 10:36
[2017-09-25] MEDS: ENOXAPARIN SODIUM 40 MG/0.4 ML SYRINGE SQ SCH (10:46)
[2017-09-25 10:59] VITALS: BP 115/61; PULSE 93; RESP 16
--- NOTE | 2017-09-25 12:40 | PD.CONS ---
cc: Boy Henrandez MD [facility] Service General Surgery Consult Requested By Dr. Mendez Reason for Consult Small bowel obstruction Primary Care Physician No Primary Care Physician History of Present Illness This is a 67-year-old male with a past medical history of HIV, hepatitis C, gastric cancer, gastritis and COPD. The patient had an exploratory laparotomy and total gastrectomy en block pancreas resection in December [address] Hernandez. The patient's Medical Oncologist is Dr. May. The patient complains of abdominal pain that began about 2 days ago. He does report nausea with vomiting. An NG tube was placed to low intermittent wall suction with some relief of the abdominal pain. The patient does report his last bowel movement was about [address] abdomen and pelvis was obtained which shows findings of a distal small bowel obstruction. He does have a mildly elevated white count of 13.8. A General Surgery consultation is requested for evaluation of small bowel obstruction. Review of Systems Constitutional: COMPLAINS OF: Change in appetite, DENIES: Fatigue Endocrine: DENIES: Polydipsia, Polyuria, Polyphagia Eyes: DENIES: Diplopia Ears, nose, mouth, throat: DENIES: Hearing loss Respiratory: DENIES: Cough Cardiovascular: DENIES: Chest pain, Syncope Gastrointestinal: COMPLAINS OF: Abdominal pain, Nausea, Vomiting Genitourinary: DENIES: Urgency Musculoskeletal: DENIES: Joint pain Integumentary: DENIES: Abnormal pigmentation Hematologic/lymphatic: DENIES: Bruising Immunologic/allergic: DENIES: Eczema Neurologic: DENIES: Headache, Localized weakness Psychiatric: DENIES: Confusion, Mood changes, Depression Past Family Social History Past Medical History HIV Hepatitis C Gastric cancer next line gastritis COPD Past Surgical History Exploratory laparotomy with total gastrectomy en block pancreas resection in December 2016 Reported Medications Liquid Morphine Genvoya Gabapentin Amitriptyline Protonix Allergies: Coded Allergies: No Known Allergies (Verified , 12/18/16) Active Ordered Medications Current Medications Medications (Trade) Dose Ordered Sig/Sierra Route Start Time Stop Time Status Last Admin Sodium Chloride 1,000 ml @ 100 mls/hr Q10H IV 09/25/17 01:23 09/25/17 01:36 (NS Flush) 2 ml UNSCH PRN IV FLUSH 09/25/17 01:30 (NS Flush) 2 ml BID IV FLUSH 09/25/17 09:00 (Narcan Inj) 0.4 mg UNSCH PRN IV PUSH 09/25/17 01:30 (Morphine Inj) 2 mg Q3H PRN IV PUSH 09/25/17 03:45 09/25/17 10:54 Patient Own Medication PT OWN MED: [id number]-Zlyghujmkx-Byq... DAILY PO 09/25/17 09:00 Future Hold (Lovenox Inj) 40 mg Q24H SQ 09/25/17 09:00 09/25/17 10:46 (Protonix Inj) 40 mg Q24H IV PUSH 09/25/17 12:00 Family History Noncontributory Social History Positive tobacco use Denies EtOH use Denies illicit drug use Physical Exam Vital Signs Vital Signs Date Time Temp Pulse Resp B/P (MAP) Pulse Ox O2 Delivery O2 Flow Rate FiO2 09/25/17 11:36 18 09/25/17 10:59 93 16 115/61 (79) Room Air 99 09/25/17 07:33 78 16 141/85 (103) 96 Room Air 09/24/17 23:18 19 99 Room Air 09/24/17 20:29 99.0 112 16 112/74 (87) 97 Room Air Physical Exam GENERAL: Very thin 67-year-old male resting in bed in no acute distress. SKIN: Warm and dry. HEAD: Atraumatic. Normocephalic. EYES: Pupils equal and round. No scleral icterus. No injection or drainage. ENT: No nasal bleeding or discharge. Mucous membranes pink and moist. NGT in place to LIWS. NECK: Trachea midline. CARDIOVASCULAR: Regular rate and rhythm. RESPIRATORY: No accessory muscle use. Clear to auscultation. Breath sounds equal bilaterally. GASTROINTESTINAL: Abdomen soft,flat; minimal tenderness to palpation; non distended. Well healed midline incision. MUSCULOSKELETAL: Extremities without clubbing, cyanosis, or edema. No obvious deformities. NEUROLOGICAL: Awake and alert. No obvious cranial nerve deficits. Motor grossly within normal limits. Five out of 5 muscle strength in the arms and legs. Normal speech. PSYCHIATRIC: Appropriate mood and affect; insight and judgment normal. Laboratory Laboratory Tests Test 09/24/17 21:26 09/24/17 23:05 09/25/17 01:45 White Blood Count 13.8 Red Blood Count 5.22 Hemoglobin 16.2 Hematocrit 48.2 Mean Corpuscular Volume 92.2 Mean Corpuscular Hemoglobin 31.0 Mean Corpuscular Hemoglobin Concent 33.6 Red Cell Distribution Width 15.2 Platelet Count 451 Mean Platelet Volume 8.6 Neutrophils (%) (Auto) 80.6 Lymphocytes (%) (Auto) 10.6 Monocytes (%) (Auto) 8.4 Eosinophils (%) (Auto) 0.1 Basophils (%) (Auto) 0.3 Neutrophils # (Auto) 11.1 Lymphocytes # (Auto) 1.5 Monocytes # (Auto) 1.2 Eosinophils # (Auto) 0.0 Basophils # (Auto) 0.0 CBC Comment DIFF FINAL Differential Comment Blood Urea Nitrogen 21 Creatinine 1.27 Random Glucose 118 Total Protein 9.7 Albumin 3.5 Calcium Level 9.3 Alkaline Phosphatase 179 Aspartate Amino Transf (AST/SGOT) 27 Alanine Aminotransferase (ALT/SGPT) 30 Total Bilirubin 1.0 Sodium Level 134 Potassium Level 3.6 Chloride Level 100 Carbon Dioxide Level 28.5 Anion Gap 6 Estimat Glomerular Filtration Rate 68 Lipase 66 Prothrombin Time 11.0 Prothromb Time International Ratio 1.1 Activated Partial Thromboplast Time 26.5 Lactic Acid Level 2.1 1.3 Magnesium Level 2.2 Result Diagram: 09/24/17212509/24/172125 Imaging Last 48 hours Impressions Chest X-Ray 09/24/172258 Signed Impressions: Service Date/Time: Sunday, September 24, 2017 23:17 - CONCLUSION: 1. No acute cardiopulmonary disease. James Brown MD Abdomen/Pelvis CT 09/24/172258 Signed Impressions: Service Date/Time: Sunday, September 24, 2017 23:46 - CONCLUSION: 1. Findings of distal small bowel obstruction. James Brown MD Assessment and Plan Assessment and Plan 67 year old male s/p ex lap and total gastrectomy en block pancreas in December 2016; now with abdominal pain/nausea/vomiting; findings on CT of distal small bowel obstruction -Agree with NGT to LIWS for decompression -May consider SBFT in the next 24-48 hours -IVF -Pain control -OOB and mobilize as tolerated -Thank you for this consult; We will continue to follow Discussed Condition With Dr. Mary Kohli Attending Statement The exam, history, and the medical decision-making described in the above note were completed with the assistance of the mid-level provider. I reviewed and agree with the findings presented. I attest that I had a [id number] encounter with the patient on the same day, and personally performed and documented my assessment and findings in the medical record. Abdominal Exam: soft, non-distended, no rebound tenderness or peritonitis high grade adhesive small bowel obstruction, will give patient a trial of non- operative management with NG tube and IVF follow closely Debra Amin Sep 25, 2017 12:40 Boy Hernandez MD Sep 28, 2017 00:15
[2017-09-25] MEDS: PANTOPRAZOLE SODIUM 40 MG VIAL IV PUSH SCH (12:56)
--- NOTE | 2017-09-25 14:32 | PD.CONS ---
Consult Service Palliative Care Consult Requested By Dr. Mendez Primary Care Physician No Primary Care Physician Reason for Consultation a. To assist with evaluation and management of symptoms including:Pain, Nausea/Vomiting b. To assist medical decision maker(s) with: better understanding of current medical conditions; weighing benefits/burdens of medical treatment options; making medical treatment decisions. HPI History of Present Illness Mr. Kohli is a 67 years old male with a past medical history of gastric cancer stage II a noted to be poorly differentiated s/p total gastrectomy en block pancreas resection, gastritis, HIV on HAART medication, hepatitis C, anemia, COPD/emphysema, and chronic pain. Patient was diagnosed with poorly differentiated adenocarcinoma that was excised at time of diagnosis in March of 2017. Patient has not followed up with oncologist since of last year. Patient presented to the ER on 09/24/2017 complaining of sharp abdominal pain that began 2 days ago and nausea and vomiting. Patient reported that pain is worsened by swallowing or eating anything. ER course: * Vital signs: Temperature 90.9, pulse 112, respirations 99, O2 saturation 99% on room air. * Laboratory workup revealed WBC 13.8, hemoglobin 16.2, hematocrit 48.2, platelet count 451, sodium 134, potassium 3.6, BUN 21, creatinine 1.27, lactic acid 2.1, AST 27, ALT 30, alkaline phosphatase 179, total protein 9.7, albumin 3.5, lipase 66 * Chest x-ray revealed no acute cardiopulmonary disease. * Abdomen/pelvis CT revealed distal small bowel obstruction. * EKG sinus rhythm heart rate of 88, nonspecific T-wave abnormalities. No acute ST segment elevation. * Normal saline 500 ml IV bolus 1; Zofran 4grams IVP for nausea; Morphine Sulfate 2 mg IVP for pain administered * Nasogastric tube placed and connected to low intermittent wall suction for decompression. * Patient met sepsis criteria Patient admitted for further workup. Physical therapy consulted, patient evaluated at this time does not need PT at rehabilitation or home. General surgery consulted 09/24/17 for evaluation of small bowel obstruction-recommending continuing with NGT to LIWS, IVF and possible SBFT in the next 24-48hrs. Medical oncology consulted 09/24/17 for management of gastric cancer stage II. Palliative care consulted for clarifying goals of care. Patient seen and examined in his room on 7N where he was transferred to from ER today. Patient awake, lethargic and oriented to self, place and situation. Patient endorsing abdominal pain currently rated as 3/10. Patient verbalized that he just recently was given Morphine sulfate IVP prior to transfer and the pain in subsiding. Vital signs stable. Laboratory workup today revealing Lactic acid 1.3. Obtained psychosocial history and medical history. Discussed current events that lead to hospitalization and how patient has been doing medically after surgery and prior to hospitalization. Patient states that his daughter Kal Kohli has all his important paperwork presumably living will. Patient designated his daughter Kal Kohli as his health care surrogate and his sister Lina Stephen as his alternate Health care surrogate. Patient went ahead and signed the HCS form. Addressed code status, discussed risks, benefits and limitations of CPR given ongoing multiple comorbidities and patient stated that he wants everything that can be done to keep him alive and he mentioned that his daughter will decide for him if he is on life support indefinitely. At this time patient wants to be a Full code. Patient waiting for oncologist to come and see him. Patient would like his daughter to be updated on his medical status. Telephone conversation with patient`s daughter Kal Kohli. Updated on patient` s medical status. Notified that patient has made her his HCS and daughter was agreeable with serving as patient`s HCS in the event that patient becomes incapacitated. Patient`s daughter also supportive of patient`s decision to be a full code and she mentioned that in case patient is intubated and placed on mechanical ventilation she would like to be notified immediately. . Function/Cognitive Trajectory Patient rents a room locally and lives alone. Independent of all his ADLs. Patient rides his bike to get around, to run errands or sometimes gets a ride from friends. . Review of Systems Constitutional: COMPLAINS OF: Fatigue, Weight loss, Change in appetite, Pain Endocrine: DENIES: Polydipsia Eyes: DENIES: Diplopia, Eye inflammation Ears, nose, mouth, throat: DENIES: Nasal discharge Respiratory: DENIES: Cough, Shortness of breath Cardiovascular: DENIES: Chest pain, Lower Extremity Edema Gastrointestinal: COMPLAINS OF: Abdominal pain, Nausea, Vomiting, DENIES: Constipation, Diarrhea Genitourinary: DENIES: Urinary incontinence Musculoskeletal: COMPLAINS OF: Back pain Psychiatric: DENIES: Confusion, Hallucinations Past Family Social History Coded Allergies: No Known Allergies (Verified , 4/3/17) Past Medical History HIV on HAART medication hepatitis C Shingles 5 years ago with chronic right lower chest wall pain since Anemia Gastric CA stage II a . Invasive poorly differentiated adenocarcinoma Gastritis COPD/emphysema by CT . Past Surgical History Exploratory laparotomy in 2017.Total gastrectomy, with en block resection of pancreas. Distal pancreatectomy, splenectomy. by Dr. Hernandez Esophagojejunostomy with Maddie-en-Y reconstruction EGD Gastric mass biopsy . Reported Medications Protonix Liq (Pantoprazole Sodium) 40 Mg Pkt 40 Mg PEG DAILY Morphine Liq (Morphine Sulfate) 10 Mg/5 Ml Liq 5 Mg PO Q4H Genvoya (Hgjtftodbesq-Fiwmihvkom-Evkbrwvnplgv-Tenofvir) [phone] Mg Tab 1 Tab PO DAILY Amitriptyline (Amitriptyline HCl) 10 Mg Tab 40 Mg PO DAILY Gabapentin 600 Mg Tab 600 Mg PO TID . Current Medications Medications (Trade) Dose Ordered Sig/Sierra Route Start Time Stop Time Status Last Admin Sodium Chloride 1,000 ml @ 100 mls/hr Q10H IV 09/25/17 01:23 09/25/17 01:36 (NS Flush) 2 ml UNSCH PRN IV FLUSH 09/25/17 01:30 (NS Flush) 2 ml BID IV FLUSH 09/25/17 09:00 (Narcan Inj) 0.4 mg UNSCH PRN IV PUSH 09/25/17 01:30 (Morphine Inj) 2 mg Q3H PRN IV PUSH 09/25/17 03:45 09/25/17 10:54 Patient Own Medication PT OWN MED: Uacdsbwyhmjk-Wdgftlrmcv-Tbg... DAILY PO 09/25/17 09:00 Future Hold (Lovenox Inj) 40 mg Q24H SQ 09/25/17 09:00 09/25/17 10:46 (Protonix Inj) 40 mg Q24H IV PUSH 09/25/17 12:00 09/25/17 12:56 Family History Mother- from complications of a heart attack Father- at a young age, patient unsure of course of Patient has a living daughter and son. . Substance Use Tobacco: Active smoker . Smokes half a pack a day Alcohol: Occasionally drinks beer Prescription med abuse: Denies Illicits: Patient was positive for cocaine during hospitalization on 12/21/2016. Patient admits to using Cocaine and states that he has been "clean" for a year now. . Psychosocial History Patient was born and raised in [place]. He then moved to [place] in 1966 where he completed high school and then joined and served in the [employer]. Patient was never . He has a daughter Kal Kohli who lives in [place] and a son Corrine Benitez. Patient served in the [employer]. 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 Patient then moved to [place] in 1979 and he worked for the [employer] in [employer] until he retired. . Spiritual/Cultural Factors Patient is a Faith. Goes to [place]. 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 . Living Will: Never completed Health Care Surrogate: Copy in medical record Durable Power of [employer] Aircraft Mechanic: Never completed Date completed: 09/25/2017 . Health Care Surrogate(s): Healthcare surrogate -Daughter- Kal Kohli [phone] Alternate healthcare surrogate- sister-Lina Stephen- [phone] . Today's verbally stated goals: Patient hopes the abdominal pain would completely resolve. . Family/friends goals: Daughter hoping that patient gets better and hopes that oncology sees patient. . Ethical and Legal Issues None identified at this time. . Physical Exam Vital Signs Date Time Temp Pulse Resp B/P (MAP) Pulse Ox O2 Delivery O2 Flow Rate FiO2 09/25/17 11:36 18 09/25/17 10:59 93 16 115/61 (79) Room Air 99 09/25/17 07:33 78 16 141/85 (103) 96 Room Air 09/24/17 23:18 19 99 Room Air 09/24/17 20:29 99.0 112 16 112/74 (87) 97 Room Air Exam CONSTITUTIONAL/GENERAL: This is an emaciated patient, in mild abdominal distress. Obvious facial muscle wasting TUBES/LINES/DRAINS: PIV SKIN: No jaundice, rashes, or lesions. Ecchymoses on upper extremities. No wounds seen anteriorly. Skin temperature appropriate. Not diaphoretic. HEAD: Atraumatic. Normocephalic. EYES: Pupils equal and round and reactive. Extraocular motions intact. No scleral icterus. No injection or drainage. Fundi not examined. ENT: Hearing grossly normal. Nose without bleeding or purulent drainage. c/o dry mouth- Currently NPO NECK: Trachea midline. Supple, nontender. CARDIOVASCULAR: Regular rate and rhythm without murmurs, gallops, or rubs. No JVD. Peripheral pulses symmetric. RESPIRATORY/CHEST: Symmetric, unlabored respirations. Clear to auscultation. Breath sounds equal bilaterally. No wheezes, rales, or rhonchi. GASTROINTESTINAL: Abdomen soft, non-tender, nondistended. c/o tenderness to palpation. Intermittent BS. GENITOURINARY: Without palpable bladder distension. MUSCULOSKELETAL: Extremities without clubbing, cyanosis, or edema. No joint tenderness or effusion noted. No calf tenderness. No mottling or clubbing. NEUROLOGICAL: Awake and lethargic, oriented to self, place and situation. Motor and sensory grossly within normal limits. Follows commands. Moves all extremities. PSYCHIATRIC: No obvious anxiety/depression. no apparent hallucinations or other psychotic thought process. Diagnostic Tests Laboratory Laboratory Tests Test 09/24/17 21:26 09/24/17 23:05 09/25/17 01:45 White Blood Count 13.8 TH/MM3 (4.0-11.0) Red Blood Count 5.22 MIL/MM3 (4.50-5.90) Hemoglobin 16.2 GM/DL (13.0-17.0) Hematocrit 48.2 % (39.0-51.0) Mean Corpuscular Volume 92.2 FL (80.0-100.0) Mean Corpuscular Hemoglobin 31.0 PG (27.0-34.0) Mean Corpuscular Hemoglobin Concent 33.6 % (32.0-36.0) Red Cell Distribution Width 15.2 % (11.6-17.2) Platelet Count 451 TH/MM3 (150-450) Mean Platelet Volume 8.6 FL (7.0-11.0) Neutrophils (%) (Auto) 80.6 % (16.0-70.0) Lymphocytes (%) (Auto) 10.6 % (9.0-44.0) Monocytes (%) (Auto) 8.4 % (0.0-8.0) Eosinophils (%) (Auto) 0.1 % (0.0-4.0) Basophils (%) (Auto) 0.3 % (0.0-2.0) Neutrophils # (Auto) 11.1 TH/MM3 (1.8-7.7) Lymphocytes # (Auto) 1.5 TH/MM3 (1.0-4.8) Monocytes # (Auto) 1.2 TH/MM3 (0-0.9) Eosinophils # (Auto) 0.0 TH/MM3 (0-0.4) Basophils # (Auto) 0.0 TH/MM3 (0-0.2) CBC Comment DIFF FINAL Differential Comment Blood Urea Nitrogen 21 MG/DL (7-18) Creatinine 1.27 MG/DL (0.60-1.30) Random Glucose 118 MG/DL (74-106) Total Protein 9.7 GM/DL (6.4-8.2) Albumin 3.5 GM/DL (3.4-5.0) Calcium Level 9.3 MG/DL (8.5-10.1) Alkaline Phosphatase 179 U/L (45-117) Aspartate Amino Transf (AST/SGOT) 27 U/L (15-37) Alanine Aminotransferase (ALT/SGPT) 30 U/L (12-78) Total Bilirubin 1.0 MG/DL (0.2-1.0) Sodium Level 134 MEQ/L (136-145) Potassium Level 3.6 MEQ/L (3.5-5.1) Chloride Level 100 MEQ/L (98-107) Carbon Dioxide Level 28.5 MEQ/L (21.0-32.0) Anion Gap 6 MEQ/L (5-15) Estimat Glomerular Filtration Rate 68 ML/MIN (>89) Lipase 66 U/L (73-393) Prothrombin Time 11.0 SEC (9.8-11.6) Prothromb Time International Ratio 1.1 RATIO Activated Partial Thromboplast Time 26.5 SEC (24.3-30.1) Lactic Acid Level 2.1 mmol/L (0.4-2.0) 1.3 mmol/L (0.4-2.0) Magnesium Level 2.2 MG/DL (1.5-2.5) Result Diagram: 09/24/17212509/24/172125 Imaging Last Impressions Chest X-Ray 09/24/17 0363 Signed Impressions: Service Date/Time: Sunday, September 24, 2017 23:17 - CONCLUSION: 1. No acute cardiopulmonary disease. James Brown MD Abdomen/Pelvis CT 09/24/17 4116 Signed Impressions: Service Date/Time: Sunday, September 24, 2017 23:46 - CONCLUSION: 1. Findings of distal small bowel obstruction. James Brown MD Patient/Family Conference Family Conference Location: Telephone Issues Discussed: * Palliative care role, purpose, approach * Additional medical, psychosocial, and spiritual history * Patients general health, functional status, and cognitive changes in the months leading up to the current hospitalization * Patient/family understanding of the current medical problems * Patient/family understanding of prognosis * Patients goals of care as best understood from advance directives and/or conversations and/or values * Current medical treatment options and benefits/burdens of those options * Likely scenarios comparing ongoing aggressive care with a transition to comfort measures only * Questions answered to the best of my ability * Palliative care contact information provided Assessment and Plan Disease Oriented Problem List: (1) Small bowel obstruction (2) Gastric adenocarcinoma (3) HIV (human immunodeficiency virus infection) (4) Dehydration (5) Anemia Symptom Scale: (1) Pain Comment: Multifactorial. Hx of gastric cancer. Patient came in complaining of sharp abdominal pain. . (2) Nausea & vomiting 0-10 Scale: Unable to quantify Comment: Multifactorial. History of gastric cancer stage II a noted to be poorly differentiated s/p total gastrectomy en block pancreas resection. Patient came in complaining of nausea and vomiting. Abdomen/pelvis CT 09/24/17 revealed distal small bowel obstruction. . Pertinent Non-Medical Issues Psychosocial:Patient was born and raised in [place]. He then moved to [place] in 1966 where he completed high school and then joined and served in the [employer]. Patient was never . He has a daughter Kal Kohli who lives in [place] and a son Corrine Benitez. Patient served in the [employer]. 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 Goes to [place]. 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 Legal:Patient completed HCS form today. Ethical issues impacting care: None identified at this time. . Important Contacts HCS-Daughter- Kal Kohli [phone] Alternate HCS Sister- Lina Stephen [phone] Son- Corrine Benitez Friend he rents room from -Candice [phone] . Prognosis Mr. Kohli is a 67 years old male with a past medical history of gastric cancer stage II a noted to be poorly differentiated s/p total gastrectomy en block pancreas resection, gastritis, HIV on HAART medication, hepatitis C, anemia, COPD/emphysema, and chronic pain. Patient was diagnosed with poorly differentiated adenocarcinoma that was excised at time of diagnosis in March of 2017. Patient presented to the ER on 09/24/2017 complaining of sharp abdominal pain that began 2 days ago and nausea and vomiting. Abdomen/pelvis CT revealed distal small bowel obstruction. Given multiple ongoing comorbidities, patient remains at risk for further complications, deterioration and decline leading to . . Code Status: Full Code Plan PLAN: Legal decision maker: Patient is able to participate in making his own medical decisions. In the event that patient is incapacitated his daughter Kal Kohli will serve as his healthcare surrogate and his sister Lina Stephen is the alternate HCS. Goals: Aggressive CODE STATUS: Full Code Discussed current events that lead to hospitalization and how patient has been doing medically after surgery and prior to hospitalization. Patient states that his daughter Kal Kohli has all his important paperwork presumably living will. Patient designated his daughter Kal Kohli as his health care surrogate and his sister Lina Stephen as his alternate Health care surrogate. Patient went ahead and signed the HCS form. Addressed code status, discussed risks, benefits and limitations of CPR given ongoing multiple comorbidities and patient stated that he wants everything that can be done to keep him alive and he mentioned that his daughter will decide for him if he is on life support indefinitely. At this time patient wants to be a Full code. Patient waiting for oncologist to come and see him. Patient would like his daughter to be updated on his medical status. Telephone conversation with patient`s daughter Kal Kohli. Updated on patient` s medical status. Notified that patient has made her his HCS and daughter was agreeable with serving as patient`s HCS in the event that patient becomes incapacitated. Patient`s daughter also supportive of patient`s decision to be a full code and she mentioned that in case patient is intubated and placed on mechanical ventilation she would like to be notified immediately. SYMPTOMS: * Pain:Multifactorial. Hx of gastric cancer. Patient came in complaining of sharp abdominal pain.Abdomen/pelvis CT revealed distal small bowel obstruction. NGT inserted and is to LIWS. Patient verbalized some pain relief after NGT placement. Morphine Sulfate 2 mg Q 3hours prn available. Patient required x 5 prn since admission. No recommendations at this time. * Nausea/vomiting:Multifactorial. History of gastric cancer stage II a noted to be poorly differentiated s/p total gastrectomy en block pancreas resection. Patient came in complaining of nausea and vomiting. Abdomen/pelvis CT 09/24/17 revealed distal small bowel obstruction. Patient received 1 dose of Zofran in ER. NGT to LIWS. Currently denies nausea. Recommending prn Zofran for Nausea. Palliative care will continue to follow the patient during hospital course as condition evolves, to assist patient/decision-maker with understanding of their medical conditions, weighing benefits/burdens of treatment options, for clarification of goals of treatment. Additionally will assist with any symptoms of palliative concern Thank you for the opportunity to participate in the care of Mr. Kohli. Attestation To help prompt me to consider important information that might be impacting today's encounter and assessment, information from prior notes written by myself or my colleagues may have been "brought forward" into today's note. My signature on this note, however, is an attestation that I personally performed the exam, history, and/or decision-making noted today, and, unless otherwise indicated, the interactions with patient, family, and staff as well as the review of records all occurred today. I also attest that the listed assessment and stated plan reflect my best clinical judgment today based on the combination of historical information, prior notes, and today's exam/ interactions. When time spent is documented, it refers only to time spent today by the signer, or if indicated, combined time spent today by collaborating physician/nurse practitioner. Hiram Yang Sep 25, 2017 14:30
[2017-09-25 16:00] VITALS: BP 152/74; PULSE 79; RESP 18; TEMP 98.1; O2SAT 94
--- NOTE | 2017-09-25 16:37 | EKG ---
Date Performed: 09/24/2017 Time Performed: 23:11:55 PTAGE: 67 years EKG: Sinus rhythm NONSPECIFIC T-WAVE ABNORMALITY BORDERLINE ECG PREVIOUS TRACING : 12/20/[address]-T changes are new since prior tracing, cannot rule out i schemia. Clinical correlation is recommended. DOCTOR: Daniel De Santiago Interpretating Date/Time 09/25/2017 16:37:02
--- NOTE | 2017-09-25 19:36 | MB ---
cc: RIVKA BARTH MD, RUBY ANNE E. M.D. DATE OF CONSULTATION 09/25/2017 New patient consultative summary DATE OF [address] Barth[address] CHIEF COMPLAINT [address] Barth requested consultation for Mr. Kohli regarding history of gastric cancer admitted with small bowel obstruction. HISTORY OF PRESENT ILLNESS Mr. Kohli is a 67-year-old man well-known patient with history of HIV disease on HAART therapy, chronic active hepatitis C, presented with iron deficiency, reactive thrombocytosis, heme-positive stools and a gastric cancer. He had definitive surgery for his gastric cancer. The tumor invaded the subserosa but not the underlying pancreas. The screen was negative. 0/15 lymph nodes were involved. He tolerated surgical D2 resection well. He had deferred adjuvant therapy. He was last seen in clinic on 04/05/2017 for treatment of his iron deficiency, B12 deficiency. He has been lost to followup. He tells me intended to come back to clinic. At the time his last visit he was diagnosed with a stage IIA, T3 N0 M0 poorly differentiated gastric cancer. His iron deficiency, B12 deficiency was corrected. He had a left lower lung infiltrate and was pending a follow up CT scan. He reports that he was doing well. He was gaining weight. He had intended to follow up at oncology clinic. Denies any fevers, chills or night sweats. He is stable from his HIV standpoint. He describes having abdominal pain and constipation 3 days prior to presentation. He developed worsening abdominal pain after eating. He developed nausea, vomiting 2 days ago. He finally presented to the emergency room on September 24, 2017 with nausea and vomiting and abdominal pain. CT scan of the abdomen showed distal small bowel obstruction. He has had an NG tube placed. He has been seen by Dr. Hernandez. Conservative management was recommended at present. Palliative care team was also called to assist the patient in his symptoms. He offers no new complaints. The rest of his review of system was negative. He denies any overt bleeding. No melena or bright red blood per rectum. No urinary complaints. PAST MEDICAL HISTORY 1. Resected gastric cancer. 2. History of iron deficiency, B12 deficiency. 3. History of syncopal episode secondary to iron deficiency and severe anemia. 4. Hepatitis C. 5. HIV. 6. Gastric cancer. PAST SURGICAL HISTORY 1. Exploratory laparotomy / total gastrectomy D2 resection. 2. En bloc pancreas resection and distal pancreatotomy and splenectomy. 3. Gastrojejunostomy with Maddie-en-Y reconstruction. 4. EGD for gastric mass biopsy. ALLERGIES NO KNOWN DRUG ALLERGIES. SOCIAL HISTORY He is single. He has a daughter. He smokes a pack a day for 25 years. He is a former drinker. Denies any illicit drug use. FAMILY HISTORY Mother age 81 with a heart condition. Father at age 61. No other family history of cancer. CURRENT MEDICATIONS 1. Pantoprazole. 2. Enoxaparin. 3. Morphine p.r.n. PHYSICAL EXAMINATION VITAL SIGNS: Temperature 98.1 heart rate 79, blood pressure 152/74, saturation 94%. GENERAL: Mr. Kolhi is a thin, elderly man in no acute distress. He seems to be in good mood despite the NG tube in his nose. NECK: Supple with no adenopathy. HEENT: Oropharynx is dry. LUNGS: Are clear. CARDIOVASCULAR: Exam reveals normal rate, rhythm. ABDOMEN: Benign with a well-healed scar. Flat bowel sounds present. EXTREMITIES: Lower extremities with no edema. NEUROLOGIC: Exam is nonfocal. LABORATORY DATA White blood cell count is elevated at 13.8, platelet count 451, hemoglobin of 16.2. Lactic acid is decreased to 1.3. BUN of 21, creatinine 1.27. Alkaline phosphatase is elevated. ASSESSMENT/PLAN Mr. Kohli is a 67-year-old man with multiple medical problems described above. He has a resected gastric cancer and deferred adjuvant chemotherapy. We discussed the findings of small bowel obstruction and plans to proceed with conservative management. We hope that the bowel rest would result in resolution of the small bowel obstruction. There is no overt evidence of metastatic disease or disease recurrence. I defer from any recommendations regarding oncology standpoint. His hemoglobin is normal, although his platelet count is increased may suggest that there is recurrence of his iron deficiency. We discussed continued followup on outpatient basis once he gets out of the hospital. He seems contrite and intent on doing this. His questions were answered to his satisfaction. We will continue to monitor his progress throughout the hospitalization. No specific therapy right now. MD DENNIS Abraham/MARY /6:50 PM /7:15 PM
[2017-09-25 20:00] VITALS: BP 154/84; PULSE 94; RESP 18; TEMP 99.4; O2SAT 96
[2017-09-25 20:09] VITALS: PULSE 84
[2017-09-25] MEDS: SODIUM CHLORIDE 0.9% FLUSH 10 ML FLUSH IV FLUSH SCH (20:13)
[2017-09-25 20:58] LABS: FERRITIN 118 NG/ML (26-388)
[2017-09-26] VITALS (8 sets, daily range): BP systolic 135–157; BP diastolic 72–87; PULSE 82–99; RESP 16–18; TEMP 95.4–98.9; O2SAT 93–97
[2017-09-26] MEDS: MORPHINE SULFATE 2 MG/ML INJ IV PUSH PRN ×8 (00:02→23:20)
[2017-09-26] MEDS ORDERED: LORazepam 1 MG TAB PO PRN (07:00)
[2017-09-26] MEDS: SODIUM CHLORIDE 0.9% FLUSH 10 ML FLUSH IV FLUSH SCH ×2 (09:00→21:00)
[2017-09-26 09:14] LABS: AUTOMATED NEUTROPHIL # 8.5 TH/MM3 (1.8-7.7); BASOPHIL % 0.3 % (0.0-2.0); HEMATOCRIT 44.8 % (39.0-51.0); HEMOGLOBIN 14.9 GM/DL (13.0-17.0); LYMPH % 7.5 % (9.0-44.0); LYMPHOCYTE # 0.8 TH/MM3 (1.0-4.8); MEAN CELL VOLUME 92.3 FL (80.0-100.0); MEAN CORPUSCULAR HEMOGLOBIN 30.8 PG (27.0-34.0); MEAN CORPUSCULAR HGB CONC 33.3 % (32.0-36.0); MEAN PLATELET VOLUME 8.9 FL (7.0-11.0); MONO % 14.6 % (0.0-8.0); MONOCYTE # 1.6 TH/MM3 (0-0.9); NEUT % 77.6 % (16.0-70.0); PLATELET COUNT 377 TH/MM3 (150-450); RED BLOOD COUNT 4.86 MIL/MM3 (4.50-5.90)
[2017-09-26 09:38] LABS: BICARBONATE 28.2 MEQ/L (21.0-32.0); CALCIUM 8.8 MG/DL (8.5-10.1); CREATININE 0.77 MG/DL (0.60-1.30)
--- NOTE | 2017-09-26 10:19 | PD.ONC.PN ---
Subjective Subjective Remarks Afebrile overnight. Patient resting in bed in NAD. Asking to be able to get up and move around. Nausea feeling better since starting NGT. Objective Data Date Time Temp Pulse Resp B/P (MAP) Pulse Ox O2 Delivery O2 Flow Rate FiO2 09/26/17 08:00 96.5 83 16 135/72 (93) 96 09/26/17 04:21 82 09/26/17 04:00 95.4 99 18 157/87 (110) 95 09/26/17 00:11 91 09/26/17 00:00 98.4 95 18 152/76 (101) 93 09/25/17 20:09 84 09/25/17 20:00 99.4 94 18 154/84 (107) 96 09/25/17 16:00 98.1 79 18 152/74 (100) 94 09/25/17 11:36 18 09/25/17 10:59 93 16 115/61 (79) Room Air 99 09/26/17 09/26/17 09/26/17 07:00 15:00 23:00 Intake Total 0 ml Output Total 1150 ml Balance -1150 ml Result Diagram: 09/26/17 0747 09/26/17 0746 Laboratory Results Laboratory Tests Test 09/26/17 07:46 09/26/17 07:47 Blood Urea Nitrogen 24 MG/DL Creatinine 0.77 MG/DL Random Glucose 98 MG/DL Calcium Level 8.8 MG/DL Sodium Level 140 MEQ/L Potassium Level 3.7 MEQ/L Chloride Level 104 MEQ/L Carbon Dioxide Level 28.2 MEQ/L Anion Gap 8 MEQ/L Estimat Glomerular Filtration Rate 122 ML/MIN White Blood Count 11.0 TH/MM3 Red Blood Count 4.86 MIL/MM3 Hemoglobin 14.9 GM/DL Hematocrit 44.8 % Mean Corpuscular Volume 92.3 FL Mean Corpuscular Hemoglobin 30.8 PG Mean Corpuscular Hemoglobin Concent 33.3 % Red Cell Distribution Width 15.0 % Platelet Count 377 TH/MM3 Mean Platelet Volume 8.9 FL Neutrophils (%) (Auto) 77.6 % Lymphocytes (%) (Auto) 7.5 % Monocytes (%) (Auto) 14.6 % Eosinophils (%) (Auto) 0.0 % Basophils (%) (Auto) 0.3 % Neutrophils # (Auto) 8.5 TH/MM3 Lymphocytes # (Auto) 0.8 TH/MM3 Monocytes # (Auto) 1.6 TH/MM3 Eosinophils # (Auto) 0.0 TH/MM3 Basophils # (Auto) 0.0 TH/MM3 CBC Comment DIFF FINAL Differential Comment Administered Medications Medications (Trade) Dose Ordered Sig/Sierra Route PRN Reason Start Time Stop Time Status Last Admin Dose Admin Sodium Chloride 1,000 ml @ 100 mls/hr Q10H IV 09/25/17 01:23 09/25/17 15:34 Morphine Sulfate (Morphine Inj) 2 mg Q3H PRN IV PUSH pain >5 09/25/17 03:45 09/26/17 06:59 Enoxaparin Sodium (Lovenox Inj) 40 mg Q24H SQ 09/25/17 09:00 09/25/17 10:46 Pantoprazole Sodium (Protonix Inj) 40 mg Q24H IV PUSH 09/25/17 12:00 09/25/17 12:56 Objective Remarks GENERAL: Pleasant middle aged male, sitting up in bed in [facility]. SKIN: Warm and dry. HEAD: Normocephalic. NGT in place to LIWS EYES: No injection or drainage. NECK: Supple, trachea midline. CARDIOVASCULAR: Regular rate and rhythm RESPIRATORY: Breath sounds equal bilaterally. No accessory muscle use. GASTROINTESTINAL: Abdomen soft, mildly distended. mildly tender to palpation. MUSCULOSKELETAL: No cyanosis. NEURO: awake and alert. normal speech. Assessment/Plan Problem List: (1) Gastric adenocarcinoma ICD Codes: C16.9 - Malignant neoplasm of stomach, unspecified Status: Acute Plan: --recommend follow up in clinic once discharged from hospital. --s/p definitive surgery for his gastric cancer. deferred adjuvant therapy. last seen in clinic 04/05/17 for treatment of his iron deficiency, B12 deficiency. --lost to followup. (2) Small bowel obstruction ICD Codes: K56.609 - Unspecified intestinal obstruction, unspecified as to partial versus complete obstruction Status: Acute Plan: --CT ab-->showed distal small bowel obstruction. s/p NGT placement. --surgery following and recommending conservative management. Assessment 67y/o male with history of gastric cancer admitted with small bowel obstruction. history of HIV disease on HAART therapy, chronic active hepatitis C, presented with iron deficiency, reactive thrombocytosis, heme-positive stools and a gastric cancer. Plan 1. continue with conservative management per surgery 2. once discharged follow up in clinic for further treatment of gastric cancer. Attending Statement The exam, history, and the medical decision-making described in the above note were completed with the assistance of the mid-level provider. I reviewed and agree with the findings presented. I attest that I had a [id number] encounter with the patient on the same day, and personally performed and documented my assessment and findings in the medical record. Noted events in AM, discussed above. Pt resting in evening, c/o hiccups. Trial thorazine. Appt in Oncology clinic was today- will reschedule fu after DC. Pending resolution of obstruction vs. surgical intervention. Sepideh Giron Sep 26, 2017 10:19 Kandice May MD Sep 26, 2017 19:57
[2017-09-26] MEDS: ENOXAPARIN SODIUM 40 MG/0.4 ML SYRINGE SQ SCH (10:35)
[2017-09-26] MEDS: SODIUM CHLOR 0.9% 1000 ML INJ 1,000 ML IV SCH ×2 (10:47→19:39)
[2017-09-26] MEDS: PANTOPRAZOLE SODIUM 40 MG VIAL IV PUSH SCH (13:15)
--- NOTE | 2017-09-26 14:22 | HHI.PR ---
cc: Boy Hernandez MD Subjective Subjective Notes Feeling better Feels thirsty Objective Vitals/I&O Vital Signs Date Time Temp Pulse Resp B/P (MAP) Pulse Ox O2 Delivery O2 Flow Rate FiO2 09/26/17 12:00 97.8 86 17 157/77 (103) 95 09/25/17 10:59 Room Air 99 Labs Laboratory Tests Test 09/26/17 07:46 09/26/17 07:47 Blood Urea Nitrogen 24 Creatinine 0.77 Random Glucose 98 Calcium Level 8.8 Sodium Level 140 Potassium Level 3.7 Chloride Level 104 Carbon Dioxide Level 28.2 Anion Gap 8 Estimat Glomerular Filtration Rate 122 White Blood Count 11.0 Red Blood Count 4.86 Hemoglobin 14.9 Hematocrit 44.8 Mean Corpuscular Volume 92.3 Mean Corpuscular Hemoglobin 30.8 Mean Corpuscular Hemoglobin Concent 33.3 Red Cell Distribution Width 15.0 Platelet Count 377 Mean Platelet Volume 8.9 Neutrophils (%) (Auto) 77.6 Lymphocytes (%) (Auto) 7.5 Monocytes (%) (Auto) 14.6 Eosinophils (%) (Auto) 0.0 Basophils (%) (Auto) 0.3 Neutrophils # (Auto) 8.5 Lymphocytes # (Auto) 0.8 Monocytes # (Auto) 1.6 Eosinophils # (Auto) 0.0 Basophils # (Auto) 0.0 CBC Comment DIFF FINAL Differential Comment Radiology Last 48 hours Impressions Chest X-Ray 09/24/[id number] Signed Impressions: Service Date/Time: Sunday, September 24, 2017 23:17 - CONCLUSION: 1. No acute cardiopulmonary disease. James Brwon MD Abdomen/Pelvis CT [id number]/172258 Signed Impressions: Service Date/Time: Sunday, September 24, 2017 23:46 - CONCLUSION: 1. Findings of distal small bowel obstruction. 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 I reviewed and agree with the findings presented. I attest that I had a [id number] encounter with the patient on the same day, and personally performed and documented my assessment and findings in the medical record. Abdominal Exam: soft, mildly-distended, no rebound tenderness or peritonitis, adhesive small bowel obstruction, will likely need surgery if no bowel function next 24h Debra Amin Sep 26, 2017 14:22 Boy Hernandez MD Sep 28, 2017 00:19
--- NOTE | 2017-09-26 14:40 | HHI.PR ---
Subjective Remarks Nausea and distention have improved, per patient. No new complaints today. NG tube is still present. Clinically patient has improved thus far. Objective Vital Signs Date Time Temp Pulse Resp B/P (MAP) Pulse Ox O2 Delivery O2 Flow Rate FiO2 09/26/17 12:00 97.8 86 17 157/77 (103) 95 09/26/17 08:00 96.5 83 16 135/72 (93) 96 09/26/17 04:21 82 09/26/17 04:00 95.4 99 18 157/87 (110) 95 09/26/17 00:11 91 09/26/17 00:00 98.4 95 18 152/76 (101) 93 09/25/17 20:09 84 09/25/17 20:00 99.4 94 18 154/84 (107) 96 09/25/17 16:00 98.1 79 18 152/74 (100) 94 I/O 09/25/17 09/25/17 09/25/17 09/26/17 09/26/17 09/26/17 07:00 15:00 23:00 07:00 15:00 23:00 Intake Total 0 ml 0 ml Output Total 100 ml 1150 ml Balance -100 ml -1150 ml Intake Oral 0 ml 0 ml Output Urine Total 100 ml 300 ml Gastric Drainage Total 850 ml # Bowel Movements 0 0 Result Diagram: 09/26/17 0747 09/26/17 0746 Objective Remarks GENERAL: NAD, A&Ox3, NG tube present HEAD: Normocephalic. NECK: Supple, trachea midline. No lymphadenopathy. EYES: No scleral icterus. No injection or drainage. CARDIOVASCULAR: Regular rate and rhythm without murmurs, gallops, or rubs. RESPIRATORY: Breath sounds equal bilaterally. No accessory muscle use. GASTROINTESTINAL: Abdomen soft, non-tender, nondistended. MUSCULOSKELETAL: No cyanosis, or edema. SKIN: Warm and dry. NEURO: No focal neurological deficitis. A/P Problem List: (1) HIV (human immunodeficiency virus infection) ICD Code: Z21 - Asymptomatic human immunodeficiency virus [HIV] infection status Status: Chronic (2) Anemia ICD Code: D64.9 - Anemia, unspecified Status: Acute (3) Gastric adenocarcinoma ICD Code: C16.9 - Malignant neoplasm of stomach, unspecified Status: Acute (4) Nausea & vomiting ICD Code: R11.2 - Nausea with vomiting, unspecified (5) Small bowel obstruction ICD Code: K56.609 - Unspecified intestinal obstruction, unspecified as to partial versus complete obstruction Status: Acute (6) Dehydration ICD Code: E86.0 - Dehydration Status: Acute (7) Pain ICD Code: R52 - Pain, unspecified Assessment and Plan 67 y/o male admitted with small bowel obstruction Small bowel obstruction Patient reports this is his first episode of SBO Continue with NG tube Graduating towards clearance of NG tube Monitor patient clinically for bowel movements or flatulence Small bowel series is being considered for tomorrow if no evidence of bowel movements occur HIV Hepatitis C Chronic anemia Stage II a gastric cancer Poorly differentiated adenocarcinoma Gastritis Continue baseline treatments COPD No exacerbation No change to baseline treatments DVT prophylaxis Ras Hamlin MD Sep 26, 2017 14:40
--- NOTE | 2017-09-26 17:23 | HHI.HCPN ---
Reason for visit a. To assist with evaluation and management of symptoms including:Pain, Nausea/Vomiting b. To assist medical decision maker(s) with: better understanding of current medical conditions; weighing benefits/burdens of medical treatment options; making medical treatment decisions. Subjective/Interval History Mr. Kohli is a 67 years old male with a past medical history of gastric cancer stage II a noted to be poorly differentiated s/p total gastrectomy en block pancreas resection, gastritis, HIV on HAART medication, hepatitis C, anemia, COPD/emphysema, and chronic pain. Patient was diagnosed with poorly differentiated adenocarcinoma that was excised at time of diagnosis in March of 2017. Patient has not followed up with oncologist since of last year. Patient presented to the ER on 09/24/2017 complaining of sharp abdominal pain that began 2 days ago and nausea and vomiting. Patient reported that pain is worsened by swallowing or eating anything. Patient seen and examined in his room. Awake, alert and oriented to self, place and situation. Patient endorsing abdominal pain. Reports pain subsides when he gets morphine. Patient has received 8 prn morphine sulfate 2 mg IVP doses in the past 24 hours. No reports of nausea or vomiting. OG tube remains to low intermittent wall suction. Remains npo. Afebrile. Heart rate 80s to 90s. SBP 130s to 150s. O2 saturation mid 90s on room air. Laboratory workup today revealing WBC 11.0, hemoglobin 14.9, hematocrit 44, platelet count 377, sodium 140, potassium 3.7, BUN/creatinine 24/0.77 Conservative management of small bowel obstruction at this time. Patient intends to follow-up with medical oncology after discharge. . Family/friend interactions No family at bedside. . Advance Directives Living Will: Never completed Health Care Surrogate: Copy in medical record Durable Power of Dietary Tech: Never completed Advance Directive Specifics Date completed: 09/25/2017 . Health Care Surrogate(s): Healthcare surrogate -Daughter- Kal Kohli [phone] Alternate healthcare surrogate- sister-Lina Stephen- [phone] . Objective Vital Signs Date Time Temp Pulse Resp B/P (MAP) Pulse Ox O2 Delivery O2 Flow Rate FiO2 09/26/17 16:00 98.0 87 18 146/81 (102) 96 09/26/17 12:00 97.8 86 17 157/77 (103) 95 09/26/17 08:00 96.5 83 16 135/72 (93) 96 09/26/17 04:21 82 09/26/17 04:00 95.4 99 18 157/87 (110) 95 09/26/17 00:11 91 09/26/17 00:00 98.4 95 18 152/76 (101) 93 09/25/17 20:09 84 09/25/17 20:00 99.4 94 18 154/84 (107) 96 Intake & Output 09/26/17 09/26/17 07:00 19:00 Intake Total 0 ml Output Total 1150 ml Balance -1150 ml Intake Oral 0 ml Output Urine Total 300 ml Gastric Drainage Total 850 ml # Bowel Movements 0 Physical Exam CONSTITUTIONAL/GENERAL: This is an emaciated patient, in mild abdominal distress. Obvious temporal muscle wasting TUBES/LINES/DRAINS: PIV SKIN: No jaundice, rashes, or lesions. Ecchymoses on upper extremities. No wounds seen anteriorly. Skin temperature appropriate. Not diaphoretic. HEAD: Atraumatic. Normocephalic. EYES: Pupils equal and round and reactive. Extraocular motions intact. No scleral icterus. No injection or drainage. Fundi not examined. ENT: Hearing grossly normal. Nose without bleeding or purulent drainage. c/o dry mouth- Currently NPO NECK: Trachea midline. Supple, nontender. CARDIOVASCULAR: Regular rate and rhythm without murmurs, gallops, or rubs. No JVD. Peripheral pulses symmetric. RESPIRATORY/CHEST: Symmetric, unlabored respirations. Clear to auscultation. Breath sounds equal bilaterally. No wheezes, rales, or rhonchi. GASTROINTESTINAL: Abdomen soft, non-tender, nondistended. c/o tenderness to palpation. Intermittent BS. GENITOURINARY: Without palpable bladder distension. MUSCULOSKELETAL: Extremities without clubbing, cyanosis, or edema. No joint tenderness or effusion noted. No calf tenderness. No mottling or clubbing. NEUROLOGICAL: Awake and lethargic, oriented to self, place and situation. Motor and sensory grossly within normal limits. Follows commands. Moves all extremities. PSYCHIATRIC: No obvious anxiety/depression. no apparent hallucinations or other psychotic thought process. Diagnostic Tests Laboratory Laboratory Tests Test 09/24/17 21:26 09/24/17 23:05 09/25/17 01:45 1/10/18 07:46 White Blood Count 13.8 TH/MM3 (4.0-11.0) Red Blood Count 5.22 MIL/MM3 (4.50-5.90) Hemoglobin 16.2 GM/DL (13.0-17.0) Hematocrit 48.2 % (39.0-51.0) Mean Corpuscular Volume 92.2 FL (80.0-100.0) Mean Corpuscular Hemoglobin 31.0 PG (27.0-34.0) Mean Corpuscular Hemoglobin Concent 33.6 % (32.0-36.0) Red Cell Distribution Width 15.2 % (11.6-17.2) Platelet Count 451 TH/MM3 (150-450) Mean Platelet Volume 8.6 FL (7.0-11.0) Neutrophils (%) (Auto) 80.6 % (16.0-70.0) Lymphocytes (%) (Auto) 10.6 % (9.0-44.0) Monocytes (%) (Auto) 8.4 % (0.0-8.0) Eosinophils (%) (Auto) 0.1 % (0.0-4.0) Basophils (%) (Auto) 0.3 % (0.0-2.0) Neutrophils # (Auto) 11.1 TH/MM3 (1.8-7.7) Lymphocytes # (Auto) 1.5 TH/MM3 (1.0-4.8) Monocytes # (Auto) 1.2 TH/MM3 (0-0.9) Eosinophils # (Auto) 0.0 TH/MM3 (0-0.4) Basophils # (Auto) 0.0 TH/MM3 (0-0.2) CBC Comment DIFF FINAL Differential Comment Blood Urea Nitrogen 21 MG/DL (7-18) 24 MG/DL (7-18) Creatinine 1.27 MG/DL (0.60-1.30) 0.77 MG/DL (0.60-1.30) Random Glucose 118 MG/DL (74-106) 98 MG/DL (74-106) Total Protein 9.7 GM/DL (6.4-8.2) Albumin 3.5 GM/DL (3.4-5.0) Calcium Level 9.3 MG/DL (8.5-10.1) 8.8 MG/DL (8.5-10.1) Alkaline Phosphatase 179 U/L (45-117) Aspartate Amino Transf (AST/SGOT) 27 U/L (15-37) Alanine Aminotransferase (ALT/SGPT) 30 U/L (12-78) Total Bilirubin 1.0 MG/DL (0.2-1.0) Sodium Level 134 MEQ/L (136-145) 140 MEQ/L (136-145) Potassium Level 3.6 MEQ/L (3.5-5.1) 3.7 MEQ/L (3.5-5.1) Chloride Level 100 MEQ/L (98-107) 104 MEQ/L (98-107) Carbon Dioxide Level 28.5 MEQ/L (21.0-32.0) 28.2 MEQ/L (21.0-32.0) Anion Gap 6 MEQ/L (5-15) 8 MEQ/L (5-15) Estimat Glomerular Filtration Rate 68 ML/MIN (>89) 122 ML/MIN (>89) Ferritin 118 NG/ML (26-388) Lipase 66 U/L (73-393) Vitamin B12 Level 773 PG/ML (193-986) Prothrombin Time 11.0 SEC (9.8-11.6) Prothromb Time International Ratio 1.1 RATIO Activated Partial Thromboplast Time 26.5 SEC (24.3-30.1) Lactic Acid Level 2.1 mmol/L (0.4-2.0) 1.3 mmol/L (0.4-2.0) Magnesium Level 2.2 MG/DL (1.5-2.5) Test 09/26/17 07:47 White Blood Count 11.0 TH/MM3 (4.0-11.0) Red Blood Count 4.86 MIL/MM3 (4.50-5.90) Hemoglobin 14.9 GM/DL (13.0-17.0) Hematocrit 44.8 % (39.0-51.0) Mean Corpuscular Volume 92.3 FL (80.0-100.0) Mean Corpuscular Hemoglobin 30.8 PG (27.0-34.0) Mean Corpuscular Hemoglobin Concent 33.3 % (32.0-36.0) Red Cell Distribution Width 15.0 % (11.6-17.2) Platelet Count 377 TH/MM3 (150-450) Mean Platelet Volume 8.9 FL (7.0-11.0) Neutrophils (%) (Auto) 77.6 % (16.0-70.0) Lymphocytes (%) (Auto) 7.5 % (9.0-44.0) Monocytes (%) (Auto) 14.6 % (0.0-8.0) Eosinophils (%) (Auto) 0.0 % (0.0-4.0) Basophils (%) (Auto) 0.3 % (0.0-2.0) Neutrophils # (Auto) 8.5 TH/MM3 (1.8-7.7) Lymphocytes # (Auto) 0.8 TH/MM3 (1.0-4.8) Monocytes # (Auto) 1.6 TH/MM3 (0-0.9) Eosinophils # (Auto) 0.0 TH/MM3 (0-0.4) Basophils # (Auto) 0.0 TH/MM3 (0-0.2) CBC Comment DIFF FINAL Differential Comment Result Diagram: 09/26/17 0747 09/26/17 0746 Assessment and Plan Disease Oriented Problem List: (1) Small bowel obstruction (2) Gastric adenocarcinoma (3) HIV (human immunodeficiency virus infection) (4) Dehydration (5) Anemia Symptom Scale: (1) Pain Comment: Multifactorial. Hx of gastric cancer. Patient came in complaining of sharp abdominal pain. . (2) Nausea & vomiting 0-10 Scale: Unable to quantify Comment: Multifactorial. History of gastric cancer stage II a noted to be poorly differentiated s/p total gastrectomy en block pancreas resection. Patient came in complaining of nausea and vomiting. Abdomen/pelvis CT 09/24/17 revealed distal small bowel obstruction. . Pertinent Non-Medical Issues Psychosocial:Patient was born and raised in [place]. He then moved to [place] in 1966 where he completed high school and then joined and served in the [employer]. Patient was never . He has a daughter Kal Kohli who lives in [place] and a son Corrine Benitez. Patient served in the [employer]. 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 Patient then moved to [place] in 1979 and he worked for the [employer] in [employer] department until he retired Spiritual:Patient is a Protestant. Goes to [employer]. Open to human resources benefits coordinator visit. Legal:Patient completed HCS form today. Ethical issues impacting care: None identified at this time. . Important Contacts HCS-Daughter- Kal Kohli [phone] Alternate [facility] Sister- Lina Stephen [phone] Son- Corrine Benitez Friend he rents room from -Candice GonzalezNonytns-[phone] . Prognosis Mr. Kohli is a 67 years old male with a past medical history of gastric cancer stage II a noted to be poorly differentiated s/p total gastrectomy en block pancreas resection, gastritis, HIV on HAART medication, hepatitis C, anemia, COPD/emphysema, and chronic pain. Patient was diagnosed with poorly differentiated adenocarcinoma that was excised at time of diagnosis in March of 2017. Patient presented to the ER on 09/24/2017 complaining of sharp abdominal pain that began 2 days ago and nausea and vomiting. Abdomen/pelvis CT revealed distal small bowel obstruction. Given multiple ongoing comorbidities, patient remains at risk for further complications, deterioration and decline leading to . . Code Status: Full Code Plan PLAN: Legal decision maker: Patient is able to participate in making his own medical decisions. In the event that patient is incapacitated his daughter Kal Kohli will serve as his healthcare surrogate and his sister Lina Stephen is the alternate HCS. Goals: Aggressive CODE STATUS: Full Code SYMPTOMS: * Pain:Multifactorial. Hx of gastric cancer. Patient came in complaining of sharp abdominal pain.Abdomen/pelvis CT revealed distal small bowel obstruction. NGT inserted and is to LIWS. Patient verbalized some pain relief after NGT placement. Morphine Sulfate 2 mg Q 3hours prn available. Patient endorsing abdominal pain. Reports pain subsides when he gets morphine. Patient has received 8 prn morphine sulfate 2 mg IVP doses in the past 24 hours. No recommendations at this time. * Nausea/vomiting:Multifactorial. History of gastric cancer stage II a noted to be poorly differentiated s/p total gastrectomy en block pancreas resection. Patient came in complaining of nausea and vomiting. Abdomen/pelvis CT 09/24/17 revealed distal small bowel obstruction. Patient received 1 dose of Zofran in ER. NGT to LIWS. Currently denies nausea. Recommending prn Zofran for Nausea. Palliative care will continue to follow the patient during hospital course as condition evolves, to assist patient/decision-maker with understanding of their medical conditions, weighing benefits/burdens of treatment options, for clarification of goals of treatment. Additionally will assist with any symptoms of palliative concern Attestation To help prompt me to consider important information that might be impacting today's encounter and assessment, information from prior notes written by myself or my colleagues may have been "brought forward" into today's note. My signature on this note, however, is an attestation that I personally performed the exam, history, and/or decision-making noted today, and, unless otherwise indicated, the interactions with patient, family, and staff as well as the review of records all occurred today. I also attest that the listed assessment and stated plan reflect my best clinical judgment today based on the combination of historical information, prior notes, and today's exam/ interactions. When time spent is documented, it refers only to time spent today by the signer, or if indicated, combined time spent today by collaborating physician/nurse practitioner. Hiram Yang Sep 26, 2017 17:22
[2017-09-26] MEDS ORDERED: chlorproMAZINE HCL 10 MG TAB PO PRN (20:00)
[2017-09-27] VITALS: BP 147/71; PULSE 83; PULSE 97; RESP 17; TEMP 96.4; O2SAT 96
[2017-09-27] MEDS: MORPHINE SULFATE 2 MG/ML INJ IV PUSH PRN ×6 (02:28→17:55)
[2017-09-27 04:32] VITALS: BP 142/70; PULSE 89; RESP 18; TEMP 98.2; O2SAT 96
[2017-09-27] MEDS: SODIUM CHLOR 0.9% 1000 ML INJ 1,000 ML IV SCH ×5 (05:34→22:00)
[2017-09-27 08:00] VITALS: BP 143/73; PULSE 82; PULSE 85; RESP 17; TEMP 97.6; O2SAT 92
[2017-09-27] MEDS: ENOXAPARIN SODIUM 40 MG/0.4 ML SYRINGE SQ SCH (08:58)
[2017-09-27] MEDS: SODIUM CHLORIDE 0.9% FLUSH 10 ML FLUSH IV FLUSH SCH ×2 (08:58→21:00)
[2017-09-27] MEDS ORDERED: DIATRIZOATE MEGLUM/DIATRIZOATE SOD 120 ML BTL (for RAD DIAG) NG ONE (11:04)
[2017-09-27] MEDS: PANTOPRAZOLE SODIUM 40 MG VIAL IV PUSH SCH (11:05)
[2017-09-27] MEDS: ONDANSETRON HCL 4 MG/2 ML VIAL IV PUSH PRN ×2 (11:05→17:06)
--- NOTE | 2017-09-27 11:09 | HHI.PR ---
Subjective Remarks Nausea and vomiting today after swallowing barium for small bowel follow- through study. No other complaints. No blood in emesis. Objective Vital Signs Date Time Temp Pulse Resp B/P (MAP) Pulse Ox O2 Delivery O2 Flow Rate FiO2 09/27/17 08:00 97.6 82 17 143/73 (96) 92 09/27/17 04:32 98.2 89 18 142/70 (94) 96 09/27/17 00:00 96.4 83 17 147/71 (96) 96 09/27/17 00:00 97 09/26/17 20:00 89 09/26/17 20:00 98.9 89 17 153/76 (101) 97 09/26/17 16:00 98.0 87 18 146/81 (102) 96 09/26/17 12:00 97.8 86 17 157/77 (103) 95 I/O 09/26/17 09/26/17 09/26/17 09/27/17 09/27/17 09/27/17 07:00 15:00 23:00 07:00 15:00 23:00 Intake Total 0 ml 900 ml Output Total 1150 ml 450 ml 900 ml Balance -1150 ml 450 ml -900 ml Intake Oral 0 ml 0 ml IV Total 900 ml Output Urine Total 300 ml 450 ml 700 ml Gastric Drainage Total 850 ml 200 ml # Bowel Movements 0 0 Result Diagram: 09/26/17 0747 09/26/17 0746 Objective Remarks GENERAL: NAD, A&Ox3, NG tube present HEAD: Normocephalic. NECK: Supple, trachea midline. No lymphadenopathy. EYES: No scleral icterus. No injection or drainage. CARDIOVASCULAR: Regular rate and rhythm without murmurs, gallops, or rubs. RESPIRATORY: Breath sounds equal bilaterally. No accessory muscle use. GASTROINTESTINAL: Abdomen soft, non-tender, nondistended. MUSCULOSKELETAL: No cyanosis, or edema. SKIN: Warm and dry. NEURO: No focal neurological deficitis. A/P Problem List: (1) HIV (human immunodeficiency virus infection) ICD Code: Z21 - Asymptomatic human immunodeficiency virus [HIV] infection status Status: Chronic (2) Anemia ICD Code: D64.9 - Anemia, unspecified Status: Acute (3) Gastric adenocarcinoma ICD Code: C16.9 - Malignant neoplasm of stomach, unspecified Status: Acute (4) Nausea & vomiting ICD Code: R11.2 - Nausea with vomiting, unspecified (5) Small bowel obstruction ICD Code: K56.609 - Unspecified intestinal obstruction, unspecified as to partial versus complete obstruction Status: Acute (6) Dehydration ICD Code: E86.0 - Dehydration Status: Acute (7) Pain ICD Code: R52 - Pain, unspecified Assessment and Plan 67 y/o male admitted with small bowel obstruction. Continue as needed Zofran for nausea and vomiting. Small bowel follow-through study pending. Labs reviewed. No electrolyte disturbance thus far. Monitor labs closely. Electrolyte disturbance. Labs ordered for further monitoring. 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
[2017-09-27 12:00] VITALS: BP 154/77; PULSE 72; PULSE 82; RESP 17; TEMP 98.3; O2SAT 94
[2017-09-27 15:41] LABS: AUTOMATED NEUTROPHIL # 8.1 TH/MM3 (1.8-7.7); BASOPHIL % 0.3 % (0.0-2.0); EOSINOPHIL % 0.2 % (0.0-4.0); HEMATOCRIT 43.7 % (39.0-51.0); HEMOGLOBIN 14.4 GM/DL (13.0-17.0); LYMPH % 10.2 % (9.0-44.0); MEAN CELL VOLUME 91.1 FL (80.0-100.0); MEAN CORPUSCULAR HEMOGLOBIN 30.1 PG (27.0-34.0); MEAN PLATELET VOLUME 8.4 FL (7.0-11.0); MONO % 10.3 % (0.0-8.0); PLATELET COUNT 384 TH/MM3 (150-450); RED CELL DISTRIBUTION WIDTH 14.6 % (11.6-17.2); WHITE BLOOD COUNT 10.2 TH/MM3 (4.0-11.0)
--- NOTE | 2017-09-27 15:42 | HHI.HCPN ---
Reason for visit a. To assist with evaluation and management of symptoms including:Pain, Nausea/Vomiting b. To assist medical decision maker(s) with: better understanding of current medical conditions; weighing benefits/burdens of medical treatment options; making medical treatment decisions. Subjective/Interval History Mr. Kohli is a 67 years old male with a past medical history of gastric cancer stage II a noted to be poorly differentiated s/p total gastrectomy en block pancreas resection, gastritis, HIV on HAART medication, hepatitis C, anemia, COPD/emphysema, and chronic pain. Patient was diagnosed with poorly differentiated adenocarcinoma that was excised at time of diagnosis in March of 2017. Patient has not followed up with oncologist since of last year. Patient presented to the ER on 09/24/2017 complaining of sharp abdominal pain that began 2 days ago and nausea and vomiting. Patient reported that pain is worsened by swallowing or eating anything. Patient seen and examined in his room. Patient is awake, lethargic, oriented to self, place and situation. Patient had nausea and vomiting today. NGT clamped for Small Bowel Follow-through study today. Zofran 4mg Q 6 hrs prn N/V ordered, patient has received one dose. Patient endorsing pain to right lateral abdominal side. Currently rating pain as 8/10. Patient states that ever since he had shingles to his left side, he always has pain to that side. Vital signs stable. Lab results for today pending. . Family/friend interactions No family at bedside. . Advance Directives Living Will: Never completed Health Care Surrogate: Copy in medical record Durable Power of Assembly Line Driver: Never completed Advance Directive Specifics Date completed: 09/25/2017 . Health Care Surrogate(s): Healthcare surrogate -Daughter- Kal Kohli [phone] Alternate healthcare surrogate- sister-Lina Stephen- [phone] . Objective Vital Signs Date Time Temp Pulse Resp B/P (MAP) Pulse Ox O2 Delivery O2 Flow Rate FiO2 09/27/17 12:00 98.3 82 17 154/77 (102) 94 09/27/17 08:00 97.6 82 17 143/73 (96) 92 09/27/17 04:32 98.2 89 18 142/70 (94) 96 09/27/17 00:00 96.4 83 17 147/71 (96) 96 09/27/17 00:00 97 09/26/17 20:00 89 09/26/17 20:00 98.9 89 17 153/76 (101) 97 09/26/17 16:00 98.0 87 18 146/81 (102) 96 Intake & Output 09/27/17 09/27/17 07:00 19:00 Intake Total 900 ml Output Total 900 ml Balance 0 ml IV Total 900 ml Output Urine Total 700 ml Gastric Drainage Total 200 ml Physical Exam CONSTITUTIONAL/GENERAL: This is an emaciated patient, in mild abdominal distress. Obvious temporal muscle wasting TUBES/LINES/DRAINS: PIV SKIN: No jaundice, rashes, or lesions. Ecchymoses on upper extremities. No wounds seen anteriorly. Skin temperature appropriate. Not diaphoretic. HEAD: Atraumatic. Normocephalic. EYES: Pupils equal and round and reactive. Extraocular motions intact. No scleral icterus. No injection or drainage. Fundi not examined. ENT: Hearing grossly normal. Nose without bleeding or purulent drainage. c/o dry mouth- Currently NPO NECK: Trachea midline. Supple, nontender. CARDIOVASCULAR: Regular rate and rhythm without murmurs, gallops, or rubs. No JVD. Peripheral pulses symmetric. RESPIRATORY/CHEST: Symmetric, unlabored respirations. Clear to auscultation. Breath sounds equal bilaterally. No wheezes, rales, or rhonchi. GASTROINTESTINAL: Abdomen soft, non-tender, nondistended. c/o tenderness to palpation. Intermittent BS. GENITOURINARY: Without palpable bladder distension. MUSCULOSKELETAL: Extremities without clubbing, cyanosis, or edema. No joint tenderness or effusion noted. No calf tenderness. No mottling or clubbing. NEUROLOGICAL: Awake and lethargic, oriented to self, place and situation. Motor and sensory grossly within normal limits. Follows commands. Moves all extremities. PSYCHIATRIC: No obvious anxiety/depression. no apparent hallucinations or other psychotic thought process. Diagnostic Tests Laboratory Laboratory Tests Test 09/24/17 21:26 09/24/17 23:05 09/25/17 01:45 09/26/17 07:46 White Blood Count 13.8 TH/MM3 (4.0-11.0) Red Blood Count 5.22 MIL/MM3 (4.50-5.90) Hemoglobin 16.2 GM/DL (13.0-17.0) Hematocrit 48.2 % (39.0-51.0) Mean Corpuscular Volume 92.2 FL (80.0-100.0) Mean Corpuscular Hemoglobin 31.0 PG (27.0-34.0) Mean Corpuscular Hemoglobin Concent 33.6 % (32.0-36.0) Red Cell Distribution Width 15.2 % (11.6-17.2) Platelet Count 451 TH/MM3 (150-450) Mean Platelet Volume 8.6 FL (7.0-11.0) Neutrophils (%) (Auto) 80.6 % (16.0-70.0) Lymphocytes (%) (Auto) 10.6 % (9.0-44.0) Monocytes (%) (Auto) 8.4 % (0.0-8.0) Eosinophils (%) (Auto) 0.1 % (0.0-4.0) Basophils (%) (Auto) 0.3 % (0.0-2.0) Neutrophils # (Auto) 11.1 TH/MM3 (1.8-7.7) Lymphocytes # (Auto) 1.5 TH/MM3 (1.0-4.8) Monocytes # (Auto) 1.2 TH/MM3 (0-0.9) Eosinophils # (Auto) 0.0 TH/MM3 (0-0.4) Basophils # (Auto) 0.0 TH/MM3 (0-0.2) CBC Comment DIFF FINAL Differential Comment Blood Urea Nitrogen 21 MG/DL (7-18) 24 MG/DL (7-18) Creatinine 1.27 MG/DL (0.60-1.30) 0.77 MG/DL (0.60-1.30) Random Glucose 118 MG/DL (74-106) 98 MG/DL (74-106) Total Protein 9.7 GM/DL (6.4-8.2) Albumin 3.5 GM/DL (3.4-5.0) Calcium Level 9.3 MG/DL (8.5-10.1) 8.8 MG/DL (8.5-10.1) Alkaline Phosphatase 179 U/L (45-117) Aspartate Amino Transf (AST/SGOT) 27 U/L (15-37) Alanine Aminotransferase (ALT/SGPT) 30 U/L (12-78) Total Bilirubin 1.0 MG/DL (0.2-1.0) Sodium Level 134 MEQ/L (136-145) 140 MEQ/L (136-145) Potassium Level 3.6 MEQ/L (3.5-5.1) 3.7 MEQ/L (3.5-5.1) Chloride Level 100 MEQ/L (98-107) 104 MEQ/L (98-107) Carbon Dioxide Level 28.5 MEQ/L (21.0-32.0) 28.2 MEQ/L (21.0-32.0) Anion Gap 6 MEQ/L (5-15) 8 MEQ/L (5-15) Estimat Glomerular Filtration Rate 68 ML/MIN (>89) 122 ML/MIN (>89) Ferritin 118 NG/ML (26-388) Lipase 66 U/L (73-393) Vitamin B12 Level 773 PG/ML (193-986) Prothrombin Time 11.0 SEC (9.8-11.6) Prothromb Time International Ratio 1.1 RATIO Activated Partial Thromboplast Time 26.5 SEC (24.3-30.1) Lactic Acid Level 2.1 mmol/L (0.4-2.0) 1.3 mmol/L (0.4-2.0) Magnesium Level 2.2 MG/DL (1.5-2.5) Test 09/26/17 07:47 09/27/17 13:44 White Blood Count 11.0 TH/MM3 (4.0-11.0) Red Blood Count 4.86 MIL/MM3 (4.50-5.90) Hemoglobin 14.9 GM/DL (13.0-17.0) Hematocrit 44.8 % (39.0-51.0) Mean Corpuscular Volume 92.3 FL (80.0-100.0) Mean Corpuscular Hemoglobin 30.8 PG (27.0-34.0) Mean Corpuscular Hemoglobin Concent 33.3 % (32.0-36.0) Red Cell Distribution Width 15.0 % (11.6-17.2) Platelet Count 377 TH/MM3 (150-450) Mean Platelet Volume 8.9 FL (7.0-11.0) Neutrophils (%) (Auto) 77.6 % (16.0-70.0) Lymphocytes (%) (Auto) 7.5 % (9.0-44.0) Monocytes (%) (Auto) 14.6 % (0.0-8.0) Eosinophils (%) (Auto) 0.0 % (0.0-4.0) Basophils (%) (Auto) 0.3 % (0.0-2.0) Neutrophils # (Auto) 8.5 TH/MM3 (1.8-7.7) Lymphocytes # (Auto) 0.8 TH/MM3 (1.0-4.8) Monocytes # (Auto) 1.6 TH/MM3 (0-0.9) Eosinophils # (Auto) 0.0 TH/MM3 (0-0.4) Basophils # (Auto) 0.0 TH/MM3 (0-0.2) CBC Comment DIFF FINAL Differential Comment Result Diagram: 09/26/17 0747 09/26/17 0746 Assessment and Plan Disease Oriented Problem List: (1) Small bowel obstruction (2) Gastric adenocarcinoma (3) HIV (human immunodeficiency virus infection) (4) Dehydration (5) Anemia Symptom Scale: (1) Pain Comment: Multifactorial. Hx of gastric cancer. Patient came in complaining of sharp abdominal pain. . (2) Nausea & vomiting 0-10 Scale: Unable to quantify Comment: Multifactorial. History of gastric cancer stage II a noted to be poorly differentiated s/p total gastrectomy en block pancreas resection. Patient came in complaining of nausea and vomiting. Abdomen/pelvis CT 09/24/17 revealed distal small bowel obstruction. . Pertinent Non-Medical Issues Psychosocial:Patient was born and raised in [place]. He then moved to [place] in 1966 where he completed high school and then joined and served in the [employer]. Patient was never . He has a daughter Kal Kohli who lives in [place] and a son Corrine Benitez. Patient served in the [employer]. 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 Patient then moved to [place] in 1979 and he worked for the [employer] in [employer] and [employer] department until he retired Spiritual:Patient is a Anglican. Goes to [employer]. Open to nibbler operator visit. Legal:Patient completed HCS form today. Ethical issues impacting care: None identified at this time. . Important Contacts HCS-Daughter- Kal [phone] Alternate [facility] Sister- Lina Stephen [phone] Son- Corrine Benitez Friend he rents room from -Candice GonzalezZdgfhsj-[phone] . Prognosis Mr. Kohli is a 67 years old male with a past medical history of gastric cancer stage II a noted to be poorly differentiated s/p total gastrectomy en block pancreas resection, gastritis, HIV on HAART medication, hepatitis C, anemia, COPD/emphysema, and chronic pain. Patient was diagnosed with poorly differentiated adenocarcinoma that was excised at time of diagnosis in March of 2017. Patient presented to the ER on 09/24/2017 complaining of sharp abdominal pain that began 2 days ago and nausea and vomiting. Abdomen/pelvis CT revealed distal small bowel obstruction. Given multiple ongoing comorbidities, patient remains at risk for further complications, deterioration and decline leading to . . Code Status: Full Code Plan PLAN: Legal decision maker: Patient is able to participate in making his own medical decisions. In the event that patient is incapacitated his daughter Kal Kohli will serve as his healthcare surrogate and his sister Lina Stephen is the alternate HCS. Goals: Aggressive CODE STATUS: Full Code SYMPTOMS: * Pain:Multifactorial. Hx of gastric cancer. History of shingles per patient. Patient came in complaining of sharp abdominal pain.Abdomen/pelvis CT revealed distal small bowel obstruction. NGT inserted and is to LIWS. Patient verbalized some pain relief after NGT placement. Morphine Sulfate 2 mg Q 3hours prn available. Patient endorsing postherpetic neuralgia. Reports pain subsides when he gets morphine. Patient has received 8 prn morphine sulfate 2 mg IVP doses in the past 24 hours. No bowel movement since admission. * Nausea/vomiting:Multifactorial. History of gastric cancer stage II a noted to be poorly differentiated s/p total gastrectomy en block pancreas resection. Patient came in complaining of nausea and vomiting. Abdomen/pelvis CT 09/24/17 revealed distal small bowel obstruction. Patient received 1 dose of Zofran in ER. NGT to LIWS. Patient had nausea and vomiting today. NGT clamped for Small Bowel Follow-through study today. Zofran 4mg Q 6 hrs prn N/V ordered, patient has received one dose. No recommendations. Palliative care will continue to follow the patient during hospital course as condition evolves, to assist patient/decision-maker with understanding of their medical conditions, weighing benefits/burdens of treatment options, for clarification of goals of treatment. Additionally will assist with any symptoms of palliative concern Attestation To help prompt me to consider important information that might be impacting today's encounter and assessment, information from prior notes written by myself or my colleagues may have been "brought forward" into today's note. My signature on this note, however, is an attestation that I personally performed the exam, history, and/or decision-making noted today, and, unless otherwise indicated, the interactions with patient, family, and staff as well as the review of records all occurred today. I also attest that the listed assessment and stated plan reflect my best clinical judgment today based on the combination of historical information, prior notes, and today's exam/ interactions. When time spent is documented, it refers only to time spent today by the signer, or if indicated, combined time spent today by collaborating physician/nurse practitioner. Hiram Yang Sep 27, 2017 15:42
[2017-09-27 15:53] LABS: ALBUMIN 2.7 GM/DL (3.4-5.0); ALKALINE PHOSPHATASE 109 U/L (45-117); ALT (GPT) 24 U/L (12-78); AST (GOT) 25 U/L (15-37); BICARBONATE 27.5 MEQ/L (21.0-32.0); BLOOD UREA NITROGEN 25 MG/DL (7-18); CALCIUM 8.4 MG/DL (8.5-10.1); CHLORIDE 106 MEQ/L (98-107); CREATININE 0.62 MG/DL (0.60-1.30); GLOMERULAR FILTRATION RATE 156 ML/MIN (>89); GLUCOSE,RANDOM 83 MG/DL (74-106); SODIUM (NA) 141 MEQ/L (136-145); TOTAL BILIRUBIN ADULT 0.3 MG/DL (0.2-1.0); TOTAL PROTEIN 7.3 GM/DL (6.4-8.2)
[2017-09-27 16:00] VITALS: BP 155/88; PULSE 84; RESP 17; TEMP 97.5; O2SAT 96
--- NOTE | 2017-09-27 16:49 | HHI.PR ---
cc: Boy Hernandez MD Subjective Subjective Notes Resting in bed Uncomfortable abdominal pain Objective Vitals/I&O Vital Signs Date Time Temp Pulse Resp B/P (MAP) Pulse Ox O2 Delivery O2 Flow Rate FiO2 09/27/17 16:00 97.5 84 17 155/88 (110) 96 09/25/17 10:59 Room Air 99 Labs Laboratory Tests Test 09/27/17 13:44 White Blood Count 10.2 Red Blood Count 4.80 Hemoglobin 14.4 Hematocrit 43.7 Mean Corpuscular Volume 91.1 Mean Corpuscular Hemoglobin 30.1 Mean Corpuscular Hemoglobin Concent 33.0 Red Cell Distribution Width 14.6 Platelet Count 384 Mean Platelet Volume 8.4 Neutrophils (%) (Auto) 79.0 Lymphocytes (%) (Auto) 10.2 Monocytes (%) (Auto) 10.3 Eosinophils (%) (Auto) 0.2 Basophils (%) (Auto) 0.3 Neutrophils # (Auto) 8.1 Lymphocytes # (Auto) 1.0 Monocytes # (Auto) 1.0 Eosinophils # (Auto) 0.0 Basophils # (Auto) 0.0 CBC Comment DIFF FINAL Differential Comment Blood Urea Nitrogen 25 Creatinine 0.62 Random Glucose 83 Total Protein 7.3 Albumin 2.7 Calcium Level 8.4 Alkaline Phosphatase 109 Aspartate Amino Transf (AST/SGOT) 25 Alanine Aminotransferase (ALT/SGPT) 24 Total Bilirubin 0.3 Sodium Level 141 Potassium Level 3.7 Chloride Level 106 Carbon Dioxide Level 27.5 Anion Gap 8 Estimat Glomerular Filtration Rate 156 Radiology Last 48 hours Impressions Chest X-Ray 09/24/172258 Signed Impressions: Service Date/Time: Sunday, September 24, 2017 23:17 - CONCLUSION: 1. No acute cardiopulmonary disease. James Brown MD Abdomen/Pelvis CT [id number]/[id number] Signed Impressions: Service Date/Time: Sunday, September 24, 2017 23:46 - CONCLUSION: 1. Findings of distal small bowel obstruction. James Brown MD Cardiovascular: Regular Lungs: Clear Abdomen: Other (abdomen tender to palpation ) Extremities: No edema Narrative Exam NGT clamped for SBFT A/P Assessment and Plan 67 year old male s/p ex lap and total gastrectomy en block pancreas in December 2016; now with abdominal pain/nausea/vomiting; findings on CT of distal small bowel obstruction -SBFT today -Not tolerating NGT clamped for study -IV Zofran ordered -NPO -Likely needs OR intervention at this point -Obtain consents -Spoke with daughters at bedside Attending Statement The exam, history, and the medical decision-making described in the above note were completed with the assistance of the mid-level provider. I reviewed and agree with the findings presented. I attest that I had a [id number] encounter with the patient on the same day, and personally performed and documented my assessment and findings in the medical record. Abdominal Exam: soft, no rebound tenderness or peritonitis, increased tenderness patient has more pain, more distension, no BM or gas after gastrographin SBFT d/w patient, will need surgery for lysis of adhesions Debra Amin Sep 27, 2017 16:49 Boy Hernandez MD Sep 28, 2017 00:33
[2017-09-27] MEDS ORDERED: SUGAMMADEX SODIUM 200 MG/2 ML VIAL IV PUSH ONE (18:27)
[2017-09-27] MEDS ORDERED: ACETAMINOPHEN 1000 MG/100 ML 100 ML IV ONE (18:27)
[2017-09-27] MEDS ORDERED: ceFAZolin INJ 1,000 MG VIAL IV ONE (19:30)
[2017-09-27] MEDS ORDERED: HYDROmorphone HCL PCA 6 MG/30 ML IV SCH (21:30)
[2017-09-27] MEDS ORDERED: Post-op Orders (for Pharmacy) XX ONE (21:30)
[2017-09-27] MEDS ORDERED: NALOXONE HCL 0.4 MG/ML AMP IV PUSH PRN ×2 (21:30)
[2017-09-27] MEDS: PCA - TOTAL MG DILAUDID DELIVERED PER SHIFT OTHER SCH (22:00)
[2017-09-27] MEDS: metroNIDAZOLE 500 MG INJ 100 ML IV SCH (22:00)
[2017-09-27] MEDS ORDERED: *morphine SULFATE 10 MG/ML PERIprocedure ONLY ONE (22:10)
[2017-09-27] MEDS ORDERED: DO NOT ADM ANY ANTICOAGULANT DRUGS PRN (22:15)
[2017-09-27] MEDS: HYDROmorphone HCL PCA 6 MG/30 ML IV SCH (23:55)
[2017-09-28] VITALS (7 sets, daily range): BP systolic 126–145; BP diastolic 70–80; PULSE 82–100; RESP 15–18; TEMP 97.8–99; O2SAT 95–97
[2017-09-28] MEDS: PCA - TOTAL MG DILAUDID DELIVERED PER SHIFT OTHER SCH ×3 (06:00→23:19)
[2017-09-28] MEDS: SODIUM CHLOR 0.9% 1000 ML INJ 1,000 ML IV SCH ×3 (06:00→23:17)
[2017-09-28 06:11] LABS: BASOPHIL % 0.1 % (0.0-2.0); HEMATOCRIT 42.3 % (39.0-51.0); HEMOGLOBIN 13.9 GM/DL (13.0-17.0); LYMPH % 3.7 % (9.0-44.0); LYMPHOCYTE # 0.6 TH/MM3 (1.0-4.8); MEAN CELL VOLUME 91.5 FL (80.0-100.0); MEAN CORPUSCULAR HGB CONC 32.7 % (32.0-36.0); MEAN PLATELET VOLUME 8.1 FL (7.0-11.0); MONO % 3.3 % (0.0-8.0); MONOCYTE # 0.5 TH/MM3 (0-0.9); NEUT % 92.9 % (16.0-70.0); PLATELET COUNT 335 TH/MM3 (150-450); RED BLOOD COUNT 4.62 MIL/MM3 (4.50-5.90); RED CELL DISTRIBUTION WIDTH 14.8 % (11.6-17.2); WHITE BLOOD COUNT 16.2 TH/MM3 (4.0-11.0)
[2017-09-28] MEDS: metroNIDAZOLE 500 MG INJ 100 ML IV SCH ×2 (06:26→13:21)
[2017-09-28 06:39] LABS: ALBUMIN 2.1 GM/DL (3.4-5.0); BICARBONATE 25.7 MEQ/L (21.0-32.0); CALCIUM 7.4 MG/DL (8.5-10.1); CALCIUM-PROTEIN CORRECTED 8.2 MG/DL (8.5-10.1); CREATININE 0.7 MG/DL (0.60-1.30); TOTAL BILIRUBIN ADULT 0.4 MG/DL (0.2-1.0); TOTAL PROTEIN 5.6 GM/DL (6.4-8.2)
[2017-09-28 08:57] LABS: BANDS 31 % (0-6); LYMPHOCYTES 6 % (9-44); MONOCYTES 6 % (0-8); MYELOCYTES 2 % (0-0); NEUTROPHIL # MANUAL DIFF 14.3 TH/MM3 (1.8-7.7); POLYS (SEG NEUTROPHILS) 55 % (16-70)
[2017-09-28 08:59] LABS: TOXIC GRANULATION 1+ (NORMAL)
[2017-09-28] MEDS: SODIUM CHLORIDE 0.9% FLUSH 10 ML FLUSH IV FLUSH SCH ×2 (09:00→23:20)
--- NOTE | 2017-09-28 11:01 | RADRPT ---
EXAM DATE/TIME: 09/27/2017 09:21 [facility] COMPARISON: CT ABDOMEN & PELVIS W CONTRAST, September 24, 2017, 23:46. INDICATIONS : Abdominal pain, nausea. Evaluate for small bowel obstruction. FLUORO TIME: 0 minutes IMAGE COUNT: 9 CONTRAST: MD Terrell IMAGING TIME(S): 15 min, 30 min, 1 hr, 2.5 hrs, 4.5 hrs6.5 hrs. MEDICAL HISTORY : Hepatitis C. HIV. Carcinoma, pancreas. Smoker. Carcinoma, stomach. SURGICAL HISTORY : 85% of the stomach has been removed and 75% of the pancreas has been removed. ENCOUNTER: Subsequent ACUITY: 3 days PAIN SCORE: 8/10 LOCATION: Right lower quadrant FINDINGS: Pulmonary property management intern film showed gas distention of the small bowel. Proximal small bowel is dilated to 6 cm. There is no contrast identified in the colon at 4.5 hours. The obstruction was seen to be mid t o distal small bowel. Point of obstruction or etiology etiology is not identified. CONCLUSION: Mid to distal small bowel obstruction. Alex Gregorio MD FACR on September 28, 2017 at 10:57 Board Certified Radiologist. This report was verified electronically.
[2017-09-28] MEDS: PANTOPRAZOLE SODIUM 40 MG VIAL IV PUSH SCH (12:00)
--- NOTE | 2017-09-28 12:33 | PD.ONC.PN ---
Subjective Subjective Remarks Afebrile overnight. Patient underwent laparotomy last night. Operative note still pending. He is comfortable and states pain is controlled with pain pump. He would like to be able to drink something as his mouth feels dry. Objective Data Date Time Temp Pulse Resp B/P (MAP) Pulse Ox O2 Delivery O2 Flow Rate FiO2 09/28/17 08:00 98.0 100 16 132/75 (94) 97 09/28/17 06:00 16 09/28/17 04:00 97.8 100 18 145/80 (101) 97 09/28/17 01:30 98.2 95 18 126/76 (93) 96 09/28/17 01:15 98.1 95 12 119/63 (81) 100 Nasal Cannula 2 09/28/17 01:00 94 15 128/75 (92) 100 Nasal Cannula 2 09/28/17 00:45 96 15 129/71 (90) 100 Nasal Cannula 2 09/28/17 00:30 96 12 137/69 (91) 100 Nasal Cannula 2 09/28/17 00:15 104 18 134/76 (95) 100 Nasal Cannula 2 09/28/17 00:00 101 15 134/81 (98) 99 Nasal Cannula 2 09/27/17 23:55 20 09/27/17 23:45 105 13 151/82 (105) 100 Nasal Cannula 2 09/27/17 23:30 101 14 155/84 (107) 100 Nasal Cannula 2 09/27/17 23:15 107 15 164/83 (110) 100 Nasal Cannula 2 09/27/17 23:00 105 15 169/86 (113) 100 Nasal Cannula 2 09/27/17 22:45 104 15 157/90 (112) 100 Nasal Cannula 2 09/27/17 22:30 108 19 154/85 (108) 100 Simple Mask 15 09/27/17 22:15 107 23 177/94 (121) 100 Simple Mask 15 09/27/17 22:00 108 16 175/95 (121) 100 Simple Mask 15 09/27/17 21:45 93 16 173/97 (122) 100 Simple Mask 15 09/27/17 21:43 121 18 185/146 (159) 100 Simple Mask 15 09/27/17 21:40 98.0 121 23 167/139 (148) Simple Mask 15 09/27/17 16:00 97.5 84 17 155/88 (110) 96 09/28/17 09/28/17 09/28/17 07:00 15:00 23:00 Intake Total 0 ml Output Total 500 ml Balance -500 ml Result Diagram: 09/28/17 0514 09/28/17 0514 Laboratory Results Laboratory Tests Test 09/27/17 13:44 09/28/17 05:14 White Blood Count 10.2 TH/MM3 16.2 TH/MM3 Red Blood Count 4.80 MIL/MM3 4.62 MIL/MM3 Hemoglobin 14.4 GM/DL 13.9 GM/DL Hematocrit 43.7 % 42.3 % Mean Corpuscular Volume 91.1 FL 91.5 FL Mean Corpuscular Hemoglobin 30.1 PG 30.0 PG Mean Corpuscular Hemoglobin Concent 33.0 % 32.7 % Red Cell Distribution Width 14.6 % 14.8 % Platelet Count 384 TH/MM3 335 TH/MM3 Mean Platelet Volume 8.4 FL 8.1 FL Neutrophils (%) (Auto) 79.0 % 92.9 % Lymphocytes (%) (Auto) 10.2 % 3.7 % Monocytes (%) (Auto) 10.3 % 3.3 % Eosinophils (%) (Auto) 0.2 % 0.0 % Basophils (%) (Auto) 0.3 % 0.1 % Neutrophils # (Auto) 8.1 TH/MM3 15.0 TH/MM3 Lymphocytes # (Auto) 1.0 TH/MM3 0.6 TH/MM3 Monocytes # (Auto) 1.0 TH/MM3 0.5 TH/MM3 Eosinophils # (Auto) 0.0 TH/MM3 0.0 TH/MM3 Basophils # (Auto) 0.0 TH/MM3 0.0 TH/MM3 CBC Comment DIFF FINAL AUTO DIFF Differential Comment FINAL DIFF MANUAL Blood Urea Nitrogen 25 MG/DL 22 MG/DL Creatinine 0.62 MG/DL 0.70 MG/DL Random Glucose 83 MG/DL 94 MG/DL Total Protein 7.3 GM/DL 5.6 GM/DL Albumin 2.7 GM/DL 2.1 GM/DL Calcium Level 8.4 MG/DL 7.4 MG/DL Alkaline Phosphatase 109 U/L 74 U/L Aspartate Amino Transf (AST/SGOT) 25 U/L 21 U/L Alanine Aminotransferase (ALT/SGPT) 24 U/L 18 U/L Total Bilirubin 0.3 MG/DL 0.4 MG/DL Sodium Level 141 MEQ/L 142 MEQ/L Potassium Level 3.7 MEQ/L 3.6 MEQ/L Chloride Level 106 MEQ/L 107 MEQ/L Carbon Dioxide Level 27.5 MEQ/L 25.7 MEQ/L Anion Gap 8 MEQ/L 9 MEQ/L Estimat Glomerular Filtration Rate 156 ML/MIN 136 ML/MIN Differential Total Cells Counted 100 Neutrophils % (Manual) 55 % Band Neutrophils % 31 % Lymphocytes % 6 % Monocytes % 6 % Neutrophils # (Manual) 14.3 TH/MM3 Myelocytes 2 % Toxic Granulation 1+ Platelet Estimate NORMAL Platelet Morphology Comment ENLARGED Target Cells Falk-[place] Bodies Protein Corrected Calcium 8.2 MG/DL Administered Medications Medications (Trade) Dose Ordered Sig/Sierra Route PRN Reason Start Time Stop Time Status Last Admin Dose Admin Sodium Chloride (NS Flush) 2 ml BID IV FLUSH 09/25/17 09:00 09/28/17 09:00 Morphine Sulfate (Morphine Inj) 2 mg Q3H PRN IV PUSH pain >5 09/25/17 03:45 09/27/17 17:55 Enoxaparin Sodium (Lovenox Inj) 40 mg Q24H SQ 09/25/17 09:00 Future Hold 09/27/17 08:58 Pantoprazole Sodium (Protonix Inj) 40 mg Q24H IV PUSH 09/25/17 12:00 09/27/17 11:05 Chlorpromazine (Thorazine) 10 mg Q8HR PRN PO Hiccups 09/26/17 20:00 09/28/17 19:59 09/26/17 23:20 Ondansetron HCl (Zofran Inj) 4 mg Q6HR PRN IV PUSH nausea 09/27/17 10:45 09/27/17 17:06 Sodium Chloride 1,000 ml @ 125 mls/hr Q8H IV 09/27/17 22:00 09/28/17 06:00 Metronidazole 100 ml @ 200 mls/hr Q8H IV 09/27/17 22:00 09/28/17 14:29 09/28/17 06:26 AIR HOLE DRILLER Dosage Infused (Pha) 1 Q8HR OTHER 09/27/17 22:00 09/28/17 06:00 Hydromorphone HCl (Dilaudid AIR HOLE DRILLER Inj) 6 mg UNSCH IV 09/27/17 23:45 09/27/17 23:55 Cefazolin Sodium 1000 mg/Sodium Chloride 100 ml @ 200 mls/hr Q8H IV 09/28/17 03:00 09/28/17 19:29 09/28/17 11:00 Objective Remarks GENERAL: Middle aged male, lying in bed, in nad. SKIN: Warm and dry. HEAD: Normocephalic. EYES: No injection or drainage. NECK: Supple, trachea midline. CARDIOVASCULAR: tachycardic rate, regular rhythm RESPIRATORY: Breath sounds equal bilaterally. No accessory muscle use. GASTROINTESTINAL: abdomen with midline incision with bandage in place, small amount of dried blood on bandage. abdomen tender throughout. no rigidity EXTREMITIES: No cyanosis, or edema. NEUROLOGICAL: No obvious focal deficit. Awake, alert, and oriented x3. Assessment/Plan Problem List: (1) Gastric adenocarcinoma ICD Codes: C16.9 - Malignant neoplasm of stomach, unspecified Status: Acute Plan: --recommend follow up in clinic once discharged from hospital. --s/p definitive surgery for his gastric cancer. deferred adjuvant therapy. last seen in clinic 04/05/17 for treatment of his iron deficiency, B12 deficiency. --lost to followup. (2) Small bowel obstruction ICD Codes: K56.609 - Unspecified intestinal obstruction, unspecified as to partial versus complete obstruction Status: Acute Plan: --CT ab-->showed distal small bowel obstruction. s/p NGT placement. --surgery following patient is s/p laparotomy on 09/27/17, operative note pending. Assessment 67y/o male with history of gastric cancer admitted with small bowel obstruction. history of HIV disease on HAART therapy, chronic active hepatitis C, presented with iron deficiency, reactive thrombocytosis, heme-positive stools and a gastric cancer. Plan 1. monitor CBC 2. continue pain management. 3. will plan for follow up in clinic once recovered from surgery. Attending Statement Agree with above, as discussed. Sepideh Giron Sep 28, 2017 12:33 Kandice May MD Sep 28, 2017 15:54
[2017-09-28] MEDS: HYDROmorphone HCL PCA 6 MG/30 ML IV SCH (13:13)
--- NOTE | 2017-09-28 14:00 | HHI.HCPN ---
Reason for visit a. To assist with evaluation and management of symptoms including:Pain, Nausea/Vomiting b. To assist medical decision maker(s) with: better understanding of current medical conditions; weighing benefits/burdens of medical treatment options; making medical treatment decisions. Subjective/Interval History Patient seen and examined in his room on [facility]. Patient was transferred to [facility] after surgery. Small bowel x-ray 09/27/17 revealed mid to distal small bowel obstruction. Patient had increased pain, abdominal distention and no bowel movement after Gastrografin SBFT. Patient underwent exploratory laparotomy, lysis of adhesions and small bowel resection last night 09/27/[address] Hernandez. Patient is lethargic and oriented x3. Moves all extremities to command. Patient denies pain. Patient was started on a Dilaudid CLERICAL COORDINATOR status post surgery- 0.3 mg every 10 minutes with one hour limit of 2mg. Denies nausea. NG tube remains to low intermittent wall suction. Patient is afebrile. Heart rate meet 90s to 100. SBP 120s to 140s. O2 saturation 97% on 2 L nasal cannula. Laboratory workup today revealed WBC 16.2, hemoglobin 13.9, hematocrit 42.3, platelet count 335, sodium 142, potassium 3.6, BUN/creatinine 22/0.70, PCC 8.2, total protein 5.6, and albumin 2.1. Patient's daughter Omni at bedside. Updated on medical status. No changes in goals of care- remain aggressive. Plan is to follow-up with medical oncology after patient recovers from surgery. Daughter is supportive of patient`s decisions at this time. . Family/friend interactions Patient's daughter at bedside. . Advance Directives Living Will: Never completed Health Care Surrogate: Copy in medical record Durable Power of Cup Machine Operator: Never completed Advance Directive Specifics Date completed: 09/25/2017 . Health Care Surrogate(s): Healthcare surrogate -Daughter- Kal Kohli [phone] Alternate healthcare surrogate- sister-Lina Stephen- [phone] . Objective Vital Signs Date Time Temp Pulse Resp B/P (MAP) Pulse Ox O2 Delivery O2 Flow Rate FiO2 09/28/17 13:20 18 09/28/17 13:13 18 09/28/17 08:00 98.0 100 16 132/75 (94) 97 09/28/17 06:00 16 09/28/17 04:00 97.8 100 18 145/80 (101) 97 09/28/17 01:30 98.2 95 18 126/76 (93) 96 09/28/17 01:15 98.1 95 12 119/63 (81) 100 Nasal Cannula 2 09/28/17 01:00 94 15 128/75 (92) 100 Nasal Cannula 2 09/28/17 00:45 96 15 129/71 (90) 100 Nasal Cannula 2 09/28/17 00:30 96 12 137/69 (91) 100 Nasal Cannula 2 09/28/17 00:15 104 18 134/76 (95) 100 Nasal Cannula 2 09/28/17 00:00 101 15 134/81 (98) 99 Nasal Cannula 2 09/27/17 23:55 20 09/27/17 23:45 105 13 151/82 (105) 100 Nasal Cannula 2 09/27/17 23:30 101 14 155/84 (107) 100 Nasal Cannula 2 09/27/17 23:15 107 15 164/83 (110) 100 Nasal Cannula 2 09/27/17 23:00 105 15 169/86 (113) 100 Nasal Cannula 2 09/27/17 22:45 104 15 157/90 (112) 100 Nasal Cannula 2 09/27/17 22:30 108 19 154/85 (108) 100 Simple Mask 15 09/27/17 22:15 107 23 177/94 (121) 100 Simple Mask 15 09/27/17 22:00 108 16 175/95 (121) 100 Simple Mask 15 09/27/17 21:45 93 16 173/97 (122) 100 Simple Mask 15 09/27/17 21:43 121 18 185/146 (159) 100 Simple Mask 15 09/27/17 21:40 98.0 121 23 167/139 (148) Simple Mask 15 09/27/17 16:00 97.5 84 17 155/88 (110) 96 Intake & Output 09/28/17 09/28/17 07:00 19:00 Intake Total 3400 ml Output Total 1250 ml Balance 2150 ml Intake Oral 0 ml Other 3400 ml Output Urine Total 500 ml Gastric Drainage Total 100 ml Emesis 0 ml Estimated Blood Loss 650 ml Physical Exam CONSTITUTIONAL/GENERAL: This is an emaciated patient, in no acute distress. Obvious temporal muscle wasting TUBES/LINES/DRAINS: PIV, NGT SKIN: No jaundice, rashes, or lesions. Ecchymoses on upper extremities. No wounds seen anteriorly. Skin temperature appropriate. Not diaphoretic. HEAD: Atraumatic. Normocephalic. EYES: Pupils equal and round and reactive. Extraocular motions intact. No scleral icterus. No injection or drainage. Fundi not examined. ENT: Hearing grossly normal. Nose without bleeding or purulent drainage. c/o dry mouth- Currently NPO NECK: Trachea midline. Supple, nontender. CARDIOVASCULAR: Regular rate and rhythm without murmurs, gallops, or rubs. No JVD. Peripheral pulses symmetric. RESPIRATORY/CHEST: Symmetric, unlabored respirations. Clear to auscultation. Breath sounds equal bilaterally. No wheezes, rales, or rhonchi. GASTROINTESTINAL: Abdomen soft, non-tender, nondistended. c/o tenderness to palpation. Positive bowel sounds. GENITOURINARY: Without palpable bladder distension. MUSCULOSKELETAL: Extremities without clubbing, cyanosis, or edema. No joint tenderness or effusion noted. No calf tenderness. No mottling or clubbing. NEUROLOGICAL: Awake and lethargic, oriented to self, place and situation. Motor and sensory grossly within normal limits. Follows commands. Moves all extremities. PSYCHIATRIC: No obvious anxiety/depression. no apparent hallucinations or other psychotic thought process. Diagnostic Tests Laboratory Laboratory Tests Test 09/26/17 07:46 09/26/17 07:47 09/27/17 13:44 09/28/17 05:14 Blood Urea Nitrogen 24 MG/DL (7-18) 25 MG/DL (7-18) 22 MG/DL (7-18) Creatinine 0.77 MG/DL (0.60-1.30) 0.62 MG/DL (0.60-1.30) 0.70 MG/DL (0.60-1.30) Random Glucose 98 MG/DL (74-106) 83 MG/DL (74-106) 94 MG/DL (74-106) Calcium Level 8.8 MG/DL (8.5-10.1) 8.4 MG/DL (8.5-10.1) 7.4 MG/DL (8.5-10.1) Sodium Level 140 MEQ/L (136-145) 141 MEQ/L (136-145) 142 MEQ/L (136-145) Potassium Level 3.7 MEQ/L (3.5-5.1) 3.7 MEQ/L (3.5-5.1) 3.6 MEQ/L (3.5-5.1) Chloride Level 104 MEQ/L (98-107) 106 MEQ/L (98-107) 107 MEQ/L (98-107) Carbon Dioxide Level 28.2 MEQ/L (21.0-32.0) 27.5 MEQ/L (21.0-32.0) 25.7 MEQ/L (21.0-32.0) Anion Gap 8 MEQ/L (5-15) 8 MEQ/L (5-15) 9 MEQ/L (5-15) Estimat Glomerular Filtration Rate 122 ML/MIN (>89) 156 ML/MIN (>89) 136 ML/MIN (>89) White Blood Count 11.0 TH/MM3 (4.0-11.0) 10.2 TH/MM3 (4.0-11.0) 16.2 TH/MM3 (4.0-11.0) Red Blood Count 4.86 MIL/MM3 (4.50-5.90) 4.80 MIL/MM3 (4.50-5.90) 4.62 MIL/MM3 (4.50-5.90) Hemoglobin 14.9 GM/DL (13.0-17.0) 14.4 GM/DL (13.0-17.0) 13.9 GM/DL (13.0-17.0) Hematocrit 44.8 % (39.0-51.0) 43.7 % (39.0-51.0) 42.3 % (39.0-51.0) Mean Corpuscular Volume 92.3 FL (80.0-100.0) 91.1 FL (80.0-100.0) 91.5 FL (80.0-100.0) Mean Corpuscular Hemoglobin 30.8 PG (27.0-34.0) 30.1 PG (27.0-34.0) 30.0 PG (27.0-34.0) Mean Corpuscular Hemoglobin Concent 33.3 % (32.0-36.0) 33.0 % (32.0-36.0) 32.7 % (32.0-36.0) Red Cell Distribution Width 15.0 % (11.6-17.2) 14.6 % (11.6-17.2) 14.8 % (11.6-17.2) Platelet Count 377 TH/MM3 (150-450) 384 TH/MM3 (150-450) 335 TH/MM3 (150-450) Mean Platelet Volume 8.9 FL (7.0-11.0) 8.4 FL (7.0-11.0) 8.1 FL (7.0-11.0) Neutrophils (%) (Auto) 77.6 % (16.0-70.0) 79.0 % (16.0-70.0) 92.9 % (16.0-70.0) Lymphocytes (%) (Auto) 7.5 % (9.0-44.0) 10.2 % (9.0-44.0) 3.7 % (9.0-44.0) Monocytes (%) (Auto) 14.6 % (0.0-8.0) 10.3 % (0.0-8.0) 3.3 % (0.0-8.0) Eosinophils (%) (Auto) 0.0 % (0.0-4.0) 0.2 % (0.0-4.0) 0.0 % (0.0-4.0) Basophils (%) (Auto) 0.3 % (0.0-2.0) 0.3 % (0.0-2.0) 0.1 % (0.0-2.0) Neutrophils # (Auto) 8.5 TH/MM3 (1.8-7.7) 8.1 TH/MM3 (1.8-7.7) 15.0 TH/MM3 (1.8-7.7) Lymphocytes # (Auto) 0.8 TH/MM3 (1.0-4.8) 1.0 TH/MM3 (1.0-4.8) 0.6 TH/MM3 (1.0-4.8) Monocytes # (Auto) 1.6 TH/MM3 (0-0.9) 1.0 TH/MM3 (0-0.9) 0.5 TH/MM3 (0-0.9) Eosinophils # (Auto) 0.0 TH/MM3 (0-0.4) 0.0 TH/MM3 (0-0.4) 0.0 TH/MM3 (0-0.4) Basophils # (Auto) 0.0 TH/MM3 (0-0.2) 0.0 TH/MM3 (0-0.2) 0.0 TH/MM3 (0-0.2) CBC Comment DIFF FINAL DIFF FINAL AUTO DIFF Differential Comment FINAL DIFF MANUAL Total Protein 7.3 GM/DL (6.4-8.2) 5.6 GM/DL (6.4-8.2) Albumin 2.7 GM/DL (3.4-5.0) 2.1 GM/DL (3.4-5.0) Alkaline Phosphatase 109 U/L (45-117) 74 U/L (45-117) Aspartate Amino Transf (AST/SGOT) 25 U/L (15-37) 21 U/L (15-37) Alanine Aminotransferase (ALT/SGPT) 24 U/L (12-78) 18 U/L (12-78) Total Bilirubin 0.3 MG/DL (0.2-1.0) 0.4 MG/DL (0.2-1.0) Differential Total Cells Counted 100 Neutrophils % (Manual) 55 % (16-70) Band Neutrophils % 31 % (0-6) Lymphocytes % 6 % (9-44) Monocytes % 6 % (0-8) Neutrophils # (Manual) 14.3 TH/MM3 (1.8-7.7) Myelocytes 2 % (0-0) Toxic Granulation 1+ (NORMAL) Platelet Estimate NORMAL (NORMAL) Platelet Morphology Comment ENLARGED (NORMAL) Target Cells (NORMAL) Falk-[place] Bodies (NONE SEEN) Protein Corrected Calcium 8.2 MG/DL (8.5-10.1) Result Diagram: 09/28/17 0514 09/28/17 0514 Imaging Last 48 hours Impressions Small Bowel X-Ray 09/27/17 0000 Signed Impressions: Service Date/Time: September 09:21 - CONCLUSION: Mid to distal small bowel obstruction. Alex Gregorio MD FACR Procedures 09/27/2017 Exploratory laparotomy, lysis of adhesions and small bowel resection . Assessment and Plan Disease Oriented Problem List: (1) Small bowel obstruction (2) Gastric adenocarcinoma (3) HIV (human immunodeficiency virus infection) (4) Dehydration (5) Anemia Symptom Scale: (1) Pain Comment: Multifactorial. Hx of gastric cancer. Patient came in complaining of sharp abdominal pain. . (2) Nausea & vomiting 0-10 Scale: Unable to quantify Comment: Multifactorial. History of gastric cancer stage II a noted to be poorly differentiated s/p total gastrectomy en block pancreas resection. Patient came in complaining of nausea and vomiting. Abdomen/pelvis CT 09/24/17 revealed distal small bowel obstruction. . Pertinent Non-Medical Issues Psychosocial:Patient was born and raised in [place]. He then moved to [place] in 1966 where he completed high school and then joined and served in the [employer]. Patient was never . He has a daughter Kal Kohli who lives in [place] and a son Corrine Benitez. Patient served in the [employer]. 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 Patient then moved to [place] in 1979 and he worked for the [employer] in [employer] and [employer] department until he retired Spiritual:Patient is a Roman Catholic. Goes to [employer]. Open to bufferer visit. Legal:Patient completed [facility] form today. Ethical issues impacting care: None identified at this time. . Important Contacts [facility]-Daughter- Kal Kohli [phone] Alternate [facility] Sister- Lina Stephen [phone] Son- Corrine Benitez Friend he rents room from -Candice GonzalezXihxcmh-[phone] . Prognosis Mr. Kohli is a 67 years old male with a past medical history of gastric cancer stage II a noted to be poorly differentiated s/p total gastrectomy en block pancreas resection, gastritis, HIV on HAART medication, hepatitis C, anemia, COPD/emphysema, and chronic pain. Patient was diagnosed with poorly differentiated adenocarcinoma that was excised at time of diagnosis in March of 2017. Patient presented to the ER on 09/24/2017 complaining of sharp abdominal pain that began 2 days ago and nausea and vomiting. Abdomen/pelvis CT revealed distal small bowel obstruction. Given multiple ongoing comorbidities, patient remains at risk for further complications, deterioration and decline leading to . . Code Status: Full Code Plan PLAN: Legal decision maker: Patient is able to participate in making his own medical decisions. In the event that patient is incapacitated his daughter Kal Kohli will serve as his healthcare surrogate and his sister Lina Stephen is the alternate HCS. Goals: Aggressive CODE STATUS: Full Code Patient's daughter Kal at bedside. Updated on medical status. No changes in goals of care- remain aggressive. Plan is to follow-up with medical oncology after patient recovers from surgery. Daughter is supportive of patient`s decisions at this time. SYMPTOMS: * Pain:Multifactorial. Hx of gastric cancer. History of shingles per patient. Patient came in complaining of sharp abdominal pain.Abdomen/pelvis CT revealed distal small bowel obstruction. NGT inserted and is to LIWS. Patient verbalized some pain relief after NGT placement. Morphine Sulfate 2 mg Q 3hours prn available. Patient endorsing postherpetic neuralgia. Patient underwent exploratory laparotomy, lysis of adhesions and small bowel resection last night 09/27/17. Patient was started on a Dilaudid CLERICAL COORDINATOR status post surgery- 0.3 mg every 10 minutes with one hour limit of 2mg. Patient currently denies pain. * Nausea/vomiting:Multifactorial. History of gastric cancer stage II a noted to be poorly differentiated s/p total gastrectomy en block pancreas resection. Patient came in complaining of nausea and vomiting. Abdomen/pelvis CT 09/24/17 revealed distal small bowel obstruction. Small Bowel Follow-through study . Patient had increased pain, abdominal distention and no bowel movement after Gastrografin SBFT Zofran 4mg Q 6 hrs prn N/V ordered. Small bowel x-ray 08/04 revealed mid to distal small bowel obstruction. Patient underwent exploratory laparotomy, lysis of adhesions and small bowel resection last night 09/27/17. Denies nausea at this time. No recommendations. Palliative care will continue to follow the patient during hospital course as condition evolves, to assist patient/decision-maker with understanding of their medical conditions, weighing benefits/burdens of treatment options, for clarification of goals of treatment. Additionally will assist with any symptoms of palliative concern Attestation To help prompt me to consider important information that might be impacting today's encounter and assessment, information from prior notes written by myself or my colleagues may have been "brought forward" into today's note. My signature on this note, however, is an attestation that I personally performed the exam, history, and/or decision-making noted today, and, unless otherwise indicated, the interactions with patient, family, and staff as well as the review of records all occurred today. I also attest that the listed assessment and stated plan reflect my best clinical judgment today based on the combination of historical information, prior notes, and today's exam/ interactions. When time spent is documented, it refers only to time spent today by the signer, or if indicated, combined time spent today by collaborating physician/nurse practitioner. Hiram Yang Sep 28, 2017 14:00
--- NOTE | 2017-09-28 14:29 | HHI.PR ---
Subjective Remarks Status post laparoscopic exploratory surgery with lysis of adhesions, patient has improvement in symptoms after this. No new complaints. No nausea or vomiting today thus far. Objective Vital Signs Date Time Temp Pulse Resp B/P (MAP) Pulse Ox O2 Delivery O2 Flow Rate FiO2 09/28/17 13:20 18 18 13:13 18 09/28/17 08:00 98.0 100 16 132/75 (94) 97 09/28/17 06:00 16 09/28/17 04:00 97.8 100 18 145/80 (101) 97 09/28/17 01:30 98.2 95 18 126/76 (93) 96 09/28/17 01:15 98.1 95 12 119/63 (81) 100 Nasal Cannula 2 09/28/17 01:00 94 15 128/75 (92) 100 Nasal Cannula 2 09/28/17 00:45 96 15 129/71 (90) 100 Nasal Cannula 2 09/28/17 00:30 96 12 137/69 (91) 100 Nasal Cannula 2 09/28/17 00:15 104 18 134/76 (95) 100 Nasal Cannula 2 09/28/17 00:00 101 15 134/81 (98) 99 Nasal Cannula 2 09/27/17 23:55 20 09/27/17 23:45 105 13 151/82 (105) 100 Nasal Cannula 2 09/27/17 23:30 101 14 155/84 (107) 100 Nasal Cannula 2 09/27/17 23:15 107 15 164/83 (110) 100 Nasal Cannula 2 09/27/17 23:00 105 15 169/86 (113) 100 Nasal Cannula 2 09/27/17 22:45 104 15 157/90 (112) 100 Nasal Cannula 2 09/27/17 22:30 108 19 154/85 (108) 100 Simple Mask 15 09/27/17 22:15 107 23 177/94 (121) 100 Simple Mask 15 09/27/17 22:00 108 16 175/95 (121) 100 Simple Mask 15 09/27/17 21:45 93 16 173/97 (122) 100 Simple Mask 15 09/27/17 21:43 121 18 185/146 (159) 100 Simple Mask 15 09/27/17 21:40 98.0 121 23 167/139 (148) Simple Mask 15 09/27/17 16:00 97.5 84 17 155/88 (110) 96 I/O 09/27/17 09/27/17 09/27/17 09/28/17 09/28/17 09/28/17 07:00 15:00 23:00 07:00 15:00 23:00 Intake Total 4250 ml 0 ml Output Total 900 ml 500 ml 1775 ml 500 ml Balance -900 ml -500 ml 2475 ml -500 ml Intake Oral 0 ml 0 ml IV Total 850 ml Other 3400 ml Output Urine Total 700 ml 675 ml 400 ml Gastric Drainage Total 200 ml 100 ml 100 ml Emesis 500 ml 350 ml 0 ml Estimated Blood Loss 650 ml # Bowel Movements 0 Result Diagram: 09/28/1751309/28/17513 Objective Remarks GENERAL: NAD, A&Ox3, NG tube present HEAD: Normocephalic. NECK: Supple, trachea midline. No lymphadenopathy. EYES: No scleral icterus. No injection or drainage. CARDIOVASCULAR: Regular rate and rhythm without murmurs, gallops, or rubs. RESPIRATORY: Breath sounds equal bilaterally. No accessory muscle use. GASTROINTESTINAL: Abdomen soft, non-tender, nondistended. MUSCULOSKELETAL: No cyanosis, or edema. SKIN: Warm and dry. NEURO: No focal neurological deficitis. A/P Problem List: (1) HIV (human immunodeficiency virus infection) ICD Code: Z21 - Asymptomatic human immunodeficiency virus [HIV] infection status Status: Chronic (2) Anemia ICD Code: D64.9 - Anemia, unspecified Status: Acute (3) Gastric adenocarcinoma ICD Code: C16.9 - Malignant neoplasm of stomach, unspecified Status: Acute (4) Nausea & vomiting ICD Code: R11.2 - Nausea with vomiting, unspecified (5) Small bowel obstruction ICD Code: K56.609 - Unspecified intestinal obstruction, unspecified as to partial versus complete obstruction Status: Acute (6) Dehydration ICD Code: E86.0 - Dehydration Status: Acute (7) Pain ICD Code: R52 - Pain, unspecified Assessment and Plan 67 y/o male admitted with small bowel obstruction. Gastric adenocarcinoma present. Status post otoscopic exploratory laparoscopy be with lysis of adhesions. Labs reviewed. Continue to monitor electrolytes and correct as needed. Labs ordered for further monitoring. Patient is in ICU status post procedure. Possible transfer out of ICU tomorrow. Small bowel obstruction Symptoms improving status post lysis adhesion surgery Continue with NG tube Surgery following. 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
--- NOTE | 2017-09-28 16:31 | HHI.PR ---
Subjective Subjective Notes "Can I have some ice chips?" Objective Vitals/I&O Vital Signs Date Time Temp Pulse Resp B/P (MAP) Pulse Ox O2 Delivery O2 Flow Rate FiO2 09/28/17 13:20 18 09/28/17 08:00 98.0 100 132/75 (94) 97 09/28/17 01:15 Nasal Cannula 2 09/25/17 10:59 99 Labs Laboratory Tests Test 09/28/17 05:14 White Blood Count 16.2 Red Blood Count 4.62 Hemoglobin 13.9 Hematocrit 42.3 Mean Corpuscular Volume 91.5 Mean Corpuscular Hemoglobin 30.0 Mean Corpuscular Hemoglobin Concent 32.7 Red Cell Distribution Width 14.8 Platelet Count 335 Mean Platelet Volume 8.1 Neutrophils (%) (Auto) 92.9 Lymphocytes (%) (Auto) 3.7 Monocytes (%) (Auto) 3.3 Eosinophils (%) (Auto) 0.0 Basophils (%) (Auto) 0.1 Neutrophils # (Auto) 15.0 Lymphocytes # (Auto) 0.6 Monocytes # (Auto) 0.5 Eosinophils # (Auto) 0.0 Basophils # (Auto) 0.0 CBC Comment AUTO DIFF Differential Total Cells Counted 100 Neutrophils % (Manual) 55 Band Neutrophils % 31 Lymphocytes % 6 Monocytes % 6 Neutrophils # (Manual) 14.3 Myelocytes 2 Differential Comment FINAL DIFF MANUAL Toxic Granulation 1+ Platelet Estimate NORMAL Platelet Morphology Comment ENLARGED Target Cells [place] Bodies Blood Urea Nitrogen 22 Creatinine 0.70 Random Glucose 94 Total Protein 5.6 Albumin 2.1 Calcium Level 7.4 Alkaline Phosphatase 74 Aspartate Amino Transf (AST/SGOT) 21 Alanine Aminotransferase (ALT/SGPT) 18 Total Bilirubin 0.4 Sodium Level 142 Potassium Level 3.6 Chloride Level 107 Carbon Dioxide Level 25.7 Anion Gap 9 Estimat Glomerular Filtration Rate 136 Protein Corrected Calcium 8.2 Radiology Last 48 hours Impressions Chest X-Ray 09/24/17 [id number] Signed Impressions: Service Date/Time: Sunday, September 24, 2017 23:17 - CONCLUSION: 1. No acute cardiopulmonary disease. James Brown MD Abdomen/Pelvis CT 1/8/18 2816 Signed Impressions: Service Date/Time: Sunday, September 24, 2017 23:46 - CONCLUSION: 1. Findings of distal small bowel obstruction. 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 I reviewed and agree with the findings presented. I attest that I had a [id number] encounter with the patient on the same day, and personally performed and documented my assessment and findings in the medical record. s/o ExLap, stable abdominal exam postop tenderness, no peritonitis or rebound tenderness await bowel function Debra Amin Sep 28, 2017 16:31 Boy Hernandez MD Oct 03, 2017 09:39
--- NOTE | 2017-09-28 17:21 | MP ---
cc: LENA DUFFY DATE OF SURGERY: 09/28/2017 PREOPERATIVE DIAGNOSIS: Small bowel obstruction. History of gastric cancer status post total gastrectomy. POSTOPERATIVE DIAGNOSIS: small bowel obstruction. Internal hernia due to adhesions. OPERATION: 1. Exploratory laparotomy 2. Lysis of adhesions 3. Small bowel resection with primary anastomosis. ATTENDING SURGEON: Mary PLANT TECHNICIAN/CONTROL ROOM OPERATOR: Staff. ANESTHESIA General. ESTIMATED BLOOD LOSS: 650 cc COMPLICATIONS None FINDINGS A distal loop of small bowel densely adhered to the JJ anastomosis proximally in creating a large defect to allow proximal jejunum to herniated through and become mildly constricted and causing a partial bowel obstruction. INDICATIONS FOR PROCEDURE The patient is a 67-year-old male who has history of gastrectomy for gastric cancer. The patient was doing well, in his normal state a health when he developed nausea and vomiting and abdominal pain. The patient presented to the [facility] underwent a CT scan which showed multiple dilated loops of small bowel concerning for small bowel obstruction. The patient was initially treated non operatively as he was stable with a non concerning physical exam. Unfortunately after continued observation the patient continued to have worsening pain and distension without return of bowel function. I discussed this with the patient, the risks, benefits and alteratives, to proceeding to the operating room for lysis of adhesions and after discussion with the patient and the patient's daughter they would like to proceed to surgery. Again the risks, benefits and alternatives were discussed. PROCEDURE The patient was taken to the operating room and placed in supine position, the patient was placed under general endotracheal anesthesia. The patient's abdomen was shaved, prepped and draped in sterile fashion. Time-out was performed. The patients previous incision was incised with the 15 blade scalpel. This was taken down below the umbilicus into area of the abdomen that not had a previous surgical scar we were then able to very carefully dissect down the midline and opened the peritoneal cavity at this level. The area was free of adhesions below the umbilicus. We then continued our dissection carefully and superiorly, there was a loop of bowel adhered to the umbilicus. We took this down with Metzenbaum scissors, freeing this up. We then with the hand retractor were able to extracorporeal the small bowel. There are multiple areas of adhesions which were lysed with Bovie electrocautery or Metzenbaum scissors as appropriate. Once we had extracorporeally to the small bowel, it was very clear that the patient had a transition point that was an area of an internal hernia through a distal loop of ileum that was adhered up by the JJ anastomosis up in the left upper quadrant. We used Metzenbaum scissors and took this loop down but it was very densely adhered and had been significantly traumatized taking this down again because it is so densely adhered up to this area. Once we have taken this down we were able to reduce the internal hernia. All the small bowel was then mildly dark as far as his venous congestion, however this pinked up within a few minutes once we reduced the hernia. There is no evidence of any significant ischemia or contusions or again any significant ischemia of the bowel. He has good pulses in the mesentery. We then did note some of the small bowel contents proximally but mostly we will make this a distally towards the area of this damaged loop of ileum. We did go ahead and form an enterotomy at this point and time and decompressed approximately two liters of enteric contents out of the patient's small bowel decompressing it effectively. I went ahead and resected the area of the enterotomy which was the area of the significant serosal tears and trauma due to taking this loop down to reduce the hernia. Reduced with a GI 55 blue load proximally and distal to this area and then used the GI 55 to perform a [id number] functional end-to-end anastomosis. The staple lines proximal distal and noted defects were all closed with 3-0 silk sutures. We again then reduced the small bowel back into the abdomen and normal anatomic position without difficulty. We irrigated the abdomen out with three liters of saline, after all suctioning it was clear. We did have a lot of inflammatory type oozing throughout the case due to the venous congestion of the small bowel however this was very limited once this was reduced, this completely stopped spontaneously. The abdomen was able to close with really no tension at all without difficulty. We closed the midline abdomen with a #1 loop PDS suture. Closed the skin with surgical skin estelita and sterile dressing was applied. The patient was discontinued from anesthesia was taken to PACU in stable condition. The patient tolerated procedure well. No apparent complications. All counts were correct. I was present and scrubbed for the entire procedure. Lena W. Gamenthaler, MD AWG/boy /9:39 PM /4:56 PM
[2017-09-29] VITALS (7 sets, daily range): BP systolic 125–156; BP diastolic 65–82; PULSE 69–85; RESP 13–19; TEMP 98.1–98.8; O2SAT 93–99
[2017-09-29] MEDS: SODIUM CHLOR 0.9% 1000 ML INJ 1,000 ML IV SCH ×3 (04:52→18:50)
[2017-09-29 05:02] LABS: AUTOMATED NEUTROPHIL # 19.6 TH/MM3 (1.8-7.7); BASOPHIL # 0.1 TH/MM3 (0-0.2); BASOPHIL % 0.3 % (0.0-2.0); EOSINOPHIL % 0.1 % (0.0-4.0); HEMATOCRIT 34.4 % (39.0-51.0); LYMPHOCYTE # 0.9 TH/MM3 (1.0-4.8); MEAN CELL VOLUME 91.1 FL (80.0-100.0); MEAN CORPUSCULAR HEMOGLOBIN 29.2 PG (27.0-34.0); MEAN PLATELET VOLUME 7.5 FL (7.0-11.0); MONO % 6.3 % (0.0-8.0); MONOCYTE # 1.4 TH/MM3 (0-0.9); NEUT % 89.3 % (16.0-70.0); PLATELET COUNT 290 TH/MM3 (150-450); RED BLOOD COUNT 3.78 MIL/MM3 (4.50-5.90); RED CELL DISTRIBUTION WIDTH 14.8 % (11.6-17.2)
[2017-09-29 05:27] LABS: ALBUMIN 1.9 GM/DL (3.4-5.0); ALT (GPT) 17 U/L (12-78); AST (GOT) 24 U/L (15-37); BICARBONATE 27.1 MEQ/L (21.0-32.0); BLOOD UREA NITROGEN 16 MG/DL (7-18); CALCIUM 7.8 MG/DL (8.5-10.1); CHLORIDE 110 MEQ/L (98-107); GLOMERULAR FILTRATION RATE 200 ML/MIN (>89); GLUCOSE,RANDOM 86 MG/DL (74-106); SODIUM (NA) 144 MEQ/L (136-145)
[2017-09-29 05:29] LABS: ALKALINE PHOSPHATASE 73 U/L (45-117); TOTAL BILIRUBIN ADULT 0.4 MG/DL (0.2-1.0); TOTAL PROTEIN 5.8 GM/DL (6.4-8.2)
[2017-09-29] MEDS: PCA - TOTAL MG DILAUDID DELIVERED PER SHIFT OTHER SCH ×3 (06:00→22:43)
[2017-09-29] MEDS: HYDROmorphone HCL PCA 6 MG/30 ML IV SCH ×2 (06:35→06:45)
[2017-09-29] MEDS: ENOXAPARIN SODIUM 40 MG/0.4 ML SYRINGE SQ SCH (08:44)
[2017-09-29] MEDS: SODIUM CHLORIDE 0.9% FLUSH 10 ML FLUSH IV FLUSH SCH ×2 (09:00→22:41)
[2017-09-29] MEDS: PANTOPRAZOLE SODIUM 40 MG VIAL IV PUSH SCH (12:17)
--- NOTE | 2017-09-29 13:20 | HHI.PR ---
Subjective Subjective Notes "Dr. Coreas said I can transfer to the floor today" Objective Vitals/I&O Vital Signs Date Time Temp Pulse Resp B/P (MAP) Pulse Ox O2 Delivery O2 Flow Rate FiO2 09/29/17 12:00 70 13 129/65 (86) 97 09/29/17 08:15 Nasal Cannula 3.00 09/29/17 08:00 98.1 09/25/17 10:59 99 Labs Laboratory Tests Test 09/29/17 04:46 White Blood Count 22.0 Red Blood Count 3.78 Hemoglobin 11.0 Hematocrit 34.4 Mean Corpuscular Volume 91.1 Mean Corpuscular Hemoglobin 29.2 Mean Corpuscular Hemoglobin Concent 32.0 Red Cell Distribution Width 14.8 Platelet Count 290 Mean Platelet Volume 7.5 Neutrophils (%) (Auto) 89.3 Lymphocytes (%) (Auto) 4.0 Monocytes (%) (Auto) 6.3 Eosinophils (%) (Auto) 0.1 Basophils (%) (Auto) 0.3 Neutrophils # (Auto) 19.6 Lymphocytes # (Auto) 0.9 Monocytes # (Auto) 1.4 Eosinophils # (Auto) 0.0 Basophils # (Auto) 0.1 CBC Comment DIFF FINAL Differential Comment Blood Urea Nitrogen 16 Creatinine 0.50 Random Glucose 86 Total Protein 5.8 Albumin 1.9 Calcium Level 7.8 Alkaline Phosphatase 73 Aspartate Amino Transf (AST/SGOT) 24 Alanine Aminotransferase (ALT/SGPT) 17 Total Bilirubin 0.4 Sodium Level 144 Potassium Level 3.8 Chloride Level 110 Carbon Dioxide Level 27.1 Anion Gap 7 Estimat Glomerular Filtration Rate 200 Radiology Last 48 hours Impressions Chest X-Ray 09/24/172258 Signed Impressions: Service Date/Time: Sunday, September 24, 2017 23:17 - CONCLUSION: 1. No acute cardiopulmonary disease. James Brown MD Abdomen/Pelvis CT 09/24/172258 Signed Impressions: Service Date/Time: Sunday, September 24, 2017 23:46 - CONCLUSION: 1. Findings of distal small bowel obstruction. 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
--- NOTE | 2017-09-29 13:34 | HHI.PR ---
Subjective Remarks Continues to do well post op. Most of today has been spent in a chair. No reports of nausea. Active bowel sounds are now present. Objective Vital Signs Date Time Temp Pulse Resp B/P (MAP) Pulse Ox O2 Delivery O2 Flow Rate FiO2 09/29/17 12:00 70 13 129/65 (86) 97 09/29/17 08:15 99 Nasal Cannula 3.00 09/29/17 08:00 98.1 76 18 136/73 (94) 97 09/29/17 06:45 16 09/29/17 06:00 16 09/29/17 04:00 98.6 85 16 156/82 (106) 97 09/29/17 00:00 98.8 81 16 143/81 (101) 97 09/28/17 20:00 Nasal Cannula 2.00 09/28/17 20:00 99.0 82 15 127/70 (89) 95 09/28/17 19:50 97 Nasal Cannula 2.00 09/28/17 18:37 98.0 100 16 132/70 (90) 97 09/28/17 17:54 96 Nasal Cannula 2.00 I/O 09/28/17 09/28/17 09/28/17 09/29/17 09/29/17 09/29/17 07:00 15:00 23:00 07:00 15:00 23:00 Intake Total 0 ml 900 ml 1480.1 ml Output Total 500 ml 600 ml 1800 ml Balance -500 ml 300 ml -319.9 ml Intake Oral 0 ml 0 ml 0 ml IV Total 900 ml 1480.1 ml Output Urine Total 400 ml 550 ml 1700 ml Gastric Drainage Total 100 ml 100 ml Emesis 0 ml 50 ml # Bowel Movements 0 Result Diagram: 09/29/17 0446 09/29/17 044 Objective Remarks GENERAL: NAD, A&Ox3, NG tube present HEAD: Normocephalic. NECK: Supple, trachea midline. No lymphadenopathy. EYES: No scleral icterus. No injection or drainage. CARDIOVASCULAR: Regular rate and rhythm without murmurs, gallops, or rubs. RESPIRATORY: Breath sounds equal bilaterally. No accessory muscle use. GASTROINTESTINAL: Abdomen soft, non-tender, nondistended. Active bowel sounds. MUSCULOSKELETAL: No cyanosis, or edema. SKIN: Warm and dry. NEURO: No focal neurological deficitis. A/P Problem List: (1) HIV (human immunodeficiency virus infection) ICD Code: Z21 - Asymptomatic human immunodeficiency virus [HIV] infection status Status: Chronic (2) Anemia ICD Code: D64.9 - Anemia, unspecified Status: Acute (3) Gastric adenocarcinoma ICD Code: C16.9 - Malignant neoplasm of stomach, unspecified Status: Acute (4) Nausea & vomiting ICD Code: R11.2 - Nausea with vomiting, unspecified (5) Small bowel obstruction ICD Code: K56.609 - Unspecified intestinal obstruction, unspecified as to partial versus complete obstruction Status: Acute (6) Dehydration ICD Code: E86.0 - Dehydration Status: Acute (7) Pain ICD Code: R52 - Pain, unspecified Assessment and Plan 67 y/o male admitted with small bowel obstruction. Gastric adenocarcinoma present. Status post otoscopic exploratory laparoscopy be with lysis of adhesions. Labs reviewed. Patient doing well. Continue to monitor electrolytes. Abdomen for further monitoring. Transfer out of ICU. Advance diet to clears. Small bowel obstruction Symptoms improving status post lysis adhesion surgery Continue with NG tube Surgery following. Monitor patient clinically for bowel movements or flatulence Clear liquid diet HIV Hepatitis C Chronic anemia Stage II a gastric cancer Poorly differentiated adenocarcinoma Gastritis Continue baseline treatments Gastric adenocarcinoma May be contributory No immediate treatment plan at this time given his current clinical status Follow clinically Oncology following COPD No exacerbation No change to baseline treatments DVT prophylaxis Ras Hamlin MD Sep 29, 2017 13:34
[2017-09-29] MEDS: ONDANSETRON HCL 4 MG/2 ML VIAL IV PUSH PRN (18:39)
[2017-09-30] VITALS (7 sets, daily range): BP systolic 93–140; BP diastolic 55–97; PULSE 68–92; RESP 16–18; TEMP 98–98.8; O2SAT 95–100
[2017-09-30 05:52] LABS: AUTOMATED NEUTROPHIL # 12.8 TH/MM3 (1.8-7.7); BASOPHIL # 0.1 TH/MM3 (0-0.2); BASOPHIL % 0.5 % (0.0-2.0); EOSINOPHIL # 0.2 TH/MM3 (0-0.4); EOSINOPHIL % 1.2 % (0.0-4.0); HEMATOCRIT 32.6 % (39.0-51.0); HEMOGLOBIN 10.6 GM/DL (13.0-17.0); LYMPH % 5.8 % (9.0-44.0); LYMPHOCYTE # 0.8 TH/MM3 (1.0-4.8); MEAN CELL VOLUME 91.5 FL (80.0-100.0); MEAN CORPUSCULAR HEMOGLOBIN 29.7 PG (27.0-34.0); MEAN CORPUSCULAR HGB CONC 32.5 % (32.0-36.0); MEAN PLATELET VOLUME 8.3 FL (7.0-11.0); MONOCYTE # 0.7 TH/MM3 (0-0.9); NEUT % 87.5 % (16.0-70.0); PLATELET COUNT 295 TH/MM3 (150-450); RED BLOOD COUNT 3.56 MIL/MM3 (4.50-5.90); RED CELL DISTRIBUTION WIDTH 14.9 % (11.6-17.2); WHITE BLOOD COUNT 14.6 TH/MM3 (4.0-11.0)
[2017-09-30 06:05] LABS: ALBUMIN 1.7 GM/DL (3.4-5.0); AST (GOT) 23 U/L (15-37); BICARBONATE 27.3 MEQ/L (21.0-32.0); BLOOD UREA NITROGEN 9 MG/DL (7-18); CALCIUM 7.7 MG/DL (8.5-10.1); CHLORIDE 104 MEQ/L (98-107); CREATININE 0.47 MG/DL (0.60-1.30); GLOMERULAR FILTRATION RATE 215 ML/MIN (>89); GLUCOSE,RANDOM 104 MG/DL (74-106); SODIUM (NA) 138 MEQ/L (136-145)
[2017-09-30 06:07] LABS: ALKALINE PHOSPHATASE 75 U/L (45-117); ALT (GPT) 15 U/L (12-78); TOTAL BILIRUBIN ADULT 0.5 MG/DL (0.2-1.0); TOTAL PROTEIN 5.5 GM/DL (6.4-8.2)
[2017-09-30] MEDS: PCA - TOTAL MG DILAUDID DELIVERED PER SHIFT OTHER SCH ×2 (06:21→22:00)
[2017-09-30] MEDS: POTASSIUM CHLOR 10 MEQ PREMIX 100 ML IV SCH ×4 (08:01→10:38)
[2017-09-30] MEDS: ENOXAPARIN SODIUM 40 MG/0.4 ML SYRINGE SQ SCH (08:01)
[2017-09-30] MEDS ORDERED: POTASSIUM CHLORIDE 20 MEQ PWD PACKET PO ONE (08:45)
[2017-09-30] MEDS: HYDROmorphone HCL PCA 6 MG/30 ML IV SCH (10:06)
[2017-09-30] MEDS: PANTOPRAZOLE SODIUM 40 MG VIAL IV PUSH SCH (10:56)
[2017-09-30] MEDS: SODIUM CHLOR 0.9% 1000 ML INJ 1,000 ML IV SCH (12:36)
--- NOTE | 2017-09-30 13:33 | HHI.PR ---
Subjective Subjective Notes Tolerating clear sips Wants NG out Objective Vitals/I&O Vital Signs Date Time Temp Pulse Resp B/P (MAP) Pulse Ox O2 Delivery O2 Flow Rate FiO2 09/30/17 12:16 16 09/30/17 12:00 98.5 72 134/74 (94) 09/30/17 08:00 95 09/30/17 07:21 Nasal Cannula 3.00 Labs Laboratory Tests Test 09/30/17 04:21 White Blood Count 14.6 Red Blood Count 3.56 Hemoglobin 10.6 Hematocrit 32.6 Mean Corpuscular Volume 91.5 Mean Corpuscular Hemoglobin 29.7 Mean Corpuscular Hemoglobin Concent 32.5 Red Cell Distribution Width 14.9 Platelet Count 295 Mean Platelet Volume 8.3 Neutrophils (%) (Auto) 87.5 Lymphocytes (%) (Auto) 5.8 Monocytes (%) (Auto) 5.0 Eosinophils (%) (Auto) 1.2 Basophils (%) (Auto) 0.5 Neutrophils # (Auto) 12.8 Lymphocytes # (Auto) 0.8 Monocytes # (Auto) 0.7 Eosinophils # (Auto) 0.2 Basophils # (Auto) 0.1 CBC Comment DIFF FINAL Differential Comment Blood Urea Nitrogen 9 Creatinine 0.47 Random Glucose 104 Total Protein 5.5 Albumin 1.7 Calcium Level 7.7 Alkaline Phosphatase 75 Aspartate Amino Transf (AST/SGOT) 23 Alanine Aminotransferase (ALT/SGPT) 15 Total Bilirubin 0.5 Sodium Level 138 Potassium Level 3.1 Chloride Level 104 Carbon Dioxide Level 27.3 Anion Gap 7 Estimat Glomerular Filtration Rate 215 Radiology Last 48 hours Impressions Chest X-Ray 09/24/172258 Signed Impressions: Service Date/Time: Sunday, September 24, 2017 23:17 - CONCLUSION: 1. No acute cardiopulmonary disease. James Brown MD Abdomen/Pelvis CT 09/24/172258 Signed Impressions: Service Date/Time: Sunday, September 24, 2017 23:46 - CONCLUSION: 1. Findings of distal small bowel obstruction. James Brown MD Abdomen: Non-distended, Post-op tenderness Narrative Exam Dressing changed; wound clean; estelita intact. A/P Assessment and Plan Assessment and Plan 67 year old male POD #3 exp lap, ALFONSO with reduction internal hernia -Remove NG -Okay for clears -OOB as tolerated -WIG DRESSER for pain control; transition to PO meds in AM -Decrease IVF to 75 ml/hr -IS -Transfer to floor pending; no beds available Carlos Perez MD Sep 30, 2017 13:33
[2017-09-30] MEDS ORDERED: POTASSIUM CHLOR 20 MEQ PREMIX 100 ML IV SCH (14:00)
--- NOTE | 2017-09-30 14:19 | HHI.PR ---
Subjective Remarks Thus far patient has been tolerating clear liquids. Potential for NG tube removal today. Patient has no new complaints. Pain control. No nausea. Objective Vital Signs Date Time Temp Pulse Resp B/P (MAP) Pulse Ox O2 Delivery O2 Flow Rate FiO2 09/30/17 12:16 16 09/30/17 12:00 98.5 72 18 134/74 (94) 09/30/17 10:06 16 09/30/17 08:00 98.0 70 18 119/58 (78) 95 09/30/17 07:21 100 Nasal Cannula 3.00 09/30/17 06:21 17 09/30/17 04:00 98.8 92 18 93/55 (68) 97 09/30/17 00:00 98.4 81 16 116/97 (103) 96 09/29/17 22:43 18 09/29/17 20:00 98.5 72 16 125/65 (85) 93 09/29/17 16:00 69 19 133/69 (90) 96 I/O 09/29/17 09/29/17 09/29/17 09/30/17 09/30/17 09/30/17 07:00 15:00 23:00 07:00 15:00 23:00 Intake Total 1480.1 ml 1240 ml 1891.1 ml 300 ml Output Total 1800 ml 1300 ml 1050 ml Balance -319.9 ml -60 ml 841.1 ml 300 ml Intake Oral 0 ml 240 ml 500 ml IV Total 1480.1 ml 1000 ml 1391.1 ml 300 ml Output Urine Total 1700 ml 1300 ml 1050 ml Gastric Drainage Total 100 ml 0 ml # Bowel Movements 0 Result Diagram: 09/30/17 04209/30/17 0421 Objective Remarks GENERAL: NAD, A&Ox3, NG tube present HEAD: Normocephalic. NECK: Supple, trachea midline. No lymphadenopathy. EYES: No scleral icterus. No injection or drainage. CARDIOVASCULAR: Regular rate and rhythm without murmurs, gallops, or rubs. RESPIRATORY: Breath sounds equal bilaterally. No accessory muscle use. GASTROINTESTINAL: Abdomen soft, non-tender, nondistended. Active bowel sounds. MUSCULOSKELETAL: No cyanosis, or edema. SKIN: Warm and dry. NEURO: No focal neurological deficitis. A/P Problem List: (1) HIV (human immunodeficiency virus infection) ICD Code: Z21 - Asymptomatic human immunodeficiency virus [HIV] infection status Status: Chronic (2) Anemia ICD Code: D64.9 - Anemia, unspecified Status: Acute (3) Gastric adenocarcinoma ICD Code: C16.9 - Malignant neoplasm of stomach, unspecified Status: Acute (4) Nausea & vomiting ICD Code: R11.2 - Nausea with vomiting, unspecified (5) Small bowel obstruction ICD Code: K56.609 - Unspecified intestinal obstruction, unspecified as to partial versus complete obstruction Status: Acute (6) Dehydration ICD Code: E86.0 - Dehydration Status: Acute (7) Pain ICD Code: R52 - Pain, unspecified Assessment and Plan 67 y/o male admitted with small bowel obstruction. Gastric adenocarcinoma present. Status post otoscopic exploratory laparotomy be with lysis of adhesions. Labs reviewed today. Hypokalemia is present and potassium supplementation provided. Labs ordered for further monitoring. Small bowel obstruction Symptoms improving status post lysis adhesion surgery Continue with NG tube Surgery following. Monitor patient clinically for bowel movements or flatulence Clear liquid diet Hypokalemia Replacements provided Monitor potassium levels Continue replacing as needed HIV Hepatitis C Chronic anemia Stage II a gastric cancer Poorly differentiated adenocarcinoma Gastritis Continue baseline treatments Gastric adenocarcinoma May be contributory No immediate treatment plan at this time given his current clinical status Follow clinically Oncology following COPD No exacerbation No change to baseline treatments DVT prophylaxis Ras Hamlin MD Sep 30, 2017 14:19
[2017-09-30] MEDS: SODIUM CHLORIDE 0.9% FLUSH 10 ML FLUSH IV FLUSH SCH (21:00)
[2017-10-01] VITALS: BP 135/74; PULSE 81; RESP 16; TEMP 99.1; O2SAT 99
[2017-10-01] MEDS: SODIUM CHLOR 0.9% 1000 ML INJ 1,000 ML IV SCH (03:40)
[2017-10-01 04:00] VITALS: BP 136/69; PULSE 78; RESP 16; TEMP 98.3; O2SAT 98
[2017-10-01 05:43] LABS: AUTOMATED NEUTROPHIL # 11.1 TH/MM3 (1.8-7.7); BASOPHIL # 0.1 TH/MM3 (0-0.2); BASOPHIL % 0.4 % (0.0-2.0); EOSINOPHIL # 0.2 TH/MM3 (0-0.4); EOSINOPHIL % 1.3 % (0.0-4.0); HEMATOCRIT 36.2 % (39.0-51.0); HEMOGLOBIN 12.2 GM/DL (13.0-17.0); LYMPHOCYTE # 1.2 TH/MM3 (1.0-4.8); MEAN CORPUSCULAR HEMOGLOBIN 30.8 PG (27.0-34.0); MEAN CORPUSCULAR HGB CONC 33.8 % (32.0-36.0); MEAN PLATELET VOLUME 8.8 FL (7.0-11.0); MONO % 6.9 % (0.0-8.0); MONOCYTE # 0.9 TH/MM3 (0-0.9); NEUT % 82.4 % (16.0-70.0); PLATELET COUNT 397 TH/MM3 (150-450); RED BLOOD COUNT 3.97 MIL/MM3 (4.50-5.90); RED CELL DISTRIBUTION WIDTH 14.8 % (11.6-17.2); WHITE BLOOD COUNT 13.5 TH/MM3 (4.0-11.0)
[2017-10-01] MEDS: PCA - TOTAL MG DILAUDID DELIVERED PER SHIFT OTHER SCH ×3 (06:00→22:00)
[2017-10-01 06:04] LABS: ALT (GPT) 19 U/L (12-78); AST (GOT) 25 U/L (15-37); BICARBONATE 30.6 MEQ/L (21.0-32.0); BLOOD UREA NITROGEN 6 MG/DL (7-18); CALCIUM 8.1 MG/DL (8.5-10.1); CHLORIDE 102 MEQ/L (98-107); CREATININE 0.47 MG/DL (0.60-1.30); GLOMERULAR FILTRATION RATE 215 ML/MIN (>89); GLUCOSE,RANDOM 98 MG/DL (74-106); SODIUM (NA) 138 MEQ/L (136-145)
[2017-10-01 06:06] LABS: ALKALINE PHOSPHATASE 97 U/L (45-117); TOTAL BILIRUBIN ADULT 0.6 MG/DL (0.2-1.0); TOTAL PROTEIN 6.4 GM/DL (6.4-8.2)
[2017-10-01 08:00] VITALS: BP 130/68; PULSE 70; PULSE 88; RESP 18; TEMP 98
[2017-10-01] MEDS: SODIUM CHLORIDE 0.9% FLUSH 10 ML FLUSH IV FLUSH SCH ×2 (09:00→19:55)
[2017-10-01] MEDS: ENOXAPARIN SODIUM 40 MG/0.4 ML SYRINGE SQ SCH (10:15)
[2017-10-01] MEDS: PANTOPRAZOLE SODIUM 40 MG VIAL IV PUSH SCH (10:25)
[2017-10-01] MEDS ORDERED: ACETAMINOPHEN/HYDROcodone 325 MG/5 MG TAB PO PRN (10:45)
--- NOTE | 2017-10-01 11:01 | HHI.PR ---
Subjective Subjective Notes Up to chair Wants to try cream of wheat today with crackers Objective Vitals/I&O Vital Signs Date Time Temp Pulse Resp B/P (MAP) Pulse Ox O2 Delivery O2 Flow Rate FiO2 10/01/17 08:00 70 10/01/17 08:00 98.0 18 130/68 (88) 10/01/17 04:00 98 09/30/17 07:21 Nasal Cannula 3.00 Labs Laboratory Tests Test 09/30/17 17:04 10/01/17 03:41 Potassium Level 3.8 3.6 White Blood Count 13.5 Red Blood Count 3.97 Hemoglobin 12.2 Hematocrit 36.2 Mean Corpuscular Volume 91.0 Mean Corpuscular Hemoglobin 30.8 Mean Corpuscular Hemoglobin Concent 33.8 Red Cell Distribution Width 14.8 Platelet Count 397 Mean Platelet Volume 8.8 Neutrophils (%) (Auto) 82.4 Lymphocytes (%) (Auto) 9.0 Monocytes (%) (Auto) 6.9 Eosinophils (%) (Auto) 1.3 Basophils (%) (Auto) 0.4 Neutrophils # (Auto) 11.1 Lymphocytes # (Auto) 1.2 Monocytes # (Auto) 0.9 Eosinophils # (Auto) 0.2 Basophils # (Auto) 0.1 CBC Comment DIFF FINAL Differential Comment Blood Urea Nitrogen 6 Creatinine 0.47 Random Glucose 98 Total Protein 6.4 Albumin 2.0 Calcium Level 8.1 Alkaline Phosphatase 97 Aspartate Amino Transf (AST/SGOT) 25 Alanine Aminotransferase (ALT/SGPT) 19 Total Bilirubin 0.6 Sodium Level 138 Chloride Level 102 Carbon Dioxide Level 30.6 Anion Gap 5 Estimat Glomerular Filtration Rate 215 Radiology Last 48 hours Impressions Chest X-Ray 09/24/172258 Signed Impressions: Service Date/Time: Sunday, September 24, 2017 23:17 - CONCLUSION: 1. No acute cardiopulmonary disease. James Brown MD Abdomen/Pelvis CT 09/24/172258 Signed Impressions: Service Date/Time: Sunday, September 24, 2017 23:46 - CONCLUSION: 1. Findings of distal small bowel obstruction. James Brown MD Cardiovascular: Regular Lungs: Clear Abdomen: Other (midline incision stapled--c/d/i ), Post-op tenderness Extremities: No edema A/P Assessment and Plan 67 year old male s/p ex lap and total gastrectomy en block pancreas in December 2016; now with abdominal pain/nausea/vomiting; findings on CT of distal small bowel obstruction -POD4 ex lap; SBR---findings of internal hernia -Advance to full liquids -DC SPRAY STAINER; added [place] + Morphine for breakthrough pain -DC IVF -OOB as tolerated -Lovenox -IS -Transfer out of [facility]; preferably 7N Attending Note - Dr. Perez Doing well with liquids Wound ok Bowels working The exam, history, and the medical decision-making described in the above note were completed with the assistance of the mid-level provider. I reviewed and agree with the findings presented. I attest that I had a [id number] encounter with the patient on the same day, and personally performed and documented my assessment and findings in the medical record. Debra Amin Oct 01, 2017 11:01 Carlos Perez MD Oct 02, 2017 19:53
[2017-10-01 12:00] VITALS: BP 134/68; PULSE 84; PULSE 87; RESP 19; TEMP 98
[2017-10-01] MEDS: ACETAMINOPHEN/HYDROcodone 325 MG/5 MG TAB PO PRN ×3 (12:21→19:55)
--- NOTE | 2017-10-01 15:20 | HHI.HCPN ---
Reason for visit a. To assist with evaluation and management of symptoms including:Pain, Nausea/Vomiting b. To assist medical decision maker(s) with: better understanding of current medical conditions; weighing benefits/burdens of medical treatment options; making medical treatment decisions. Subjective/Interval History Patient seen and examined in his room on [facility]. Patient awake, alert and oriented to self place and situation. Patient denies pain and nausea at this time. States , "i feel much better now". NGT removed. Patient now on a full liquid diet and tolerating it. Patient has also had x2 Bowel movements today. Hydromorphone VOUCHER EXAMINER discontinued patient started on Hydrocodone prn for pain. Patient is afebrile. Vital signs stable. Laboratory workup today revealing WBC 13.5, hemoglobin 12.2, hematocrit 36.2, platelet count 397, sodium 138, potassium 3.6, BUN/creatinine 6/0.47, total protein 6.4, albumin 2.0. No recent imaging. Case discussed with bedside. . Family/friend interactions No family at bedside. . Advance Directives Living Will: Never completed Health Care Surrogate: Copy in medical record Durable Power of Sap Data Analyst: Never completed Advance Directive Specifics Date completed: 09/25/2017 . Health Care Surrogate(s): Healthcare surrogate -Daughter- Kal Kohli [phone] Alternate healthcare surrogate- sister-Lina Stephen- [phone] . Objective Vital Signs Date Time Temp Pulse Resp B/P (MAP) Pulse Ox O2 Delivery O2 Flow Rate FiO2 10/01/17 12:00 98.0 87 19 134/68 (90) 10/01/17 12:00 84 10/01/17 08:00 70 10/01/17 08:00 98.0 88 18 130/68 (88) 10/01/17 06:00 20 10/01/17 04:00 98.3 78 16 136/69 (91) 98 10/01/17 00:00 99.1 81 16 135/74 (94) 99 09/30/17 22:00 18 09/30/17 20:00 98.4 75 16 136/79 (98) 100 09/30/17 16:00 98.6 68 18 140/70 (93) 99 Intake & Output 10/01/17 10/01/17 07:00 19:00 Intake Total 1396.4 ml 300 ml Output Total 1800 ml Balance -403.6 ml 300 ml Intake Oral 500 ml IV Total 896.4 ml 300 ml Output Urine Total 1800 ml # Bowel Movements 0 2 Physical Exam CONSTITUTIONAL/GENERAL: This is an emaciated patient, in no acute distress. Obvious temporal muscle wasting. Denies pain TUBES/LINES/DRAINS: PIV SKIN: No jaundice, rashes, or lesions. Ecchymoses on upper extremities. No wounds seen anteriorly. Skin temperature appropriate. Not diaphoretic. HEAD: Atraumatic. Normocephalic. EYES: Pupils equal and round and reactive. Extraocular motions intact. No scleral icterus. No injection or drainage. Fundi not examined. ENT: Hearing grossly normal. Nose without bleeding or purulent drainage. NECK: Trachea midline. Supple, nontender. CARDIOVASCULAR: Regular rate and rhythm without murmurs, gallops, or rubs. No JVD. Peripheral pulses symmetric. RESPIRATORY/CHEST: Symmetric, unlabored respirations. Clear to auscultation. Breath sounds equal bilaterally. No wheezes, rales, or rhonchi. GASTROINTESTINAL: Abdomen soft, non-tender, Positive bowel sounds. Midline abdominal surgical incision covered with a dressing, no drainage noted. GENITOURINARY: Without palpable bladder distension. MUSCULOSKELETAL: Extremities without clubbing, cyanosis, or edema. No joint tenderness or effusion noted. No calf tenderness. No mottling or clubbing. NEUROLOGICAL: Awake and alert, oriented to self, place and situation. Motor and sensory grossly within normal limits. Follows commands. Moves all extremities. PSYCHIATRIC: No obvious anxiety/depression. no apparent hallucinations or other psychotic thought process. Diagnostic Tests Laboratory Laboratory Tests Test 09/29/17 04:46 09/30/17 04:21 09/30/17 17:04 10/01/17 03:41 White Blood Count 22.0 TH/MM3 (4.0-11.0) 14.6 TH/MM3 (4.0-11.0) 13.5 TH/MM3 (4.0-11.0) Red Blood Count 3.78 MIL/MM3 (4.50-5.90) 3.56 MIL/MM3 (4.50-5.90) 3.97 MIL/MM3 (4.50-5.90) Hemoglobin 11.0 GM/DL (13.0-17.0) 10.6 GM/DL (13.0-17.0) 12.2 GM/DL (13.0-17.0) Hematocrit 34.4 % (39.0-51.0) 32.6 % (39.0-51.0) 36.2 % (39.0-51.0) Mean Corpuscular Volume 91.1 FL (80.0-100.0) 91.5 FL (80.0-100.0) 91.0 FL (80.0-100.0) Mean Corpuscular Hemoglobin 29.2 PG (27.0-34.0) 29.7 PG (27.0-34.0) 30.8 PG (27.0-34.0) Mean Corpuscular Hemoglobin Concent 32.0 % (32.0-36.0) 32.5 % (32.0-36.0) 33.8 % (32.0-36.0) Red Cell Distribution Width 14.8 % (11.6-17.2) 14.9 % (11.6-17.2) 14.8 % (11.6-17.2) Platelet Count 290 TH/MM3 (150-450) 295 TH/MM3 (150-450) 397 TH/MM3 (150-450) Mean Platelet Volume 7.5 FL (7.0-11.0) 8.3 FL (7.0-11.0) 8.8 FL (7.0-11.0) Neutrophils (%) (Auto) 89.3 % (16.0-70.0) 87.5 % (16.0-70.0) 82.4 % (16.0-70.0) Lymphocytes (%) (Auto) 4.0 % (9.0-44.0) 5.8 % (9.0-44.0) 9.0 % (9.0-44.0) Monocytes (%) (Auto) 6.3 % (0.0-8.0) 5.0 % (0.0-8.0) 6.9 % (0.0-8.0) Eosinophils (%) (Auto) 0.1 % (0.0-4.0) 1.2 % (0.0-4.0) 1.3 % (0.0-4.0) Basophils (%) (Auto) 0.3 % (0.0-2.0) 0.5 % (0.0-2.0) 0.4 % (0.0-2.0) Neutrophils # (Auto) 19.6 TH/MM3 (1.8-7.7) 12.8 TH/MM3 (1.8-7.7) 11.1 TH/MM3 (1.8-7.7) Lymphocytes # (Auto) 0.9 TH/MM3 (1.0-4.8) 0.8 TH/MM3 (1.0-4.8) 1.2 TH/MM3 (1.0-4.8) Monocytes # (Auto) 1.4 TH/MM3 (0-0.9) 0.7 TH/MM3 (0-0.9) 0.9 TH/MM3 (0-0.9) Eosinophils # (Auto) 0.0 TH/MM3 (0-0.4) 0.2 TH/MM3 (0-0.4) 0.2 TH/MM3 (0-0.4) Basophils # (Auto) 0.1 TH/MM3 (0-0.2) 0.1 TH/MM3 (0-0.2) 0.1 TH/MM3 (0-0.2) CBC Comment DIFF FINAL DIFF FINAL DIFF FINAL Differential Comment Blood Urea Nitrogen 16 MG/DL (7-18) 9 MG/DL (7-18) 6 MG/DL (7-18) Creatinine 0.50 MG/DL (0.60-1.30) 0.47 MG/DL (0.60-1.30) 0.47 MG/DL (0.60-1.30) Random Glucose 86 MG/DL (74-106) 104 MG/DL (74-106) 98 MG/DL (74-106) Total Protein 5.8 GM/DL (6.4-8.2) 5.5 GM/DL (6.4-8.2) 6.4 GM/DL (6.4-8.2) Albumin 1.9 GM/DL (3.4-5.0) 1.7 GM/DL (3.4-5.0) 2.0 GM/DL (3.4-5.0) Calcium Level 7.8 MG/DL (8.5-10.1) 7.7 MG/DL (8.5-10.1) 8.1 MG/DL (8.5-10.1) Alkaline Phosphatase 73 U/L (45-117) 75 U/L (45-117) 97 U/L (45-117) Aspartate Amino Transf (AST/SGOT) 24 U/L (15-37) 23 U/L (15-37) 25 U/L (15-37) Alanine Aminotransferase (ALT/SGPT) 17 U/L (12-78) 15 U/L (12-78) 19 U/L (12-78) Total Bilirubin 0.4 MG/DL (0.2-1.0) 0.5 MG/DL (0.2-1.0) 0.6 MG/DL (0.2-1.0) Sodium Level 144 MEQ/L (136-145) 138 MEQ/L (136-145) 138 MEQ/L (136-145) Potassium Level 3.8 MEQ/L (3.5-5.1) 3.1 MEQ/L (3.5-5.1) 3.8 MEQ/L (3.5-5.1) 3.6 MEQ/L (3.5-5.1) Chloride Level 110 MEQ/L (98-107) 104 MEQ/L (98-107) 102 MEQ/L (98-107) Carbon Dioxide Level 27.1 MEQ/L (21.0-32.0) 27.3 MEQ/L (21.0-32.0) 30.6 MEQ/L (21.0-32.0) Anion Gap 7 MEQ/L (5-15) 7 MEQ/L (5-15) 5 MEQ/L (5-15) Estimat Glomerular Filtration Rate 200 ML/MIN (>89) 215 ML/MIN (>89) 215 ML/MIN (>89) Result Diagram: 10/01/17 0341 10/01/17 0341 Procedures 09/27/2017 Exploratory laparotomy, lysis of adhesions and small bowel resection . Assessment and Plan Disease Oriented Problem List: (1) Small bowel obstruction (2) Gastric adenocarcinoma (3) HIV (human immunodeficiency virus infection) (4) Dehydration (5) Anemia Symptom Scale: (1) Pain Comment: Multifactorial. Hx of gastric cancer. Patient came in complaining of sharp abdominal pain. . (2) Nausea & vomiting 0-10 Scale: Unable to quantify Comment: Multifactorial. History of gastric cancer stage II a noted to be poorly differentiated s/p total gastrectomy en block pancreas resection. Patient came in complaining of nausea and vomiting. Abdomen/pelvis CT 09/24/17 revealed distal small bowel obstruction. . Pertinent Non-Medical Issues Psychosocial:Patient was born and raised in [place]. He then moved to [place] in 1966 where he completed high school and then joined and served in the [employer]. Patient was never . He has a daughter Kal Kohli who lives in [place] and a son Corrine Benitez. Patient served in the [employer]. 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 Patient then moved to [place] in 1979 and he worked for the [employer] in [employer] and [employer] department until he retired Spiritual:Patient is a Spiritism. Goes to [employer]. Open to papier mache molder visit. Legal:Patient completed HCS form today. Ethical issues impacting care: None identified at this time. . Important Contacts HCS-Daughter- Kal Kohli [phone] Alternate [facility] Sister- Lina Zafar [phone] Son- Corrine Benitez Friend he rents room from -Candice GonzalezGcdoeed-[phone] . Prognosis Mr. Kohli is a 67 years old male with a past medical history of gastric cancer stage II a noted to be poorly differentiated s/p total gastrectomy en block pancreas resection, gastritis, HIV on HAART medication, hepatitis C, anemia, COPD/emphysema, and chronic pain. Patient was diagnosed with poorly differentiated adenocarcinoma that was excised at time of diagnosis in March of 2017. Patient presented to the ER on 09/24/2017 complaining of sharp abdominal pain that began 2 days ago and nausea and vomiting. Abdomen/pelvis CT revealed distal small bowel obstruction. Given multiple ongoing comorbidities, patient remains at risk for further complications, deterioration and decline leading to . . Code Status: Full Code Plan PLAN: Legal decision maker: Patient is able to participate in making his own medical decisions. In the event that patient is incapacitated his daughter Kal Kohli will serve as his healthcare surrogate and his sister Lina Stephen is the alternate HCS. Goals: Aggressive CODE STATUS: Full Code SYMPTOMS: * Pain:Multifactorial. Hx of gastric cancer. History of shingles per patient. Patient came in complaining of sharp abdominal pain.Abdomen/pelvis CT revealed distal small bowel obstruction. NGT inserted and is to LIWS. Patient verbalized some pain relief after NGT placement. Morphine Sulfate 2 mg Q 3hours prn available. Patient endorsing postherpetic neuralgia. Patient underwent exploratory laparotomy, lysis of adhesions and small bowel resection last night 09/27/17. Dilaudid VOUCHER EXAMINER discontinued. Patient currently denies pain. Hydrocodone/acetaminophen 5/325 1- 2 tablets every 4 hours prn for pain. Last dose 10/01/17 at 1221 hrs. no recommendations. * Nausea/vomiting:Multifactorial. History of gastric cancer stage II a noted to be poorly differentiated s/p total gastrectomy en block pancreas resection. Patient came in complaining of nausea and vomiting. Abdomen/pelvis CT 09/24/17 revealed distal small bowel obstruction. Small Bowel Follow-through study . Patient had increased pain, abdominal distention and no bowel movement after Gastrografin SBFT Zofran 4mg Q 6 hrs prn N/V ordered. Small bowel x-ray 08/04 revealed mid to distal small bowel obstruction. Patient underwent exploratory laparotomy, lysis of adhesions and small bowel resection last night 09/27/17. Denies nausea at this time. No recommendations. Palliative care will continue to follow the patient during hospital course as condition evolves, to assist patient/decision-maker with understanding of their medical conditions, weighing benefits/burdens of treatment options, for clarification of goals of treatment. Additionally will assist with any symptoms of palliative concern. . Attestation To help prompt me to consider important information that might be impacting today's encounter and assessment, information from prior notes written by myself or my colleagues may have been "brought forward" into today's note. My signature on this note, however, is an attestation that I personally performed the exam, history, and/or decision-making noted today, and, unless otherwise indicated, the interactions with patient, family, and staff as well as the review of records all occurred today. I also attest that the listed assessment and stated plan reflect my best clinical judgment today based on the combination of historical information, prior notes, and today's exam/ interactions. When time spent is documented, it refers only to time spent today by the signer, or if indicated, combined time spent today by collaborating physician/nurse practitioner. Hiram Yang Oct 01, 2017 15:20
[2017-10-01 16:00] VITALS: BP 136/68; PULSE 5; PULSE 74; RESP 18; TEMP 98
--- NOTE | 2017-10-01 17:25 | HHI.PR ---
Subjective Remarks Follow up for small bowel obstruction. Patient is doing well. He reports no acute concerns. Denies any chest pain, SOB, fever, chills. No abdominal pain. He is tolerating diet well. Objective Vitals Vital Signs Date Time Temp Pulse Resp B/P (MAP) Pulse Ox O2 Delivery O2 Flow Rate FiO2 10/01/17 16:00 98.0 5 18 136/68 (90) 10/01/17 16:00 74 10/01/17 12:00 98.0 87 19 134/68 (90) 10/01/17 12:00 84 10/01/17 08:00 70 10/01/17 08:00 98.0 88 18 130/68 (88) 10/01/17 06:00 20 10/01/17 04:00 98.3 78 16 136/69 (91) 98 10/01/17 00:00 99.1 81 16 135/74 (94) 99 09/30/17 22:00 18 09/30/17 20:00 98.4 75 16 136/79 (98) 100 I/O 09/30/17 09/30/17 09/30/17 10/01/17 10/01/17 10/01/17 07:00 15:00 23:00 07:00 15:00 23:00 Intake Total 1891.1 ml 300 ml 1491 ml 1396.4 ml 300 ml Output Total 1050 ml 2100 ml 1800 ml Balance 841.1 ml 300 ml -609 ml -403.6 ml 300 ml Intake Oral 500 ml 300 ml 500 ml IV Total 1391.1 ml 300 ml 1191 ml 896.4 ml 300 ml Output Urine Total 1050 ml 2100 ml 1800 ml Gastric Drainage Total 0 ml # Bowel Movements 0 0 2 Result Diagram: 10/01/17 0341 10/01/17 0341 Imaging Last Impressions Small Bowel X-Ray 09/27/17 0000 Signed Impressions: Service Date/Time: September 09:21 - CONCLUSION: Mid to distal small bowel obstruction. Alex Gregorio MD FACR Chest X-Ray 09/24/172258 Signed Impressions: Service Date/Time: Sunday, September 24, 2017 23:17 - CONCLUSION: 1. No acute cardiopulmonary disease. James Brown MD Abdomen/Pelvis CT 09/24/172258 Signed Impressions: Service Date/Time: Sunday, September 24, 2017 23:46 - CONCLUSION: 1. Findings of distal small bowel obstruction. James Brown MD Objective Remarks GENERAL: Alert, NAD. SKIN: Warm and dry. HEAD: Normocephalic. EYES: No scleral icterus. No injection or drainage. NECK: Supple, trachea midline. No JVD or lymphadenopathy. CARDIOVASCULAR: Regular rate and rhythm without murmurs, gallops, or rubs. RESPIRATORY: Breath sounds equal bilaterally. No accessory muscle use. GASTROINTESTINAL: Abdomen soft, non-tender, nondistended. Surgical incision. MUSCULOSKELETAL: No cyanosis, or edema. BACK: Nontender without obvious deformity. No CVA tenderness. Procedures 09/28/2017 OPERATION: 1. Exploratory laparotomy 2. Lysis of adhesions 3. Small bowel resection with primary anastomosis. A/P Problem List: (1) Small bowel obstruction ICD Code: K56.609 - Unspecified intestinal obstruction, unspecified as to partial versus complete obstruction Status: Acute (2) HIV (human immunodeficiency virus infection) ICD Code: Z21 - Asymptomatic human immunodeficiency virus [HIV] infection status Status: Chronic Assessment and Plan Ms. Kohli is a pleasant 67 year old male with a history of Hep C, HIV, gastric cancer who was admitted to the hospital due to abdominal pain. Work up indicated distal SBO. - Distal small bowel obstruction - NGT to low intermittent wall suction did not resolve symptoms. - Patient underwent ex lap. - Diet advanced. 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 [place] for pain. - OOB as tolerated. Chronic conditions - HIV - Hep C - Chronic anemia - Gastric cancer Full code. Lovenox. Patient is on protonix IV. We will switch him to Protonix PO. Jose Sanchez DO Oct 01, 2017 17:25
[2017-10-01 20:00] VITALS: BP 112/63; PULSE 88; RESP 20; TEMP 98; O2SAT 95
[2017-10-02] VITALS: BP 116/64; PULSE 80; RESP 20; TEMP 98; O2SAT 97
[2017-10-02] MEDS: ACETAMINOPHEN/HYDROcodone 325 MG/5 MG TAB PO PRN ×6 (00:12→20:25)
[2017-10-02 04:00] VITALS: BP 127/70; PULSE 70; RESP 17; TEMP 97.9; O2SAT 97
[2017-10-02 08:00] VITALS: BP 132/73; PULSE 66; PULSE 70; RESP 20; TEMP 98; O2SAT 97
[2017-10-02] MEDS: ENOXAPARIN SODIUM 40 MG/0.4 ML SYRINGE SQ SCH (08:13)
[2017-10-02] MEDS: SODIUM CHLORIDE 0.9% FLUSH 10 ML FLUSH IV FLUSH SCH ×2 (08:14→20:25)
[2017-10-02] MEDS: PANTOPRAZOLE SOD 40 MG DELAYED RELEASE TAB PO SCH (08:14)
--- NOTE | 2017-10-02 09:53 | HHI.PR ---
Subjective Subjective Notes Up to chair +BM Pain controlled Objective Vitals/I&O Vital Signs Date Time Temp Pulse Resp B/P (MAP) Pulse Ox O2 Delivery O2 Flow Rate FiO2 10/02/17 08:00 98.0 70 20 132/73 (92) 97 09/30/17 07:21 Nasal Cannula 3.00 Radiology Last 48 hours Impressions Chest X-Ray 09/24/172258 Signed Impressions: Service Date/Time: Sunday, September 24, 2017 23:17 - CONCLUSION: 1. No acute cardiopulmonary disease. James Brown MD Abdomen/Pelvis CT 09/24/172258 Signed Impressions: Service Date/Time: Sunday, September 24, 2017 23:46 - CONCLUSION: 1. Findings of distal small bowel obstruction. James Brown MD Cardiovascular: Regular Lungs: Clear Abdomen: Other (midline incision --- dressing c/d/i non tender ) Extremities: No edema A/P Assessment and Plan 67 year old male s/p ex lap and total gastrectomy en block pancreas in December 2016; now with abdominal pain/nausea/vomiting; findings on CT of distal small bowel obstruction -POD5 ex lap; SBR---findings of internal hernia -Advance to regular diet -[place] + Morphine for breakthrough pain -OOB as tolerated -Lovenox -IS -Transfer out of [facility]; preferably 7N Attending Statement The exam, history, and the medical decision-making described in the above note were completed with the assistance of the mid-level provider. I reviewed and agree with the findings presented. I attest that I had a [id number] encounter with the patient on the same day, and personally performed and documented my assessment and findings in the medical record. s/o ExLap, stable abdominal exam postop tenderness, no peritonitis or rebound tenderness bowel function returning, advance diet, home soon Debra Amin Oct 02, 2017 09:53 Boy Hernandez MD Oct 03, 2017 09:43
[2017-10-02 12:00] VITALS: BP 121/68; PULSE 79; RESP 16; TEMP 98.5; O2SAT 96
--- NOTE | 2017-10-02 15:53 | HHI.HCPN ---
Reason for visit a. To assist with evaluation and management of symptoms including:Pain, nausea and vomiting. b. To assist medical decision maker(s) with: better understanding of current medical conditions; weighing benefits/burdens of medical treatment options; making medical treatment decisions. Subjective/Interval History Patient seen and examined in his room on [facility]. Patient sitting up on a recliner with no signs of distress or discomfort. Patient denies pain, nausea and vomiting. Patient has received x6 doses of Hydrocodone 5/325 2 tabs in the last 24 hours. Patient has had x6 BMs today. Patient`s diet upgraded to regular diet and tolerating well. Patient consuming 30-50% of his meals. Patient states he has been ambulating in his room and in the mariee ways with no difficulty. Vital signs stable. Patient states that he feels better and is ready to go home. No lab work today. Case discussed with bedside. . Family/friend interactions No family at bedside. . Advance Directives Living Will: Never completed Health Care Surrogate: Copy in medical record Durable Power of Ladies' Hat Trimmer: Never completed Advance Directive Specifics Date completed: 09/25/2017 . Health Care Surrogate(s): Healthcare surrogate -Daughter- Kal Kohli [phone] Alternate healthcare surrogate- sister-Lina Stephen- [phone] . Objective Vital Signs Date Time Temp Pulse Resp B/P (MAP) Pulse Ox O2 Delivery O2 Flow Rate FiO2 10/02/17 12:00 79 10/02/17 12:00 98.5 79 16 121/68 (85) 96 10/02/17 08:00 98.0 70 20 132/73 (92) 97 10/02/17 08:00 66 10/02/17 04:00 97.9 70 17 127/70 (89) 97 10/02/17 04:00 70 10/02/17 00:00 80 10/02/17 00:00 98.0 80 20 116/64 (81) 97 10/01/17 20:00 98.0 88 20 112/63 (79) 95 10/01/17 20:00 88 10/01/17 16:00 98.0 5 18 136/68 (90) 10/01/17 16:00 74 Intake & Output 10/02/17 10/02/17 07:00 19:00 Intake Total 600 ml Output Total 675 ml Balance -75 ml Intake Oral 600 ml Output Urine Total 675 ml # Bowel Movements 1 Physical Exam CONSTITUTIONAL/GENERAL: This is an emaciated patient, in no acute distress. Obvious temporal muscle wasting. Denies pain TUBES/LINES/DRAINS: PIV SKIN: No jaundice, rashes, or lesions. Ecchymoses on upper extremities. No wounds seen anteriorly. Skin temperature appropriate. Not diaphoretic. HEAD: Atraumatic. Normocephalic. EYES: Pupils equal and round and reactive. Extraocular motions intact. No scleral icterus. No injection or drainage. Fundi not examined. ENT: Hearing grossly normal. Nose without bleeding or purulent drainage. NECK: Trachea midline. Supple, nontender. CARDIOVASCULAR: Regular rate and rhythm without murmurs, gallops, or rubs. No JVD. Peripheral pulses symmetric. RESPIRATORY/CHEST: Symmetric, unlabored respirations. Clear to auscultation. Breath sounds equal bilaterally. No wheezes, rales, or rhonchi. GASTROINTESTINAL: Abdomen soft, non-tender, Positive bowel sounds. Midline abdominal surgical incision covered with a dressing, no drainage noted. GENITOURINARY: Without palpable bladder distension. MUSCULOSKELETAL: Extremities without clubbing, cyanosis, or edema. No joint tenderness or effusion noted. No calf tenderness. No mottling or clubbing. NEUROLOGICAL: Awake and alert, oriented to self, place and situation. Motor and sensory grossly within normal limits. Follows commands. Moves all extremities. PSYCHIATRIC: No obvious anxiety/depression. no apparent hallucinations or other psychotic thought process. Diagnostic Tests Laboratory Laboratory Tests Test 09/30/17 04:21 09/30/17 17:04 10/01/17 03:41 White Blood Count 14.6 TH/MM3 (4.0-11.0) 13.5 TH/MM3 (4.0-11.0) Red Blood Count 3.56 MIL/MM3 (4.50-5.90) 3.97 MIL/MM3 (4.50-5.90) Hemoglobin 10.6 GM/DL (13.0-17.0) 12.2 GM/DL (13.0-17.0) Hematocrit 32.6 % (39.0-51.0) 36.2 % (39.0-51.0) Mean Corpuscular Volume 91.5 FL (80.0-100.0) 91.0 FL (80.0-100.0) Mean Corpuscular Hemoglobin 29.7 PG (27.0-34.0) 30.8 PG (27.0-34.0) Mean Corpuscular Hemoglobin Concent 32.5 % (32.0-36.0) 33.8 % (32.0-36.0) Red Cell Distribution Width 14.9 % (11.6-17.2) 14.8 % (11.6-17.2) Platelet Count 295 TH/MM3 (150-450) 397 TH/MM3 (150-450) Mean Platelet Volume 8.3 FL (7.0-11.0) 8.8 FL (7.0-11.0) Neutrophils (%) (Auto) 87.5 % (16.0-70.0) 82.4 % (16.0-70.0) Lymphocytes (%) (Auto) 5.8 % (9.0-44.0) 9.0 % (9.0-44.0) Monocytes (%) (Auto) 5.0 % (0.0-8.0) 6.9 % (0.0-8.0) Eosinophils (%) (Auto) 1.2 % (0.0-4.0) 1.3 % (0.0-4.0) Basophils (%) (Auto) 0.5 % (0.0-2.0) 0.4 % (0.0-2.0) Neutrophils # (Auto) 12.8 TH/MM3 (1.8-7.7) 11.1 TH/MM3 (1.8-7.7) Lymphocytes # (Auto) 0.8 TH/MM3 (1.0-4.8) 1.2 TH/MM3 (1.0-4.8) Monocytes # (Auto) 0.7 TH/MM3 (0-0.9) 0.9 TH/MM3 (0-0.9) Eosinophils # (Auto) 0.2 TH/MM3 (0-0.4) 0.2 TH/MM3 (0-0.4) Basophils # (Auto) 0.1 TH/MM3 (0-0.2) 0.1 TH/MM3 (0-0.2) CBC Comment DIFF FINAL DIFF FINAL Differential Comment Blood Urea Nitrogen 9 MG/DL (7-18) 6 MG/DL (7-18) Creatinine 0.47 MG/DL (0.60-1.30) 0.47 MG/DL (0.60-1.30) Random Glucose 104 MG/DL (74-106) 98 MG/DL (74-106) Total Protein 5.5 GM/DL (6.4-8.2) 6.4 GM/DL (6.4-8.2) Albumin 1.7 GM/DL (3.4-5.0) 2.0 GM/DL (3.4-5.0) Calcium Level 7.7 MG/DL (8.5-10.1) 8.1 MG/DL (8.5-10.1) Alkaline Phosphatase 75 U/L (45-117) 97 U/L (45-117) Aspartate Amino Transf (AST/SGOT) 23 U/L (15-37) 25 U/L (15-37) Alanine Aminotransferase (ALT/SGPT) 15 U/L (12-78) 19 U/L (12-78) Total Bilirubin 0.5 MG/DL (0.2-1.0) 0.6 MG/DL (0.2-1.0) Sodium Level 138 MEQ/L (136-145) 138 MEQ/L (136-145) Potassium Level 3.1 MEQ/L (3.5-5.1) 3.8 MEQ/L (3.5-5.1) 3.6 MEQ/L (3.5-5.1) Chloride Level 104 MEQ/L (98-107) 102 MEQ/L (98-107) Carbon Dioxide Level 27.3 MEQ/L (21.0-32.0) 30.6 MEQ/L (21.0-32.0) Anion Gap 7 MEQ/L (5-15) 5 MEQ/L (5-15) Estimat Glomerular Filtration Rate 215 ML/MIN (>89) 215 ML/MIN (>89) Result Diagram: 10/01/17 0341 10/01/17 0341 Procedures 09/27/2017 Exploratory laparotomy, lysis of adhesions and small bowel resection . Assessment and Plan Disease Oriented Problem List: (1) Small bowel obstruction (2) Gastric adenocarcinoma (3) HIV (human immunodeficiency virus infection) (4) Dehydration (5) Anemia Symptom Scale: (1) Pain Comment: Multifactorial. Hx of gastric cancer. Patient came in complaining of sharp abdominal pain. . (2) Nausea & vomiting 0-10 Scale: Unable to quantify Comment: Multifactorial. History of gastric cancer stage II a noted to be poorly differentiated s/p total gastrectomy en block pancreas resection. Patient came in complaining of nausea and vomiting. Abdomen/pelvis CT 09/24/17 revealed distal small bowel obstruction. . Pertinent Non-Medical Issues Psychosocial:Patient was born and raised in [place]. He then moved to [place] in 1966 where he completed high school and then joined and served in the [employer] Patient was never . He has a daughter Kal Kohli who lives in [place] and a son Corrine Benitez. Patient served in the [employer] 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 Patient then moved to [place] in 1979 and he worked for the [employer] in [employer] and [employer] department until he retired Spiritual:Patient is a Evangelical. Goes to [employer]. Open to outsole skiver visit. Legal:Patient completed HCS form today. Ethical issues impacting care: None identified at this time. . Important Contacts [facility]-Daughter- Kal Kohli [phone] Alternate [facility] Sister- Lina Stephen [phone] Son- Corrine Benitez Friend he rents room from -Candice GonzalezQcmploe-[phone] . Prognosis Mr. Kohli is a 67 years old male with a past medical history of gastric cancer stage II a noted to be poorly differentiated s/p total gastrectomy en block pancreas resection, gastritis, HIV on HAART medication, hepatitis C, anemia, COPD/emphysema, and chronic pain. Patient was diagnosed with poorly differentiated adenocarcinoma that was excised at time of diagnosis in March of 2017. Patient presented to the ER on 09/24/2017 complaining of sharp abdominal pain that began 2 days ago and nausea and vomiting. Abdomen/pelvis CT revealed distal small bowel obstruction. Given multiple ongoing comorbidities, patient remains at risk for further complications, deterioration and decline leading to . . Code Status: Full Code Plan PLAN: Legal decision maker: Patient is able to participate in making his own medical decisions. In the event that patient is incapacitated his daughter Kal Kohli will serve as his healthcare surrogate and his sister Lina Stephen is the alternate HCS. Goals: Aggressive CODE STATUS: Full Code SYMPTOMS: * Pain:Multifactorial. Hx of gastric cancer. History of shingles per patient. Patient came in complaining of sharp abdominal pain.Abdomen/pelvis CT revealed distal small bowel obstruction. NGT inserted and is to LIWS. Patient verbalized some pain relief after NGT placement. Morphine Sulfate 2 mg Q 3hours prn available. Patient endorsing postherpetic neuralgia. Patient underwent exploratory laparotomy, lysis of adhesions and small bowel resection last night 09/27/17. Dilaudid PAID INTERNSHIP discontinued. Patient currently denies pain. Hydrocodone/acetaminophen 5/325 1- 2 tablets every 4 hours prn for pain. Patient has received x6 doses of Hydrocodone 5/325 2 tabs in the last 24 hours. No recommendations. * Nausea/vomiting:Multifactorial. History of gastric cancer stage II a noted to be poorly differentiated s/p total gastrectomy en block pancreas resection. Patient came in complaining of nausea and vomiting. Abdomen/pelvis CT 09/24/17 revealed distal small bowel obstruction. Small Bowel Follow-through study . Patient had increased pain, abdominal distention and no bowel movement after Gastrografin SBFT Zofran 4mg Q 6 hrs prn N/V ordered. Small bowel x-ray 08/04 revealed mid to distal small bowel obstruction. Patient underwent exploratory laparotomy, lysis of adhesions and small bowel resection last night 09/27/17. Denies nausea at this time. Resolved. Palliative care will continue to follow the patient during hospital course as condition evolves, to assist patient/decision-maker with understanding of their medical conditions, weighing benefits/burdens of treatment options, for clarification of goals of treatment. Additionally will assist with any symptoms of palliative concern. . Attestation To help prompt me to consider important information that might be impacting today's encounter and assessment, information from prior notes written by myself or my colleagues may have been "brought forward" into today's note. My signature on this note, however, is an attestation that I personally performed the exam, history, and/or decision-making noted today, and, unless otherwise indicated, the interactions with patient, family, and staff as well as the review of records all occurred today. I also attest that the listed assessment and stated plan reflect my best clinical judgment today based on the combination of historical information, prior notes, and today's exam/ interactions. When time spent is documented, it refers only to time spent today by the signer, or if indicated, combined time spent today by collaborating physician/nurse practitioner. Hiram Yang Oct 02, 2017 15:53
[2017-10-02 16:00] VITALS: BP 134/70; PULSE 87; RESP 22; TEMP 98.1; O2SAT 97
--- NOTE | 2017-10-02 16:56 | HHI.PR ---
Subjective Remarks Follow up for small bowel obstruction, Afib. Patient is doing well. No fever, chills. He is tolerating food well. His diet was advanced to regular today. Objective Vitals Vital Signs Date Time Temp Pulse Resp B/P (MAP) Pulse Ox O2 Delivery O2 Flow Rate FiO2 10/02/17 16:00 87 10/02/17 16:00 98.1 87 22 134/70 (91) 97 10/02/17 12:00 79 10/02/17 12:00 98.5 79 16 121/68 (85) 96 10/02/17 08:00 98.0 70 20 132/73 (92) 97 10/02/17 08:00 66 10/02/17 04:00 97.9 70 17 127/70 (89) 97 10/02/17 04:00 70 10/02/17 00:00 80 10/02/17 00:00 98.0 80 20 116/64 (81) 97 10/01/17 20:00 98.0 88 20 112/63 (79) 95 10/01/17 20:00 88 I/O 10/01/17 10/01/17 10/01/17 10/02/17 10/02/17 10/02/17 06:59 14:59 22:59 06:59 14:59 22:59 Intake Total 1396.4 ml 300 ml 860 ml 600 ml Output Total 1800 ml 850 ml 675 ml Balance -403.6 ml 300 ml 10 ml -75 ml Intake Oral 500 ml 860 ml 600 ml IV Total 896.4 ml 300 ml Output Urine Total 1800 ml 850 ml 675 ml # Voids 5 # Bowel Movements 0 2 3 1 Result Diagram: 10/01/17 0341 10/01/17 0341 Imaging Last Impressions Small Bowel X-Ray 09/27/17 0000 Signed Impressions: Service Date/Time: September 09:21 - CONCLUSION: Mid to distal small bowel obstruction. Alex Gregorio MD FACR Chest X-Ray 09/24/172258 Signed Impressions: Service Date/Time: Sunday, September 24, 2017 23:17 - CONCLUSION: 1. No acute cardiopulmonary disease. James Brown MD Abdomen/Pelvis CT 09/24/172258 Signed Impressions: Service Date/Time: Sunday, September 24, 2017 23:46 - CONCLUSION: 1. Findings of distal small bowel obstruction. James Brown MD Objective Remarks GENERAL: Alert, NAD. SKIN: Warm and dry. HEAD: Normocephalic. EYES: No scleral icterus. No injection or drainage. NECK: Supple, trachea midline. No JVD or lymphadenopathy. CARDIOVASCULAR: Regular rate and rhythm without murmurs, gallops, or rubs. RESPIRATORY: Breath sounds equal bilaterally. No accessory muscle use. GASTROINTESTINAL: Abdomen soft, non-tender, nondistended. Surgical incision. MUSCULOSKELETAL: No cyanosis, or edema. BACK: Nontender without obvious deformity. No CVA tenderness. Procedures 09/28/2017 OPERATION: 1. Exploratory laparotomy 2. Lysis of adhesions 3. Small bowel resection with primary anastomosis. A/P Problem List: (1) Small bowel obstruction ICD Code: K56.609 - Unspecified intestinal obstruction, unspecified as to partial versus complete obstruction Status: Acute (2) HIV (human immunodeficiency virus infection) ICD Code: Z21 - Asymptomatic human immunodeficiency virus [HIV] infection status Status: Chronic Assessment and Plan Ms. Kohli is a pleasant 67 year old male with a history of Hep C, HIV, gastric cancer who was admitted to the hospital due to abdominal pain. Work up indicated distal SBO. - Distal small bowel obstruction - NGT to low intermittent wall suction did not resolve symptoms. - Patient underwent ex lap. - Diet advanced to Regular on 10/02/2017. 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 [place] for pain. - Patient is sitting in his chair, ambulating well. Chronic conditions - HIV - will re-start HIV medications. - Hep C - Chronic anemia - Gastric cancer Full code. Lovenox Possible discharge on 10/03/2017 once cleared by surgery. Jose Sanchez DO Oct 02, 2017 16:56
[2017-10-02 20:00] VITALS: BP 135/80; PULSE 90; RESP 20; TEMP 98.5; O2SAT 97
[2017-10-03] VITALS: BP 113/65; PULSE 87; RESP 22; TEMP 98.3; O2SAT 96
[2017-10-03] MEDS: ACETAMINOPHEN/HYDROcodone 325 MG/5 MG TAB PO PRN ×3 (03:56→07:59)
[2017-10-03 04:00] VITALS: BP 117/71; PULSE 89; RESP 23; TEMP 98; O2SAT 96
[2017-10-03] MEDS: SODIUM CHLORIDE 0.9% FLUSH 10 ML FLUSH IV FLUSH SCH (07:58)
[2017-10-03] MEDS: PANTOPRAZOLE SOD 40 MG DELAYED RELEASE TAB PO SCH (07:59)
[2017-10-03] MEDS: ENOXAPARIN SODIUM 40 MG/0.4 ML SYRINGE SQ SCH (07:59)
[2017-10-03 08:00] VITALS: BP 115/77; PULSE 89; RESP 22; TEMP 98.2; O2SAT 97
[2017-10-03] MEDS ORDERED: ELVIT/COBI/EMTR/TENOF 150/150/200/300 MG TABLETS PO SCH (09:00)
[2017-10-03] MEDS ORDERED: HYDR-3516 PO (10:43)
--- NOTE | 2017-10-03 11:39 | HHI.PR ---
Subjective Subjective Notes Doing well No issues Wants to try to go home Objective Vitals/I&O Vital Signs Date Time Temp Pulse Resp B/P (MAP) Pulse Ox O2 Delivery O2 Flow Rate FiO2 10/03/17 08:00 89 10/03/17 08:00 98.2 22 115/77 (90) 97 09/30/17 07:21 Nasal Cannula 3.00 Radiology Last 48 hours Impressions Chest X-Ray 09/24/172258 Signed Impressions: Service Date/Time: Sunday, September 24, 2017 23:17 - CONCLUSION: 1. No acute cardiopulmonary disease. James Brown MD Abdomen/Pelvis CT 09/24/172258 Signed Impressions: Service Date/Time: Sunday, September 24, 2017 23:46 - CONCLUSION: 1. Findings of distal small bowel obstruction. James Brown MD Cardiovascular: Regular Lungs: Clear Abdomen: Other (midline incision with estelita ), Post-op tenderness Extremities: No edema A/P Assessment and Plan 67 year old male s/p ex lap and total gastrectomy en block pancreas in December 2016; now with abdominal pain/nausea/vomiting; findings on CT of distal small bowel obstruction -POD6 ex lap; SBR---findings of internal hernia -Tolerating regular diet -[place] for pain control -Lovenox -IS -GS clear for DC -Follow up Oct 11 at 1:40PM with Debra Arenas Oct 03, 2017 11:39
--- NOTE | 2017-10-03 20:13 | HHI.DS ---
Discharge Summary Admission Date Sep 25, 2017 at 01:24 Discharge Date: Oct 03, 2017 Admitting Diagnosis Small bowel obstruction (1) Small bowel obstruction ICD Code: K56.609 - Unspecified intestinal obstruction, unspecified as to partial versus complete obstruction Status: Acute (2) HIV (human immunodeficiency virus infection) ICD Code: Z21 - Asymptomatic human immunodeficiency virus [HIV] infection status Status: Chronic Procedures 09/28/2017 OPERATION: 1. Exploratory laparotomy 2. Lysis of adhesions 3. Small bowel resection with primary anastomosis. Brief History - From Admission for past 2-3 days, severe abdominal pain, nuase[place], vomiting constipated for 3 days no black stool or red stool no urinary burning or pain on urination no blood in urine denies other symptoms states lives with friend, independent on ADL, no longer driving havent seen pcp at [facility] for past 5 months somewhat of a poor historian , reports his daughter takes care it CBC/BMP: 10/01/17 0341 10/01/17 0341 Significant Findings Laboratory Tests Test 10/01/17 03:41 White Blood Count 13.5 TH/MM3 (4.0-11.0) Red Blood Count 3.97 MIL/MM3 (4.50-5.90) Hemoglobin 12.2 GM/DL (13.0-17.0) Hematocrit 36.2 % (39.0-51.0) Neutrophils (%) (Auto) 82.4 % (16.0-70.0) Neutrophils # (Auto) 11.1 TH/MM3 (1.8-7.7) Blood Urea Nitrogen 6 MG/DL (7-18) Creatinine 0.47 MG/DL (0.60-1.30) Albumin 2.0 GM/DL (3.4-5.0) Calcium Level 8.1 MG/DL (8.5-10.1) Imaging Last Impressions Small Bowel X-Ray 09/27/17 0000 Signed Impressions: Service Date/Time: September 09:21 - CONCLUSION: Mid to distal small bowel obstruction. Alex Gregorio MD FACR Chest X-Ray [id number] Signed Impressions: Service Date/Time: Sunday, September 24, 2017 23:17 - CONCLUSION: 1. No acute cardiopulmonary disease. James Brown MD Abdomen/Pelvis CT 09/24/172258 Signed Impressions: Service Date/Time: Sunday, September 24, 2017 23:46 - CONCLUSION: 1. Findings of distal small bowel obstruction. James Brown MD PE at Discharge GENERAL: Alert, NAD. SKIN: Warm and dry. HEAD: Normocephalic. EYES: No scleral icterus. No injection or drainage. NECK: Supple, trachea midline. No JVD or lymphadenopathy. CARDIOVASCULAR: Regular rate and rhythm without murmurs, gallops, or rubs. RESPIRATORY: Breath sounds equal bilaterally. No accessory muscle use. GASTROINTESTINAL: Abdomen soft, non-tender, nondistended. Surgical incision. MUSCULOSKELETAL: No cyanosis, or edema. BACK: Nontender without obvious deformity. No CVA tenderness. Pt update on day of discharge Patient is doing well. Tolerating diet well. No fever, chills. Ambulating well. Cleared for discharge by surgery. Hospital Course Ms. Kohli is a pleasant 67 year old male with a history of Hep C, HIV, gastric cancer who was admitted to the hospital due to abdominal pain. Work up indicated distal SBO. - Distal small bowel obstruction - NGT to low intermittent wall suction did not resolve symptoms. - Patient underwent ex lap. - Diet advanced to Regular on 10/02/2017. 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 [place] for pain. - Patient is sitting in his chair, ambulating well. Tolerating diet well. Chronic conditions - HIV - Re-started HIV medications. - Hep C - Chronic anemia - Gastric cancer Surgery cleared for discharge. Patient was subsequently discharged with outpatient followup. Pt Condition on Discharge: Good Discharge Disposition: Discharge Home Discharge Time: <= 30 minutes Discharge Instructions DIET: Follow Instructions for: As Tolerated, No Restrictions Activities you can perform: Regular-No Restrictions Follow up Referrals: Appointment for Follow Up Please call to schedule an appointment for follow up with Dr. May. PCP Follow-up - 1 Week Surgical - 1 Week with Boy Hernandez MD New Medications: Hydrocodone/Acetaminophen (Hydrocodone-Acetamin 5-325 mg) 5 Mg-325 Mg Tablet 1 TAB PO Q6HR PRN for PAIN SCALE 5 TO 10, #20 TAB Continued Medications: Amitriptyline (Amitriptyline) 10 Mg Tab 40 MG PO DAILY for Depression Control, TAB Iflxzvgiypmm-Wnrdtwslum-Xbeotbluserg-Tenofvir (Genvoya) [phone] Mg Tab 1 TAB PO DAILY for Mgmt Viral Infection, #30 TAB 0 Refills Gabapentin (Gabapentin) 600 Mg Tab 600 MG PO TID, #90 TAB 0 Refills Pantoprazole Liq (Protonix Liq) 40 Mg Pkt 40 MG PEG DAILY for Reflux, #30 PKT 0 Refills Discontinued Medications: Morphine Liq (Morphine Liq) 10 Mg/5 Ml Liq 5 MG PO Q4H for Pain Management, #15 ML 0 Refills Jose Sanchez DO Oct 03, 2017 20:13
== END 2017-10-03 11:48 | disposition home or self-care (01) | DRG 330 ==
LOC: NEPC 20:26 → NEDA 09-25 01:24 → NEDH 09-25 06:04 → N07B 09-25 14:54 → N03B 09-27 22:07 → N03A 09-28 01:29
PROVIDERS: ADMIT Hospitalist; ATTEND Hospitalist
PROC: 0DB80ZZ Excision of Small Intestine, Open Approach (ICD-10-PCS; 2017-09-27)
PROC: 0DNA0ZZ Release Jejunum, Open Approach (ICD-10-PCS; principal; 2017-09-27 19:04)
DX: K56.50 Intestinal adhesions [bands], unspecified as to partial versus complete obstruction (principal); E87.2 Acidosis; B02.29 Other postherpetic nervous system involvement; J43.9 Emphysema, unspecified; Z90.3 Acquired absence of stomach [part of]; B18.2 Chronic viral hepatitis C; E86.0 Dehydration; Z21 Asymptomatic human immunodeficiency virus [HIV] infection status; R11.10 Vomiting, unspecified; F17.210 Nicotine dependence, cigarettes, uncomplicated; D64.9 Anemia, unspecified; Z51.5 Encounter for palliative care; R07.89 Other chest pain; E61.1 Iron deficiency; R79.89 Other specified abnormal findings of blood chemistry; K46.9 Unspecified abdominal hernia without obstruction or gangrene; E87.6 Hypokalemia; G89.29 Other chronic pain; M62.50 Muscle wasting and atrophy, not elsewhere classified, unspecified site; R06.6 Hiccough; Z79.899 Other long term (current) drug therapy; Z85.028 Personal history of other malignant neoplasm of stomach; Z90.81 Acquired absence of spleen
CPT/HCPCS: 71045; 74177; 74250; 80048; 80053; 82607; 82728; 83605; 83690; 83735; 84132; 85007; 85025; 85027; 85610; 85730; 86850; 86900; 86901; 86920; 88307; 93005; 94150; 96361; 96374; 96375; C9113; J0131; J0690; J1170; J1650; J2270; J2405; J3480; J7030; J7040; Q9963; Q9967

== ENCOUNTER 2018-04-26 13:50 | Observation (INO) ==
[2018-04-26] MEDS ORDERED: Sod Chloride 0.9% Inj 1,000 ML IV.SIG ONE (14:20)
--- NOTE | 2018-04-26 14:23 | ED ---
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 He currently complains of feeling short of breath and tired, headaches, starting today. He denies any current chest pains, vomiting, fevers, or other symptoms. Related Data Allergies Allergy/AdvReac Type Severity Reaction Status Date / Time No Known Allergies Allergy Uncoded 12/18/16 15:46 Review of Systems ROS: all other systems reviewed are negative [facility] Medical History Medical History HIV (human immunodeficiency virus infection) (Acute) Social History Social History Substance History: No History of Abuse Second Hand Smoke Exposure: Yes Smoking Status: Current some day smoker Tobacco Type: Cigarettes How Often Do You Have a Drink Containing Alcohol: 4 or more times a week Recent Travel in [facility] within the Last 8 Weeks: No Recent Out of Country Travel within the Last 8 Weeks: No Immunization History Tetanus Immunization: Unsure Hx Influenza Vaccine This Season: Yes Exam Narrative Exam Narrative: GENERAL: Thin elderly -Welsh male patient currently and mild distress. Awake and oriented 3. SKIN: Focused skin assessment warm/dry. HEAD: Atraumatic. Normocephalic. EYES: Pupils equal and round. No scleral icterus. No injection or drainage. ENT: No nasal bleeding or discharge. Mucous membranes pink and moist. NECK: Trachea midline. No JVD. Supple. CARDIOVASCULAR: Regular rate and rhythm. No murmur appreciated. RESPIRATORY: Mild accessory muscle use. Decreased throughout to auscultation. Breath sounds equal bilaterally. GASTROINTESTINAL: Abdomen soft, non-tender, nondistended. Hepatic and splenic margins not palpable. MUSCULOSKELETAL: No obvious deformities. No clubbing. No cyanosis. No edema. NEUROLOGICAL: Awake and alert. No obvious cranial nerve deficits. Motor grossly within normal limits. Normal speech. PSYCHIATRIC: Appropriate mood and affect; insight and judgment normal. Course Initial Documented Vital Signs Temperature 98.5 F 04/26/18 13:56 Pulse Rate 78 04/26/18 13:56 Respiratory Rate 17 04/26/18 13:56 Blood Pressure 123/71 04/26/18 13:56 Pulse Oximetry 97 04/26/18 13:56 Last Documented Vital Signs Temperature 98.3 F 04/26/18 14:02 Pulse Rate 85 04/26/18 16:03 Respiratory Rate 18 04/26/18 16:03 Blood Pressure 114/75 04/26/18 16:03 Pulse Oximetry 95 04/26/18 16:03 Medical Decision Making MDM Narrative Medical decision making narrative: Initial EKG, lab work, CAT scan and chest x- ray were unremarkable for any signs of acute dysrhythmias, electrolyte abnormalities, intracranial acute processes. Vital signs are stable in the ER. He has no focal neurological deficits. However, patient did have a prolonged period of altered mental status, 2 hours going to his employer. At this point, my plan would be to admit as an observation due to this episode. Case was discussed with Dr. Mcwilliams for admission. Differential Diagnosis Differential Diagnosis: Pneumonia versus dehydration versus electrolyte abnormalities versus dysrhythmias versus acute intracranial processes Lab Data Lab results reviewed: Yes I reviewed the patient's lab results. Result diagrams: 04/26/18 14:33 04/26/18 14:33 Lab Results 04/26/18 04/26/18 04/26/18 Range/Units 14:33 14:33 15:22 WBC 10.5 (4.0-11.0) th/mm3 RBC 4.25 L (4.50-5.90) mil/mm3 Hgb 12.2 L (13.0-17.0) gm/dL Hct 38.0 L (39.0-51.0) % MCV 89.4 (80.0-100.0) fL MCH 28.8 (27.0-34.0) pg MCHC 32.2 (32.0-36.0) % RDW 16.5 (11.6-17.2) % Plt Count 326 (150-450) th/mm3 MPV 8.3 (7.0-11.0) fL Neut % (Auto) 78.0 H (16.0-70.0) % Lymph % (Auto) 10.8 (9.0-44.0) % [place] % (Auto) 9.4 H (0.0-8.0) % Eos % (Auto) 0.8 (0.0-4.0) % Baso % (Auto) 1.0 (0.0-2.0) % Neut # (Auto) 8.2 H (1.8-7.7) th/mm3 Lymph # (Auto) 1.1 (1.0-4.8) th/mm3 [place] # (Auto) 1.0 H (0.0-0.9) th/mm3 Eos # (Auto) 0.1 (0.0-0.4) th/mm3 Baso # (Auto) 0.1 (0.0-0.2) th/mm3 WBC Differential . Differential Comment Auto diff final Sodium 137 (136-145) meq/L Potassium 4.7 (3.5-5.1) meq/L Chloride 106 (98-107) meq/L Carbon Dioxide 24.5 (21.0-32.0) meq/L Anion Gap 7 (5-15) meq/L BUN 17 (7-18) mg/dL Creatinine 1.67 H (0.60-1.30) mg/dL Estimated GFR 50 L (>89) mL/min Random Glucose 81 (74-106) mg/dL Calcium 8.2 L (8.5-10.1) mg/dL Total Bilirubin 0.6 (0.2-1.0) mg/dL AST 33 (15-37) U/L ALT 27 (12-78) U/L Alkaline Phosphatase 146 H (45-117) U/L Lactate Dehydrogenase 310 H (87-241) U/L Troponin I Less than 0.02 L (0.02-0.05) ng/mL Total Protein 7.9 (6.4-8.2) g/dL Albumin 3.2 L (3.4-5.0) g/dL Urine Color Yellow (Yellw/Straw) Urine Clarity Hazy H (Clear) Urine pH 7.0 (5.0-8.5) Ur Specific [place] 1.008 (1.002-1.035) Urine Protein Negative (Neg-Trace) mg/dL Urine Glucose (UA) 50 (Negative) mg/dL Urine Ketones Negative (Negative) mg/dL Urine Occult Blood Small H (Negative) Urine Nitrate Negative (Negative) Urine Bilirubin Negative (Negative) Urine Urobilinogen Less than 2 (Less than 2) mg/dL Ur Leukocyte Esterase Negative (Negative) Urine RBC 2 (0-3) /hpf Urine WBC Less than 1 (0-5) /hpf Ur Squamous Epith Cells 1 (0-5) /hpf Hyaline Casts 20 (0-3) /lpf Micro UA Comment Culture not ind Urine Culture Comments Culture not ind Imaging Data Attestation: I personally reviewed and interpreted this imaging study as follows : Radiologist's impression: Chest X-Ray 04/26/18 14:20 CONCLUSION: COPD No evidence of acute cardiopulmonary process. Sided granulomatous calcification. Head CT 04/26/18 14:35 CONCLUSION: 1. No acute intracranial abnormalities. No abnormal enhancement postcontrast. ECG Data EKG Prior to Arrival: Yes Attestation: I personally reviewed and interpreted this ECG as follows: Interpretation: EKG shows normal sinus rhythm at a rate of 75 bpm. No signs of acute ST elevations or depressions. Discharge Plan Discharge Disposition Patient Disposition: 30 Still Patient Discharge Condition Condition: Stable Discharge Details Anticipated Discharge Date: 04/26/18 Diagnosis: Syncope Physicians Team ED Provider: Ernesto Ibarra Primary Care Provider: [facility] Interventions Interventions: Vital Signs Last Done: 04/26/18 16:03 Status ED Status: With Doctor
--- NOTE | 2018-04-26 14:45 | XR ---
EXAM DATE: 04/26/2018 2:41 PM EDT AGE/SEX: 68 years / Male INDICATIONS: Right side chest pain and shortness of breath, with history of shingles. CLINICAL DATA: This is the patient's initial encounter. Patient reports that signs and symptoms have been present for 2 days and indicates a pain score of 7/10. MEDICAL/SURGICAL HISTORY: Shingles. None. [place] [facility] [place] . FINDINGS: Chest is stable in appearance. Lungs are hyperinflated but otherwise clear. Granulomatous calcificati on is identified in the left mid lung and left hilum. Heart and mediastinal structures are otherwise unremarkable. CONCLUSION: COPD No evidence of acute cardiopulmonary process. Sided granulomatous calcification. Electronically signed by: Roberto Luke MD 04/26/2018 2:44 PM EDT
[2018-04-26 15:07] LABS: Baso # (Auto) 0.1 th/mm3 (0.0-0.2); Eos # (Auto) 0.1 th/mm3 (0.0-0.4); Eos % (Auto) 0.8 % (0.0-4.0); Hemoglobin 12.2 gm/dL (13.0-17.0); Lymph # (Auto) 1.1 th/mm3 (1.0-4.8); Lymph % (Auto) 10.8 % (9.0-44.0); Mean Corpuscular HGB Conc 32.2 % (32.0-36.0); Mean Corpuscular Hemoglobin 28.8 pg (27.0-34.0); Mean Corpuscular Volume 89.4 fL (80.0-100.0); Mean Platelet Volume 8.3 fL (7.0-11.0); Mono % (Auto) 9.4 % (0.0-8.0); Neut # (Auto) 8.2 th/mm3 (1.8-7.7); Platelet Count 326 th/mm3 (150-450); Red Blood Count 4.25 mil/mm3 (4.50-5.90); Red Cell Distribution Width 16.5 % (11.6-17.2); White Blood Count 10.5 th/mm3 (4.0-11.0)
[2018-04-26 15:36] LABS: Bilirubin,Urine Negative (Negative); Clarity,Urine Hazy (Clear); Color,Urine Yellow (Yellw/Straw); Glucose,Urine (UA) 50 mg/dL (Negative); Hyaline Casts,Urine 20 /lpf (0-3); Leukocyte Esterase,Urine Negative (Negative); Nitrite,Urine Negative (Negative); Specific Gravity,Urine 1.008 (1.002-1.035); Squamous Epithelial Cell,Urine 1 /hpf (0-5)
[2018-04-26 15:53] LABS: Alkaline Phosphatase 146 U/L (45-117); Total Protein 7.9 g/dL (6.4-8.2)
[2018-04-26 15:56] LABS: Alanine Aminotransferase 27 U/L (12-78); Albumin 3.2 g/dL (3.4-5.0); Anion Gap 7 meq/L (5-15); Aspartate Aminotransferase 33 U/L (15-37); Blood Urea Nitrogen 17 mg/dL (7-18); Calcium 8.2 mg/dL (8.5-10.1); Carbon Dioxide 24.5 meq/L (21.0-32.0); Chloride 106 meq/L (98-107); Glomerular Filtration Rate 50 mL/min (>89); Glucose,Random 81 mg/dL (74-106); Lactate Dehydrogenase 310 U/L (87-241); Sodium 137 meq/L (136-145)
[2018-04-26 15:57] LABS: Potassium 4.7 meq/L (3.5-5.1)
--- NOTE | 2018-04-26 16:44 | CT ---
EXAM DATE: 04/26/2018 4:36 PM EDT AGE/SEX: 68 years / Male INDICATIONS: Syncope today, low blood pressure, Altered mental status, c/o dizziness, headache, and shortness of breath today CLINICAL DATA: This is the patient's initial encounter. Patient reports that signs and symptoms have been present for 1 day and indicates a pain score of 0/10. MEDICAL/SURGICAL HISTORY: HIV. Carcinoma, gastric. None. RADIATION DOSE: 69.16 CTDI (mGy) ; Combined studies COMPARISON: [facility] – [place], [place], [place] BRAIN W/O CONTRAST, 12/18/2016. . TECHNIQUE: Axial images of the head were acquired without contrast and after intravenous administrat ion of 60ML ml Omnipaque 350 (iohexol) nonionic water-soluble contrast as a single exam dose. Usin g automated exposure control and adjustment of the mA and/or kV according to patient size, radiation dose was kept as low as reasonably achievable to obtain optimal diagnostic quality images. DICOM for mat image data is available electronically for review and comparison. FINDINGS: Cerebrum: No intracranial mass, hemorrhage or shift. No hydrocephalus. No abnormal extra-axial fluid collections. Posterior Fossa: The cerebellum and brainstem are intact. The 4th ventricle is midline. The cerebe llopontine angle is unremarkable. Extracranial: The visualized portion of the orbits is intact. Skull: The calvaria is intact. No evidence of skull fracture. Post Contrast: No abnormal areas of parenchymal or dural enhancement. No evidence of blood-brain ba rrier breakdown. CONCLUSION: 1. No acute intracranial abnormalities. No abnormal enhancement postcontrast. Electronically signed by: Channing Rey MD 04/26/2018 4:42 PM EDT
--- NOTE | 2018-04-26 17:21 | P.HP ---
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 He currently complains of feeling short of breath and tired, headaches, starting today. He denies any current chest pains, vomiting, fevers, or other symptoms. Seen in his bedroom in the presence of his significant other, stable complaint more of confusional episode more than syncope, while he was taking a brake from his work, he abuse tobacco, alcohol, crack cocaine and does not feed himself properly will perform a work up for cardiac and Neurological causes fo this will get Rejogger to increase his Protein and caloric intake, and hydrate properly. Review of Systems All other systems reviewed negative except as stated in HPI PMFSH - History History Provided By: Patient - Medical History Medical History: Medical History (Last Updated 04/26/18 @ 17:43 by Thaddeus Mcwilliams MD) Gastric cancer (Acute) Alcohol abuse HIV (human immunodeficiency virus infection) Hypertension Tobacco dependence - Family History Family History: Family History (Last Updated 04/26/18 @ 17:44 by Thaddeus Mcwilliams MD) Brother Hypertension Mother Hypertension - Tobacco History Second Hand Smoke Exposure: Yes Tobacco Use In Past 30 Days: Yes Smoking Status: Current some day smoker Tobacco Type: Cigarettes - Alcohol History How Often Do You Have a Drink Containing Alcohol: 4 or more times a week - Substance Use History Substance History: Active Abuse - Travel History Recent Travel in the [place] Within the Last 8 Weeks: No Recent Travel Out of the Country Within the Last 8 Weeks: No - Immunization History Tetanus Immunization: Unsure Hx Influenza Vaccine This Season: Yes Medications and Allergies Active Medications: Active Medications Sodium Chloride (Ns Flush) 2 ml IV.FLUSH PRN PRN PRN Reason: FLUSH AFTER USING IV ACCESS Allergies Allergy/AdvReac Type Severity Reaction Status Date / Time No Known Allergies Allergy Uncoded 12/18/16 15:46 Exam Vital signs: Vital Signs 04/26/18 13:56 04/26/18 14:02 04/26/18 16:03 Temperature 98.5 F 98.3 F Pulse Rate 78 78 85 Respiratory Rate 17 18 18 Blood Pressure 123/71 123/71 114/75 Pulse Oximetry 97 96 95 Intake & Output 04/25/18 04/26/18 04/26/18 18:59 06:59 18:59 Weight 50.802 kg Narrative: GENERAL: Thin elderly -[place] male, in no distress, denotes chronic pathology, cachexia. SKIN: Focused skin assessment warm/dry. HEAD: Atraumatic. Normocephalic. EYES: Pupils equal and round. No scleral icterus. No injection or drainage. ENT: No nasal bleeding or discharge. Mucous membranes pink and moist. NECK: Trachea midline. No JVD. Supple. CARDIOVASCULAR: Regular rate and rhythm. No murmur appreciated. RESPIRATORY: Mild accessory muscle use. Decreased throughout to auscultation. Breath sounds equal bilaterally. GASTROINTESTINAL: Abdomen soft, non-tender, nondistended. Hepatic and splenic margins not palpable. MUSCULOSKELETAL: No obvious deformities. No clubbing. No cyanosis. No edema. NEUROLOGICAL: Awake and alert. No obvious cranial nerve deficits. Motor grossly within normal limits. Normal speech. PSYCHIATRIC: Appropriate mood and affect; insight and judgment normal. Results - Labs CBC & Chem 7: 04/26/18 14:33 04/26/18 14:33 Labs: Laboratory Results - last 24 hr 04/26/18 04/26/18 04/26/18 14:33 14:33 15:22 WBC 10.5 RBC 4.25 L Hgb 12.2 L Hct 38.0 L MCV 89.4 MCH 28.8 MCHC 32.2 RDW 16.5 Plt Count 326 MPV 8.3 Neut % (Auto) 78.0 H Lymph % (Auto) 10.8 [place] % (Auto) 9.4 H Eos % (Auto) 0.8 Baso % (Auto) 1.0 Neut # (Auto) 8.2 H Lymph # (Auto) 1.1 [place] # (Auto) 1.0 H Eos # (Auto) 0.1 Baso # (Auto) 0.1 WBC Differential . Differential Comment Auto diff final Sodium 137 Potassium 4.7 Chloride 106 Carbon Dioxide 24.5 Anion Gap 7 BUN 17 Creatinine 1.67 H Estimated GFR 50 L Random Glucose 81 Calcium 8.2 L Total Bilirubin 0.6 AST 33 ALT 27 Alkaline Phosphatase 146 H Lactate Dehydrogenase 310 H Troponin I Less than 0.02 L Total Protein 7.9 Albumin 3.2 L Urine Color Yellow Urine Clarity Hazy H Urine pH 7.0 Ur Specific [place] 1.008 Urine Protein Negative Urine Glucose (UA) 50 Urine Ketones Negative Urine Occult Blood Small H Urine Nitrate Negative Urine Bilirubin Negative Urine Urobilinogen Less than 2 Ur Leukocyte Esterase Negative Urine RBC 2 Urine WBC Less than 1 Ur Squamous Epith Cells 1 Hyaline Casts 20 Micro UA Comment Culture not ind Urine Culture Comments Culture not ind - Imaging Impressions Chest X-Ray 04/26/18 14:20 CONCLUSION: COPD No evidence of acute cardiopulmonary process. Sided granulomatous calcification. Head CT 04/26/18 14:35 CONCLUSION: 1. No acute intracranial abnormalities. No abnormal enhancement postcontrast. Caprini VTE Risk Assessment Caprini VTE Risk Assessment: No/Low Risk (score <= 1) Caprini Risk Assessment Model: Point Value = 1 Point Value = 2 Point Value = 3 Point Value = 5 Age 41-60 Minor surgery BMI > 25 kg/m2 Swollen legs Varicose veins or History of unexplained or recurrent spontaneous Oral contraceptives or hormone replacement Sepsis (< 1 month) Serious lung disease, including pneumonia (< 1 month) Abnormal pulmonary function Acute myocardial infarction Congestive heart failure (< 1 month) History of inflammatory bowel disease Medical patient at bed rest Age 61-74 Arthroscopic surgery Major open surgery (> 45 min) Laparoscopic surgery (> 45 min) Malignancy Confined to bed (> 72 hours) Immobilizing plaster cast Central venous access Age >= 75 History of VTE Family history of VTE Factor V Leiden Prothrombin [id number] Lupus anticoagulant Anticardiolipin antibodies Elevated serum homocysteine Heparin-induced thrombocytopenia Other congenital or acquired thrombophilia Stroke (< 1 month) Elective arthroplasty Hip, pelvis, or leg fracture Acute spinal cord injury (< 1 month) Prophylaxis Regimen: Total Risk Factor Score Risk Level Prophylaxis Regimen 0-1 Low Early ambulation 2 Moderate Order ONE of the following: *Sequential Compression Device (SCD) *Heparin 5000 units SQ BID 3-4 Higher Order ONE of the following medications: *Heparin 5000 units SQ TID *Enoxaparin/Lovenox 40 mg SQ daily (WT < 150 kg, CrCl > 30 mL/min) *Enoxaparin/Lovenox 30 mg SQ daily (WT < 150 kg, CrCl > 10-29 mL/min) *Enoxaparin/Lovenox 30 mg SQ BID (WT < 150 kg, CrCl > 30 mL/min) AND/OR *Sequential Compression Device (SCD) 5 or more Highest Order ONE of the following medications: *Heparin 5000 units SQ TID (Preferred with Epidurals) *Enoxaparin/Lovenox 40 mg SQ daily (WT < 150 kg, CrCl > 30 mL/min) *Enoxaparin/Lovenox 30 mg SQ daily (WT < 150 kg, CrCl > 10-29 mL/min) *Enoxaparin/Lovenox 30 mg SQ BID (WT < 150 kg, CrCl > 30 mL/min) AND *Sequential Compression Device (SCD) Assessment and Plan - Plan 1. Acute Metabolic Encephalopathy probable secondary to Dehydration, the patient is frail and Cachectic, will follow laboratory and complete workup and if no pathology found discharge in am tomorrow after Rejogger evaluation, also he abuses multiple substances, alcohol, Tobacco, Crack cocaine and not eating properly 2. Tobacco dependence Strongly recommended to stop smoking 3. HIV by history will need follow up as outpatient. 4. Alcohol abuse strongly recommended to stop drinking alcohol 5. Crack cocaine abuse strongly recommended to stop abusing this substance 6. History of Stomach Cancer by history 7. Acute Kidney injury pre renal will continue IV fluids and follow in am tomorrow. 8. COPD seen on CXR 9. Hepatitis C treated as per patient. DVT prophylaxis with Heparin 5000 unit every 12 hours. Code Status: Full Code. Discussed Condition With: Patient, and his relative in the room and ER physician. Discharge Planning: once workup complete and renal function improving.
[2018-04-26] MEDS ORDERED: Acetaminophen 325 MG Tablet PO PRN (17:52)
[2018-04-26] MEDS ORDERED: Bisacodyl 10 MG Supp RECTAL PRN (17:52)
[2018-04-26] MEDS: Heparin - SQ 10,000 UNITS/ML Vial SQ SCH (18:02)
[2018-04-26] MEDS ORDERED: LORazepam 1 MG Tablet PO PRN (18:02)
[2018-04-26] MEDS: Sod Chloride 0.9% Inj 1,000 ML IV.CONT SCH (18:02)
--- NOTE | 2018-04-26 18:51 | US ---
EXAM DATE: 04/26/2018 6:45 PM EDT AGE/SEX: 68 years / Male INDICATIONS: Weakness. CLINICAL DATA: This is the patient's subsequent encounter. Patient reports that signs and symptoms h ave been present for 1 day and indicates a pain score of 0/10. MEDICAL/SURGICAL HISTORY: Hypertension. Alcohol abuse. Gastric cancer. HIV. Tobacco use. None. COMPARISON: [facility] – [place] CAR[place], [place]2016. . VELOCITY PARAMETERS: ICA/CCA Ratio: Right 0.9 , Left 0.8 ICA: Right 70.7 cm/sec, Left 86.2 cm/sec CCA: Right 79.8 cm/sec, Left 105.9 cm/sec ECA: Right 97.9 cm/sec, Left 82.4 cm/sec Vertebral: Right 47.6 cm/sec antegrade, Left 52.9 cm/sec antegrade FINDINGS: Right Carotid: Mild scattered plaque seen of the common carotid artery. There is moderate plaque of the bulb and proximal internal carotid artery with 30% or less narrowing.The waveforms are within nor mal limits. Left Carotid: Mild scattered plaque seen of the common carotid artery. There is moderate plaque in t he bulb and proximal internal carotid artery with 30% or less narrowing. The waveforms are within nor mal limits. Other: None. CONCLUSION: 1. Right Internal Carotid Artery: Mild to moderate atherosclerosis as above. No hemodynamically sign ificant narrowing. 2. Left Internal Carotid Artery: Mild to moderate atherosclerosis as above. No hemodynamically signi ficant narrowing. Electronically signed by: Duncan Reilly MD 04/26/2018 6:49 PM EDT
[2018-04-26 18:55] LABS: Chol/HDL Ratio 2.3 Ratio; HDL Cholesterol 55.9 mg/dL (40.0-60.0)
[2018-04-26] MEDS: guaiFENesin 600 MG ER Tablet PO SCH (21:12)
[2018-04-26] MEDS: Senna/Docusate Sodium 8.6/50 MG Tablet PO SCH (21:12)
[2018-04-26 22:50] LABS: Baso # (Auto) 0.1 th/mm3 (0.0-0.2); Eos # (Auto) 0.1 th/mm3 (0.0-0.4); Eos % (Auto) 0.9 % (0.0-4.0); Hematocrit 35.5 % (39.0-51.0); Hemoglobin 11.6 gm/dL (13.0-17.0); Lymph # (Auto) 1.5 th/mm3 (1.0-4.8); Lymph % (Auto) 18.9 % (9.0-44.0); Mean Corpuscular HGB Conc 32.6 % (32.0-36.0); Mean Corpuscular Hemoglobin 28.6 pg (27.0-34.0); Mean Corpuscular Volume 87.6 fL (80.0-100.0); Mean Platelet Volume 8.1 fL (7.0-11.0); Mono # (Auto) 0.9 th/mm3 (0.0-0.9); Mono % (Auto) 11.4 % (0.0-8.0); Neut # (Auto) 5.3 th/mm3 (1.8-7.7); Neut % (Auto) 67.8 % (16.0-70.0); Platelet Count 340 th/mm3 (150-450); Red Blood Count 4.05 mil/mm3 (4.50-5.90); Red Cell Distribution Width 16.2 % (11.6-17.2); White Blood Count 7.8 th/mm3 (4.0-11.0)
[2018-04-26 23:25] LABS: Creatine Kinase 76 U/L (39-308)
[2018-04-27] MEDS: Heparin - SQ 10,000 UNITS/ML Vial SQ SCH ×3 (02:58→18:15)
[2018-04-27] MEDS: Sod Chloride 0.9% Inj 1,000 ML IV.CONT SCH (04:50)
[2018-04-27] MEDS: Senna/Docusate Sodium 8.6/50 MG Tablet PO SCH ×2 (08:24→20:47)
[2018-04-27] MEDS: ELVITEG COB EMTRI TENOF ALAFEN PO SCH (08:24)
[2018-04-27] MEDS: guaiFENesin 600 MG ER Tablet PO SCH ×2 (08:24→20:47)
--- NOTE | 2018-04-27 08:50 | ECG ---
Date Performed: 04/26/2018 Time Performed: 14:07:34 PTAGE: 68 years EKG: Sinus rhythm NONSPECIFIC T-WAVE ABNORMALITY BORDERLINE ECG PREVIOUS TRACING : 09/24/2017 23.11 DOCTOR: Etienne Grijalva Interpretating Date/Time 04/27/2018 08:49:55
[2018-04-27] MEDS ORDERED: VIT D3 FOLIC ACID B2 B6 B12 PO SCH (09:00)
[2018-04-27 09:02] LABS: Anion Gap 5 meq/L (5-15); Blood Urea Nitrogen 15 mg/dL (7-18); Calcium 8.4 mg/dL (8.5-10.1); Carbon Dioxide 25.6 meq/L (21.0-32.0); Chloride 112 meq/L (98-107); Glomerular Filtration Rate Greater Than 89 mL/min (>89); Glucose,Random 87 mg/dL (74-106); Sodium 143 meq/L (136-145)
[2018-04-27 09:08] LABS: Creatine Kinase 70 U/L (39-308)
[2018-04-27 10:54] LABS: Amphetamine Screen,Urine Neg (Neg); Barbiturate Screen,Urine Neg (Neg); Cannabinoid Screen,Urine Neg (Neg); Cocaine Screen,Urine Pos (Neg)
[2018-04-27 11:12] LABS: Opiate Screen,Urine Neg (Neg)
[2018-04-27 12:54] LABS: Hemoglobin A1c 6.3 % (4.3-6.0)
[2018-04-27] MEDS ORDERED: LORazepam 1 MG Tablet PO PRN (15:55)
[2018-04-27] MEDS ORDERED: Haloperidol Inj 5 MG/ML Ampul IV.PUSH PRN (15:55)
--- NOTE | 2018-04-27 16:00 | P.PN ---
Subjective Interval history: Follow up for episode of confusion. Patient seen around 10am today. He reports feeling better, back to his baseline. He denies any further episodes of confusion. Denies any headache, visual changes, lightheadedness, dizziness, unilateral numbness/weakness, chest pain, shortness breath, or abdominal complaints. Physical Exam Vital signs: Vital Signs 04/26/18 16:03 04/26/18 20:00 04/26/18 23:48 Temperature 98.6 F 98.3 F Pulse Rate 85 78 70 Respiratory Rate 18 Blood Pressure 114/75 111/61 112/68 Pulse Oximetry 95 97 99 04/27/18 03:23 04/27/18 07:58 04/27/18 12:00 Temperature 98.5 F 98.4 F 98.5 F Pulse Rate 72 71 71 Respiratory Rate 16 Blood Pressure 109/66 125/73 132/76 Pulse Oximetry 97 95 99 Intake & Output 04/26/18 04/27/18 04/27/18 18:59 06:59 18:59 Intake Total 1999 1000 / 1000 Balance 1999 1000 / 1000 Weight 50.802 kg Intake: IV 1999 1000 / 1000 NS Inj 1,000 ML @ 100 mls/hr IV 1000 / 1000 1000 / 1000 .CONT .Q10H AZRA Rx#:[id number] NS Inj 1,000 ML @ Wide Open IV. 1000 / 1000 SIG BOLUS ONE Rx#:[id number] Other: # Voids 2 Date of Last Bowel Movement 04/26/18 Narrative: GENERAL: Thin AA male patient in [facility]. SKIN: Warm and dry. No rash. HEENT: Normocephalic. Atraumatic. Pupils equal and round. Mucous membranes pink and moist. NECK: Supple. Trachea midline. CARDIOVASCULAR: Regular rate and rhythm. No murmur appreciated. RESPIRATORY: No accessory muscle use. Clear to auscultation. Breath sounds equal bilaterally. GASTROINTESTINAL: Abdomen soft, non-tender, nondistended. Normoactive bowel sounds x4. MUSCULOSKELETAL: No obvious deformities. Extremities without clubbing, cyanosis , or edema. NEUROLOGICAL: Awake and alert. No obvious cranial nerve deficits. 5/5 strength in bilateral upper and lower extremities. Normal speech. PSYCHIATRIC: Appropriate mood and affect; insight and judgment normal. Results - Labs CBC & Chem 7: 04/26/18 22:28 04/27/18 08:18 Laboratory Results - last 24 hr 04/26/18 04/26/18 04/26/18 14:33 14:33 14:33 WBC RBC Hgb Hct MCV MCH MCHC RDW Plt Count MPV Neut % (Auto) Lymph % (Auto) [place] % (Auto) Eos % (Auto) Baso % (Auto) Neut # (Auto) Lymph # (Auto) [place] # (Auto) Eos # (Auto) Baso # (Auto) WBC Differential Differential Comment Sodium 137 Potassium 4.7 Chloride 106 Carbon Dioxide 24.5 Anion Gap 7 BUN 17 Creatinine 1.67 H Estimated GFR 50 L Random Glucose 81 Hemoglobin A1c 6.3 H Calcium 8.2 L Total Bilirubin 0.6 AST 33 ALT 27 Alkaline Phosphatase 146 H Lactate Dehydrogenase 310 H Total Creatine Kinase Troponin I Less than 0.02 L Total Protein 7.9 Albumin 3.2 L Triglycerides Cholesterol LDL Cholesterol, Calc HDL Cholesterol Cholesterol/HDL Ratio Vitamin B12 TSH 1.620 Cancelled Urine Color Urine Clarity Urine pH Ur Specific [place] Urine Protein Urine Glucose (UA) Urine Ketones Urine Occult Blood Urine Nitrate Urine Bilirubin Urine Urobilinogen Ur Leukocyte Esterase Urine RBC Urine WBC Ur Squamous Epith Cells Hyaline Casts Micro UA Comment Urine Culture Comments Urine Opiates Screen Ur Barbiturates Screen Ur Amphetamines Screen U Benzodiazepines Scrn Urine Cocaine Screen U Cannabinoids Screen 04/26/18 04/26/18 04/26/18 14:33 15:22 22:28 WBC 7.8 RBC 4.05 L Hgb 11.6 L Hct 35.5 L MCV 87.6 MCH 28.6 MCHC 32.6 RDW 16.2 Plt Count 340 MPV 8.1 Neut % (Auto) 67.8 Lymph % (Auto) 18.9 [place] % (Auto) 11.4 H Eos % (Auto) 0.9 Baso % (Auto) 1.0 Neut # (Auto) 5.3 Lymph # (Auto) 1.5 [place] # (Auto) 0.9 Eos # (Auto) 0.1 Baso # (Auto) 0.1 WBC Differential . Differential Comment Auto diff final Sodium Potassium Chloride Carbon Dioxide Anion Gap BUN Creatinine Estimated GFR Random Glucose Hemoglobin A1c Calcium Total Bilirubin AST ALT Alkaline Phosphatase Lactate Dehydrogenase Total Creatine Kinase Troponin I Total Protein Albumin Triglycerides 93 Cholesterol 129 LDL Cholesterol, Calc 55 HDL Cholesterol 55.9 Cholesterol/HDL Ratio 2.30 Vitamin B12 448 TSH Urine Color Yellow Urine Clarity Hazy H Urine pH 7.0 Ur Specific [place] 1.008 Urine Protein Negative Urine Glucose (UA) 50 Urine Ketones Negative Urine Occult Blood Small H Urine Nitrate Negative Urine Bilirubin Negative Urine Urobilinogen Less than 2 Ur Leukocyte Esterase Negative Urine RBC 2 Urine WBC Less than 1 Ur Squamous Epith Cells 1 Hyaline Casts 20 Micro UA Comment Culture not ind Urine Culture Comments Culture not ind Urine Opiates Screen Ur Barbiturates Screen Ur Amphetamines Screen U Benzodiazepines Scrn Urine Cocaine Screen U Cannabinoids Screen 04/26/18 04/27/18 04/27/18 22:28 08:18 08:18 WBC RBC Hgb Hct MCV MCH MCHC RDW Plt Count MPV Neut % (Auto) Lymph % (Auto) [place] % (Auto) Eos % (Auto) Baso % (Auto) Neut # (Auto) Lymph # (Auto) [place] # (Auto) Eos # (Auto) Baso # (Auto) WBC Differential Differential Comment Sodium 143 Potassium 4.0 Chloride 112 H Carbon Dioxide 25.6 Anion Gap 5 BUN 15 Creatinine 0.98 Estimated GFR Greater than 89 Random Glucose 87 Hemoglobin A1c Calcium 8.4 L Total Bilirubin AST ALT Alkaline Phosphatase Lactate Dehydrogenase Total Creatine Kinase 76 70 Troponin I Less than 0.02 L Less than 0.02 L Total Protein Albumin Triglycerides Cholesterol LDL Cholesterol, Calc HDL Cholesterol Cholesterol/HDL Ratio Vitamin B12 TSH Urine Color Urine Clarity Urine pH Ur Specific [place] Urine Protein Urine Glucose (UA) Urine Ketones Urine Occult Blood Urine Nitrate Urine Bilirubin Urine Urobilinogen Ur Leukocyte Esterase Urine RBC Urine WBC Ur Squamous Epith Cells Hyaline Casts Micro UA Comment Urine Culture Comments Urine Opiates Screen Ur Barbiturates Screen Ur Amphetamines Screen U Benzodiazepines Scrn Urine Cocaine Screen U Cannabinoids Screen 04/27/18 10:20 WBC RBC Hgb Hct MCV MCH MCHC RDW Plt Count MPV Neut % (Auto) Lymph % (Auto) [place] % (Auto) Eos % (Auto) Baso % (Auto) Neut # (Auto) Lymph # (Auto) [place] # (Auto) Eos # (Auto) Baso # (Auto) WBC Differential Differential Comment Sodium Potassium Chloride Carbon Dioxide Anion Gap BUN Creatinine Estimated GFR Random Glucose Hemoglobin A1c Calcium Total Bilirubin AST ALT Alkaline Phosphatase Lactate Dehydrogenase Total Creatine Kinase Troponin I Total Protein Albumin Triglycerides Cholesterol LDL Cholesterol, Calc HDL Cholesterol Cholesterol/HDL Ratio Vitamin B12 TSH Urine Color Urine Clarity Urine pH Ur Specific [place] Urine Protein Urine Glucose (UA) Urine Ketones Urine Occult Blood Urine Nitrate Urine Bilirubin Urine Urobilinogen Ur Leukocyte Esterase Urine RBC Urine WBC Ur Squamous Epith Cells Hyaline Casts Micro UA Comment Urine Culture Comments Urine Opiates Screen Neg Ur Barbiturates Screen Neg Ur Amphetamines Screen Neg U Benzodiazepines Scrn Neg Urine Cocaine Screen Pos H U Cannabinoids Screen Neg Microbiology 04/26/18 14:23 Blood - Peripheral Aerobic Blood Culture - Preliminary No growth in 1 day 04/26/18 14:23 Blood - Peripheral Anaerobic Blood Culture - Preliminary No growth in 1 day 04/26/18 14:33 Blood - Peripheral Aerobic Blood Culture - Preliminary No growth in 1 day 04/26/18 14:33 Blood - Peripheral Anaerobic Blood Culture - Preliminary No growth in 1 day - Imaging Impressions Carotid Doppler Study 04/26/18 00:00 CONCLUSION: 1. Right Internal Carotid Artery: Mild to moderate atherosclerosis as above. No hemodynamically significant narrowing. 2. Left Internal Carotid Artery: Mild to moderate atherosclerosis as above. No hemodynamically significant narrowing. Chest X-Ray 04/26/18 14:20 CONCLUSION: COPD No evidence of acute cardiopulmonary process. Sided granulomatous calcification. Head CT 04/26/18 14:35 CONCLUSION: 1. No acute intracranial abnormalities. No abnormal enhancement postcontrast. Assessment and Plan - Plan 68-year-old male with history of stomach cancer status post partial gastrectomy , HIV, alcohol abuse, current cocaine use, tobacco use, presents with an episode of disorientation/confusion Acute encephalopathy: Suspect multifactorial- metabolic secondary to dehydration , and toxic secondary to crack cocaine abuse. -Head CT reviewed, no acute findings -UDS positive for cocaine -Afebrile, no leukocytosis, urinalysis and chest x-ray with no signs of infection -Blood cultures with no growth today -ACS ruled out with negative serial cardiac enzymes -Give IV fluid hydration -Neurochecks -Monitor on telemetry -Check echocardiogram -Patient appears back to baseline, no further episodes CANDACE: Creatinine 1.67. Suspect prerenal secondary to dehydration and drug abuse -Given IV fluid hydration -Avoid nephrotoxins -Repeat BMP shows improvement, creatinine 0.98, resolved Alcohol/tobacco/crack cocaine abuse: Acute. UDS positive for cocaine. -Thoroughly counseled on cessation -Thiamine/folate/multivitamin -[facility] protocol -Monitor for withdrawal HIV/Hepatitis: reported in history -needs to follow up as outpatient with PCP/health department Protein-Calorie Malnutrition with hx of Stomach Cancer: s/p partial gastrectomy -BMI 17, with cachexia on exam -Consult sod stripper -Added Ensure tid All other medical conditions stable, monitor. DVT Prophylaxis: Heparin sq Discharge Planning: Awaiting echo. Possible discharge tomorrow 04/28.
[2018-04-27] MEDS: Multivitamin/Minerals Therapeutic Tablet PO SCH (16:23)
[2018-04-27] MEDS: Folic Acid 1 MG Tablet PO SCH (16:23)
[2018-04-28] MEDS: Heparin - SQ 10,000 UNITS/ML Vial SQ SCH ×2 (03:07→10:37)
[2018-04-28] MEDS: ELVITEG COB EMTRI TENOF ALAFEN PO SCH (10:35)
[2018-04-28] MEDS: guaiFENesin 600 MG ER Tablet PO SCH (10:36)
[2018-04-28] MEDS: Folic Acid 1 MG Tablet PO SCH (10:37)
[2018-04-28] MEDS: Senna/Docusate Sodium 8.6/50 MG Tablet PO SCH (10:37)
[2018-04-28] MEDS: Multivitamin/Minerals Therapeutic Tablet PO SCH (10:37)
--- NOTE | 2018-04-28 11:43 | ECHRPT ---
Indication: Cardiomyopathy CONCLUSIONS The left ventricular systolic function is low normal with an estimated ejection fraction in the rang e of 50- 55%. Wall thickness is normal. Normal left ventricular size. Aortic valve sclerosis is present. BP: / HR: Rhythm: Sinus MEASUREMENTS (Male / Female) Normal Values Technical Quality:Fair 2D ECHO LV Diastolic Diameter PLAX 4.4 cm 4.2 - 5.9 / 3.9 - 5.3 cm LV Systolic Diameter PLAX 3.5 cm IVS Diastolic Thickness 0.8 cm 0.6 - 1.0 / 0.6 - 0.9 cm LVPW Diastolic Thickness 0.8 cm 0.6 - 1.0 / 0.6 - 0.9 cm LV Relative Wall Thickness 0.4 RV Internal Dim ED PLAX 2.6 cm LVOT Diameter 2.0 cm LA Systolic Diameter LX 2.6 cm 3.0 - 4.0 / 2.7 - 3.8 cm M-MODE Aortic Root Diameter MM 2.5 cm LA Systolic Diameter MM 2.6 cm LA Ao Ratio MM 1.0 AV Cusp Separation MM 1.8 cm DOPPLER AV Peak Velocity 103.0 cm/s AV Peak Gradient 4.2 mmHg LVOT Peak Velocity 72.1 cm/s LVOT Peak Gradient 2.1 mmHg AV Area Cont Eq pk 2.2 cm MV Area PHT 2.9 cm Mitral E Point Velocity 70.1 cm/s Mitral A Point Velocity 48.9 cm/s Mitral E to A Ratio 1.4 LV E' Lateral Velocity 10.1 cm/s Mitral E to LV E' Lateral Ratio 6.9 LV E' Septal Velocity 11.5 cm/s Mitral E to LV E' Septal Ratio 6.1 FINDINGS LEFT VENTRICLE The left ventricular systolic function is low normal with an estimated ejection fraction in the rang e of 50- 55%. Wall thickness is normal. Normal left ventricular size. RIGHT VENTRICLE Normal right ventricular size and systolic function. LEFT ATRIUM The left atrial size is normal. RIGHT ATRIUM The right atrial size is normal. ATRIAL SEPTUM Normal atrial septal thickness without atrial level shunting by limited color doppler interrogation. AORTA The aortic root and proximal ascending aorta are normal in size on limited imaging. MITRAL VALVE Structurally normal mitral valve. No mitral valve stenosis or regurgitation. AORTIC VALVE Trileaflet aortic valve. Aortic valve sclerosis is present. TRICUSPID VALVE Structurally normal tricuspid valve. No tricuspid valve stenosis or regurgitation. PULMONARY VALVE No pulmonary valve regurgitation or stenosis. VESSELS The inferior vena cava is normal in size. PERICARDIUM No pericardial effusion. Kurtis Lyn MD (Electronically Signed) Final Date:28 April 2018 11:41
--- NOTE | 2018-04-28 14:19 | P.PN ---
Subjective Interval history: Follow-up for episode of confusion. Patient reports feeling back to normal today. He denies any headache, lightheadedness, dizziness, chest pain, palpitations, shortness breath, or abdominal complaints. He admits to using crack cocaine. Thoroughly discussed cessation from all drugs, patient verbalized understanding. Encourage oral hydration after discharge. Physical Exam Vital signs: Vital Signs 04/27/18 16:00 04/27/18 19:49 04/27/18 20:00 Temperature 98.8 F 101.2 F H 100.8 F H Pulse Rate 72 75 Respiratory Rate 16 18 Blood Pressure 136/72 137/72 Pulse Oximetry 98 97 04/27/18 23:42 04/28/18 00:00 04/28/18 03:43 Temperature 99.9 F H 99.2 F Pulse Rate 82 82 80 Respiratory Rate 18 18 Blood Pressure 141/74 H 154/79 H Pulse Oximetry 97 96 04/28/18 04:00 04/28/18 07:57 04/28/18 12:00 Temperature 98.0 F 98.7 F Pulse Rate 77 76 75 Respiratory Rate 16 16 Blood Pressure 139/75 150/82 H Pulse Oximetry 96 96 Intake & Output 04/27/18 04/28/18 04/28/18 18:59 06:59 18:59 Intake Total 1000 / 1000 480 / 480 Output Total 1400 / 1400 600 / 600 Balance -400 / -400 -120 / -120 Intake: IV 1000 / 1000 NS Inj 1,000 ML @ 100 mls/hr IV 1000 / 1000 .CONT .Q10H AZRA Rx#:[id number] Oral 480 / 480 Output: Urine 1400 / 1400 600 / 600 Other: Date of Last Bowel Movement 04/27/18 # Bowel Movements 0 Narrative: GENERAL: Thin AA male patient in [facility]. SKIN: Warm and dry. No rash. HEENT: Normocephalic. Atraumatic. Pupils equal and round. Mucous membranes pink and moist. CARDIOVASCULAR: Regular rate and rhythm. No murmur appreciated. RESPIRATORY: No accessory muscle use. Clear to auscultation. Breath sounds equal bilaterally. GASTROINTESTINAL: Abdomen soft, non-tender, nondistended. Normoactive bowel sounds x4. MUSCULOSKELETAL: No obvious deformities. Extremities without clubbing, cyanosis , or edema. NEUROLOGICAL: Awake and alert. No obvious cranial nerve deficits. 5/5 strength in bilateral upper and lower extremities. Normal speech. PSYCHIATRIC: Appropriate mood and affect; insight and judgment normal. Results - Labs CBC & Chem 7: 04/26/18 22:28 04/27/18 08:18 Microbiology 04/26/18 14:23 Blood - Peripheral Aerobic Blood Culture - Preliminary No growth in 2 days 04/26/18 14:23 Blood - Peripheral Anaerobic Blood Culture - Preliminary No growth in 2 days 04/26/18 14:33 Blood - Peripheral Aerobic Blood Culture - Preliminary No growth in 2 days 04/26/18 14:33 Blood - Peripheral Anaerobic Blood Culture - Preliminary No growth in 2 days - Imaging Carotid Doppler Study 04/26/18 00:00 CONCLUSION: 1. Right Internal Carotid Artery: Mild to moderate atherosclerosis as above. No hemodynamically significant narrowing. 2. Left Internal Carotid Artery: Mild to moderate atherosclerosis as above. No hemodynamically significant narrowing. Chest X-Ray 04/26/18 14:20 CONCLUSION: COPD No evidence of acute cardiopulmonary process. Sided granulomatous calcification. Head CT 04/26/18 14:35 CONCLUSION: 1. No acute intracranial abnormalities. No abnormal enhancement postcontrast. Assessment and Plan - Plan 68-year-old male with history of stomach cancer status post partial gastrectomy , HIV, alcohol abuse, current cocaine use, tobacco use, presents with an episode of disorientation/confusion Acute encephalopathy: Suspect multifactorial- metabolic secondary to dehydration , and toxic secondary to crack cocaine abuse. -Head CT reviewed, no acute findings -UDS positive for cocaine -Afebrile, no leukocytosis, urinalysis and chest x-ray with no signs of infection -Blood cultures with no growth to date -ACS ruled out with negative serial cardiac enzymes -Give IV fluid hydration -Neurochecks -Monitor on telemetry -Echocardiogram unremarkable with EF 5055% -PT consulted, no PT needed at discharge -Patient appears back to baseline, no further episodes, strongly suspect episode secondary to crack cocaine use, thoroughly counseled on cessation CANDACE: Creatinine 1.67. Suspect prerenal secondary to dehydration and drug abuse -Given IV fluid hydration -Avoid nephrotoxins -Repeat BMP shows improvement, creatinine 0.98, resolved Alcohol/tobacco/crack cocaine abuse: Acute. UDS positive for cocaine. -Thoroughly counseled on cessation -Thiamine/folate/multivitamin -[facility] protocol -Monitor for withdrawal HIV/Hepatitis: reported in history -needs to follow up as outpatient with PCP -Continue home meds Protein-Calorie Malnutrition with hx of Stomach Cancer: s/p partial gastrectomy -BMI 17, with cachexia on exam -Consult [employer] portal developer -Added Ensure tid All other medical conditions stable, monitor. DVT Prophylaxis: Heparin sq Discharge Planning: Discharge patient to home Condition on discharge: Stable Heart Healthy Diet as tolerated Ad Abby activity Rx written: no new meds Follow-up with primary care physician within 1 week
== END 2018-04-28 17:28 | disposition home or self-care (01) ==
LOC: NEDA 13:50 → NEPC 13:50 → NEPGCP 13:50
PROVIDERS: ADMIT Hospitalist; ATTEND Hospitalist
DX: N17.9 Acute kidney failure, unspecified; R55 Syncope and collapse; Z90.3 Acquired absence of stomach [part of]; F14.10 Cocaine abuse, uncomplicated; R06.02 Shortness of breath; G93.41 Metabolic encephalopathy; E83.51 Hypocalcemia; F17.210 Nicotine dependence, cigarettes, uncomplicated; I95.9 Hypotension, unspecified; B20 Human immunodeficiency virus [HIV] disease; R79.89 Other specified abnormal findings of blood chemistry; R42 Dizziness and giddiness; I35.0 Nonrheumatic aortic (valve) stenosis; R41.0 Disorientation, unspecified; E86.0 Dehydration; J44.9 Chronic obstructive pulmonary disease, unspecified; R51 Headache; Z85.028 Personal history of other malignant neoplasm of stomach; E87.8 Other disorders of electrolyte and fluid balance, not elsewhere classified